=== PATIENT | female | born 1950 | race Caucasian/White ===

== ENCOUNTER 2016-12-24 12:23 | Inpatient (IN) | payer MEDICARE, OTHER ==
[2016-12-24] VITALS (33 sets, daily range): BP systolic 81–152; BP diastolic 46–76; PULSE 89–104; RESP 0–34; TEMP 98.2–98.4; O2SAT 82–100; Ht 167.6 cm; Wt 140.6 kg
[~2016-12-24] VITALS: Ht 167.6 cm; Wt 140.6 kg
[~2016-12-24 12:23] MED LIST: ATOR10TA64 PO; CEPH-583 PO; DOCU100C PO; DULO60CA25 PO; FERR-70 PO; FURO40TA5 PO; GABA-338 PO; HYDR-3989 PO; HYDR-4246 PO; INSU100V SQ; INSU100V8 SQ; LIRA0.6P SQ; LISI10TA7 PO; LOPE2TAB24 PO; MORP-5 PO; OXYB5TAB10 PO; POLY17PO6 PO; POTA-81 PO; ROPI1TAB12 PO; SENN8.6C5 PO; [UNRECOGNIZED DRUG - CODE] PO
--- NOTE | 2016-12-24 12:30 | NUR ---
PROVIDER Rubén GANNON SUPERINTENDENT DRILLING AND PRODUCTION IN TO SEE PATIENT.
--- OUTSIDE RECORDS SUMMARY | 2016-12-24 12:34 | XMS REPORT | Referral Summary ---
Author Author [facility] Organization [facility] Address Unknown Phone Unavailable Care Team Providers Care Keno Attendant Name Role Phone Juventino Galvin Primary Care Physician [phone] Encounter Date(s): 02/17/15 - 02/17/15 [facility] [address] [place], [place] [address] Discharge Disposition: 01-Home or Self Care Attending Physician: Ronni Schwartz MD Admitting Physician: Ronni Schwartz MD Referring Physician: Juaquin Clemente MD Vital Signs Most recent to 1 oldest [Reference Range]: Peripheral Pulse 72 bpm Rate [60-100 bpm] (02/17/15 8:52 AM) Blood Pressure 107/47 mmHg [90-140/60-90 mmHg] (02/17/15 8:52 AM) Problem List Condition Effective Dates Status Health Status Informant Acne(Confirmed) Active Acute Active pain(Confirmed) Allergic Active rhinitis/Hay Fever(Confirmed) Anxiety state, Active unspecified(Confirme d) At risk for activity Active intolerance(Confirme d)1 At risk for Active infection(Confirmed) 2 At risk of pressure Active sore(Confirmed) Back Active problems(Confirmed) Carpal tunnel Active syndrome left(Confirmed) Cervical Active radiculitis(Confirme d) Cervical Active radiculopathy(Confir med) Cervical spondylosis Active with myelopathy(Confirmed ) Constipation(Confirm Active ed) Depression(Confirmed Resolved ) Diabetes(Confirmed) Active Displacement of Active lumbar intervertebral disc without myelopathy (disorder)(Confirmed ) Muscular Active deconditioning(Confi rmed) Fibromyalgia(Confirm Resolved ed) Orthopedic Active aftercare(Confirmed) Orthopedic Active aftercare(Confirmed) Orthopedic Active aftercare(Confirmed) High Active cholesterol(Confirme d) Hyperlipidemia(Confi Resolved rmed) Hypertension(Confirm Resolved ed) Impaired 08/09/14 Active mobility(Confirmed)3 Impaired skin Active integrity(Confirmed) 4 Ear Active infection(Confirmed) Irregular heart Active rhythm(Confirmed) Low back pain Active (finding)(Confirmed) Lumbago(Confirmed) Active Lumbago(Confirmed) Active Lumbosacral Active spondylosis without myelopathy (disorder)(Confirmed ) Morbid Active patient obesity(Confirmed) Cervicalgia(Confirme Active d) Lumbar Active radiculitis(Confirme d) Lumbar Active radiculitis(Confirme d) Osteoarthritis(Confi Active rmed) Overweight(Confirmed Active ) Left lumbar Active radiculitis(Confirme d) Restless leg Active syndrome(Confirmed) Self -care Active deficit(Confirmed)5 Shoulder Active pain(Confirmed) Sinus Active infection(Confirmed) Sleep Active apnea(Confirmed) Spinal stenosis in Active cervical region(Confirmed) Spinal stenosis of Active lumbar region (disorder)(Confirmed ) Lumbar stenosis with Active neurogenic claudication(Confirm ed) Lumbar Active stenosis(Confirmed) Tension Active headache(Confirmed) Thoracic or Active lumbosacral neuritis or radiculitis(Confirme d) Tobacco Active patient user(Confirmed) Type 2 diabetes Resolved mellitus treated with insulin(Confirmed) Chicken Active pox(Confirmed) Difficulty Active walking(Confirmed) 1Problem added automatically by system based on initiation of At Risk for Activity Intolerance Plan of Care 2Problem added automatically by system based on initiation of At Risk for Infection in Nutrition Plan of Care 3Problem added by Discern Expert 4Problem added automatically by system based on initiation of Impaired Skin Integrity Plan of Care 5Problem added automatically by system based on initiation of Self Care Deficit Plan of Care Allergies, Adverse Reactions, Alerts No Known Allergies Medications acetaminophen 325 mg oral tablet mg tabs, Oral, q4hr, 0 Refill(s) Start Date: 06/07/15 Status: Ordered atorvastatin 10 mg oral tablet 10 mg 1 tabs, Oral, Bedtime (once a day), one refill only until seen by new PCP , # 30 tabs, 0 Refill(s), Pharmacy: [facility] [id number], 1 tabs Oral Bedtime (once a day),Instr:one refill only until seen by new PCP Start Date: 06/21/15 Status: Ordered BENGAY Arthritis topical cream See Instructions, APPLY TOPICALLY TO AFFECTED AREAS NEEDED., 0 Refill(s) Start Date: 06/07/15 Status: Ordered DULoxetine 60 mg oral delayed release capsule mg caps, Oral, Daily, 0 Refill(s) Start Date: 06/07/15 Status: Ordered ferrous sulfate 325 mg (65 mg elemental iron) oral tablet mg tabs, Oral, TID, 0 Refill(s) Start Date: 06/07/15 Status: Ordered Flonase 50 mcg/inh nasal spray 50 mcg 1 sprays, Nasal, BID, this fill only until seen by new PCP, # 1 Each, 0 Refill(s), Pharmacy: [facility] [id number] Start Date: 06/21/15 Status: Ordered gabapentin 300 mg oral capsule mg caps, Oral, QID, 0 Refill(s) Start Date: 06/07/15 Status: Ordered HumaLOG KwikPen 100 units/mL subcutaneous solution See Instructions, 25 UNITS SQ WITH MEALS, # 3 mL, 0 Refill(s) Start Date: 06/07/15 Status: Ordered Klor-Con M20 oral tablet, extended release mEq tabs, Oral, Daily, 0 Refill(s) Start Date: 06/07/15 Status: Ordered Lantus Solostar Pen 100 units/mL subcutaneous solution 10 units, SubCutaneous, Bedtime (once a day), # 3 mL, 0 Refill(s) Start Date: 06/07/15 Status: Ordered Lasix 40 mg oral tablet mg tabs, Oral, Daily, 0 Refill(s) Start Date: 06/07/15 Status: Ordered lisinopril 10 mg oral tablet 10 mg 1 tabs, Oral, Daily, this fill only till seen by new pcp, # 30 tabs, 0 Refill(s), Pharmacy: [facility] [id number], 1 tabs Oral Daily,Instr:this fill only till seen by new pcp Start Date: 06/22/15 Status: Ordered loperamide 2 mg oral tablet See Instructions, after each loose stool not to exceed 8 capsules, or 16 mg, in 24 hours, 0 Refill(s) Start Date: 06/07/15 Status: Ordered MiraLax oral powder for reconstitution 17 g, Oral, Daily, dissolve in water before taking, # 527 g, 0 Refill(s) Start Date: 06/07/15 Status: Ordered MS Contin 15 mg/12 hr oral tablet, extended release 15 mg 1 tabs, Oral, Bedtime (once a day), P[facility] FAX TO [facility] [phone], # 30 tabs, 0 Refill(s) Start Date: 08/23/15 Status: Ordered [place] 5 mg-325 mg oral tablet 1 tabs, Oral, q6hr, as needed for pain, FAX TO [facility]. ., # 120 tabs, 0 Refill(s) Start Date: 08/27/15 Status: Ordered oxybutynin 5 mg oral tablet mg tabs, Oral, TID, 0 Refill(s) Start Date: 06/07/15 Status: Ordered rOPINIRole 1 mg oral tablet See Instructions, TAKE 1 TABLET BY MOUTH THREE TIMES DAILY, # 90 tabs, 2 Refill( s), eRx: [facility] [id number], TAKE 1 TABLET BY MOUTH THREE TIMES DAILY Start Date: 06/18/15 Status: Ordered senna 8.6 mg oral tablet 17.2 mg 2 tabs, Oral, Bedtime (once a day), 0 Refill(s) Start Date: 06/07/15 Status: Ordered Skelaxin 800 mg oral tablet 800 mg 1 tabs, Oral, TID, as needed for pain, this rx only till seen by new PCP , # 60 tabs, 0 Refill(s), Pharmacy: [facility] [id number], 1 tabs Oral TID, PRN:as needed for pain,Instr:this rx only till seen by new PCP Start Date: 06/21/15 Stop Date: 06/21/16 Status: Ordered Victoza 18 mg/3 mL subcutaneous solution 1.2 mg, SubCutaneous, Daily, 0 Refill(s) Start Date: 06/07/15 Status: Ordered Vitamin D3 1,000 Intl_Units, Oral, Daily, 0 Refill(s) Start Date: 06/07/15 Status: Ordered Results No data available for this section Immunizations Vaccine Date Refusal Reason influenza virus vaccine, inactivated1 08/01/14 influenza virus vaccine, live 08/07/13 influenza virus vaccine, live 07/17/12 pneumococcal 23-polyvalent vaccine2 08/01/14 1Early/Late Reason: Nursing Judgment 2Early/Late Reason: Nursing Judgment Procedures Procedure Date Related Diagnosis Body Site Fusion Spine Lumbar Posterior1 02/22/15 L1-S1 Central and Lateral Recess 02/22/15 Decompression; L1-S1 Cj Foraminotomies2 Left L4-5/L5-S1 Transforaminal 12/29/14 Left L4-5/L5-S1 Transforaminal 09/24/14 Fusion of spine of cervical region3 08/05/14 Fusion Spine Cervical Anterior and Disce4 08/05/14 Left L4-5/L5-S1 05/26/14 Arthroplasty of knee5 delivery6 section CTR - Carpal tunnel release7 History of sinus surgery Knee replacement L Knee replacement R Reconstructive orthopedic procedure8 Surgery9 Tonsillectomy Total knee [id number] Tubal ligation 1auto-populated from documented surgical case 2L1-S1 Central/Lateral Recess Decompression w/ Cj Foraminotomies (32417); Each Addl (60290 X 5) ICD-9 Codes: 724.02; 724.03; 737.30 PO05/23/2015 3C3-4 ACDF 50642, 32039, 04304, 66543 Post op global ends 11/03/14 4auto-populated from documented surgical case 5bilateral 6x3 7left wrist 8To right hand x9 9Abdominal surgery revisions, multiple 10Rx2, Lx1 Social History Social History Type Response Smoking Status Former smoker; Type: Cigarettes; Number of years: 36 Assessment and Plan No data available for this section
--- OUTSIDE RECORDS SUMMARY | 2016-12-24 12:34 | XMS REPORT | Referral Summary ---
Author Author [facility] Organization [facility] Address Unknown Phone Unavailable Care Team Providers Care Transit Mixer Driver Name Role Phone Juventino Galvin Primary Care Physician [phone] Encounter VC Date(s): 03/29/15 - 03/29/15 [facility] [address] [place] [address] Discharge Disposition: 01-Home or Self Care Attending Physician: Gloria Urban APRN Admitting Physician: Gloria Urban APRN Vital Signs No data available for this section Problem List Condition Effective Dates Status Health [...] , # 30 tabs, 0 Refill(s), Pharmacy: [facility] [id number], 1 tabs Oral Bedtime (once a day),Instr:one [...] PCP, # 1 Each, 0 Refill(s), [facility] [id number] Start Date: 06/21/15 Status: Ordered gabapentin 300 [...] pcp, # 30 tabs, 0 Refill(s), [facility] [address], 1 tabs Oral Daily,Instr:this fill only till [...] Bedtime (once a day), PLEASE FAX TO [facility] [phone], # 30 tabs, 0 Refill(s) Start Date: 09/21/15 Status: Ordered [place] 5 mg-325 mg oral tablet 1 tabs, Oral, q6hr, as needed for pain, FAX TO [facility]. ., # 120 tabs, 0 Refill(s) Start Date: 08/27/15 Status: Ordered oxybutynin 5 mg oral tablet mg tabs, Oral, TID, 0 Refill(s) Start Date: 06/07/15 Status: Ordered rOPINIRole 1 mg oral tablet See Instructions, TAKE 1 TABLET BY MOUTH THREE TIMES DAILY, # 90 tabs, 2 Refill( s), eRx: [facility] [id number], TAKE 1 TABLET BY MOUTH THREE TIMES [...] , # 60 tabs, 0 Refill(s), Pharmacy: [facility] [id number], 1 tabs Oral TID, PRN:as needed for [...] Reconstructive orthopedic procedure8 Surgery9 Tonsillectomy Total knee [id number] Tubal ligation 1auto-populated from documented surgical case 2L1-S1 Central/Lateral Recess Decompression w/ Cj Foraminotomies (63970); Each Addl (91510 X 5) ICD-9 Codes: 724.02; 724.03; 737.30 PO05/23/2015 3C3-4 ACDF 55271, 34896, 98513, 06549 Post op global ends 11/03/14 4auto-populated from documented surgical case 5bilateral 6x3 7left wrist 8To right hand x9 9Abdominal surgery revisions, multiple 10Rx2, Lx1 Social History Social History Type Response Smoking Status Former smoker; Type: Cigarettes; Number of years: 36 Assessment and Plan No data available for this section
--- OUTSIDE RECORDS SUMMARY | 2016-12-24 12:34 | XMS REPORT | Referral Summary ---
Author Organization Unknown Address Unknown Phone Unavailable Care Team Providers Care Interpreter Translator Name Role Phone Juventino Galvin Primary Care Physician [phone] Encounter VC JW [id number] Date(s): 02/17/15 - 02/17/15 [facility] [place] [address] [place], [place] [address] Discharge Disposition: Home or Self Care Attending Physician: Ronni Schwartz MD Admitting Physician: Ronni Schwartz MD Vital Signs No data available for this [...] Muscular Active deconditioning(Confi rmed) Fibromyalgia(Confirm Resolved ed) High Active cholesterol(Confirme d) Hyperlipidemia(Confi Resolved rmed) Hypertension(Confirm Resolved ed) Impaired 08/09/14 Active mobility(Confirmed)3 Impaired skin Active integrity(Confirmed) 4 Ear Active infection(Confirmed) Irregular heart Active rhythm(Confirmed) Low back pain Active (finding)(Confirmed) Lumbago(Confirmed) Active Lumbosacral Active spondylosis without myelopathy (disorder)(Confirmed ) Cervicalgia(Confirme Active d) Lumbar Active radiculitis(Confirme d) Osteoarthritis(Confi Active [...] Allergies Medications acetaminophen 325 mg oral tablet 2 tabs, Oral, q4hr, Other (See Comment), 0 Refill(s) Start Date: 08/13/14 Status: Ordered atorvastatin 10 mg oral tablet 1 tabs, Oral, Bedtime (once a day), # 90 tabs, 0 Refill(s), Pharmacy: [facility] [id number], 1 tabs Oral Bedtime (once a day) Start Date: 09/28/14 Status: Ordered clonazePAM 0.5 mg oral tablet 1 tabs, Oral, BID, 0 Refill(s) Start Date: 02/16/15 Status: Ordered Colace 100 mg oral capsule 1 caps, Oral, BID, 0 Refill(s) Start Date: 08/13/14 Status: Ordered Ditropan 5 mg, Oral, Daily, 0 Refill(s) Start Date: 02/16/15 Status: Ordered doxycycline hyclate 100 mg oral capsule See Instructions, TAKE 1 CAPSULE (100MG) BY ORAL ROUTE EVERY 12 HOURS, # 60 unknown unit, eRx: [facility] [id number], TAKE 1 CAPSULE (100MG) BY ORAL ROUTE EVERY 12 HOURS Special Instructions: TAKE 1 CAPSULE (100MG) BY ORAL ROUTE EVERY 12 HOURS Start Date: 01/19/15 Status: Ordered DULoxetine 60 mg oral delayed release capsule See Instructions, 2 CAPS ORAL DAILY, # 60 caps, 2 Refill(s), Pharmacy: [facility] [id number], 2 CAPS ORAL DAILY Special Instructions: 2 CAPS ORAL DAILY Start Date: 01/26/15 Status: Ordered Effexor XR 75 mg oral capsule, extended release 1 caps, Oral, BID, # 30 caps, 0 Refill(s) Start Date: 02/15/15 Status: Ordered Flonase 50 mcg/inh nasal spray 1 sprays, Nasal, Daily, 0 Refill(s) Start Date: 08/13/14 Status: Ordered gabapentin 600 mg oral tablet 1 tabs, Oral, TID, # 270 tabs, 0 Refill(s), Pharmacy: [facility] [address] , 1 tabs Oral TID Start Date: 12/08/14 Status: Ordered HumaLOG 20 units, SubCutaneous, with dinner, 0 Refill(s) Special Instructions: with dinner Start Date: 02/15/15 Status: Ordered HumaLOG 20 units, SubCutaneous, with breakfast, 0 Refill(s) Special Instructions: with breakfast Start Date: 02/15/15 Status: Ordered HumaLOG 20 units, SubCutaneous, with lunch, 0 Refill(s) Special Instructions: with lunch Start Date: 02/15/15 Status: Ordered insulin isophane (NPH) 100 units/mL human recombinant subcutaneous suspension 30 units, SubCutaneous, BID, # 10 mL, 1 Refill(s), Pharmacy: [facility] [id number], 30 units SubCutaneous BID Start Date: 11/30/14 Status: Ordered Lasix 40 mg oral tablet 1 tabs, Oral, Daily, # 30 tabs, 2 Refill(s), Pharmacy: [facility] [address]79, 1 tabs Oral Daily Start Date: 12/18/14 Status: Ordered lisinopril 10 mg oral tablet 1 tabs, Oral, Daily, # 30 tabs, 2 Refill(s), Pharmacy: [facility] [id number], 1 tabs Oral Daily Start Date: 09/10/14 Status: Ordered MiraLax 17 g, Oral, Daily, Constipation, 0 Refill(s) Start Date: 08/13/14 Status: Ordered Miscellaneous DME DME Item 99-Lifetime use Bariatric Wheelchair with pedals DX: Gait abnormality 781.2 Back Pain: 724.5 Frequent Falls: V15.88, See Instructions, # 1 Each, 0 Refill(s), Supply Special Instructions: 99-Lifetime use Bariatric Wheelchair with pedals DX: Gait abnormality 781.2 Back Pain: 724.5 Frequent Falls: V15.88 Start Date: 08/21/14 Status: Ordered morphine 15 mg/12 hr oral tablet, extended release 1 tabs, Oral, BID, # 60 tabs, 0 Refill(s) Start Date: 01/25/15 Status: Ordered [place] 7.5 mg-325 mg oral tablet 1 tabs, Oral, TID, as needed for pain, # 90 tabs, 0 Refill(s) Start Date: 12/31/14 Status: Ordered potassium chloride 20 mEq oral tablet, extended release 2 tabs, Oral, qPM, # 60 tabs, 0 Refill(s) Start Date: 08/13/14 Status: Ordered rOPINIRole 1 mg oral tablet See Instructions, 1 TABS ORAL TID, # 90 tabs, eRx: [facility] [id number], 1 TABS ORAL TID Special Instructions: 1 TABS ORAL TID Start Date: 01/13/15 Status: Ordered Skelaxin 800 mg oral tablet 1 tabs, Oral, BID, 0 Refill(s) Start Date: 02/15/15 Status: Ordered Zetia 10 mg oral tablet 1 tabs, Oral, Daily, # 90 tabs, 0 Refill(s), Pharmacy: [facility] [id number], 1 tabs Oral Daily Start Date: 09/28/14 Status: Ordered Results No data available for this section Immunizations Vaccine Date Refusal Reason influenza virus vaccine, inactivated1 08/01/14 influenza virus vaccine, live 08/07/13 influenza virus vaccine, live 07/17/12 pneumococcal 23-polyvalent vaccine2 08/01/14 1Early/Late Reason: Nursing Judgment 2Early/Late Reason: Nursing Judgment Procedures Procedure Date Related Diagnosis Body Site Left L4-5/L5-S1 Transforaminal 12/29/14 Left L4-5/L5-S1 Transforaminal 09/24/14 Fusion of spine of cervical region1 08/05/14 Fusion Spine Cervical Anterior and Disce2 08/05/14 Left L4-5/L5-S1 05/26/14 Arthroplasty of knee3 delivery4 section CTR - Carpal tunnel release5 History of sinus surgery Knee replacement L Knee replacement R Reconstructive orthopedic procedure6 Surgery7 Tonsillectomy Total knee arthroplasty8 Tubal ligation 1C3-4 ACDF 42939, 19724, 70060, 56169 Post op global ends 11/03/14 2auto-populated from documented surgical case 3bilateral 4x3 5left wrist 6To right hand x9 7Abdominal surgery revisions, multiple 8Rx2, Lx1 Social History Social History Type Response Smoking Status Former smoker; Type: Cigarettes; Number of years: 36 Assessment and Plan No data available for this section
--- OUTSIDE RECORDS SUMMARY | 2016-12-24 12:34 | XMS REPORT | Referral Summary ---
Author Organization Unknown Address Unknown Phone Unavailable Care Team Providers Care Statement Services Representative Name Role Phone Juventino Galvin Primary Care Physician [phone] Encounter VC [facility]AL[facility] [id number] Date(s): 12/29/14 - 12/29/14 [facility] [place] [address] [place], [place] [address] Discharge Diagnosis: Lumbar back pain Discharge Diagnosis: Preoperative examination, unspecified Discharge Diagnosis: Thoracic or lumbosacral neuritis or radiculitis Discharge Diagnosis: Lumbar stenosis Discharge Disposition: Home or Self Care Attending Physician: Kody Perez MD Admitting Physician: Kody Perez MD Vital Signs Most recent to 1 oldest [Reference Range]: Peripheral Pulse 96 bpm Rate [60-100 bpm] (12/29/14 11:32 AM) Respiratory Rate 14 br/min [14-20 br/min] (12/29/14 11:32 AM) Blood Pressure 173/82 mmHg [90-140/60-90 mmHg] *HI* (12/29/14 11:32 AM) Most recent to 1 oldest [Reference Range]: SpO2 98 % (12/29/14 11:32 AM) Problem List Condition Effective Dates Status [...] without myelopathy (disorder)(Confirmed ) Cervicalgia(Confirme Active d) Osteoarthritis(Confi Active rmed) Overweight(Confirmed Active ) [...] or Active lumbosacral neuritis or radiculitis(Confirme d) Type 2 diabetes Resolved mellitus treated with [...] day), # 90 tabs, 0 Refill(s), Pharmacy: [facility] [address], 1 tabs Oral Bedtime (once a day) Start Date: 09/28/14 Status: Ordered Colace 100 mg oral capsule 1 caps, Oral, BID, 0 Refill(s) Start Date: 08/13/14 Status: Ordered DULoxetine 60 mg oral delayed release capsule See Instructions, 2 CAPS ORAL DAILY, # 60 caps, 2 Refill(s), eRx: [facility] [id number], 2 CAPS ORAL DAILY Special Instructions: 2 CAPS ORAL DAILY Start Date: 09/08/14 Status: Ordered Effexor XR 37.5 mg capsule,extended release See Instructions, TAKE 2 BY ORAL ROUTE EVERY DAY WITH FOOD, # 180 unknown unit, eRx: [facility] [id number], TAKE 2 BY ORAL ROUTE EVERY DAY WITH FOOD Special Instructions: TAKE 2 BY ORAL ROUTE EVERY DAY WITH FOOD Start Date: 10/07/14 Status: Ordered Effexor XR 75 mg oral capsule, extended release 1 caps, Oral, Daily, # 30 caps, 0 Refill(s) Start Date: 08/13/14 Status: Ordered Flonase 50 mcg/inh nasal spray 1 sprays, Nasal, Daily, 0 Refill(s) Start Date: 08/13/14 Status: Ordered gabapentin 600 mg oral tablet 1 tabs, Oral, TID, # 270 tabs, 0 Refill(s), Pharmacy: [facility] [id number] , 1 tabs Oral TID Start Date: 12/08/14 Status: Ordered HumaLOG 100 units/mL subcutaneous solution 27 units, SubCutaneous, With Breakfast, quantity suff on all insuliin, # 3 mL, 0 Refill(s) Special Instructions: quantity suff on all insuliin Start Date: 08/13/14 Status: Ordered HumaLOG 100 units/mL subcutaneous solution 23 units, SubCutaneous, With Lunch and Dinner, quantity suff on all insulin, # 3 mL, 0 Refill(s) Special Instructions: quantity suff on all insulin Start Date: 08/13/14 Stop Date: 09/12/14 Status: Ordered insulin isophane (NPH) 100 units/mL human recombinant subcutaneous suspension 30 units, SubCutaneous, BID, # 10 mL, 1 Refill(s), Pharmacy: [facility] 07341, 30 units SubCutaneous BID Start Date: 11/30/14 Status: Ordered Lantus 100 units/mL subcutaneous solution See Instructions, INJECT 50 UNITS SUBCUTANEOUS TWICE DAILY, # 90 mL, 2 Refill(s) , ALIZA, Pharmacy: [facility] [id number], INJECT 50 UNITS SUBCUTANEOUS TWICE DAILY Special Instructions: INJECT 50 UNITS SUBCUTANEOUS TWICE DAILY Start Date: 10/01/14 Status: Ordered Lasix 40 mg oral tablet 1 tabs, Oral, Daily, # 30 tabs, 2 Refill(s), Pharmacy: [facility] 17296, 1 tabs Oral Daily Start Date: 12/18/14 Status: Ordered lidocaine 5% topical film 1 patches, TransDermal, Daily, # 30 patches, 0 Refill(s) Start Date: 08/13/14 Status: Ordered lisinopril 10 mg oral tablet 1 tabs, Oral, Daily, # 30 tabs, 2 Refill(s), Pharmacy: [facility] 99156, 1 tabs Oral Daily Start Date: 09/10/14 [...] # 60 tabs, 0 Refill(s) Start Date: 12/22/14 Status: Ordered [place] 7.5 mg-325 mg oral tablet 1 tabs, Oral, TID, as needed for pain, # 90 tabs, 0 Refill(s) Start Date: 12/03/14 Status: Ordered potassium chloride 20 mEq oral tablet, extended release 2 tabs, Oral, qPM, # 60 tabs, 0 Refill(s) Start Date: 08/13/14 Status: Ordered rOPINIRole 1 mg oral tablet See Instructions, 1 TABS ORAL TID, # 90 tabs, 1 Refill(s), eRx: [facility] [id number], 1 TABS ORAL TID Special Instructions: 1 TABS ORAL TID Start Date: 11/05/14 Status: Ordered Skelaxin 800 mg oral tablet See Instructions, TAKE .5 -1 TAB. TID PRN MUST LAST 1 MONTH., # 30 tabs, 0 Refill(s), Pharmacy: [facility] [id number], TAKE .5 -1 TAB. TID PRN MUST LAST 1 MONTH. Special Instructions: TAKE .5 -1 TAB. TID PRN MUST LAST 1 MONTH. Start Date: 12/18/14 Stop Date: 01/15/15 Status: Ordered Zetia 10 mg oral tablet 1 tabs, Oral, Daily, # 90 tabs, 0 Refill(s), Pharmacy: [facility] [id number], 1 tabs Oral Daily Start Date: 09/28/14 Status: Ordered Results No data available for this section Immunizations Vaccine Date Refusal Reason influenza virus vaccine, inactivated1 08/01/14 influenza virus vaccine, live 08/07/13 influenza virus vaccine, live 07/17/12 pneumococcal 23-polyvalent vaccine2 08/01/14 1Early/Late Reason: Nursing Judgment 2Early/Late Reason: Nursing Judgment Procedures Procedure Date Related Diagnosis Body Site Injection(s), anesthetic agent and/or 12/29/14 steroid, transforaminal epidural, with imaging guidance (fluoroscopy or CT); lumbar or sacral, each additional level (List separately in addition to code for primary procedure) Injection(s), anesthetic agent and/or 12/29/14 steroid, transforaminal epidural, with imaging guidance (fluoroscopy or CT); lumbar or sacral, single level Left L4-5/L5-S1 Transforaminal 12/29/14 Left L4-5/L5-S1 Transforaminal 09/24/14 Fusion of spine of cervical region1 08/05/14 Fusion Spine Cervical Anterior and Disce2 08/05/14 Left L4-5/L5-S1 05/26/14 Arthroplasty of knee3 delivery4 section CTR - Carpal tunnel release5 History of sinus surgery Knee replacement L Knee replacement R Reconstructive orthopedic procedure6 Surgery7 Tonsillectomy Total knee arthroplasty8 Tubal ligation 1C3-4 ACDF 70055, 09468, 84258, 10757 Post op global ends 11/03/14 2auto-populated from documented surgical case 3bilateral 4x3 5left wrist 6To right hand x9 7Abdominal surgery revisions, multiple 8Rx2, Lx1 Social History Social History Type Response Smoking Status Former smoker; Type: Cigarettes; Number of years: 6 Assessment and Plan No data available for this section
--- OUTSIDE RECORDS SUMMARY | 2016-12-24 12:34 | XMS REPORT | Referral Summary ---
Author Author [facility] Medicine Organization [facility] Address Unknown Phone Unavailable Care Team Providers Care Pulverizer Mill Operator Name Role Phone Juventino Galvin Primary Care Physician [phone] Encounter VC Date(s): 05/31/15 - 05/31/15 [facility] [address] [place] [address] Discharge Disposition: 01-Home or Self Care Attending Physician: Milton Alamo APRN Admitting Physician: Milton Alamo APRN Vital Signs No data available for [...] , # 30 tabs, 0 Refill(s), Pharmacy: [id number], 1 tabs Oral Bedtime (once a day),Instr:one refill only until seen by new PCP Start Date: 11/22/15 Status: Ordered BENGAY Arthritis topical cream See Instructions, APPLY TOPICALLY TO AFFECTED AREAS NEEDED., 0 Refill(s) Start Date: 06/07/15 Status: Ordered Cymbalta 60 mg oral delayed release capsule 120 mg 2 caps, Oral, Daily, # 60 caps, 0 Refill(s), Pharmacy: [facility] [id number], 2 caps Oral Daily Start Date: 11/22/15 Status: Ordered docusate sodium 100 mg oral capsule 200 mg 2 caps, Oral, BID, as needed for constipation, with plenty of water, # 50 caps, 0 Refill(s), Pharmacy: [facility] [id number], 2 caps Oral BID,PRN: as needed for constipation,Instr:with plenty of water Start Date: 11/22/15 Status: Ordered DULoxetine 60 mg oral delayed release capsule mg caps, Oral, Daily, 0 Refill(s) Start Date: 06/07/15 Status: Ordered ferrous sulfate 325 mg (65 mg elemental iron) oral tablet 325 mg 1 tabs, Oral, BID, # 60 tabs, 0 Refill(s), Pharmacy: [facility] [id number], 1 tabs Oral BID Start Date: 11/22/15 Status: Ordered Flonase 50 mcg/inh nasal spray 50 mcg 1 sprays, Nasal, BID, this fill only until seen by new PCP, # 1 Each, 0 Refill(s), Pharmacy: [facility] [id number] Start Date: 06/21/15 Status: Ordered furosemide 40 mg oral tablet 40 mg 1 tabs, Oral, Daily, # 30 tabs, 0 Refill(s), Pharmacy: [facility] [id number], 1 tabs Oral Daily Start Date: 11/22/15 Status: Ordered gabapentin 300 mg oral capsule 600 mg 2 caps, Oral, QID, # 240 caps, 0 Refill(s), Pharmacy: [facility] [id number], 2 caps Oral QID Start Date: 11/22/15 Status: Ordered gabapentin 300 mg oral capsule mg caps, Oral, QID, 0 Refill(s) Start Date: 06/07/15 Status: Ordered HumaLOG KwikPen 100 units/mL subcutaneous solution See Instructions, 25 UNITS SQ WITH MEALS, # 10 mL, 0 Refill(s), Pharmacy: [facility] [id number], 25 UNITS SQ WITH MEALS Start Date: 11/22/15 Status: Ordered Klor-Con M20 oral tablet, extended release 40 mEq 2 tabs, Oral, Daily, # 60 tabs, 0 Refill(s), Pharmacy: [facility] [id number], 2 tabs Oral Daily Start Date: 11/22/15 Status: Ordered Lasix 40 mg oral tablet mg tabs, Oral, Daily, 0 Refill(s) Start Date: 06/07/15 Status: Ordered lisinopril 10 mg oral tablet 10 mg 1 tabs, Oral, Daily, this fill only till seen by new pcp, # 30 tabs, 0 Refill(s), Pharmacy: [facility] [id number], 1 tabs Oral Daily,Instr:this fill only till seen by new pcp Start Date: 11/22/15 Status: Ordered loperamide 2 mg oral tablet See Instructions, after each loose stool not to exceed 8 capsules, or 16 mg, in 24 hours, 0 Refill(s) Start Date: 06/07/15 Status: Ordered loperamide 2 mg oral tablet 2 mg 1 tabs, Oral, q4hr, Diarrhea/Loose Stools, # 24 tabs, 0 Refill(s), Pharmacy : [facility] [id number], 1 tabs Oral q4hr,PRN:Diarrhea/Loose Stools Start Date: 11/22/15 Status: Ordered MiraLax oral powder for reconstitution 17 g 17 g, Oral, Daily, Constipation, dissolve in water before taking, # 12 Each , 0 Refill(s), Pharmacy: [facility] [id number] Start Date: 11/22/15 Status: Ordered MS Contin 15 mg/12 hr oral tablet, extended release 15 mg 1 tabs, Oral, Bedtime (once a day), P[facility] FAX TO [facility] , # 30 tabs, 0 Refill(s) Start Date: 10/19/15 Status: Ordered [place] 5 mg-325 mg oral tablet 1 tabs, Oral, q4hr, as needed for pain, FAX TO [facility]. ., # 180 tabs, 0 Refill(s) Start Date: 11/08/15 Status: Ordered oxybutynin 5 mg oral tablet 5 mg 1 tabs, Oral, TID, # 90 tabs, 0 Refill(s), Pharmacy: [facility] [id number], 1 tabs Oral TID Start Date: 11/22/15 Status: Ordered rOPINIRole 1 mg oral tablet See Instructions, TAKE 1 TABLET BY MOUTH THREE TIMES DAILY, # 90 Each, 0 Refill( s), Pharmacy: [facility] [id number], TAKE 1 TABLET BY MOUTH THREE TIMES DAILY Start Date: 11/22/15 Status: Ordered senna 8.6 mg oral tablet 17.2 mg 2 tabs, Oral, Bedtime (once a day), # 60 tabs, 0 Refill(s), Pharmacy: [facility] [id number], 2 tabs Oral Bedtime (once a day) Start Date: 11/22/15 Status: Ordered Skelaxin 800 mg oral tablet 800 mg 1 tabs, Oral, TID, as needed for pain, this rx only till seen by new PCP , X 30 days, # 90 tabs, 0 Refill(s), Pharmacy: [facility] [id number], 1 tabs Oral TID,x30 days,PRN:as needed for pain,Instr:this rx only till seen by new PCP Start Date: 11/22/15 Stop Date: 12/22/15 Status: Ordered Victoza 18 mg/3 mL subcutaneous solution 1.2 mg, SubCutaneous, Daily, # 15 mL, 0 Refill(s), Pharmacy: [facility] [id number], 1.2 mg SubCutaneous Daily Start Date: 11/22/15 Status: Ordered Vitamin D3 1,000 Intl_Units, Oral, [...] Reconstructive orthopedic procedure8 Surgery9 Tonsillectomy Total knee [id number] Tubal ligation 1auto-populated from documented surgical case 2L1-S1 Central/Lateral Recess Decompression w/ Cj Foraminotomies (32638); Each Addl (08756 X 5) ICD-9 Codes: 724.02; 724.03; 737.30 PO05/23/2015 3C3-4 ACDF 18887, 22540, 26985, 89914 Post op global ends 11/03/14 4auto-populated from documented surgical case 5bilateral 6x3 7left wrist 8To right hand x9 9Abdominal surgery revisions, multiple 10Rx2, Lx1 Social History Social History Type Response Smoking Status Former smoker; Type: Cigarettes; Number of years: 37 Assessment and Plan No data available for this section
--- OUTSIDE RECORDS SUMMARY | 2016-12-24 12:35 | XMS REPORT | Referral Summary ---
Author Author [facility] Medicine Organization [facility] Address Unknown Phone Unavailable Care Team Providers Care Catalyst Recovery Operator Name Role Phone Juventino Galvin Primary Care Physician [phone] Encounter [facility] [id number] Date(s): 05/17/15 - 05/17/15 [facility] [address] [place] [address] Discharge Disposition: 01-Home or Self [...] , # 30 tabs, 0 Refill(s), Pharmacy: [id number], 1 tabs Oral Bedtime (once a day),Instr:one refill only until seen by new PCP Start Date: 11/22/15 Status: Ordered BENGAY Arthritis topical cream See Instructions, APPLY TOPICALLY TO AFFECTED AREAS NEEDED., 0 Refill(s) Start Date: 06/07/15 Status: Ordered Cipro 500 mg oral tablet 500 mg 1 tabs, Oral, q12hr, X 5 days, 0 Refill(s) Start Date: 11/24/15 Stop Date: 11/28/15 Status: Ordered Cymbalta 60 mg oral delayed release capsule 120 mg 2 caps, Oral, Daily, # 60 caps, 0 Refill(s), Pharmacy: [email or web address] 10286, 2 caps Oral Daily Start Date: 11/22/15 Status: Ordered docusate sodium 100 mg oral capsule 200 mg 2 caps, Oral, BID, as needed for constipation, with plenty of water, # 50 caps, 0 Refill(s), Pharmacy: [email or web address] 58903, 2 caps Oral BID,PRN: as needed for constipation,Instr:with plenty of water Start Date: 11/22/15 Status: Ordered DULoxetine 60 mg oral delayed release capsule mg caps, Oral, Daily, 0 Refill(s) Start Date: 06/07/15 Status: Ordered ferrous sulfate 325 mg (65 mg elemental iron) oral tablet 325 mg 1 tabs, Oral, BID, # 60 tabs, 0 Refill(s), Pharmacy: [email or web address] 34659, 1 tabs Oral BID Start Date: 11/22/15 Status: Ordered Flonase 50 mcg/inh nasal spray 50 mcg 1 sprays, Nasal, BID, this fill only until seen by new PCP, # 1 Each, 0 Refill(s), [id number] Start Date: 06/21/15 Status: Ordered furosemide 40 mg oral tablet 40 mg 1 tabs, Oral, Daily, # 30 tabs, 0 Refill(s), Pharmacy: [email or web address] 10206, 1 tabs Oral Daily Start Date: 11/22/15 Status: Ordered gabapentin 300 mg oral capsule 600 mg 2 caps, Oral, QID, # 240 caps, 0 Refill(s), Pharmacy: [email or web address] 51672, 2 caps Oral QID Start Date: 11/22/15 Status: Ordered gabapentin 300 mg oral capsule mg caps, Oral, QID, 0 Refill(s) Start Date: 06/07/15 Status: Ordered HumaLOG KwikPen 100 units/mL subcutaneous solution See Instructions, 25 UNITS SQ WITH MEALS, # 10 mL, 0 Refill(s), [id number], 25 UNITS SQ WITH MEALS Start Date: 11/22/15 Status: Ordered Klor-Con M20 oral tablet, extended release 40 mEq 2 tabs, Oral, Daily, # 60 tabs, 0 Refill(s), Pharmacy: [email or web address] 54661, 2 tabs Oral Daily Start Date: 11/22/15 Status: Ordered Lasix 40 mg oral tablet mg tabs, Oral, Daily, 0 Refill(s) Start Date: 06/07/15 Status: Ordered lisinopril 10 mg oral tablet 10 mg 1 tabs, Oral, Daily, this fill only till seen by new pcp, # 30 tabs, 0 Refill(s), Pharmacy: [email or web address] 72853, 1 tabs Oral Daily,Instr:this fill only till [...] # 24 tabs, 0 Refill(s), Pharmacy : [email or web address], 1 tabs Oral q4hr,PRN:Diarrhea/Loose Stools Start Date: 11/22/15 Status: Ordered MiraLax oral powder for reconstitution 17 g 17 g, Oral, Daily, Constipation, dissolve in water before taking, # 12 Each , 0 Refill(s), Pharmacy: [email or web address] Start Date: 11/22/15 Status: Ordered MS Contin 15 mg/12 hr oral tablet, extended release 15 mg 1 tabs, Oral, Bedtime (once a day), PLEASE FAX TO [facility] , # 30 tabs, 0 Refill(s) Start Date: 10/19/15 Status: Ordered [place] 5 mg-325 mg oral tablet 1 tabs, Oral, q4hr, as needed for pain, FAX TO [facility]. ., # 180 tabs, 0 Refill(s) Start Date: 11/08/15 Status: Ordered oxybutynin 5 mg oral tablet 5 mg 1 tabs, Oral, TID, # 90 tabs, 0 Refill(s), Pharmacy: [facility], 1 tabs Oral TID Start Date: 11/22/15 Status: Ordered rOPINIRole 1 mg oral tablet See Instructions, TAKE 1 TABLET BY MOUTH THREE TIMES DAILY, # 90 Each, 0 Refill( s), Pharmacy: [email or web address] [id number], TAKE 1 TABLET BY MOUTH THREE TIMES DAILY Start Date: 11/22/15 Status: Ordered senna 8.6 mg oral tablet 17.2 mg 2 tabs, Oral, Bedtime (once a day), # 60 tabs, 0 Refill(s), Pharmacy: [facility] 53964, 2 tabs Oral Bedtime (once a day) Start Date: 11/22/15 Status: Ordered Skelaxin 800 mg oral tablet 800 mg 1 tabs, Oral, TID, as needed for pain, this rx only till seen by new PCP , X 30 days, # 90 tabs, 0 Refill(s), Pharmacy: [email or web address] 79671, 1 tabs Oral TID,x30 days,PRN:as needed for pain,Instr:this rx only till seen by new PCP Start Date: 11/22/15 Stop Date: 12/22/15 Status: Ordered Victoza 18 mg/3 mL subcutaneous solution 1.2 mg, SubCutaneous, Daily, # 15 mL, 0 Refill(s), Pharmacy: [email or web address] 57037, 1.2 mg SubCutaneous Daily Start Date: 11/22/15 [...] Reconstructive orthopedic procedure8 Surgery9 Tonsillectomy Total knee [id number] Tubal ligation 1auto-populated from documented surgical case 2L1-S1 Central/Lateral Recess Decompression w/ Cj Foraminotomies (48208); Each Addl (47910 X 5) ICD-9 Codes: 724.02; 724.03; 737.30 PO05/23/2015 3C3-4 ACDF 09844, 15901, 86653, 70655 Post op global ends 11/03/14 4auto-populated from documented surgical case 5bilateral 6x3 7left wrist 8To right hand x9 9Abdominal surgery revisions, multiple 10Rx2, Lx1 Social History Social History Type Response Smoking Status Former smoker; Type: Cigarettes; Number of years: 36 Assessment and Plan No data available for this section
--- OUTSIDE RECORDS SUMMARY | 2016-12-24 12:35 | XMS REPORT | Referral Summary ---
Author Author [facility] Organization [facility] Address Unknown Phone Unavailable Care Team Providers Care Photolith Operator Name Role Phone Juventino Galvin Primary Care Physician [phone] Encounter [facility] Date(s): 03/16/15 - 03/16/15 [facility] [address] [place] [address] Discharge Disposition: 01-Home or Self Care Attending Physician: Maida Galvin MD Admitting Physician: Maida Galvin MD Vital Signs No data available for [...] , # 30 tabs, 0 Refill(s), Pharmacy: [facility] 09862, 1 tabs Oral Bedtime (once a day),Instr:one [...] PCP, # 1 Each, 0 Refill(s), Pharmacy: [facility] [id number] Start Date: 06/21/15 Status: Ordered gabapentin 300 [...] pcp, # 30 tabs, 0 Refill(s), [facility], 1 tabs Oral Daily,Instr:this fill only till [...] Bedtime (once a day), PLEASE FAX TO [facility] , # 30 tabs, 0 Refill(s) Start Date: 09/21/15 Status: Ordered [place] 5 mg-325 mg oral tablet 1 tabs, [...] # 90 tabs, 2 Refill( s), [facility]Rx: [facility] 41463, TAKE 1 TABLET BY MOUTH THREE TIMES [...] , # 60 tabs, 0 Refill(s), Pharmacy: [facility] 36590, 1 tabs Oral TID, PRN:as needed for [...] Reconstructive orthopedic procedure8 Surgery9 Tonsillectomy Total knee [id number] Tubal ligation 1auto-populated from documented surgical case 2L1-S1 Central/Lateral Recess Decompression w/ Cj Foraminotomies (19707); Each Addl (32344 X 5) ICD-9 Codes: 724.02; 724.03; 737.30 PO05/23/2015 3C3-4 ACDF 09940, 83101, 79031, 85374 Post op global ends 11/03/14 4auto-populated from documented surgical case 5bilateral 6x3 7left wrist 8To right hand x9 9Abdominal surgery revisions, multiple 10Rx2, Lx1 Social History Social History Type Response Smoking Status Former smoker; Type: Cigarettes; Number of years: 37 Assessment and Plan No data available for this section
--- OUTSIDE RECORDS SUMMARY | 2016-12-24 12:35 | XMS REPORT | Continuity of Care Document ---
Author Author [facility] Organization [facility] Address Unknown Phone Unavailable Support Name Relationship Address Phone NILA WEI MD Caregiver [address] [place] [address] EUGENE PASCUAL MD Caregiver [address] [place], [place] [phone] DHEERAJ LEONARD MD Caregiver [address] [place], [place] [phone] PASCALE MARTIN Next Of Kin [address] [place], [place] [phone] Insurance Providers Payer Name Policy Number Subscriber Name Relationship Medicare [id number] Meryl Cotton 18 Self [id number] Meryl Cotton 18 Self Advance Directives Directive Response Recorded Date/Time Advanced Directives Type None 08/26/14 9:27am Problems Medical Problems Problem Onset Date Status Chronic pain Unknown Active Generalized weakness Unknown Active Cervical stenosis of spine Unknown Active Chronic pain Unknown Active Generalized weakness Unknown Active Back pain Unknown Active Spinal stenosis Unknown Active Abrasion Unknown Active Skin tear of female genital tract Unknown Active Hemorrhoids Unknown Active Medications Medication Dose Route Sig Days/Qty Instructions Order Date Discontinued Date Status Insulin Lispro 50 U SQ THREE TIMES A DAY 02/08/10 Active Insulin Glargine 60 U SQ TWICE A DAY 02/08/10 Active Cholecalciferol 1,000 Unit PO DAILY 02/08/10 04/27/11 Discontinued Hydrocodone Bit/Acetaminophen 1 Tab PO THREE TIMES A DAY 02/08/10 Active Duloxetine Hcl 120 Mg PO DAILY 02/08/10 Active Morphine Sulfate 15 Mg PO TWICE A DAY 02/08/10 Active Metaxalone 800 Mg PO NEEDED 02/08/10 Active Potassium Chloride 20 Meq PO 4 TABS IN AM;3 IN PM 02/08/10 Active Hydrocortisone Acetate 25 Mg RC NEEDED 08/23/09 12/27/09 Discontinued Furosemide 40 Mg PO TWICE A DAY 02/08/10 Active Metolazone 5 Mg PO DAILY 02/08/10 04/27/11 Discontinued Amlodipine Besylate 2.5 Mg PO DAILY 02/08/10 04/27/11 Discontinued Atorvastatin Calcium 40 Mg PO BEDTIME 02/08/10 Active Ropinirole Hcl 1 Mg PO BEDTIME 02/08/10 Active Benazepril Hcl 10 Mg PO DAILY 02/08/10 04/27/11 Discontinued Hydroxychloroquine Sulfate 200 Mg PO TWICE A DAY 08/23/09 12/24/09 Discontinued Gabapentin 300 Mg PO TWICE A DAY 02/08/10 Active Quetiapine Fumarate 300 Mg PO TWICE A DAY 08/23/09 12/24/09 Discontinued Folic Acid 1 Mg PO DAILY 02/08/10 04/27/11 Discontinued Tetracycline Hcl 250 Mg PO DAILY 12/27/09 01/25/10 Discontinued Multivitamins 1 Tab.chew PO DAILY 12/27/09 01/25/10 Discontinued Aspirin 81 Mg PO DAILY 02/08/10 Active Meloxicam 15 Mg PO DAILY 12/24/09 12/24/09 Discontinued Magnesium Oxide 400 Mg PO DAILY 02/08/10 04/27/11 Discontinued Spironolactone 25 Mg PO DAILY 04/27/11 Active Hydroxychloroquine Sulfate 200 Mg PO TWICE A DAY 04/27/11 Active Social History Social History Problem Response Recorded Date/Time Smoking Status Unknown if ever smoked 08/26/2014 9:41am Hx Substance Use No 08/26/2014 9:41am Hx Alcohol Use No 08/26/2014 9:41am Hospital Discharge Instructions No hospital discharge instructions. Plan of Care No plan of care. Functional Status Query Response Date Recorded Physical Hygiene Self August 26, 2014 9:41am Disabilities Paralysis August 26, 2014 9:41am Devices Used Wheelchair August 26, 2014 9:41am Dressing Self August 26, 2014 9:41am Ambulation Assist August 26, 2014 9:41am Diet Self August 26, 2014 9:41am Mental Status Alert Oriented August 26, 2014 10:00am Disabilities Paralysis August 26, 2014 9:41am Devices Used Wheelchair August 26, 2014 9:41am Physical Hygiene Self August 26, 2014 9:41am Dressing Self August 26, 2014 9:41am Ambulation Assist August 26, 2014 9:41am Diet Self August 26, 2014 9:41am Allergies, Adverse Reactions, Alerts Allergen Type Severity Reaction Status Last Updated No Known Drug Allergies Allergy Unknown Active 07/31/14 Immunizations Name Given Type Hx Influenza Vaccination Y 10/2009 Historical Hx Pneumococcal Vaccination Y 5 YRS AGO Historical Hx Influenza Vaccination Y 10/2009 Historical Vital Signs Acute Vital Signs Vital Response Date/Time Temperature (Fahrenheit) 98.6 deg F (96.8 - 99.1) Temperature (Calculated Celsius) 37.06363 degrees C (36.0 - 37.3) Pulse Rate (adult) 78 bpm (60 - 100) Respiratory Rate 18 breaths/min (10 - 20) O2 Sat by Pulse Oximetry 94 % (90 - 100) Blood Pressure 169/79 mm Hg Height 5 ft 6 in Weight 302 lb Body Mass Index 48.0 kg/m^2 Results Test Source Date Result Interp. Ref. Range Comments Alanine Aminotransferase (ALT/SGPT) July 31, 2014 4:50pm 32 U/L N 9- 52 Albumin July 31, 2014 4:50pm 3.6 G/DL N 3.5-5.0 Albumin/Globulin Ratio July 31, 2014 4:50pm 1.3 RATIO N 1.1-2.2 Alkaline Phosphatase July 31, 2014 4:50pm 95 U/L N 38-126 Anion Gap July 31, 2014 4:50pm 9 MEQ/L N 5-15 Aspartate Amino Transf (AST/SGOT) July 31, 2014 4:50pm 31 U/L N 14- 36 BUN/Creatinine Ratio July 31, 2014 4:50pm 24 RATIO N 6-26 Basophils # (Auto) July 31, 2014 4:53pm 0.0 T/MM3 N 0-0.2 Basophils (%) (Auto) July 31, 2014 4:53pm 0.4 % N 0-2 Blood Urea Nitrogen July 31, 2014 4:50pm 19.0 MG/DL H 7-17 Calcium Level July 31, 2014 4:50pm 9.8 MG/DL N 8.4-10.2 Calculated Osmolality July 31, 2014 4:50pm 279 MOSM/KG N 261-280 Carbon Dioxide Level July 31, 2014 4:50pm 26 MEQ/L N 22-30 Chloride Level July 31, 2014 4:50pm 107 MEQ/L N 98-107 Creatinine July 31, 2014 4:50pm 0.8 MG/DL DN 0.7-1.2 Eosinophils # (Auto) July 31, 2014 4:53pm 0.1 T/MM3 N 0-0.5 Eosinophils (%) (Auto) July 31, 2014 4:53pm 0.6 % N 0-4 Globulin July 31, 2014 4:50pm 2.8 G/DL N 2.4-3.6 Glucose Level July 31, 2014 4:50pm 167 MG/DL H 65-110 Hematocrit July 31, 2014 4:53pm 37.1 % N 36-46 Hemoglobin July 31, 2014 4:53pm 11.8 GM/DL L 12-16 Lymphocytes # (Auto) July 31, 2014 4:53pm 1.5 T/MM3 N 1-4.8 Lymphocytes # (Manual) August 26, 2009 5:35am 2.0 T/MM3 N 1-4.8 Lymphocytes % (Manual) August 26, 2009 5:35am 18.0 % L 23-45 Lymphocytes (%) (Auto) July 31, 2014 4:53pm 16.6 % L 23-45 Magnesium Level August 25, 2009 5:35am 1.3 MG/DL L 1.6-2.3 Mean Corpuscular Hemoglobin July 31, 2014 4:53pm 28.7 UUG N 26-34 Mean Corpuscular Hemoglobin Concent July 31, 2014 4:53pm 31.8 GM/DL N 31-37 Mean Corpuscular Volume July 31, 2014 4:53pm 90.3 UM3 N 80-100 Mean Platelet Volume July 31, 2014 4:53pm 9.4 UM3 N 9.4-12.4 Monocytes # (Auto) July 31, 2014 4:53pm 0.7 T/MM3 N 0-0.8 Monocytes (%) (Auto) July 31, 2014 4:53pm 8.2 % N 0-9.0 Neutrophils # (Auto) July 31, 2014 4:53pm 6.6 T/MM3 N 1.8-7.7 Neutrophils # (Manual) August 26, 2009 5:35am 9.3 T/MM3 H 1.8-7.7 Neutrophils % (Manual) August 26, 2009 5:35am 82.0 % H 33-66 Neutrophils (%) (Auto) July 31, 2014 4:53pm 74.0 % H 33-66 Platelet Count July 31, 2014 4:53pm 228 T/MM3 N 130-400 Potassium Level July 31, 2014 4:50pm 4.2 MEQ/L N 3.6-5 Prothromb Time International Ratio September 04, 2009 11:39am 1.74 H 0.79 -1.23 THERAPUTIC RANGE=2.00-3.00 FOR ANTI-THROMBOSIS THERAPUTIC RANGE=2.50- 3.50 FOR IMPLANTED VALVE RDW Standard Deviation July 31, 2014 4:53pm 47.3 FL N 36.9-50.2 Red Blood Count July 31, 2014 4:53pm 4.11 M/MM3 N 4.00-5.20 Sodium Level July 31, 2014 4:50pm 142 MEQ/L N 134-144 Total Bilirubin July 31, 2014 4:50pm 0.50 MG/DL N 0.20-1.30 Total Creatine Kinase July 31, 2014 4:50pm 392 U/L H 30-135 Total Protein July 31, 2014 4:50pm 6.4 G/DL N 6.3-8.2 Troponin I July 31, 2014 3:50am 0.023 ng/ml N 0-0.12 Urine Amorphous Urates July 31, 2014 5:00am Few - Has specimen been collected/obtained? Y Urine Bacteria July 31, 2014 5:00am None seen - Has specimen been collected/obtained? Y Urine Bilirubin July 31, 2014 5:00am Negative - Has specimen been collected/obtained? Y Urine Blood July 31, 2014 5:00am 1+ H - Has specimen been collected/ obtained? Y Urine Collection Type July 31, 2014 5:00am Straight cath - Has specimen been collected/obtained? Y Urine Color July 31, 2014 5:00am Yellow - Has specimen been collected/obtained? Y Urine Glucose (UA) July 31, 2014 5:00am Trace H - Has specimen been collected/obtained? Y Urine Ketones July 31, 2014 5:00am Negative - Has specimen been collected/obtained? Y Urine Leukocyte Esterase July 31, 2014 5:00am Negative - Has specimen been collected/obtained? Y Urine Mucus July 31, 2014 5:00am Present - Has specimen been collected/obtained? Y Urine Nitrite July 31, 2014 5:00am Negative - Has specimen been collected/obtained? Y Urine Protein July 31, 2014 5:00am 2+ H - Has specimen been collected/obtained? Y Urine RBC July 31, 2014 5:00am None seen /HPF - Has specimen been collected/obtained? Y Urine Specific [place] July 31, 2014 5:00am 1.025 - Has specimen been collected/obtained? Y Urine Turbidity July 31, 2014 5:00am Clear - Has specimen been collected/obtained? Y Urine Urobilinogen July 31, 2014 5:00am 0.2 EU/DL - Has specimen been collected/obtained? Y Urine WBC July 31, 2014 5:00am 0-1 /HPF - Has specimen been collected/obtained? Y Urine pH July 31, 2014 5:00am 5.5 - Has specimen been collected/ obtained? Y White Blood Count July 31, 2014 4:53pm 9.0 T/MM3 N 4.5-11.0 Chemistry Specimen Hemolysis July 31, 2014 4:50pm 19 N 0-25 0-25: No Hemolysis.26-70: Slight Hemolysis - can falsely elevate K and Urine Protein. 71-285: Moderate Hemolysis - can falsely elevate K, Troponin I, CA 19-9, PTH, CSF GLucose, and Urine Protein, and can falsely decrease Phenytoin. 286-999: Gross Hemolysis - can falsely elevate K, Troponin I, CA 19-9, PTH, CSF Glucose, and Urine Protine, and can falsely decrease Phenytoin. Recommend specimen recollection. Glucometer April 28, 2011 8:16am 156 mg/dL H 65-110 Lab Scanned Report September 05, 2009 7:05am LAB TEST FORM REQUEST [id number] - Turbidity July 31, 2014 4:50pm < 20 0-20 Glomerular Filtration Rate Calc July 31, 2014 4:50pm 73 - Immature Granulocyte # (Auto) July 31, 2014 4:53pm 0.02 T/MM3 N 0.00- 0.03 Immature Granulocyte % (Auto) July 31, 2014 4:53pm 0.2 % N 0.0-0.5 Icterus Index July 31, 2014 4:50pm < 2 0-7 Gram Stain Knee, Intraoperative Site-Right August 23, 2009 8:39am Name: MERYL COTTON Unit #: [id number] : [id number] Sex: F Loc / Svc: ED DOS: 07/31/14 Signed Report #: [id number] DIAGNOSTIC IMAGING REPORT TYPE OF EXAM: CT HEAD W/O CONTRAST Dictated By: TYRONE LANDRY MD INDICATION: ITS.REASON: falls / weakness / altered mental status CT HEAD W/O CONTRAST: Comparison: None Technique: Axial CT images through the head were performed without contrast. FINDINGS: The ventricles are of normal size, shape, and contour for the patient 's age. There are scattered areas of low attenuation in the white matter which most likely represent changes from chronic microvascular ischemia. The brainstem, cerebellum, and cerebral hemispheres otherwise have a normal morphology and CT attenuation. There is no evidence of midline displacement. No hemorrhage , signs of acute territorial stroke, mass effect, mass lesions, or edema is evident. Hyperostosis frontalis interna noted. The paranasal sinuses are well aerated and free of significant disease. The tympanic and mastoid cavities appear normal. IMPRESSION: No acute intracranial abnormality or hemorrhage. There is a preliminary report by virtual radiologic. . Procedures Procedure Status Date Provider(s) THER/PROPH/DIAG INJ IV PUSH completed 07/31/14 THER/PROPH/DIAG INJ IV PUSH completed 07/31/14 Encounters Encounter Location Date/Time Departed Emergency Room [facility] 08/26/14 9:25am Departed Emergency Room [facility] 07/31/14 4:05pm Departed Emergency Room [facility] 07/31/14 3:40am Recent Diagnosis
--- OUTSIDE RECORDS SUMMARY | 2016-12-24 12:35 | XMS REPORT | Referral Summary ---
Author Author [facility] Organization [facility] Address Unknown Phone Unavailable Care Team Providers Care Forensic Dna Analyst Name Role Phone Juventino Galvin Primary Care Physician [phone] Encounter VC Date(s): 09/14/15 - 09/14/15 [facility] [address] [place] [address] [place] [address] Discharge Disposition: 01-Home or Self Care Attending Physician: Anson Aguirre JR, MD Admitting Physician: Anson Aguirre JR, MD Vital Signs Most recent to 1 oldest [Reference Range]: Peripheral Pulse 80 bpm Rate [60-100 bpm] (09/14/15 2:34 PM) Blood Pressure 128/60 mmHg [90-140/60-90 mmHg] (09/14/15 2:34 PM) Problem List Condition Effective Dates Status Health [...] Hyperlipidemia(Confi Resolved rmed) Hypertension(Confirm Resolved ed) Impaired 10/19/14 Active mobility(Confirmed)3 Impaired skin Active integrity(Confirmed) 4 [...] , # 30 tabs, 0 Refill(s), Pharmacy: [id number], 1 tabs Oral Bedtime (once a day),Instr:one [...] PCP, # 1 Each, 0 Refill(s), Pharmacy: [id number] Start Date: 06/21/15 Status: Ordered gabapentin 300 [...] pcp, # 30 tabs, 0 Refill(s), Pharmacy: [facility] [id number], 1 tabs Oral Daily,Instr:this fill only till [...] Bedtime (once a day), PLEASE FAX TO [facility] , # 30 tabs, 0 Refill(s) Start Date: 08/23/15 Status: Ordered [place] 5 mg-325 mg oral tablet 1 tabs, Oral, q6hr, as needed for pain, [facility] ., # 120 tabs, 0 Refill(s) Start Date: 08/27/15 Status: Ordered oxybutynin 5 mg oral tablet mg tabs, Oral, TID, 0 Refill(s) Start Date: 06/07/15 Status: Ordered rOPINIRole 1 mg oral tablet See Instructions, TAKE 1 TABLET BY MOUTH THREE TIMES DAILY, # 90 tabs, 2 Refill( s), eRx: [facility] [id number], TAKE 1 TABLET BY MOUTH THREE TIMES [...] , # 60 tabs, 0 Refill(s), Pharmacy: [facility] [id number], 1 tabs Oral TID, PRN:as needed for [...] Reconstructive orthopedic procedure8 Surgery9 Tonsillectomy Total knee [id number] Tubal ligation 1auto-populated from documented surgical case 2L1-S1 Central/Lateral Recess Decompression w/ Cj Foraminotomies (71055); Each Addl (71479 X 5) ICD-9 Codes: 724.02; 724.03; 737.30 PO05/23/2015 3C3-4 ACDF 77600, 47796, 86331, 73042 Post op global ends 11/03/14 4auto-populated from documented surgical case 5bilateral 6x3 7left wrist 8To right hand x9 9Abdominal surgery revisions, multiple 10Rx2, Lx1 Social History Social History Type Response Smoking Status Former smoker; Type: Cigarettes; Number of years: 36 Assessment and Plan No data available for this section
--- OUTSIDE RECORDS SUMMARY | 2016-12-24 12:36 | XMS REPORT | Referral Summary ---
Author Author [facility] Organization [facility] Address Unknown Phone Unavailable Care Team Providers Care Boat Cleaning Supervisor Name Role Phone Juventino Galvin Primary Care Physician [phone] Encounter VC Date(s): 05/08/15 - 05/08/15 [facility] [address] [place] [address] Discharge Disposition: 01-Home or Self [...] Pharmacy: [id number], 1 tabs Oral Bedtime (once a day),Instr:one [...] PCP, # 1 Each, 0 Refill(s), [facility]acy: [id number] Start Date: 06/21/15 Status: Ordered gabapentin 300 [...] pcp, # 30 tabs, 0 Refill(s), Pharmacy: [id number], 1 tabs Oral Daily,Instr:this fill only till [...] PLEASE FAX TO [facility] , # 30 tabs, 0 Refill(s) Start Date: 10/19/15 Status: Ordered [place] 5 mg-325 mg oral tablet 1 tabs, [...] # 90 tabs, 2 Refill( s), eRx: [id number], TAKE 1 TABLET BY MOUTH THREE TIMES [...] , # 60 tabs, 0 Refill(s), Pharmacy: [facility] [id number], 1 tabs Oral TID, PRN:as needed for [...] Reconstructive orthopedic procedure8 Surgery9 Tonsillectomy Total knee [id number] Tubal ligation 1auto-populated from documented surgical case 2L1-S1 Central/Lateral Recess Decompression w/ Cj Foraminotomies (58610); Each Addl (99094 X 5) ICD-9 Codes: 724.02; 724.03; 737.30 PO05/23/2015 3C3-4 ACDF 30235, 52823, 43330, 02067 Post op global ends 11/03/14 4auto-populated from documented surgical case 5bilateral 6x3 7left wrist 8To right hand x9 9Abdominal surgery revisions, multiple 10Rx2, Lx1 Social History Social History Type Response Smoking Status Former smoker; Type: Cigarettes; Number of years: 36 Assessment and Plan No data available for this section
--- OUTSIDE RECORDS SUMMARY | 2016-12-24 12:36 | XMS REPORT | Continuity of Care Document ---
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 Spinal stenosis of lumbar region - *Symptomatic Radiculitis, Thoracic or Lumbar - *Symptomatic DMII WO CMP UNCNTRLD - ANXIETY STATE NOS - BENIGN HYPERTENSION - OSTEOARTHROS NOS-HAND - SLEEP APNEA NOS - Diabetes Mellitus Type 2, Uncomplicated - *Chronic Wound of left leg - *Acute Diabetes Mellitus, Adult Onset, Uncontrolled - *Chronic Other psoriasis and similar disorders - *Chronic Cervicalgia - *Chronic Hypertension, Benign - *Chronic Grief - *Acute Back pain - *Chronic Diabetes Mellitus Type 2, Uncomplicated - *Chronic Diabetes Mellitus Type 2, Uncomplicated - *Chronic Diabetes Mellitus Type 2, Uncomplicated - Chronic 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 - *Symptomatic Lumbosacral spondylosis without myelopathy - *Symptomatic Radiculitis, Thoracic or Lumbar - *Symptomatic Preventive measure - *Routine Leg ulcer, left - *Acute DM type 2 (diabetes mellitus, type 2) - *Chronic Cellulitis - *Acute - Acute nasopharyngitis (common cold) - *Acute Cough - *Acute Diabetes Mellitus Type 2, Uncomplicated - *Chronic Diabetes Mellitus Type 2, Uncomplicated - Chronic Influenza Vaccine - Diabetes, type 2, uncontrolled - *Chronic Hypertension, unspecified - *Chronic Back pain - *Chronic Hypertension, Unspecified - *Chronic Preventive measure - *Chronic Neck pain - *Chronic Hypertension, Benign - *Chronic Diabetes Mellitus Type 2, Uncomplicated - *Chronic Osteoarthrosis, unspecified whether generalized or localized, involving hand - *Chronic Sleep Apnea - *Chronic Psoriasis - *Chronic Sjogren's disease - *Chronic Fibromyalgia - *Chronic Back pain - *Chronic Knee pain - *Acute Pain in joint involving lower leg - *Acute Depression - *Chronic Diabetes Mellitus, Adult Onset, Uncontrolled - *Chronic Eczema - *Chronic Other and unspecified hyperlipidemia - *Chronic Diabetes Mellitus Type 2, Uncomplicated - *Chronic Diabetes Mellitus Type 2, Uncomplicated - Chronic Hypertension, Benign - *Poor control Diabetes Mellitus Type 2, Uncomplicated - *Chronic Diabetes Mellitus Type 2, Uncomplicated - Chronic Diabetes Mellitus Type 2, Uncomplicated - *Chronic Diabetes Mellitus Type 2, Uncomplicated - Chronic Incontinence - *Acute Back pain - *Acute Extremity numbness - *Acute Diabetes Mellitus Type 2, Uncomplicated - *Chronic Diabetes Mellitus Type 2, Uncomplicated - Chronic Family History Family Member Diagnosis Age At Onset Status Paternal grandmother (Unknown) High Blood Pressure Yes Sister (Unknown) Hay Fever Yes Mother (Unknown) Diabetes Yes Maternal grandmother (Unknown) High Blood Pressure Yes Father (Unknown) High Blood Pressure Yes Aunt (Unknown) Cancer Yes Mother (Unknown) Allergies Yes Sister (Unknown) Allergies Yes Paternal grandfather (Unknown) High Blood Pressure Yes Paternal grandfather (Unknown) High Blood Pressure Yes Son (Unknown) Diabetes Yes Sister (Unknown) Diabetes Yes Maternal grandmother (Unknown) Cancer Yes Daughter (Unknown) Diabetes Yes Sister (Unknown) High Blood Pressure Yes Paternal grandfather (Unknown) COPD Yes Mother (Unknown) Hay Fever Yes Mother (Unknown) High Cholesterol Yes Sister (Unknown) High Cholesterol Yes Maternal grandmother (Unknown) Diabetes Yes Daughter (Unknown) Asthma Yes Paternal grandmother (Unknown) COPD Yes Mother (Unknown) High Blood Pressure Yes Social History Social History Element Description Quantity Unknown Allergies, Adverse Reactions, Alerts Substance Reaction Severity Status Unknown Medications Medication Instructions Dosage Effective Dates (start - stop) Status insulin syringe-needle U-100 1 mL 28 x 1/2" USE WITH INSULIN - Active ibuprofen 200 mg tablet take 1 tablet (200MG) by oral route every day as needed with food 200 MG - Active multivitamin tablet take 1 Tablet by Oral route every day 0 - Active eulgccjht-uyfelgq-xvqza acid 400 mg-200 mg-1 mg tablet takes 1 daily - Active FISH OIL (unknown strength) daily - Active Lipitor 40 mg tablet Take one tablet by mouth at bedtime. - Active Evoxac 30 mg capsule ONE TABLET BY MOUTH 2 TIMES DAILY - Active Zetia 10 mg tablet Take 1 tablet by mouth every day. - Active Flonase 50 mcg/actuation nasal spray,suspension One to two sprays each nostril daily. - Active furosemide 80 mg tablet Take 1 tablet by mouth twice a day. - Active gabapentin 300 mg capsule Take 1 capsule by mouth 3 times a day. 2012 - Active Glucovance 5 mg-500 mg tablet Take 1 tablet by mouth twice a day. 2012 - Active hydroxychloroquine 200 mg tablet ONE TABLET BY MOUTH 2 TIMES A DAY 2012 - Active Skelaxin 800 mg tablet TAKE 1 TABLET EVERY 8 HOURS NEEDED. - Active spironolactone 25 mg tablet Take 1 tablet by mouth twice a day. 2012 - Active clobetasol 0.05 % topical cream apply by topical route 2 times every week a thin layer to the affected area(s) 0 - Active FreeStyle Test strips Use to test blood sugars 4 times every day, for diabetes DX:250.02 - Active Lidoderm 5 % (700 mg/patch) adhesive patch Apply to affected area up to 12 hours per 24-hour period. Max 3 patches applied per day. - Active Humalog 100 unit/mL subcutaneous solution inject 20 units by Subcutaneous route every meal 0 - Active lisinopril 10 mg tablet take 1 tablet (10MG) by oral route every day 10 MG - Active Effexor XR 37.5 mg capsule,extended release take 2 by Oral route every day with food 0 - Active potassium chloride ER 20 mEq tablet,extended release(part/cryst) take 1 tablet (20MEQ) by oral route 7 times every day 20 MEQ - Active Requip 1 mg tablet Take 1 tab PO qday. - Active Modoc 7.5 mg-325 mg tablet Take 1 tablet by mouth 3 times a day. Must last 30 days. - Active MS Contin 15 mg tablet,extended release Take 1 tablet by mouth twice a day. - Active doxycycline hyclate 100 mg capsule take 1 capsule (100MG) by oral route every 12 hours 100 MG - Active fluoxetine 20 mg capsule take 1 capsule (20MG) by oral route every day in the morning 20 MG - Active Immunizations Vaccine Date Status Comments Flu (split) (3 yrs or older) completed Fluzone HD 0.5 completed Results Test Name Date and Time Measure Units Reference Range Abnormal Flag Comments Unknown Vital Signs Date / Time: Height Weight Pulse Rate Blood Pressure Temperature /14:27:00 66.00 in 314.00 lbs 150/86 mm[Hg] 97.7 F Procedures Procedure Date Unknown Encounters Encounter Location Date Patient Visit [facility] FC Pain Patient Visit Conversion Patient Visit [facility] Patient Visit [facility] Patient Visit [facility] Patient Visit [facility] Patient Visit [facility] Patient Visit [facility] Patient [facility] Patient Visit [facility] Pain Patient Visit [facility] Patient Visit [facility] Patient Visit [facility] Patient Visit [facility] Patient Visit [facility] Patient Visit [facility] Patient Visit [facility] Patient Visit [facility] Patient Visit [facility] Patient Visit [facility] Patient Visit [facility] Patient Visit [facility] Advance Directives Directive Effective Date Unknown
--- OUTSIDE RECORDS SUMMARY | 2016-12-24 12:36 | XMS REPORT | Continuity of Care Document ---
Author Author [facility] Organization [facility] Address Unknown Phone Unavailable Support Name Relationship Address Phone NIKOLAYJUVE LOJA Caregiver [place] [phone] PEREZ SCHNEIDER MD Caregiver [facility] [address] [place] [address] EUGENE PASCUAL MD Caregiver [address] [place], [place] [phone] SHAUN MCHUGH MD Caregiver [address] [place] [address] [address] [place] [phone] PASCALE MARTIN Next Of Kin [address] [facility] [place] [id number] Insurance Providers Payer Name Policy Number Subscriber Name Relationship Medicare [id number] Meryl Cotton 19 Self [id number] Meryl Cotton 19 Self Problems Medical Problems Problem Onset Date Status Chronic pain Unknown Active Generalized weakness Unknown Active Cervical stenosis of spine Unknown Active Chronic pain Unknown Active Medications Medication Dose Route Sig [...] Date/Time Smoking Status Unknown if ever smoked 07/31/2014 3:40am Hx Substance Use No 07/31/2014 3:40am Hx Alcohol Use No 07/31/2014 3:40am Hospital Discharge Instructions No hospital discharge instructions. Plan of Care No plan of care. Functional Status Query Response Date Recorded Physical Hygiene Self July 31, 2014 3:40am Disabilities None July 31, 2014 3:40am Devices Used Wheelchair July 31, 2014 3:40am Dressing Self July 31, 2014 3:40am Ambulation Assist July 31, 2014 3:40am Diet Self July 31, 2014 3:40am Mental Status Alert Oriented July 31, 2014 7:01am Disabilities None July 31, 2014 3:40am Devices Used Wheelchair July 31, 2014 3:40am Physical Hygiene Self July 31, 2014 3:40am Dressing Self July 31, 2014 3:40am Ambulation Assist July 31, 2014 3:40am Diet Self July 31, 2014 3:40am Allergies, Adverse Reactions, Alerts Allergen Type Severity Reaction Status Last Updated No Known Drug Allergies Allergy Unknown Active 07/31/14 Immunizations Name Given Type Hx Influenza Vaccination Y 10/2009 Historical Hx Pneumococcal Vaccination Y 5 YRS AGO Historical Hx Influenza Vaccination Y 10/2009 Historical Vital Signs Acute Vital Signs Vital Response Date/Time Temperature (Fahrenheit) 97.6 deg F (96.8 - 99.1) Temperature (Calculated Celsius) 36.14995 degrees C (36.0 - 37.3) Pulse Rate (adult) 85 bpm (60 - 100) Respiratory Rate 18 breaths/min (10 - 20) O2 Sat by Pulse Oximetry 94 % (90 - 100) Blood Pressure 116/73 mm Hg Height 5 ft 6 in Weight 316 lb Body Mass Index 51.0 kg/m^2 Results Test Source Date Result Interp. Ref. Range Comments Alanine Aminotransferase (ALT/SGPT) July 31, 2014 3:50am 32 U/L N 9- 52 Albumin July 31, 2014 3:50am 3.6 G/DL N 3.5-5.0 Albumin/Globulin Ratio July 31, 2014 3:50am 1.4 RATIO N 1.1-2.2 Alkaline Phosphatase July 31, 2014 3:50am 99 U/L N 38-126 Anion Gap July 31, 2014 3:50am 10 MEQ/L N 5-15 Aspartate Amino Transf (AST/SGOT) July 31, 2014 3:50am 23 U/L N 14- 36 BUN/Creatinine Ratio July 31, 2014 3:50am 22 RATIO N 6-26 Basophils # (Auto) July 31, 2014 3:50am 0.0 T/MM3 N 0-0.2 Basophils (%) (Auto) July 31, 2014 3:50am 0.5 % N 0-2 Blood Urea Nitrogen July 31, 2014 3:50am 22.0 MG/DL H 7-17 Calcium Level July 31, 2014 3:50am 9.6 MG/DL N 8.4-10.2 Calculated Osmolality July 31, 2014 3:50am 288 MOSM/KG H 261-280 Carbon Dioxide Level July 31, 2014 3:50am 29 MEQ/L N 22-30 Chloride Level July 31, 2014 3:50am 105 MEQ/L N 98-107 Creatinine July 31, 2014 3:50am 1.0 MG/DL N 0.7-1.2 Eosinophils # (Auto) July 31, 2014 3:50am 0.2 T/MM3 N 0-0.5 Eosinophils (%) (Auto) July 31, 2014 3:50am 2.2 % N 0-4 Globulin July 31, 2014 3:50am 2.6 G/DL N 2.4-3.6 Glucose Level July 31, 2014 3:50am 234 MG/DL H 65-110 Hematocrit July 31, 2014 3:50am 37.1 % N 36-46 Hemoglobin July 31, 2014 3:50am 11.6 GM/DL L 12-16 Lymphocytes # (Auto) July 31, 2014 3:50am 1.3 T/MM3 N 1-4.8 Lymphocytes # (Manual) August 26, 2009 5:35am 2.0 T/MM3 N 1-4.8 Lymphocytes % (Manual) August 26, 2009 5:35am 18.0 % L 23-45 Lymphocytes (%) (Auto) July 31, 2014 3:50am 17.1 % L 23-45 Magnesium Level August 25, 2009 5:35am 1.3 MG/DL L 1.6-2.3 Mean Corpuscular Hemoglobin July 31, 2014 3:50am 28.5 UUG N 26-34 Mean Corpuscular Hemoglobin Concent July 31, 2014 3:50am 31.3 GM/DL N 31-37 Mean Corpuscular Volume July 31, 2014 3:50am 91.2 UM3 N 80-100 Mean Platelet Volume July 31, 2014 3:50am 9.8 UM3 N 9.4-12.4 Monocytes # (Auto) July 31, 2014 3:50am 0.6 T/MM3 N 0-0.8 Monocytes (%) (Auto) July 31, 2014 3:50am 8.2 % N 0-9.0 Neutrophils # (Auto) July 31, 2014 3:50am 5.3 T/MM3 N 1.8-7.7 Neutrophils # (Manual) August 26, 2009 5:35am 9.3 T/MM3 H 1.8-7.7 Neutrophils % (Manual) August 26, 2009 5:35am 82.0 % H 33-66 Neutrophils (%) (Auto) July 31, 2014 3:50am 71.9 % H 33-66 Platelet Count July 31, 2014 3:50am 242 T/MM3 N 130-400 Potassium Level July 31, 2014 3:50am 3.9 MEQ/L N 3.6-5 Prothromb Time International Ratio September 04, 2009 11:39am 1.74 H 0.79 -1.23 THERAPUTIC RANGE=2.00-3.00 FOR ANTI-THROMBOSIS THERAPUTIC RANGE=2.50- 3.50 FOR IMPLANTED VALVE RDW Standard Deviation July 31, 2014 3:50am 47.8 FL N 36.9-50.2 Red Blood Count July 31, 2014 3:50am 4.07 M/MM3 N 4.00-5.20 Sodium Level July 31, 2014 3:50am 144 MEQ/L N 134-144 Total Bilirubin July 31, 2014 3:50am 0.30 MG/DL N 0.20-1.30 Total Protein July 31, 2014 3:50am 6.2 G/DL L 6.3-8.2 Troponin I July 31, 2014 3:50am [...] Has specimen been collected/obtained? Y Urine Specific Alliance July 31, 2014 5:00am 1.025 - Has [...] Y White Blood Count July 31, 2014 3:50am 7.4 T/MM3 N 4.5-11.0 Chemistry Specimen Hemolysis July 31, 2014 3:50am < 15 0-25 0-25: No Hemolysis.26-70: Slight Hemolysis - [...] 05, 2009 7:05am LAB TEST FORM REQUEST [id number] - Turbidity July 31, 2014 3:50am < 20 0-20 Glomerular Filtration Rate Calc July 31, 2014 3:50am 56 - Immature Granulocyte # (Auto) July 31, 2014 3:50am 0.01 T/MM3 N 0.00- 0.03 Immature Granulocyte % (Auto) July 31, 2014 3:50am 0.1 % N 0.0-0.5 Icterus Index July 31, 2014 3:50am < 2 0-7 Gram Stain Knee, Intraoperative Site-Right August 23, 2009 8:39am Name: MERYL COTTON Unit #: [id number] : 1950 Sex: F [facility]: ED DOS: 07/31/14 Signed Report #: [id number] DIAGNOSTIC IMAGING REPORT TYPE OF EXAM: CT [...] preliminary report by virtual radiologic. . Procedures No known history of procedures. Encounters Encounter Location Date/Time Departed Emergency Room [facility] 07/31/14 3:40am Recent Diagnosis
--- OUTSIDE RECORDS SUMMARY | 2016-12-24 12:36 | XMS REPORT | Referral Summary ---
Author Author [facility] Organization [facility] Address Unknown Phone Unavailable Care Team Providers Care Clerical Administrative Assistant Name Role Phone Juventino Galvin Primary Care Physician [phone] Encounter [facility] [id number] Date(s): 02/22/15 - 02/26/15 [facility] [address] [place] [address] [phone] Discharge Diagnosis: Lumbar stenosis with neurogenic claudication Discharge Diagnosis: Sleep apnea Discharge Diagnosis: Overweight Discharge Diagnosis: Lumbar radiculitis Discharge Diagnosis: Lumbago Final: Spinal Stenosis of Lumbar Region with Neurogenic Claudication Final: Body Mass Index 40.0-44.9, Adult Final: SCOLIOSIS [AND KYPHOSCOLIOSIS], IDIOPATHIC Final: LUMBOSACRAL SPONDYLOSIS WITHOUT MYELOPATHY Final: DEGENERATION OF LUMBAR OR LUMBOSACRAL INTERVERTEBRAL DISC Final: Obstructive sleep apnea (adult) (pediatric) Final: DEPRESSIVE DISORDER, NOT ELSEWHERE CLASSIFIED Final: OTHER AND UNSPECIFIED HYPERLIPIDEMIA Final: MORBID OBESITY Final: Diabetes mellitus without mention of complication, type II or unspecified type, not stated as uncontrolled Final: PURE HYPERCHOLESTEROLEMIA Final: OSTEOARTHROSIS, UNSPECIFIED WHETHER GENERALIZED OR LOCALIZED, INVOLVING UNSPECIFIED SITE Final: Myalgia and myositis, unspecified Final: UNSPECIFIED ESSENTIAL HYPERTENSION Final: KNEE JOINT REPLACED BY OTHER MEANS Final: Long-Term (Current) Use of Insulin Final: ANXIETY STATE, UNSPECIFIED Discharge Disposition: -[facility] Facility Attending Physician: Juaquin Clemente MD Admitting Physician: Juaquin Clemente MD Vital Signs Most recent to 1 oldest [Reference Range]: Temperature Oral 36.6 degC [35.8-37.3 degC] (02/26/15 8:00 AM) Temperature Tympanic 35.9 degC [36.6-38.1 degC] *LOW* (02/22/15 9:15 AM) Temperature Skin 36.3 degC [36-37 degC] (02/22/15 4:35 PM) Peripheral Pulse 75 bpm Rate [60-100 bpm] (02/26/15 8:00 AM) Heart Rate Monitored 100 bpm [60-100 bpm] (02/22/15 4:35 PM) Respiratory Rate 18 br/min [14-20 br/min] (02/26/15 8:00 AM) Blood Pressure 154/79 mmHg [90-140/60-90 mmHg] *HI* (02/26/15 8:00 AM) Mean Arterial 99 mmHg Pressure, Cuff (02/22/15 4:35 PM) SpO2 97 % (02/26/15 8:00 AM) Problem List Condition Effective Dates Status [...] # 30 tabs, 0 Refill(s), Pharmacy: [facility] [id number], 1 tabs Oral Bedtime (once a day),Instr:one [...] PCP, # 1 Each, 0 Refill(s), Pharmacy: [facility] [id number] Start Date: 06/21/15 Status: Ordered gabapentin 300 [...] pcp, # 30 tabs, 0 Refill(s), Pharmacy: [facility], 1 tabs Oral Daily,Instr:this fill only till [...] Bedtime (once a day), PLEASE FAX TO [facility] [phone], # 30 tabs, 0 Refill(s) Start Date: 08/23/15 Status: Ordered Nelson 5 mg-325 mg oral tablet 1 tabs, [...] # 90 tabs, 2 Refill( s), eRx: [facility] [id number], TAKE 1 TABLET BY MOUTH THREE TIMES [...] , # 60 tabs, 0 Refill(s), Pharmacy: [facility] [id number], 1 tabs Oral TID, PRN:as needed for pain,Instr:this rx only till seen by new PCP Start Date: 06/21/15 Stop Date: 06/21/16 Status: Ordered Victoza 18 mg/3 mL subcutaneous solution 1.2 mg, SubCutaneous, Daily, 0 Refill(s) Start Date: 06/07/15 Status: Ordered Vitamin D3 1,000 Intl_Units, Oral, Daily, 0 Refill(s) Start Date: 06/07/15 Status: Ordered Results Hematology Most recent to 1 oldest [Reference Range]: WBC [4.8-10.8 8.7 10*3/uL 10*3/uL] (02/23/15 6:06 AM) RBC [4.00-5.20 3.82 10*6/uL 10*6/uL] *LOW* (02/23/15 6:06 AM) Hgb [12.0-16.0 11.2 gm/dL gm/dL] *LOW* (02/23/15 6:06 AM) Hct [37.0-47.0 %] 34.2 % *LOW* (02/23/15 6:06 AM) MCV [82.0-99.0 fL] 89.5 fL (02/23/15 6:06 AM) MCH [27.0-32.0 pg] 29.3 pg (02/23/15 6:06 AM) MCHC [32.0-36.0 32.7 gm/dL gm/dL] (02/23/15:06 AM) RDW [11.5-14.5 %] 14.2 % (02/23/15:06 AM) Platelet [150-400 193 10*3/uL 10*3/uL] (02/23/15 6:06 AM) MPV [9.4-12.4 fL] 9.8 fL (02/23/15:06 AM) Chemistry Most recent to 1 oldest [Reference Range]: Sodium Lvl [136-144 144 mEq/L mEq/L] (02/23/15:06 AM) Potassium Lvl 4.3 mEq/L [3.6-5.1 mEq/L] (02/23/15:06 AM) Chloride [99-109 105 mEq/L mEq/L] (02/23/15:06 AM) CO2 [22-32 mEq/L] 32 mEq/L (02/23/15:06 AM) AGAP [3-20] 7 (02/23/15:06 AM) BUN [4-20 mg/dL] 16 mg/dL (02/23/15:06 AM) Glucose Lvl [70-100 195 mg/dL mg/dL] *HI* (02/23/15:06 AM) Creatinine Lvl 0.95 mg/dL [0.44-1.03 mg/dL] (02/23/15:06 AM) eGFR [>60] 59 1 *ABN* (02/23/15:06 AM) Calcium Lvl 9.1 mg/dL [8.6-10.0 mg/dL] (02/23/15:06 AM) Albumin Lvl [3.5-4.8 2.9 gm/dL gm/dL] *LOW* (02/23/15:06 AM) Total Protein 5.2 gm/dL [6.1-7.9 gm/dL] *LOW* (02/23/15:06 AM) Globulin [1.9-4.3 2.3 gm/dL gm/dL] (02/23/15 6:06 AM) ALT [14-54 U/L] 12 U/L *LOW* (02/23/15:06 AM) AST [15-41 U/L] 21 U/L (02/23/15 6:06 AM) Alk Phos [26-104 71 U/L U/L] (02/23/15 6:06 AM) Bili Total [0.2-1.2 0.4 mg/dL 2 mg/dL] (02/23/15 6:06 AM) Blood Glucose, 179 mg/dL Capillary [70-100 *HI* mg/dL] (02/26/15 10:33 AM) 1Result Comment: Multiply eGFR results by 1.21 for race. 2Result Comment: Naproxen, specifically the metabolite O-desmethylnaproxen, may cause spurious elevation in Total Bilirubin levels. Immunizations Vaccine Date Refusal Reason influenza virus [...] Reconstructive orthopedic procedure8 Surgery9 Tonsillectomy Total knee [id number] Tubal ligation 1auto-populated from documented surgical case 2L1-S1 Central/Lateral Recess Decompression w/ Cj Foraminotomies ([id number]); Each Addl (76222 X 5) ICD-9 Codes: 724.02; 724.03; 737.30 PO05/23/2015 3C3-4 ACDF 94049, 81631, 30240, 97933 Post op global ends 11/03/14 4auto-populated from documented surgical case 5bilateral 6x3 7left wrist 8To right hand x9 9Abdominal surgery revisions, multiple 10Rx2, Lx1 Social History Social History Type Response Smoking Status Former smoker; Type: Cigarettes; Number of years: 36 Assessment and Plan No data available for this section
--- OUTSIDE RECORDS SUMMARY | 2016-12-24 12:36 | XMS REPORT ---
Author Author Vee Ortega Organization [employer] Address Unknown Phone Unavailable Care Team Providers Care Roll Forming Machine Set Up Operator Name Role Phone Vee Ortega CP Unavailable Allergies No Known Allergies Problems Problem Type Condition ICD-9 Code Onset Dates Condition Status Problem Sicca syndrome 710.2 Active Problem Diabetes Mellitus Type 2, not stated as uncontrolled 250.00 Active Problem Unspecified venous (peripheral) insufficiency 459.81 Active Problem Restless legs syndrome [RLS] 333.94 Active Problem Major depressive disorder, recurrent episode, moderate 296.32 Active Problem Morbid obesity 278.01 Active Problem Fibromyalgia 729.1 Active Problem Unspecified genital herpes 054.10 Active Problem Degeneration of lumbar or lumbosacral intervertebral disc 722.52 Active Problem Degeneration of cervical intervertebral disc 722.4 Active Problem Depressive disorder, not elsewhere classified 311 Active Problem Hypercholesterolemia 272.2 Active Problem Hypertension, benign 401.1 Active Medications No Known Medications Vital Signs Date/Time: Jul 22, 2014 Cardiac Monitoring Heart Rate 78 Beats per Minute Height 66 inches Temperature 97.9 F Respiratory Rate 18 per Minute Blood Pressure Diastolic 84 mm Hg Blood Pressure Systolic 126 mm Hg Results No Known Results Summary Purpose [employer] Submission
--- OUTSIDE RECORDS SUMMARY | 2016-12-24 12:36 | XMS REPORT | Referral Summary ---
Author Organization Unknown Address Unknown Phone Unavailable Care Team Providers Care Industrial Pipefitter Journeyman Name Role Phone Juventino Galvin Primary Care Physician [phone] Encounter VC Date(s): 12/31/14 - 12/31/14 [facility] [address], [place] [address] Discharge Diagnosis: Neurogenic claudication Discharge Diagnosis: Lumbago Discharge Disposition: Home or Self Care Attending Physician: Juaquin Clemente MD Admitting Physician: Juaquin Clemente MD Vital Signs No data available for [...] day), # 90 tabs, 0 Refill(s), Pharmacy: [facility] [id number], 1 tabs Oral Bedtime (once a day) Start Date: 09/28/14 Status: Ordered Colace 100 mg oral capsule 1 caps, Oral, BID, 0 Refill(s) Start Date: 08/13/14 Status: Ordered DULoxetine 60 mg oral delayed release capsule See Instructions, 2 CAPS ORAL DAILY, # 60 caps, 2 Refill(s), eRx: [facility] [id number], 2 CAPS ORAL DAILY Special Instructions: 2 CAPS ORAL DAILY Start Date: 09/08/14 Status: Ordered Effexor XR 37.5 mg capsule,extended release See Instructions, TAKE 2 BY ORAL ROUTE EVERY DAY WITH FOOD, # 180 unknown unit, eRx: [facility] [id number], TAKE 2 BY ORAL ROUTE EVERY DAY [...] TID, # 270 tabs, 0 Refill(s), Pharmacy: [facility] [id number] , 1 tabs Oral TID Start Date: [...] BID, # 10 mL, 1 Refill(s), Pharmacy: [facility] 47046, 30 units SubCutaneous BID Start Date: 11/30/14 Status: Ordered Lantus 100 units/mL subcutaneous solution See Instructions, INJECT 50 UNITS SUBCUTANEOUS TWICE DAILY, # 90 mL, 2 Refill(s) , ALIZA, Pharmacy: [facility] [id number], INJECT 50 UNITS SUBCUTANEOUS TWICE DAILY Special Instructions: INJECT 50 UNITS SUBCUTANEOUS TWICE DAILY Start Date: 10/01/14 Status: Ordered Lasix 40 mg oral tablet 1 tabs, Oral, Daily, # 30 tabs, 2 Refill(s), Pharmacy: [facility] [id number], 1 tabs Oral Daily Start Date: 12/18/14 Status: Ordered lidocaine 5% topical film 1 patches, TransDermal, Daily, # 30 patches, 0 Refill(s) Start Date: 08/13/14 Status: Ordered lisinopril 10 mg oral tablet 1 tabs, Oral, Daily, # 30 tabs, 2 Refill(s), Pharmacy: [facility] 43081, 1 tabs Oral Daily Start Date: 09/10/14 [...] 0 Refill(s) Start Date: 12/22/14 Status: Ordered [place] 7.5 mg-325 mg oral tablet 1 tabs, Oral, TID, as needed for pain, # 90 tabs, 0 Refill(s) Start Date: 12/31/14 Status: Ordered potassium chloride 20 mEq oral tablet, extended release 2 tabs, Oral, qPM, # 60 tabs, 0 Refill(s) Start Date: 08/13/14 Status: Ordered rOPINIRole 1 mg oral tablet See Instructions, 1 TABS ORAL TID, # 90 tabs, 1 Refill(s), eRx: [facility] [id number], 1 TABS ORAL TID Special Instructions: 1 TABS ORAL TID Start Date: 11/05/14 Status: Ordered Skelaxin 800 mg oral tablet See Instructions, TAKE .5 -1 TAB. TID PRN MUST LAST 1 MONTH., # 30 tabs, 0 Refill(s), Pharmacy: [facility] [id number], TAKE .5 -1 TAB. TID PRN MUST LAST 1 MONTH. Special Instructions: TAKE .5 -1 TAB. TID PRN MUST LAST 1 MONTH. Start Date: 12/18/14 Stop Date: 01/15/15 Status: Ordered Zetia 10 mg oral tablet 1 tabs, Oral, Daily, # 90 tabs, 0 Refill(s), Pharmacy: [facility] [id number], 1 tabs Oral Daily Start Date: 09/28/14 [...] Total knee arthroplasty8 Tubal ligation 1C3-4 ACDF 26777, 08815, 22990, 96738 Post op global ends 11/03/14 2auto-populated from documented surgical case 3bilateral 4x3 5left wrist 6To right hand x9 7Abdominal surgery revisions, multiple 8Rx2, Lx1 Social History Social History Type Response Smoking Status Former smoker; Type: Cigarettes; Number of years: 6 Assessment and Plan No data available for this section
--- OUTSIDE RECORDS SUMMARY | 2016-12-24 12:37 | XMS REPORT ---
Author Author Vee Ortega [facility] [employer] Address Unknown Phone Unavailable Care Team Providers Care Resident Programs Assistant Name Role Phone Vee Ortega Unavailable Allergies No Known Allergies Problems Problem [...] Degeneration of cervical intervertebral disc 722.4 Active Assessment Other specified pre-operative examination V72.83 Active Problem Depressive disorder, not elsewhere classified 311 Active Problem Hypercholesterolemia 272.2 Active Problem Hypertension, benign 401.1 Active Medications Medication Code System Code Instructions Start Date End Date Status Dosage Morphine Sulfate CR [facility] [address]-27 15 MG Orally every 12 hrs February 11, 2014 Jul 24, 2014 Active 1 tablet Stool Softener [facility] [address]-85 100 MG Orally four times daily Active 1 capsule as needed Aspir-81 [facility] [address]-35 81 MG Orally Once a day Active 1 tablet Ibuprofen [facility] [address]-66 200 MG Orally PRN Active 3 tablets Humalog KwikPen [facility] [address]-27 100 UNIT/ML Subcutaneous TID Oct 29, 2013 Active 20u with meals Lovastatin [facility] [address]-15 40 Milligram Active TAKE 1 TABLET BY MOUTH DAILY WITH A MEAL Cymbalta [facility] [address]-55 60 MG Orally Once a day Active 2 capsules Ropinirole HCl [facility] [address]-54 1 MG Orally Three times a day Active 1 tablet Tessalon Perles [facility] [address]-87 100 MG Orally Three times a day Jul 17, 2014 Aug 14, 2014 Active 1 capsule as needed Lisinopril [facility] [address]-32 10 Milligram Active TAKE 1 TABLET BY MOUTH EVERY DAY Skelaxin [facility] [address]-68 800 MG Orally two to three times daily Oct 29, 2013 Oct 29, 2014 Active 1 tablet as needed Lantus SunitaoStar [facility] [address]-28 100 UNIT/ML Subcutaneous BID Oct 29, 2013 Active 50 units Doxycycline Hyclate [facility] [address]-98 100 Milligram Active TAKE 1 CAPSULE BY MOUTH EVERY 12 HOURS Furosemide [facility] [address]-81 40 MG Orally Once a day January 26, 2014 Active 1 tablet Effexor XR [facility] [address]-84 37.5 MG Orally Once a day Oct 29, 2013 Active 2 capsule with food Potassium Chloride Chiqui ER [facility] [address]-86 20 MEQ Orally 1 Jun 19, 2014 January 06, 2015 Active 3 Hydrocodone-Acetaminophen [facility] [address]-31 7.5-325 MG Orally every 6 hrs Jul 21, 2014 Aug 20, 2014 Active 1 tablet as needed Multivitamins [facility] [address]1867 Orally daily Active 1 tablet Gabapentin [facility] [address]-80 600 MG Orally Three times a day Active 1 capsule Magnesium [facility] [address]-66 300 MG Orally two times daily Active 1 capsule with a meal Acetaminophen [facility] [address]-44 325 MG Orally prn Active 1 tablet as needed Zetia [facility] [address]-64 10 MG Orally Once a day Active 1 daily Procedures Procedure Coding System Code Date COMPREHENSIVE METABOLIC PANEL CPT-4 66443 Jul 22, 2014 URINALYSIS, IN HOUSE CPT-4 32743 Jul 22, 2014 COMPLETE CBC W/AUTO DIFF WBC CPT-4 46018 Jul 22, 2014 OFFICE VISIT, EST-LOW COMPLEXITY (15 MIN.) CPT-4 06114 Jul 22, 2014 Vital Signs Date/Time: Jul 22, 2014 Cardiac Monitoring Heart Rate 78 Beats per Minute Height 66 inches Temperature 97.9 F Respiratory Rate 18 per Minute Blood Pressure Diastolic 84 mm Hg Blood Pressure Systolic 126 mm Hg Results No Known Results Summary Purpose eClinicalWorks Submission
--- OUTSIDE RECORDS SUMMARY | 2016-12-24 12:37 | XMS REPORT | Referral Summary ---
Author Author [facility] Organization [facility] Address Unknown Phone Unavailable Care Team Providers Care Bdc Manager Name Role Phone Juventino Galvin Primary Care Physician [phone] Encounter VC Date(s): 02/17/15 - 02/17/15 [facility] [address] [place], [place] [address] Discharge Disposition: 01-Home or Self Care [...] , # 30 tabs, 0 Refill(s), Pharmacy: [facility] [address], 1 tabs Oral Bedtime (once a day),Instr:one [...] PCP, # 1 Each, 0 Refill(s), Pharmacy: [facility] [address] Start Date: 06/21/15 Status: Ordered gabapentin 300 [...] pcp, # 30 tabs, 0 Refill(s), Pharmacy: [facility] [address], 1 tabs Oral Daily,Instr:this fill only till [...] Bedtime (once a day), PLEASE FAX TO [facility] [phone], # 30 tabs, 0 Refill(s) Start Date: 08/23/15 Status: Ordered [place] 5 mg-325 mg oral tablet 1 tabs, [...] # 90 tabs, 2 Refill( s), eRx: [facility] [id number], TAKE 1 TABLET BY MOUTH THREE TIMES [...] , # 60 tabs, 0 Refill(s), Pharmacy: [facility] [id number], 1 tabs Oral TID, PRN:as needed for [...] Reconstructive orthopedic procedure8 Surgery9 Tonsillectomy Total knee [id number] Tubal ligation 1auto-populated from documented surgical case 2L1-S1 Central/Lateral Recess Decompression w/ Cj Foraminotomies (55272); Each Addl (65770 X 5) ICD-9 Codes: 724.02; 724.03; 737.30 PO05/23/2015 3C3-4 ACDF 19541, 91348, 76275, 37992 Post op global ends 11/03/14 4auto-populated from documented surgical case 5bilateral 6x3 7left wrist 8To right hand x9 9Abdominal surgery revisions, multiple 10Rx2, Lx1 Social History Social History Type Response Smoking Status Former smoker; Type: Cigarettes; Number of years: 36 Assessment and Plan No data available for this section
--- OUTSIDE RECORDS SUMMARY | 2016-12-24 12:37 | XMS REPORT | Referral Summary ---
Author Author [facility] Organization [facility] Address Unknown Phone Unavailable Care Team Providers Care Brim Stitcher Name Role Phone Juventino Galvin Primary Care Physician [phone] Encounter VC Date(s): 06/01/15 - 06/01/15 [facility] [address] [place] [address] Discharge Disposition: 01-Home or Self Care Attending Physician: Maida Galvin MD Admitting Physician: aMida Galvin MD Vital Signs No data available [...] , # 30 tabs, 0 Refill(s), Pharmacy: [facility] 67968, 1 tabs Oral Bedtime (once a day),Instr:one refill only until seen by new PCP Start Date: 11/22/15 Status: Ordered BENGAY Arthritis topical cream See Instructions, APPLY TOPICALLY TO AFFECTED AREAS NEEDED., 0 Refill(s) Start Date: 06/07/15 Status: Ordered Cymbalta 60 mg oral delayed release capsule 120 mg 2 caps, Oral, Daily, # 60 caps, 0 Refill(s), Pharmacy: [facility] 60525, 2 caps Oral Daily Start Date: 11/22/15 Status: Ordered docusate sodium 100 mg oral capsule 200 mg 2 caps, Oral, BID, as needed for constipation, with plenty of water, # 50 caps, 0 Refill(s), Pharmacy: [facility] 60412, 2 caps Oral BID,PRN: as needed for constipation,Instr:with plenty of water Start Date: 11/22/15 Status: Ordered DULoxetine 60 mg oral delayed release capsule mg caps, Oral, Daily, 0 Refill(s) Start Date: 06/07/15 Status: Ordered ferrous sulfate 325 mg (65 mg elemental iron) oral tablet 325 mg 1 tabs, Oral, BID, # 60 tabs, 0 Refill(s), Pharmacy: [facility] 01322, 1 tabs Oral BID Start Date: 11/22/15 Status: Ordered Flonase 50 mcg/inh nasal spray 50 mcg 1 sprays, Nasal, BID, this fill only until seen by new PCP, # 1 Each, 0 Refill(s), Pharmacy: [facility] [address]7714 Start Date: 06/21/15 Status: Ordered furosemide 40 mg oral tablet 40 mg 1 tabs, Oral, Daily, # 30 tabs, 0 Refill(s), Pharmacy: [facility] 10741, 1 tabs Oral Daily Start Date: 11/22/15 Status: Ordered gabapentin 300 mg oral capsule 600 mg 2 caps, Oral, QID, # 240 caps, 0 Refill(s), Pharmacy: [facility] 75826, 2 caps Oral QID Start Date: 11/22/15 Status: Ordered gabapentin 300 mg oral capsule mg caps, Oral, QID, 0 Refill(s) Start Date: 06/07/15 Status: Ordered HumaLOG KwikPen 100 units/mL subcutaneous solution See Instructions, 25 UNITS SQ WITH MEALS, # 10 mL, 0 Refill(s), Pharmacy: [facility] 62378, 25 UNITS SQ WITH MEALS Start Date: 11/22/15 Status: Ordered Klor-Con M20 oral tablet, extended release 40 mEq 2 tabs, Oral, Daily, # 60 tabs, 0 Refill(s), Pharmacy: [facility] 38854, 2 tabs Oral Daily Start Date: 11/22/15 Status: Ordered Lasix 40 mg oral tablet mg tabs, Oral, Daily, 0 Refill(s) Start Date: 06/07/15 Status: Ordered lisinopril 10 mg oral tablet 10 mg 1 tabs, Oral, Daily, this fill only till seen by new pcp, # 30 tabs, 0 Refill(s), Pharmacy: [facility] 90979, 1 tabs Oral Daily,Instr:this fill only till [...] # 24 tabs, 0 Refill(s), Pharmacy : [facility] 58414, 1 tabs Oral q4hr,PRN:Diarrhea/Loose Stools Start Date: 11/22/15 Status: Ordered MiraLax oral powder for reconstitution 17 g 17 g, Oral, Daily, Constipation, dissolve in water before taking, # 12 Each , 0 Refill(s), Pharmacy: [facility] [address]3824 Start Date: 11/22/15 Status: Ordered MS Contin 15 mg/12 hr oral tablet, extended release 15 mg 1 tabs, Oral, Bedtime (once a day), PLEASE FAX TO [facility] [phone], # 30 tabs, 0 Refill(s) Start Date: 10/19/15 Status: Ordered [place] 5 mg-325 mg oral tablet 1 tabs, Oral, q4hr, as needed for pain, FAX TO [facility] ., # 180 tabs, 0 Refill(s) Start Date: 11/08/15 Status: Ordered oxybutynin 5 mg oral tablet 5 mg 1 tabs, Oral, TID, # 90 tabs, 0 Refill(s), Pharmacy: [facility] 90188, 1 tabs Oral TID Start Date: 11/22/15 Status: Ordered rOPINIRole 1 mg oral tablet See Instructions, TAKE 1 TABLET BY MOUTH THREE TIMES DAILY, # 90 Each, 0 Refill( s), Pharmacy: [facility] 81231, TAKE 1 TABLET BY MOUTH THREE TIMES DAILY Start Date: 11/22/15 Status: Ordered senna 8.6 mg oral tablet 17.2 mg 2 tabs, Oral, Bedtime (once a day), # 60 tabs, 0 Refill(s), Pharmacy: [facility] 77656, 2 tabs Oral Bedtime (once a day) Start Date: 11/22/15 Status: Ordered Skelaxin 800 mg oral tablet 800 mg 1 tabs, Oral, TID, as needed for pain, this rx only till seen by new PCP , X 30 days, # 90 tabs, 0 Refill(s), Pharmacy: [facility] 11092, 1 tabs Oral TID,x30 days,PRN:as needed for pain,Instr:this rx only till seen by new PCP Start Date: 11/22/15 Stop Date: 12/22/15 Status: Ordered Victoza 18 mg/3 mL subcutaneous solution 1.2 mg, SubCutaneous, Daily, # 15 mL, 0 Refill(s), Pharmacy: [facility] 09799, 1.2 mg SubCutaneous Daily Start Date: 11/22/15 [...] Reconstructive orthopedic procedure8 Surgery9 Tonsillectomy Total knee [id number] Tubal ligation 1auto-populated from documented surgical case 2L1-S1 Central/Lateral Recess Decompression w/ Cj Foraminotomies (14177); Each Addl (71286 X 5) ICD-9 Codes: 724.02; 724.03; 737.30 PO05/23/2015 3C3-4 ACDF 32365, 23313, 84630, 70755 Post op global ends 11/03/14 4auto-populated from documented surgical case 5bilateral 6x3 7left wrist 8To right hand x9 9Abdominal surgery revisions, multiple 10Rx2, Lx1 Social History Social History Type Response Smoking Status Former smoker; Type: Cigarettes; Number of years: 36 Assessment and Plan No data available for this section
--- OUTSIDE RECORDS SUMMARY | 2016-12-24 12:37 | XMS REPORT | Referral Summary ---
Author Organization Unknown Address Unknown Phone Unavailable Care Team Providers Care Water Quality Assistant Name Role Phone Juventino Galvin Primary Care Physician [phone] Encounter [facility] [id number] Date(s): 02/15/15 - 02/15/[address] [address] Discharge Disposition: Home or Self Care Attending [...] day), # 90 tabs, 0 Refill(s), Pharmacy: [facility] 03825, 1 tabs Oral Bedtime (once a day) Start Date: 09/28/14 Status: Ordered Colace 100 mg oral capsule 1 caps, Oral, BID, 0 Refill(s) Start Date: 08/13/14 Status: Ordered doxycycline hyclate 100 mg oral capsule See Instructions, TAKE 1 CAPSULE (100MG) BY ORAL ROUTE EVERY 12 HOURS, # 60 unknown unit, eRx: [facility] 01525, TAKE 1 CAPSULE (100MG) BY ORAL ROUTE EVERY 12 HOURS Special Instructions: TAKE 1 CAPSULE (100MG) BY ORAL ROUTE EVERY 12 HOURS Start Date: 01/19/15 Status: Ordered DULoxetine 60 mg oral delayed release capsule See Instructions, 2 CAPS ORAL DAILY, # 60 caps, 2 Refill(s), Pharmacy: [facility] 71258, 2 CAPS ORAL DAILY Special Instructions: 2 [...] TID, # 270 tabs, 0 Refill(s), Pharmacy: [facility] 44796 , 1 tabs Oral TID Start Date: [...] BID, # 10 mL, 1 Refill(s), Pharmacy: [facility] 61647, 30 units SubCutaneous BID Start Date: 11/30/14 Status: Ordered Lasix 40 mg oral tablet 1 tabs, Oral, Daily, # 30 tabs, 2 Refill(s), Pharmacy: [facility] 76350, 1 tabs Oral Daily Start Date: 12/18/14 Status: Ordered lisinopril 10 mg oral tablet 1 tabs, Oral, Daily, # 30 tabs, 2 Refill(s), Pharmacy: [facility] 70782, 1 tabs Oral Daily Start Date: 09/10/14 [...] 0 Refill(s) Start Date: 01/25/15 Status: Ordered [place] 7.5 mg-325 mg oral tablet 1 tabs, Oral, TID, as needed for pain, # 90 tabs, 0 Refill(s) Start Date: 12/31/14 Status: Ordered potassium chloride 20 mEq oral tablet, extended release 2 tabs, Oral, qPM, # 60 tabs, 0 Refill(s) Start Date: 08/13/14 Status: Ordered rOPINIRole 1 mg oral tablet See Instructions, 1 TABS ORAL TID, # 90 tabs, eRx: [facility] 52127, 1 TABS ORAL TID Special Instructions: 1 TABS ORAL TID Start Date: 01/13/15 Status: Ordered Skelaxin 800 mg oral tablet 1 tabs, Oral, BID, 0 Refill(s) Start Date: 02/15/15 Status: Ordered Zetia 10 mg oral tablet 1 tabs, Oral, Daily, # 90 tabs, 0 Refill(s), Pharmacy: [facility] 55741, 1 tabs Oral Daily Start Date: 09/28/14 Status: Ordered Results Chemistry Most recent to 1 oldest [Reference Range]: Sodium Lvl [136-144 139 mEq/L mEq/L] (02/15/15 12:40 PM) Potassium Lvl 4.0 mEq/L [3.6-5.1 mEq/L] (02/15/15 12:40 PM) Chloride [99-109 104 mEq/L mEq/L] (02/15/15 12:40 PM) CO2 [22-32 mEq/L] 29 mEq/L (02/15/15 12:40 PM) AGAP [3-20] 6 (02/15/15 12:40 PM) BUN [4-20 mg/dL] 20 mg/dL (02/15/15 12:40 PM) Glucose Lvl [70-100 109 mg/dL mg/dL] *HI* (02/15/15 12:40 PM) Creatinine Lvl 1.04 mg/dL [0.44-1.03 mg/dL] *HI* (02/15/15 12:40 PM) eGFR [>60] 53 2 *ABN* (02/15/15 12:40 PM) Calcium Lvl 9.3 mg/dL [8.6-10.0 mg/dL] (02/15/15 12:40 PM) Albumin Lvl [3.5-4.8 3.4 gm/dL gm/dL] *LOW* (02/15/15 12:40 PM) Total Protein 5.8 gm/dL [6.1-7.9 gm/dL] *LOW* (02/15/15 12:40 PM) Globulin [1.9-4.3 2.4 gm/dL gm/dL] (02/15/15 12:40 PM) ALT [14-54 unit/L] 21 unit/L (02/15/15 12:40 PM) AST [15-41 unit/L] 18 unit/L (02/15/15 12:40 PM) Alk Phos [26-104 73 unit/L unit/L] (02/15/15 12:40 PM) Bili Total [0.2-1.2 0.5 mg/dL 1 mg/dL] (02/15/15 12:40 PM) 1Result Comment: Naproxen, specifically the metabolite O-desmethylnaproxen, may cause spurious elevation in Total Bilirubin levels. 2Result Comment: Multiply eGFR results by 1.21 for race. Immunizations Vaccine Date Refusal Reason influenza virus vaccine, inactivated1 08/01/14 influenza virus vaccine, live 08/07/13 influenza virus vaccine, live 07/17/12 pneumococcal 23-polyvalent vaccine2 08/01/14 1Early/Late Reason: Nursing Judgment 2Early/Late Reason: Nursing Judgment Procedures Procedure Date Related Diagnosis Body Site Collection of venous blood by venipuncture 02/15/15 Left L4-5/L5-S1 Transforaminal 12/29/14 Left L4-5/L5-S1 Transforaminal 09/24/14 Fusion of spine of cervical region1 08/05/14 Fusion Spine Cervical Anterior and Disce2 08/05/14 Left L4-5/L5-S1 05/26/14 Arthroplasty of knee3 delivery4 section CTR - Carpal tunnel release5 History of sinus surgery Knee replacement L Knee replacement R Reconstructive orthopedic procedure6 Surgery7 Tonsillectomy Total knee arthroplasty8 Tubal ligation 1C3-4 ACDF 23811, 89614, 60671, 79257 Post op global ends 11/03/14 2auto-populated from documented surgical case 3bilateral 4x3 5left wrist 6To right hand x9 7Abdominal surgery revisions, multiple 8Rx2, Lx1 Social History Social History Type Response Smoking Status Former smoker; Type: Cigarettes; Number of years: 36 Assessment and Plan No data available for this section
--- OUTSIDE RECORDS SUMMARY | 2016-12-24 12:37 | XMS REPORT | Referral Summary ---
Author Author [facility], [facility] Organization [facility] Address Unknown Phone Unavailable Care Team Providers Care Lvn Home Health Name Role Phone Juventino Galvin Primary Care Physician [phone] Encounter [facility] Date(s): 07/07/15 - 07/07/15 [facility] [address] [place] [id number] Discharge Diagnosis: Intractable abdominal pain Discharge Disposition: 01-Home or Self Care Attending Physician: Etta Heredia DO Admitting Physician: Etta Heredia DO Vital Signs Most recent to 1 oldest [Reference Range]: Temperature Tympanic 36.9 degC [36.6-38.1 degC] (07/07/15 1:08 PM) Peripheral Pulse 97 bpm Rate [60-100 bpm] (07/07/15 1:08 PM) Respiratory Rate 17 br/min [14-20 br/min] (07/07/15 1:08 PM) Blood Pressure 150/70 mmHg [90-140/60-90 mmHg] *HI* (07/07/15 1:08 PM) SpO2 97 % (07/07/15 1:08 PM) Problem List Condition Effective Dates Status [...] , # 30 tabs, 0 Refill(s), Pharmacy: [facility] [id number], 1 tabs Oral Bedtime (once a day),Instr:one refill only until seen by new PCP Start Date: 11/22/15 Status: Ordered BENGAY Arthritis topical cream See Instructions, APPLY TOPICALLY TO AFFECTED AREAS NEEDED., 0 Refill(s) Start Date: 06/07/15 Status: Ordered Cymbalta 60 mg oral delayed release capsule 120 mg 2 caps, Oral, Daily, # 60 caps, 0 Refill(s), Pharmacy: [facility] [id number], 2 caps Oral Daily Start Date: 11/22/15 Status: Ordered docusate sodium 100 mg oral capsule 200 mg 2 caps, Oral, BID, as needed for constipation, with plenty of water, # 50 caps, 0 Refill(s), Pharmacy: [facility] [id number], 2 caps Oral BID,PRN: as needed for constipation,Instr:with plenty of water Start Date: 11/22/15 Status: Ordered DULoxetine 60 mg oral delayed release capsule mg caps, Oral, Daily, 0 Refill(s) Start Date: 06/07/15 Status: Ordered ferrous sulfate 325 mg (65 mg elemental iron) oral tablet 325 mg 1 tabs, Oral, BID, # 60 tabs, 0 Refill(s), Pharmacy: [facility] [id number], 1 tabs Oral BID Start Date: 11/22/15 Status: Ordered Flonase 50 mcg/inh nasal spray 50 mcg 1 sprays, Nasal, BID, this fill only until seen by new PCP, # 1 Each, 0 Refill(s), Pharmacy: [facility] [id number] Start Date: 06/21/15 Status: Ordered furosemide 40 mg oral tablet 40 mg 1 tabs, Oral, Daily, # 30 tabs, 0 Refill(s), Pharmacy: [facility] [id number], 1 tabs Oral Daily Start Date: 11/22/15 Status: Ordered gabapentin 300 mg oral capsule 600 mg 2 caps, Oral, QID, # 240 caps, 0 Refill(s), Pharmacy: [facility] [id number], 2 caps Oral QID Start Date: 11/22/15 Status: Ordered gabapentin 300 mg oral capsule mg caps, Oral, QID, 0 Refill(s) Start Date: 06/07/15 Status: Ordered HumaLOG KwikPen 100 units/mL subcutaneous solution See Instructions, 25 UNITS SQ WITH MEALS, # 10 mL, 0 Refill(s), Pharmacy: [facility] [id number], 25 UNITS SQ WITH MEALS Start Date: 11/22/15 Status: Ordered Klor-Con M20 oral tablet, extended release 40 mEq 2 tabs, Oral, Daily, # 60 tabs, 0 Refill(s), Pharmacy: [facility] 76140, 2 tabs Oral Daily Start Date: 11/22/15 Status: Ordered Lasix 40 mg oral tablet mg tabs, Oral, Daily, 0 Refill(s) Start Date: 06/07/15 Status: Ordered lisinopril 10 mg oral tablet 10 mg 1 tabs, Oral, Daily, this fill only till seen by new pcp, # 30 tabs, 0 Refill(s), Pharmacy: [facility][note 3], 1 tabs Oral Daily,Instr:this fill only till [...] # 24 tabs, 0 Refill(s), [facility]note 3], 1 tabs Oral q4hr,PRN:Diarrhea/Loose Stools Start Date: 11/22/15 Status: Ordered MiraLax oral powder for reconstitution 17 g 17 g, Oral, Daily, Constipation, dissolve in water before taking, # 12 Each , 0 Refill(s), Pharmacy: [facility] [id number] Start Date: 11/22/15 Status: Ordered MS Contin 15 mg/12 hr oral tablet, extended release 15 mg 1 tabs, Oral, Bedtime (once a day), P[facility] FAX TO [facility] , # 30 tabs, 0 Refill(s) Start Date: 10/19/15 Status: Ordered Morgan 5 mg-325 mg oral tablet 1 tabs, Oral, q4hr, as needed for pain, FAX TO [facility]. ., # 180 tabs, 0 Refill(s) Start Date: 11/08/15 Status: Ordered oxybutynin 5 mg oral tablet 5 mg 1 tabs, Oral, TID, # 90 tabs, 0 Refill(s), Pharmacy: [facility] [id number], 1 tabs Oral TID Start Date: 11/22/15 Status: Ordered rOPINIRole 1 mg oral tablet See Instructions, TAKE 1 TABLET BY MOUTH THREE TIMES DAILY, # 90 Each, 0 Refill( s), Pharmacy: [facility] [id number], TAKE 1 TABLET BY MOUTH THREE TIMES DAILY Start Date: 11/22/15 Status: Ordered senna 8.6 mg oral tablet 17.2 mg 2 tabs, Oral, Bedtime (once a day), # 60 tabs, 0 Refill(s), Pharmacy: [facility] [address]207, 2 tabs Oral Bedtime (once a day) Start Date: 11/22/15 Status: Ordered Victoza 18 mg/3 mL subcutaneous solution 1.2 mg, SubCutaneous, Daily, # 15 mL, 0 Refill(s), Pharmacy: [facility] [id number], 1.2 mg SubCutaneous Daily Start Date: 11/22/15 Status: Ordered Vitamin D3 1,000 Intl_Units, Oral, Daily, 0 Refill(s) Start Date: 06/07/15 Status: Ordered Results Hematology Most recent to 1 oldest [Reference Range]: WBC [5.0-10.0 8.5 10*3/uL 10*3/uL] (07/07/15 3:55 PM) RBC [3.70-5.20] 4.05 (07/07/15 3:55 PM) Hgb [12.0-16.0 11.8 gm/dL gm/dL] *LOW* (07/07/15 3:55 PM) Hct [37.0-47.0 %] 36.4 % *LOW* (07/07/15 3:55 PM) MCV [80.0-96.0 fL] 89.9 fL (07/07/15 3:55 PM) MCH [26.0-34.0 pg] 29.1 pg (07/07/15 3:55 PM) MCHC [32.0-36.0 32.4 gm/dL gm/dL] (07/07/15 3:55 PM) RDW [0.0-14.5 %] 14.7 % *HI* (07/07/15 3:55 PM) Platelet [150-400 260 10*3/uL 10*3/uL] (07/07/15 3:55 PM) MPV [8.8-14.8 fL] 9.3 fL (07/07/15 3:55 PM) Neutrophils [50-70 79 % %] *HI* (07/07/15 3:55 PM) Lymphocytes [20-40 11 % %] *LOW* (07/07/15 3:55 PM) Monocytes [4-8 %] 8 % (07/07/15 3:55 PM) Eosinophils [0-6 %] 2 % (07/07/15 3:55 PM) Basophils [0-2 %] 0 % (07/07/15 3:55 PM) Neutro Absolute 6.78 10*3 [2.50-7.00 10*3] (07/07/15 3:55 PM) Lymph Absolute 0.91 10*3 [1.00-4.00 10*3] *LOW* (07/07/15 3:55 PM) [place] Absolute 0.67 10*3 [0.20-0.80 10*3] (07/07/15 3:55 PM) Eos Absolute 0.15 10*3 [0.00-0.60 10*3] (07/07/15 3:55 PM) Baso Absolute 0.02 [0.00-0.30] (07/07/15 3:55 PM) Immunizations Vaccine Date Refusal Reason influenza virus [...] Reconstructive orthopedic procedure8 Surgery9 Tonsillectomy Total knee [id number] Tubal ligation 1auto-populated from documented surgical case 2L1-S1 Central/Lateral Recess Decompression w/ Cj Foraminotomies (75095); Each Addl (93694 X 5) ICD-9 Codes: 724.02; 724.03; 737.30 PO05/23/2015 3C3-4 ACDF 06606, 16789, 59729, 48759 Post op global ends 11/03/14 4auto-populated from documented surgical case 5bilateral 6x3 7left wrist 8To right hand x9 9Abdominal surgery revisions, multiple 10Rx2, Lx1 Social History Social History Type Response Smoking Status Former smoker; Type: Cigarettes; Number of years: 37 Assessment and Plan Extracted from: Title: Office Visit Note Author: Etta Heredia DO Date: 07/07/15 Assessment/Plan Intractable abdominal pain Was given tordol and this did nothing to alleviate pain. this got progressively worse over the 4 hours patient was in the office. Due to her size and mobility limitations deep palpation was not possible for throrough exam. Due to worsening pain, will send to ED by EMS. ER notified at 1704. Ordered: Office Visit Level 4 Est 04506 Pain Weakness Attempted to find emergency placement in [facility] as she is unable to care for herself. this was attempted for 4 hours with the help of care coordination. We were unsuccessful. Abdominal pain got worse and thus transferred to ED as above. Ordered: Office Visit Level 4 Est 14540
--- OUTSIDE RECORDS SUMMARY | 2016-12-24 12:38 | XMS REPORT | Referral Summary ---
Author Author [facility] Organization [facility] Address Unknown Phone Unavailable Care Team Providers Care Paper Machine Back Tender Name Role Phone Juventino Galvin Primary Care Physician [phone] Encounter [facility] Date(s): 05/27/15 - 05/27/15 [facility] [address] [place] [id number] Discharge Disposition: 01-Home or Self [...] , # 30 tabs, 0 Refill(s), Pharmacy: [facility] 61981, 1 tabs Oral Bedtime (once a day),Instr:one refill only until seen by new PCP Start Date: 11/22/15 Status: Ordered BENGAY Arthritis topical cream See Instructions, APPLY TOPICALLY TO AFFECTED AREAS NEEDED., 0 Refill(s) Start Date: 06/07/15 Status: Ordered Cymbalta 60 mg oral delayed release capsule 120 mg 2 caps, Oral, Daily, # 60 caps, 0 Refill(s), Pharmacy: [facility] 40832, 2 caps Oral Daily Start Date: 11/22/15 Status: Ordered docusate sodium 100 mg oral capsule 200 mg 2 caps, Oral, BID, as needed for constipation, with plenty of water, # 50 caps, 0 Refill(s), Pharmacy: [facility] 13517, 2 caps Oral BID,PRN: as needed for constipation,Instr:with plenty of water Start Date: 11/22/15 Status: Ordered DULoxetine 60 mg oral delayed release capsule mg caps, Oral, Daily, 0 Refill(s) Start Date: 06/07/15 Status: Ordered ferrous sulfate 325 mg (65 mg elemental iron) oral tablet 325 mg 1 tabs, Oral, BID, # 60 tabs, 0 Refill(s), Pharmacy: [facility] 36882, 1 tabs Oral BID Start Date: 11/22/15 Status: Ordered Flonase 50 mcg/inh nasal spray 50 mcg 1 sprays, Nasal, BID, this fill only until seen by new PCP, # 1 Each, 0 Refill(s), Pharmacy: [facility] [id number] Start Date: 06/21/15 Status: Ordered furosemide 40 mg oral tablet 40 mg 1 tabs, Oral, Daily, # 30 tabs, 0 Refill(s), Pharmacy: [facility] 70261, 1 tabs Oral Daily Start Date: 11/22/15 Status: Ordered gabapentin 300 mg oral capsule 600 mg 2 caps, Oral, QID, # 240 caps, 0 Refill(s), Pharmacy: [facility] 65509, 2 caps Oral QID Start Date: 11/22/15 Status: Ordered gabapentin 300 mg oral capsule mg caps, Oral, QID, 0 Refill(s) Start Date: 06/07/15 Status: Ordered HumaLOG KwikPen 100 units/mL subcutaneous solution See Instructions, 25 UNITS SQ WITH MEALS, # 10 mL, 0 Refill(s), Pharmacy: [facility] 15626, 25 UNITS SQ WITH MEALS Start Date: 11/22/15 Status: Ordered Klor-Con M20 oral tablet, extended release 40 mEq 2 tabs, Oral, Daily, # 60 tabs, 0 Refill(s), Pharmacy: [facility] 44682, 2 tabs Oral Daily Start Date: 2/1/16 Status: Ordered Lasix 40 mg oral tablet mg tabs, Oral, Daily, 0 Refill(s) Start Date: 06/07/15 Status: Ordered lisinopril 10 mg oral tablet 10 mg 1 tabs, Oral, Daily, this fill only till seen by new pcp, # 30 tabs, 0 Refill(s), Pharmacy: [facility] 83702, 1 tabs Oral Daily,Instr:this fill only till [...] # 24 tabs, 0 Refill(s), Pharmacy : [facility] 31889, 1 tabs Oral q4hr,PRN:Diarrhea/Loose Stools Start Date: 11/22/15 Status: Ordered MiraLax oral powder for reconstitution 17 g 17 g, Oral, Daily, Constipation, dissolve in water before taking, # 12 Each , 0 Refill(s), Pharmacy: [facility] 88[address] Start Date: 11/22/15 Status: Ordered MS Contin 15 mg/12 hr oral tablet, extended release 15 mg 1 tabs, Oral, Bedtime (once a day), PLEASE FAX TO [facility] , # 30 tabs, 0 Refill(s) Start Date: 10/19/15 Status: Ordered [place] 5 mg-325 mg oral tablet 1 tabs, Oral, q4hr, as needed for pain, FAX TO [facility]. ., # 180 tabs, 0 Refill(s) Start Date: 11/08/15 Status: Ordered oxybutynin 5 mg oral tablet 5 mg 1 tabs, Oral, TID, # 90 tabs, 0 Refill(s), Pharmacy: [facility] 64675, 1 tabs Oral TID Start Date: 11/22/15 Status: Ordered rOPINIRole 1 mg oral tablet See Instructions, TAKE 1 TABLET BY MOUTH THREE TIMES DAILY, # 90 Each, 0 Refill( s), Pharmacy: [facility] 25708, TAKE 1 TABLET BY MOUTH THREE TIMES DAILY Start Date: 11/22/15 Status: Ordered senna 8.6 mg oral tablet 17.2 mg 2 tabs, Oral, Bedtime (once a day), # 60 tabs, 0 Refill(s), Pharmacy: [facility] 93955, 2 tabs Oral Bedtime (once a day) Start Date: 11/22/15 Status: Ordered Skelaxin 800 mg oral tablet 800 mg 1 tabs, Oral, TID, as needed for pain, this rx only till seen by new PCP , X 30 days, # 90 tabs, 0 Refill(s), Pharmacy: [facility] 83274, 1 tabs Oral TID,x30 days,PRN:as needed for pain,Instr:this rx only till seen by new PCP Start Date: 11/22/15 Stop Date: 12/22/15 Status: Ordered Victoza 18 mg/3 mL subcutaneous solution 1.2 mg, SubCutaneous, Daily, # 15 mL, 0 Refill(s), Pharmacy: [facility] 76089, 1.2 mg SubCutaneous Daily Start Date: 11/22/15 [...] Reconstructive orthopedic procedure8 Surgery9 Tonsillectomy Total knee [id number] Tubal ligation 1auto-populated from documented surgical case 2L1-S1 Central/Lateral Recess Decompression w/ Cj Foraminotomies (65565); Each Addl (59134 X 5) ICD-9 Codes: 724.02; 724.03; 737.30 PO05/23/2015 3C3-4 ACDF 39253, 21022, 98815, 32863 Post op global ends 11/03/14 4auto-populated from documented surgical case 5bilateral 6x3 7left wrist 8To right hand x9 9Abdominal surgery revisions, multiple 10Rx2, Lx1 Social History Social History Type Response Smoking Status Former smoker; Type: Cigarettes; Number of years: 36 Assessment and Plan No data available for this section
--- OUTSIDE RECORDS SUMMARY | 2016-12-24 12:38 | XMS REPORT ---
Author Author Vee Ortega Organization [employer] Address Unknown Phone Unavailable Care Team Providers Care Scanner Supervisor Name Role Phone Vee Ortega CP Unavailable [...] Instructions Start Date End Date Status Dosage Hydrocodone-Acetaminophen [facility] [address]-50 7.5-325 MG Orally every 6 hrs Jul 21, 2014 Aug 20, 2014 Active 1 tablet as needed Vital Signs Date/Time: Jul 17, 2014 Height 66 inches Weight 321 lbs Temperature 98.0 F Blood Pressure Diastolic 78 mm Hg Blood Pressure Systolic 132 mm Hg Cardiac Monitoring Heart Rate 86 Beats per Minute Oximetry 95 % Respiratory Rate 20 per Minute Results No Known Results Summary Purpose [employer] Submission
--- OUTSIDE RECORDS SUMMARY | 2016-12-24 12:38 | XMS REPORT | Referral Summary ---
Author Author [facility] Organization [facility] Address Unknown Phone Unavailable Care Team Providers Care Regional Geodetic Advisor Name Role Phone Juventino Galvin Primary Care Physician [phone] Encounter [facility] [id number] Date(s): 02/22/15 - 02/26/15 [facility] [address] [place] [address] Discharge Diagnosis: Lumbar stenosis with neurogenic claudication [...] , # 30 tabs, 0 Refill(s), Pharmacy: [facility] 59592, 1 tabs Oral Bedtime (once a day),Instr:one [...] PCP, # 1 Each, 0 Refill(s), Pharmacy: [facility] [address]453 Start Date: 06/21/15 Status: Ordered gabapentin 300 [...] pcp, # 30 tabs, 0 Refill(s), Pharmacy: [facility], 1 tabs Oral Daily,Instr:this fill only till [...] Bedtime (once a day), P[facility] FAX TO [facility] , # 30 tabs, 0 Refill(s) Start Date: 08/23/15 Status: Ordered [employer] 5 mg-325 mg oral tablet 1 tabs, Oral, q6hr, as needed for pain, FAX TO [facility]. ., # 120 tabs, 0 Refill(s) Start Date: 07/19/15 Status: Ordered oxybutynin 5 mg oral tablet mg tabs, Oral, TID, 0 Refill(s) Start Date: 06/07/15 Status: Ordered rOPINIRole 1 mg oral tablet See Instructions, TAKE 1 TABLET BY MOUTH THREE TIMES DAILY, # 90 tabs, 2 Refill( s), [facility]Rx: [facility] 81356, TAKE 1 TABLET BY MOUTH THREE TIMES [...] , # 60 tabs, 0 Refill(s), Pharmacy: [facility] 67764, 1 tabs Oral TID, PRN:as needed for [...] Reconstructive orthopedic procedure8 Surgery9 Tonsillectomy Total knee [id number] Tubal ligation 1auto-populated from documented surgical case 2L1-S1 Central/Lateral Recess Decompression w/ Cj Foraminotomies (82821); Each Addl (47590 X 5) ICD-9 Codes: 724.02; 724.03; 737.30 PO05/23/2015 3C3-4 ACDF 00106, 87895, 69193, 50148 Post op global ends 11/03/14 4auto-populated from documented surgical case 5bilateral 6x3 7left wrist 8To right hand x9 9Abdominal surgery revisions, multiple 10Rx2, Lx1 Social History Social History Type Response Smoking Status Former smoker; Type: Cigarettes; Number of years: 36 Assessment and Plan No data available for this section
--- OUTSIDE RECORDS SUMMARY | 2016-12-24 12:38 | XMS REPORT | Referral Summary ---
Author Organization Unknown Address Unknown Phone Unavailable Care Team Providers Care Claim Agent Name Role Phone Juventino Galvin Primary Care Physician [phone] Encounter [facility] Date(s): 11/30/14 - 11/30/14 [facility], [place], [address] [place] [address]- Discharge Diagnosis: Diabetes type 2, uncontrolled Discharge Diagnosis: Back pain Discharge Diagnosis: Financial problems Discharge Diagnosis: Noncompliance Discharge Disposition: Home or Self Care Attending Physician: Maida Galvin MD Admitting Physician: Maida Galvin MD Vital Signs Most recent to 1 oldest [Reference Range]: Temperature Tympanic 36.0 degC [36.6-38.1 degC] *LOW* (11/30/14 11:21 AM) Peripheral Pulse 78 bpm Rate [60-100 bpm] (11/30/14 11:21 AM) Blood Pressure 138/80 mmHg [90-140/60-90 mmHg] (11/30/14 11:21 AM) Problem List Condition Effective Dates Status [...] day), # 90 tabs, 0 Refill(s), Pharmacy: [id number], 1 tabs Oral Bedtime (once a day) Start Date: 09/28/14 Status: Ordered Colace 100 mg oral capsule 1 caps, Oral, BID, 0 Refill(s) Start Date: 08/13/14 Status: Ordered DULoxetine 60 mg oral delayed release capsule See Instructions, 2 CAPS ORAL DAILY, # 60 caps, 2 Refill(s), eRx: [facility] [id number], 2 CAPS ORAL DAILY Special Instructions: 2 CAPS ORAL DAILY Start Date: 09/08/14 Status: Ordered Effexor XR 37.5 mg capsule,extended release See Instructions, TAKE 2 BY ORAL ROUTE EVERY DAY WITH FOOD, # 180 unknown unit, eRx: [facility] [id number], TAKE 2 BY ORAL ROUTE EVERY DAY [...] oral tablet 1 tabs, Oral, TID, # 90 tabs, 0 Refill(s) Start Date: 11/30/14 Status: Ordered HumaLOG 100 units/mL subcutaneous solution [...] BID, # 10 mL, 1 Refill(s), Pharmacy: [facility] [id number], 30 units SubCutaneous BID Start Date: 11/30/14 Status: Ordered Lantus 100 units/mL subcutaneous solution See Instructions, INJECT 50 UNITS SUBCUTANEOUS TWICE DAILY, # 90 mL, 2 Refill(s) , ALIZA, Pharmacy: [facility] [id number], INJECT 50 UNITS SUBCUTANEOUS TWICE DAILY Special Instructions: INJECT 50 UNITS SUBCUTANEOUS TWICE DAILY Start Date: 10/01/14 Status: Ordered Lasix 40 mg oral tablet 1 tabs, Oral, Daily, # 30 tabs, 0 Refill(s), Pharmacy: [facility] 79592, 1 tabs Oral Daily Start Date: 08/13/14 Status: Ordered lidocaine 5% topical film 1 patches, TransDermal, Daily, # 30 patches, 0 Refill(s) Start Date: 08/13/14 Status: Ordered lisinopril 10 mg oral tablet 1 tabs, Oral, Daily, # 30 tabs, 2 Refill(s), Pharmacy: [facility] [id number], 1 tabs Oral Daily Start Date: 09/10/14 [...] # 60 tabs, 0 Refill(s) Start Date: 11/10/14 Status: Ordered Eldridge 7.5 mg-325 mg oral tablet 1 tabs, Oral, TID, as needed for pain, # 90 tabs, 0 Refill(s) Start Date: 11/02/14 Status: Ordered potassium chloride 20 mEq oral tablet, extended release 2 tabs, Oral, qPM, # 60 tabs, 0 Refill(s) Start Date: 08/13/14 Status: Ordered rOPINIRole 1 mg oral tablet See Instructions, 1 TABS ORAL TID, # 90 tabs, 1 Refill(s), eRx: [facility] [id number], 1 TABS ORAL TID Special Instructions: 1 TABS ORAL TID Start Date: 11/05/14 Status: Ordered Skelaxin 800 mg oral tablet 1 tabs, Oral, TID, 0 Refill(s) Start Date: 11/06/14 Status: Ordered Zetia 10 mg oral tablet 1 tabs, Oral, Daily, # 90 tabs, 0 Refill(s), Pharmacy: [facility] [id number], 1 tabs Oral Daily Start Date: 09/28/14 Status: Ordered Results No data available for this section Immunizations Vaccine Date Refusal Reason influenza virus vaccine, inactivated1 08/01/14 influenza virus vaccine, live 08/07/13 influenza virus vaccine, live 07/17/12 pneumococcal 23-polyvalent vaccine2 08/01/14 1Early/Late Reason: Nursing Judgment 2Early/Late Reason: Nursing Judgment Procedures Procedure Date Related Diagnosis Body Site Left L4-5/L5-S1 Transforaminal 09/24/14 Fusion of spine of cervical region1 08/05/14 Fusion Spine Cervical Anterior and Disce2 08/05/14 Left L4-5/L5-S1 05/26/14 Arthroplasty of knee3 delivery4 section CTR - Carpal tunnel release5 History of sinus surgery Knee replacement L Knee replacement R Reconstructive orthopedic procedure6 Surgery7 Tonsillectomy Total knee arthroplasty8 Tubal ligation 1C3-4 ACDF 08858, 27589, 98521, 01374 Post op global ends 11/03/14 2auto-populated from documented surgical case 3bilateral 4x3 5left wrist 6To right hand x9 7Abdominal surgery revisions, multiple 8Rx2, Lx1 Social History Social History Type Response Smoking Status Former smoker; Type: Cigarettes; Number of years: 6 Assessment and Plan Extracted from: Title: Ambulatory Patient Education Author: Maida Galvin MD Date: 11/30/14 Family Medicine Type 2 Diabetes Mellitus, Adult Type 2 diabetes mellitus is a long-term (chronic ) disease. In type 2 diabetes: The pancreas does not make enough of a hormone called insulin. The cells in the body do not respond as well to the insulin that is made. Both of the above can happen. Normally, insulin moves sugars from food into tissue cells. This gives you energy. If you have type 2 diabetes, sugars cannot be moved into tissue cells. This causes high blood sugar (hyperglycemia ). HOME CARE Have your hemoglobin A1c level checked twice a year. The level shows if your diabetes is under control or out of control. Perform daily blood sugar testing as told by your doctor. Check your keytone levels by testing your pee (urine ) when you are sick and as told. Take your diabetes or insulin medicine as told by your doctor. Never run out of insulin. Adjust how much insulin you give yourself based on how many carbs ( carbohydrates ) you eat. Carbs are in many foods, such as fruits, vegetables, whole grains, and dairy products. Have a healthy snack between every healthy meal. Have 3 meals and 3 snacks a day. Lose weight if you are overweight. Carry a medical alert card or wear your medical alert jewelry. Carry a 15 gram carb snack with you at all times. Examples include: Glucose pills, 3 or 4. Glucose gel, 15 gram tube. Raisins, 2 tablespoons (24 grams). Jelly beans, 6. Animal crackers, 8. Sugar pop, 4 ounces (120 milliliters). Gummy treats, 9. Notice low blood sugar (hypoglycemia ) symptoms, such as: Shaking (tremors ). Decreased ability to think clearly. Sweating. Increased heart rate. Headache. Dry mouth. Hunger. Crabbiness (irritability ). Being worried or tense (anxiety ). Restless sleep. A change in speech or coordination. Confusion. Treat low blood sugar right away. If you are alert and can swallow, follow the 15:15 rule: Take 1520 grams of a rapid-acting glucose or carb. This includes glucose gel, glucose pills, or 4 ounces (120 milliters) of fruit juice, regular pop, or low-fat milk. Check your blood sugar level after taking the glucose. Take 1520 grams of more glucose if the repeat blood sugar level is still 70 mg/dL (milligrams/deciliter ) or below. Eat a meal or snack within 1 hour of the blood sugar levels going back to normal. Notice early symptoms of high blood sugar, such as: Being really thirsty or drinking a lot (polydipsia ). Peeing (urinating ) a lot (polyuria ). Do at least 150 minutes of physical activitity a week or as told. Split the 150 minutes of activity up during the week. Do not do 150 minutes of activity in one day. Perform exercises, such as weight lifting, at least 2 times a week or as told. Adjust your insulin or food intake as needed if you start a new exercise or sport. Follow your sick day plan when you are not able to eat or drink as usual. Avoid tobacco use. Women who are not should drink no more than 1 drink a day. Men should drink no more than 2 drinks a day. Only drink alcohol with food. Ask your doctor if alcohol is safe for you. Tell your doctor if you drink alcohol several times during the week. See your doctor regularly. Schedule an eye exam soon after you are diagnosed with diabetes. Schedule exams once every year. Check your skin and feet every day. Check for cuts, bruises, redness, nail problems, bleeding, blisters, or sores. A doctor should do a foot exam once a year. [place] your teeth and gums twice a day. Floss once a day. Visit your dentist regularly. Share your diabetes plan with your workplace or school. Stay up-to-date with shots that fight against diseases (immunizations ). Learn how to manage stress. Get diabetes education and support as needed. Ask your doctor for special help if: You need help to maintain or improve how you to do things on your own. You need help to maintain or improve the quality of your life. You have foot or hand problems. You have trouble cleaning yourself, dressing, eating, or doing physical activity. GET HELP RIGHT AWAY IF: You have trouble breathing. You have moderate to large ketone levels. You are unable to eat food or drink fluids for more than 6 hours. You feel sick to your stomach (nauseous ) or throw up (vomit ) for more than 6 hours. Your blood sugar level is over 240 mg/dL. There is a change in mental status. You get another serious illness. You have watery poop (diarrhea ) for more than 6 hours. You have been sick or have had a fever for 2 or more days and are not getting better. You have pain when you are physically active. MAKE SURE YOU: Understand these instructions. Will watch your condition. Will get help right away if you are not doing well or get worse. Document Released: 07/17/2009 Document Revised: 07/02/2013 Document Reviewed: Exit[employer] Patient Information 2014 [place]. No follow up information was provided. Extracted from: Title: Office Visit Note Author: Maida Galvin MD Date: 11/30/14 Assessment/Plan Back pain Appt with Dr. Thong Poon per patient request. (She hasn't been very compliant with what Dr. Perez and Dr. Ortega have told her to do, but she wants to see Dr. Poon....... Diabetes type 2, uncontrolled Stop lantus (which she hasn't used in [address]!) Start NPH 30 units BID. Patient reminded of the expectation that she brings her BS's and food diary with her to her appt. Recheck in 1 month. Financial problems Noncompliance Orders: insulin isophane (NPH), 30 units, SubCutaneous, BID, # 10 mL, 1 Refill (s), Pharmacy: [id number], 30 units SubCutaneous BID
--- OUTSIDE RECORDS SUMMARY | 2016-12-24 12:38 | XMS REPORT | Referral Summary ---
Author Organization Unknown Address Unknown Phone Unavailable Care Team Providers Care Health Promotion Coordinator Name Role Phone Juventino Galvin Primary Care Physician [phone] Encounter [facility] [id number] Date(s): 02/11/15 - 02/11/15 [facility] [place], Cardiology [address] [place], [place] [address] Discharge Diagnosis: Preoperative cardiovascular examination Discharge Diagnosis: Benign essential HTN Discharge Diagnosis: Hyperlipidemia Discharge Diagnosis: Diabetes Discharge Diagnosis: UNSPECIFIED CHEST PAIN Discharge Disposition: Home or Self Care Attending Physician: Ronni Schwartz MD Admitting Physician: Ronni Schwartz MD Referring Physician: Juaquin Clemente MD Vital Signs Most recent to 1 oldest [Reference Range]: Peripheral Pulse 80 bpm Rate [60-100 bpm] (02/11/15 1:52 PM) Blood Pressure 110/54 mmHg [90-140/60-90 mmHg] (02/11/15 1:52 PM) Problem List Condition Effective Dates Status [...] day), # 90 tabs, 0 Refill(s), Pharmacy: [facility] [id number], 1 tabs Oral Bedtime (once a day) Start Date: 09/28/14 Status: Ordered Colace 100 mg oral capsule 1 caps, Oral, BID, 0 Refill(s) Start Date: 08/13/14 Status: Ordered doxycycline hyclate 100 mg oral capsule See Instructions, TAKE 1 CAPSULE (100MG) BY ORAL ROUTE EVERY 12 HOURS, # 60 unknown unit, eRx: [facility] [id number], TAKE 1 CAPSULE (100MG) BY ORAL ROUTE EVERY 12 HOURS Special Instructions: TAKE 1 CAPSULE (100MG) BY ORAL ROUTE EVERY 12 HOURS Start Date: 01/19/15 Status: Ordered DULoxetine 60 mg oral delayed release capsule See Instructions, 2 CAPS ORAL DAILY, # 60 caps, 2 Refill(s), [facility]: [facility] [address], 2 CAPS ORAL DAILY Special Instructions: 2 CAPS ORAL DAILY Start Date: 01/26/15 Status: Ordered Effexor XR 75 mg oral capsule, extended release 1 caps, Oral, Daily, # 30 caps, 0 Refill(s), [facility]: [facility] [address], 1 caps Oral Daily Start Date: 01/26/15 Status: Ordered Flonase 50 mcg/inh nasal spray 1 sprays, Nasal, Daily, 0 Refill(s) Start Date: 08/13/14 Status: Ordered gabapentin 600 mg oral tablet 1 tabs, Oral, TID, # 270 tabs, 0 Refill(s), Pharmacy: [facility] , 1 tabs Oral TID Start Date: [...] BID, # 10 mL, 1 Refill(s), [facility]acy: [facility] [address]23[facility], 30 units SubCutaneous BID Start Date: 11/30/14 Status: Ordered Lasix 40 mg oral tablet 1 tabs, Oral, Daily, # 30 tabs, 2 Refill(s), Pharmacy: [facility] 13936, 1 tabs Oral Daily Start Date: 12/18/14 Status: Ordered lidocaine 5% topical film 1 patches, TransDermal, Daily, # 30 patches, 0 Refill(s) Start Date: 08/13/14 Status: Ordered lisinopril 10 mg oral tablet 1 tabs, Oral, Daily, # 30 tabs, 2 Refill(s), Pharmacy: [facility] 75177, 1 tabs Oral Daily Start Date: 09/10/14 [...] 0 Refill(s) Start Date: 01/25/15 Status: Ordered Byers 7.5 mg-325 mg oral tablet 1 tabs, Oral, TID, as needed for pain, # 90 tabs, 0 Refill(s) Start Date: 12/31/14 Status: Ordered potassium chloride 20 mEq oral tablet, extended release 2 tabs, Oral, qPM, # 60 tabs, 0 Refill(s) Start Date: 08/13/14 Status: Ordered rOPINIRole 1 mg oral tablet See Instructions, 1 TABS ORAL TID, # 90 tabs, eRx: [facility] [id number], 1 TABS ORAL TID Special Instructions: 1 TABS ORAL TID Start Date: 01/13/15 Status: Ordered Skelaxin 800 mg oral tablet See Instructions, TAKE .5 -1 TAB. TID PRN MUST LAST 1 MONTH., # 30 tabs, eRx: [facility] [id number], TAKE .5 -1 TAB. TID PRN MUST LAST 1 MONTH. Special Instructions: TAKE .5 -1 TAB. TID PRN MUST LAST 1 MONTH. Start Date: 01/19/15 Status: Ordered Zetia 10 mg oral tablet 1 tabs, Oral, Daily, # 90 tabs, 0 Refill(s), Pharmacy: [facility] 84097, 1 tabs Oral Daily Start Date: 09/28/14 [...] Total knee arthroplasty8 Tubal ligation 1C3-4 ACDF 09763, 89939, 14874, 38029 Post op global ends 11/03/14 2auto-populated from documented surgical case 3bilateral 4x3 5left wrist 6To right hand x9 7Abdominal surgery revisions, multiple 8Rx2, Lx1 Social History Social History Type Response Smoking Status Former smoker; Type: Cigarettes; Number of years: 6 Assessment and Plan No data available for this section
--- OUTSIDE RECORDS SUMMARY | 2016-12-24 12:39 | XMS REPORT | Referral Summary ---
Author Organization Unknown Address Unknown Phone Unavailable Care Team Providers Care Sterile Processing Tech Name Role Phone Juventino Galvin Primary Care Physician [phone] Encounter [facility] J[facility] [id number] Date(s): 02/17/15 - 02/17/15 [facility], [place], Cardiology [address] [place], [place] [address] Discharge Disposition: Home or Self Care [...] day), # 90 tabs, 0 Refill(s), Pharmacy: [facility] 75073, 1 tabs Oral Bedtime (once a day) [...] 12 HOURS, # 60 unknown unit, eRx: [facility] 40553, TAKE 1 CAPSULE (100MG) BY ORAL ROUTE EVERY 12 HOURS Special Instructions: TAKE 1 CAPSULE (100MG) BY ORAL ROUTE EVERY 12 HOURS Start Date: 01/19/15 Status: Ordered DULoxetine 60 mg oral delayed release capsule See Instructions, 2 CAPS ORAL DAILY, # 60 caps, 2 Refill(s), [facility] [address], 2 CAPS ORAL DAILY Special Instructions: 2 [...] TID, # 270 tabs, 0 Refill(s), Pharmacy: [facility] 46251 , 1 tabs Oral TID Start Date: [...] BID, # 10 mL, 1 Refill(s), Pharmacy: [facility] 08622, 30 units SubCutaneous BID Start Date: 11/30/14 Status: Ordered Lasix 40 mg oral tablet 1 tabs, Oral, Daily, # 30 tabs, 2 Refill(s), [facility] [address], 1 tabs Oral Daily Start Date: 12/18/14 Status: Ordered lisinopril 10 mg oral tablet 1 tabs, Oral, Daily, # 30 tabs, 2 Refill(s), Pharmacy: [facility] 56129, 1 tabs Oral Daily Start Date: 09/10/14 [...] 0 Refill(s) Start Date: 01/25/15 Status: Ordered Onemo 7.5 mg-325 mg oral tablet 1 tabs, Oral, TID, as needed for pain, # 90 tabs, 0 Refill(s) Start Date: 12/31/14 Status: Ordered potassium chloride 20 mEq oral tablet, extended release 2 tabs, Oral, qPM, # 60 tabs, 0 Refill(s) Start Date: 08/13/14 Status: Ordered rOPINIRole 1 mg oral tablet See Instructions, 1 TABS ORAL TID, # 90 tabs, eRx: [facility] 15953, 1 TABS ORAL TID Special Instructions: 1 TABS ORAL TID Start Date: 01/13/15 Status: Ordered Skelaxin 800 mg oral tablet 1 tabs, Oral, BID, 0 Refill(s) Start Date: 02/15/15 Status: Ordered Zetia 10 mg oral tablet 1 tabs, Oral, Daily, # 90 tabs, 0 Refill(s), Pharmacy: [facility] 92680, 1 tabs Oral Daily Start Date: 09/28/14 [...] Total knee arthroplasty8 Tubal ligation 1C3-4 ACDF 28782, 47482, 74622, 73465 Post op global ends 11/03/14 2auto-populated from documented surgical case 3bilateral 4x3 5left wrist 6To right hand x9 7Abdominal surgery revisions, multiple 8Rx2, Lx1 Social History Social History Type Response Smoking Status Former smoker; Type: Cigarettes; Number of years: 36 Assessment and Plan No data available for this section
--- OUTSIDE RECORDS SUMMARY | 2016-12-24 12:39 | XMS REPORT | Referral Summary ---
Author Author [facility] Medicine Organization [facility] [place] [facility] Address Unknown Phone Unavailable Care Team Providers Care Monument Setter Name Role Phone Juventino Galvin Primary Care Physician [phone] Encounter [facility] [id number] Date(s): 05/21/15 - 05/21/15 [facility] [place] [address] [place] [address] Discharge Disposition: 01-Home or [...] , # 30 tabs, 0 Refill(s), Pharmacy: [facility] [id number], 1 tabs Oral Bedtime (once a day),Instr:one refill only until seen by new PCP Start Date: 11/22/15 Status: Ordered BENGAY Arthritis topical cream See Instructions, APPLY TOPICALLY TO AFFECTED AREAS NEEDED., 0 Refill(s) Start Date: 06/07/15 Status: Ordered Cymbalta 60 mg oral delayed release capsule 120 mg 2 caps, Oral, Daily, # 60 caps, 0 Refill(s), Pharmacy: [facility] 23028, 2 caps Oral Daily Start Date: 11/22/15 Status: Ordered docusate sodium 100 mg oral capsule 200 mg 2 caps, Oral, BID, as needed for constipation, with plenty of water, # 50 caps, 0 Refill(s), Pharmacy: [facility] 16664, 2 caps Oral BID,PRN: as needed for constipation,Instr:with plenty of water Start Date: 11/22/15 Status: Ordered DULoxetine 60 mg oral delayed release capsule mg caps, Oral, Daily, 0 Refill(s) Start Date: 06/07/15 Status: Ordered ferrous sulfate 325 mg (65 mg elemental iron) oral tablet 325 mg 1 tabs, Oral, BID, # 60 tabs, 0 Refill(s), Pharmacy: [facility] 96289, 1 tabs Oral BID Start Date: 11/22/15 Status: Ordered Flonase 50 mcg/inh nasal spray 50 mcg 1 sprays, Nasal, BID, this fill only until seen by new PCP, # 1 Each, 0 Refill(s), [facility] Start Date: 06/21/15 Status: Ordered furosemide 40 mg oral tablet 40 mg 1 tabs, Oral, Daily, # 30 tabs, 0 Refill(s), Pharmacy: [facility] 64673, 1 tabs Oral Daily Start Date: 11/22/15 Status: Ordered gabapentin 300 mg oral capsule 600 mg 2 caps, Oral, QID, # 240 caps, 0 Refill(s), Pharmacy: [facility] 22378, 2 caps Oral QID Start Date: 11/22/15 Status: Ordered gabapentin 300 mg oral capsule mg caps, Oral, QID, 0 Refill(s) Start Date: 06/07/15 Status: Ordered HumaLOG KwikPen 100 units/mL subcutaneous solution See Instructions, 25 UNITS SQ WITH MEALS, # 10 mL, 0 Refill(s), Pharmacy: [facility] 69909, 25 UNITS SQ WITH MEALS Start Date: 11/22/15 Status: Ordered Klor-Con M20 oral tablet, extended release 40 mEq 2 tabs, Oral, Daily, # 60 tabs, 0 Refill(s), Pharmacy: [facility] 78530, 2 tabs Oral Daily Start Date: 2/1/16 Status: Ordered Lasix 40 mg oral tablet mg tabs, Oral, Daily, 0 Refill(s) Start Date: 06/07/15 Status: Ordered lisinopril 10 mg oral tablet 10 mg 1 tabs, Oral, Daily, this fill only till seen by new pcp, # 30 tabs, 0 Refill(s), Pharmacy: [facility] 03373, 1 tabs Oral Daily,Instr:this fill only till [...] # 24 tabs, 0 Refill(s), Pharmacy : [facility] 14088, 1 tabs Oral q4hr,PRN:Diarrhea/Loose Stools Start Date: 11/22/15 Status: Ordered MiraLax oral powder for reconstitution 17 g 17 g, Oral, Daily, Constipation, dissolve in water before taking, # 12 Each , 0 Refill(s), Pharmacy: [facility] 59746 Start Date: 11/22/15 Status: Ordered MS Contin 15 mg/12 hr oral tablet, extended release 15 mg 1 tabs, Oral, Bedtime (once a day), PLEASE FAX TO [facility] [phone], # 30 tabs, 0 Refill(s) Start Date: 10/19/15 Status: Ordered [place] 5 mg-325 mg oral tablet 1 tabs, Oral, q4hr, as needed for pain, FAX TO [facility]. ., # 180 tabs, 0 Refill(s) Start Date: 11/08/15 Status: Ordered oxybutynin 5 mg oral tablet 5 mg 1 tabs, Oral, TID, # 90 tabs, 0 Refill(s), Pharmacy: [facility] 46868, 1 tabs Oral TID Start Date: 11/22/15 Status: Ordered rOPINIRole 1 mg oral tablet See Instructions, TAKE 1 TABLET BY MOUTH THREE TIMES DAILY, # 90 Each, 0 Refill( s), Pharmacy: [facility] 57361, TAKE 1 TABLET BY MOUTH THREE TIMES DAILY Start Date: 11/22/15 Status: Ordered senna 8.6 mg oral tablet 17.2 mg 2 tabs, Oral, Bedtime (once a day), # 60 tabs, 0 Refill(s), Pharmacy: [facility] 61044, 2 tabs Oral Bedtime (once a day) Start Date: 11/22/15 Status: Ordered Skelaxin 800 mg oral tablet 800 mg 1 tabs, Oral, TID, as needed for pain, this rx only till seen by new PCP , X 30 days, # 90 tabs, 0 Refill(s), Pharmacy: [facility] 42126, 1 tabs Oral TID,x30 days,PRN:as needed for pain,Instr:this rx only till seen by new PCP Start Date: 11/22/15 Stop Date: 12/22/15 Status: Ordered Victoza 18 mg/3 mL subcutaneous solution 1.2 mg, SubCutaneous, Daily, # 15 mL, 0 Refill(s), Pharmacy: [facility] 74434, 1.2 mg SubCutaneous Daily Start Date: 11/22/15 [...] Reconstructive orthopedic procedure8 Surgery9 Tonsillectomy Total knee [id number] Tubal ligation 1auto-populated from documented surgical case 2L1-S1 Central/Lateral Recess Decompression w/ Cj Foraminotomies (13395); Each Addl (69077 X 5) ICD-9 Codes: 724.02; 724.03; 737.30 PO05/23/2015 3C3-4 ACDF 79051, 01839, 27779, 21208 Post op global ends 11/03/14 4auto-populated from documented surgical case 5bilateral 6x3 7left wrist 8To right hand x9 9Abdominal surgery revisions, multiple 10Rx2, Lx1 Social History Social History Type Response Smoking Status Former smoker; Type: Cigarettes; Number of years: 36 Assessment and Plan No data available for this section
--- OUTSIDE RECORDS SUMMARY | 2016-12-24 12:39 | XMS REPORT | Referral Summary ---
Author Author [facility] Organization [facility] Address Unknown Phone Unavailable Care Team Providers Care International Trade Manager Name Role Phone Juventino Galvin Primary Care Physician [phone] Encounter [facility] [id number] Date(s): 02/22/15 - 02/26/15 [facility] [address] [place] [address] [phone] Discharge Diagnosis: Lumbar stenosis with neurogenic claudication [...] Insulin Final: ANXIETY STATE, UNSPECIFIED Discharge Disposition: -Retirement Facility Attending Physician: Juaquin Clemente MD Admitting [...] , # 30 tabs, 0 Refill(s), Pharmacy: [facility] [id number], 1 tabs Oral Bedtime (once a day),Instr:one [...] PCP, # 1 Each, 0 Refill(s), Pharmacy: [facility] [id number] Start Date: 06/21/15 Status: Ordered gabapentin 300 [...] pcp, # 30 tabs, 0 Refill(s), Pharmacy: [email or web address], 1 tabs Oral Daily,Instr:this fill only till [...] Bedtime (once a day), PLEASE FAX TO [facility] [phone], # 30 tabs, 0 Refill(s) Start Date: 08/23/15 Status: Ordered [place] 5 mg-325 mg oral tablet 1 tabs, [...] # 90 tabs, 2 Refill( s), eRx: [facility] [id number], TAKE 1 TABLET BY MOUTH THREE TIMES [...] , # 60 tabs, 0 Refill(s), Pharmacy: [facility] 63960, 1 tabs Oral TID, PRN:as needed for [...] Reconstructive orthopedic procedure8 Surgery9 Tonsillectomy Total knee [id number] Tubal ligation 1auto-populated from documented surgical case 2L1-S1 Central/Lateral Recess Decompression w/ Cj Foraminotomies (10523); Each Addl (77641 X 5) ICD-9 Codes: 724.02; 724.03; 737.30 PO05/23/2015 3C3-4 ACDF 27633, 64279, 26142, 34422 Post op global ends 11/03/14 4auto-populated from documented surgical case 5bilateral 6x3 7left wrist 8To right hand x9 9Abdominal surgery revisions, multiple 10Rx2, Lx1 Social History Social History Type Response Smoking Status Former smoker; Type: Cigarettes; Number of years: 36 Assessment and Plan No data available for this section
--- OUTSIDE RECORDS SUMMARY | 2016-12-24 12:39 | XMS REPORT | Continuity of Care Document ---
Author Author Sami Cano MA Ambulatory Address [address] [place] [address] Phone Unavailable Care Team Providers Care Canteen Manager Name Role Phone Maida Galvin PATTY Unavailable Payers Payer name Insurance type Covered constitution party ID Authorization(s) Unknown Problems Condition Effective Dates [...] Diabetes Mellitus Type 2, Uncomplicated - Chronic Back pain - *Chronic Knee pain - *Acute Pain in joint involving lower leg - *Acute Depression - *Chronic Preventive measure - *Routine Leg ulcer, left [...] Sjogren's disease - *Chronic Fibromyalgia - *Chronic Diabetes Mellitus, Adult Onset, Uncontrolled [...] Oral route every day 0 - Active sblftuhxb-jepewmi-ddpvi acid 400 mg-200 mg-1 mg tablet takes 1 daily - Active FISH OIL (unknown strength) daily - Active Lipitor 40 mg tablet Take one tablet by mouth at bedtime. - Active Evoxac 30 mg capsule ONE TABLET BY MOUTH 2 TIMES DAILY - Active Cymbalta 60 mg capsule,delayed release Take two capsules by mouth daily - Active Zetia 10 mg tablet Take 1 tablet by mouth every day. - Active Flonase 50 mcg/actuation Nasal [place] One to two sprays each nostril daily. [...] TABLET EVERY 8 HOURS NEEDED. - Active Requip 1 mg tablet Take 1 tab PO qday. - Active spironolactone 25 mg tablet Take 1 tablet by mouth twice a day. 2012 - Active potassium chloride ER 20 mEq tablet,extended release(part/cryst) take 1 tablet (20MEQ) by oral route 7 times every day 20 MEQ - Active clobetasol 0.05 % Topical Cream apply by topical route 2 times every week a thin layer to the affected area(s) 0 - Active Lantus 100 unit/mL Sub-Q inject 50 units by Subcutaneous route 2 times every day 0 - Active FreeStyle Test Strips Use to test blood sugars 4 times every day, for diabetes DX:250.02 - Active Lidoderm 5 % (700 mg/patch) Adhesive Patch Apply to affected area up to 12 hours per 24-hour period. Max 3 patches applied per day. - Active Effexor XR 37.5 mg capsule,extended release take 1 by Oral route every day with food 0 - Active Humalog 100 unit/mL Sub-Q inject 20 units by Subcutaneous route every meal 0 - Active doxycycline hyclate 100 mg capsule take 1 capsule (100MG) by oral route every 12 hours 100 MG - Active lisinopril 10 mg tablet take 1 tablet (10MG) by oral route every day 10 MG - Active [place] 7.5 mg-325 mg tablet Take 1 tablet by mouth 3 times a day. Must last 30 days. - Active MS Contin 15 mg tablet,extended release Take 1 tablet by mouth twice a day. - Active Immunizations Vaccine Date Status Comments Flu (split) (3 yrs or older) completed Fluzone HD 0.5 completed Results Test Name Date and Time Measure Units Reference Range Abnormal Flag Comments Unknown Vital Signs Date / Time: Height Weight Pulse Rate Blood Pressure Temperature /11:04:00 66.00 in 320.00 lbs 152/84 mm[Hg] 97.5 F Procedures Procedure Date Unknown Encounters Encounter Location Date Patient Visit [facility] Pain Patient Visit [facility] Patient Visit [facility] FM Patient [facility] Patient [facility] Patient [facility] Patient [facility] Patient [facility] Patient Visit [facility] Patient Visit [facility] Patient Visit [facility] Patient Visit [facility] Advance Directives Directive Effective Date Unknown
--- OUTSIDE RECORDS SUMMARY | 2016-12-24 12:40 | XMS REPORT | Referral Summary ---
Author Author [facility] Organization [facility] Address Unknown Phone Unavailable Care Team Providers Care Maintenance Clerk Name Role Phone Juventino Galvin Primary Care Physician [phone] Encounter [facility] [id number] Date(s): 05/18/15 - 05/18/15 [facility] [address], [place] [address] Discharge Diagnosis: Orthopedic aftercare Discharge Diagnosis: Thoracic or lumbosacral neuritis or radiculitis Discharge Disposition: 01-Home or Self Care Attending Physician: Juaquin Clemente MD Admitting Physician: Juaquin Clemente MD Referring Physician: Juaquin Clemente MD Vital Signs No [...] , # 30 tabs, 0 Refill(s), Pharmacy: [id number], 1 tabs Oral Bedtime (once a day),Instr:one [...] Daily, # 60 caps, 0 Refill(s), Pharmacy: [facility] 79545, 2 caps Oral Daily Start Date: 11/22/15 Status: Ordered docusate sodium 100 mg oral capsule 200 mg 2 caps, Oral, BID, as needed for constipation, with plenty of water, # 50 caps, 0 Refill(s), Pharmacy: [facility] [address], 2 caps Oral BID,PRN: as needed for constipation,Instr:with plenty of water Start Date: 11/22/15 Status: Ordered DULoxetine 60 mg oral delayed release capsule mg caps, Oral, Daily, 0 Refill(s) Start Date: 06/07/15 Status: Ordered ferrous sulfate 325 mg (65 mg elemental iron) oral tablet 325 mg 1 tabs, Oral, BID, # 60 tabs, 0 Refill(s), Pharmacy: [facility] 84586, 1 tabs Oral BID Start Date: 11/22/15 Status: Ordered Flonase 50 mcg/inh nasal spray 50 mcg 1 sprays, Nasal, BID, this fill only until seen by new PCP, # 1 Each, 0 Refill(s), Pharmacy: [facility] 06285 Start Date: 06/21/15 Status: Ordered furosemide 40 mg oral tablet 40 mg 1 tabs, Oral, Daily, # 30 tabs, 0 Refill(s), Pharmacy: [facility] 21914, 1 tabs Oral Daily Start Date: 11/22/15 Status: Ordered gabapentin 300 mg oral capsule 600 mg 2 caps, Oral, QID, # 240 caps, 0 Refill(s), Pharmacy: [facility] 16144, 2 caps Oral QID Start Date: 11/22/15 Status: Ordered gabapentin 300 mg oral capsule mg caps, Oral, QID, 0 Refill(s) Start Date: 06/07/15 Status: Ordered HumaLOG KwikPen 100 units/mL subcutaneous solution See Instructions, 25 UNITS SQ WITH MEALS, # 10 mL, 0 Refill(s), Pharmacy: [facility] 42775, 25 UNITS SQ WITH MEALS Start Date: 11/22/15 Status: Ordered Klor-Con M20 oral tablet, extended release 40 mEq 2 tabs, Oral, Daily, # 60 tabs, 0 Refill(s), Pharmacy: [facility] 78677, 2 tabs Oral Daily Start Date: 11/22/15 Status: Ordered Lasix 40 mg oral tablet mg tabs, Oral, Daily, 0 Refill(s) Start Date: 06/07/15 Status: Ordered lisinopril 10 mg oral tablet 10 mg 1 tabs, Oral, Daily, this fill only till seen by new pcp, # 30 tabs, 0 Refill(s), Pharmacy: [facility] 34235, 1 tabs Oral Daily,Instr:this fill only till [...] # 24 tabs, 0 Refill(s), [facility] : [facility], 1 tabs Oral q4hr,PRN:Diarrhea/Loose Stools Start Date: 11/22/15 Status: Ordered MiraLax oral powder for reconstitution 17 g 17 g, Oral, Daily, Constipation, dissolve in water before taking, # 12 Each , 0 Refill(s), [facility] [address] Start Date: 11/22/15 Status: Ordered MS Contin 15 mg/12 hr oral tablet, extended release 15 mg 1 tabs, Oral, Bedtime (once a day), PLEASE FAX TO [facility] , # 30 tabs, 0 Refill(s) Start Date: 10/19/15 Status: Ordered [place] 5 mg-325 mg oral tablet 1 tabs, Oral, q4hr, as needed for pain, FAX TO [facility]. ., # 180 tabs, 0 Refill(s) Start Date: 11/08/15 Status: Ordered oxybutynin 5 mg oral tablet 5 mg 1 tabs, Oral, TID, # 90 tabs, 0 Refill(s), Pharmacy: [facility] 80448, 1 tabs Oral TID Start Date: 11/22/15 Status: Ordered rOPINIRole 1 mg oral tablet See Instructions, TAKE 1 TABLET BY MOUTH THREE TIMES DAILY, # 90 Each, 0 Refill( s), Pharmacy: [facility] 98262, TAKE 1 TABLET BY MOUTH THREE TIMES DAILY Start Date: 11/22/15 Status: Ordered senna 8.6 mg oral tablet 17.2 mg 2 tabs, Oral, Bedtime (once a day), # 60 tabs, 0 Refill(s), Pharmacy: [facility] 03721, 2 tabs Oral Bedtime (once a day) Start Date: 11/22/15 Status: Ordered Skelaxin 800 mg oral tablet 800 mg 1 tabs, Oral, TID, as needed for pain, this rx only till seen by new PCP , X 30 days, # 90 tabs, 0 Refill(s), Pharmacy: [facility] 37043, 1 tabs Oral TID,x30 days,PRN:as needed for pain,Instr:this rx only till seen by new PCP Start Date: 11/22/15 Stop Date: 12/22/15 Status: Ordered Victoza 18 mg/3 mL subcutaneous solution 1.2 mg, SubCutaneous, Daily, # 15 mL, 0 Refill(s), Pharmacy: [facility] 95678, 1.2 mg SubCutaneous Daily Start Date: 11/22/15 [...] Reconstructive orthopedic procedure8 Surgery9 Tonsillectomy Total knee [id number] Tubal ligation 1auto-populated from documented surgical case 2L1-S1 Central/Lateral Recess Decompression w/ Cj Foraminotomies (57017); Each Addl (12676 X 5) ICD-9 Codes: 724.02; 724.03; 737.30 PO05/23/2015 3C3-4 ACDF 64619, 37026, 67636, 94034 Post op global ends 11/03/14 4auto-populated from documented surgical case 5bilateral 6x3 7left wrist 8To right hand x9 9Abdominal surgery revisions, multiple 10Rx2, Lx1 Social History Social History Type Response Smoking Status Former smoker; Type: Cigarettes; Number of years: 36 Assessment and Plan Extracted from: Title: Office Visit Note Author: Juaquin Clemente Date: 05/18/15 MD Assessment/Plan Orthopedic aftercare Thoracic or lumbosacral neuritis or radiculitis I gather that the patient feels like she is making slow progress. In fact she says she makes progress every day. She is irritated was [facility]. Unfortunately, think this is the best place for her currently. Before surgery she was being taken to the ER every time she would fall. Which was at least weekly. She can only take a few steps before surgery. Sounds like it's about where she is active currently. I'll see her back in 6 weeks, or certainly sooner if things are going in the right direction. She is unable to stand long enough to get flexion/extension radiographs which is somewhat problematic
--- OUTSIDE RECORDS SUMMARY | 2016-12-24 12:40 | XMS REPORT | Continuity of Care Document ---
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 - *Chronic Spinal stenosis of lumbar region - *Chronic Radiculitis, Thoracic or Lumbar - Chronic 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 - Chronic Spinal stenosis of lumbar region - Chronic DMII WO CMP UNCNTRLD - ANXIETY STATE [...] Diabetes Mellitus Type 2, Uncomplicated - Chronic Lumbago - *Chronic 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 - *Chronic Spinal stenosis of lumbar region - *Chronic Radiculitis, Thoracic or Lumbar - *Chronic Lumbosacral spondylosis without myelopathy - *Chronic 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 - Chronic Spinal stenosis of lumbar region - Chronic Radiculitis, Thoracic or Lumbar - Chronic Lumbosacral spondylosis without myelopathy - Chronic Sciatica Due To Displacement Of [...] Sjogren's disease - *Chronic Fibromyalgia - *Chronic 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 - *Chronic Spinal stenosis of lumbar region - *Symptomatic Radiculitis, Thoracic or Lumbar - *Symptomatic Back pain - *Chronic Knee pain - [...] Oral route every day 0 - Active eqfppiyfw-phgxhzq-alvyz acid 400 mg-200 mg-1 mg tablet takes 1 daily - Active FISH OIL (unknown strength) daily - Active Lipitor 40 mg tablet Take one tablet by mouth at bedtime. - Active Zetia 10 mg tablet Take 1 tablet by mouth every day. - Active Flonase 50 mcg/actuation nasal spray,suspension One to two sprays each nostril daily. - Active gabapentin 300 mg capsule Take 1 capsule by mouth 3 times a day. 2012 - Active Glucovance 5 mg-500 mg tablet Take 1 tablet by mouth twice a day. 2012 - Active hydroxychloroquine 200 mg tablet ONE TABLET BY MOUTH 2 TIMES A DAY 2012 - Active Skelaxin 800 mg tablet TAKE 1 TABLET EVERY 8 HOURS NEEDED. - Active clobetasol 0.05 % topical cream [...] every day with food 0 - Active Requip 1 mg tablet Take 1 tab PO qday. - Active [place] 7.5 mg-325 mg tablet Take 1 tablet by mouth 3 times a day. Must last 30 days. - Active MS Contin 15 mg tablet,extended release Take 1 tablet by mouth twice a day. - Active doxycycline hyclate 100 mg capsule take 1 capsule (100MG) by oral route every 12 hours 100 MG - Active potassium chloride ER 20 mEq tablet,extended release(part/cryst) take3 tablet (20MEQ) by oral route every day with food - Active furosemide 80 mg tablet take 1 tablet (80MG) by oral route every day 80 MG - Active Cymbalta 60 mg capsule,delayed release take 2 capsule (60MG) by oral route every day - Active Immunizations Vaccine Date Status Comments Flu (split) (3 yrs or older) completed Fluzone HD 0.5 completed Results Test Name Date and Time Measure Units Reference Range Abnormal Flag Comments Unknown Vital Signs Date / Time: Height Weight Pulse Rate Blood Pressure Temperature /08:37:00 66.00 in 314.00 lbs 86 /min 140/66 mm[Hg] 98.7 F Procedures Procedure Date Unknown Encounters Encounter Location Date Patient Visit [facility] Pain Patient Visit [facility] Patient Visit [facility] Patient Visit [facility] Patient Visit [facility] Patient Visit [facility] Patient Visit [facility] Patient [facility] Patient [facility] Patient [facility] Patient [facility] Patient Visit [facility] Patient [facility] Patient Visit [facility] Patient Visit [facility] Patient Visit [facility] Patient [facility] Patient [facility] Patient [facility] Patient [facility] Patient [facility] Patient Visit [facility] Patient [facility] Patient Visit [facility] Patient Visit [facility] Patient Visit [facility] Patient Visit [facility] Patient Visit [facility] Advance Directives Directive Effective Date Unknown
--- OUTSIDE RECORDS SUMMARY | 2016-12-24 12:40 | XMS REPORT | Referral Summary ---
Author Author [facility] Organization [facility] Address Unknown Phone Unavailable Care Team Providers Care Cloth Mercerizing Supervisor Name Role Phone Juventino Galvin Primary Care Physician [phone] Encounter [facility] Date(s): 02/22/15 - 02/22/15 [facility] [address] [place], [place] [address] Discharge Disposition: 01-Home or Self Care Attending [...] , # 30 tabs, 0 Refill(s), Pharmacy: [facility] 56831, 1 tabs Oral Bedtime (once a day),Instr:one [...] PCP, # 1 Each, 0 Refill(s), Pharmacy: [facility] [address] Start Date: 06/21/15 Status: Ordered gabapentin 300 [...] pcp, # 30 tabs, 0 Refill(s), Pharmacy: [facility] 10467, 1 tabs Oral Daily,Instr:this fill only till [...] Bedtime (once a day), PLEASE FAX TO [facility] [phone], # 30 tabs, 0 Refill(s) Start Date: 08/23/15 Status: Ordered [place] 5 mg-325 mg oral tablet 1 tabs, [...] # 90 tabs, 2 Refill( s), eRx: [facility] 28511, TAKE 1 TABLET BY MOUTH THREE TIMES [...] , # 60 tabs, 0 Refill(s), Pharmacy: [facility] 57911, 1 tabs Oral TID, PRN:as needed for [...] Lateral Recess 02/22/15 Decompression; L1-S1 Cj Foraminotomies2 Laminectomy, facetectomy and foraminotomy 02/22/15 (unilateral or bilateral with decompression of spinal cord, cauda equina and/or nerve root[s], [eg, spinal or lateral recess stenosis]), single vertebral segment; each additional segment, cervical, thoracic, or senait Laminectomy, facetectomy and foraminotomy 02/22/15 (unilateral or bilateral with decompression of spinal cord, cauda equina and/or nerve root[s], [eg, spinal or lateral recess stenosis]), single vertebral segment; lumbar Left L4-5/L5-S1 Transforaminal 12/29/14 Left L4-5/L5-S1 Transforaminal 09/24/14 Fusion of spine of cervical region3 08/05/14 Fusion Spine Cervical Anterior and Disce4 08/05/14 Left L4-5/L5-S1 05/26/14 Arthroplasty of knee5 delivery6 section CTR - Carpal tunnel release7 History of sinus surgery Knee replacement L Knee replacement R Reconstructive orthopedic procedure8 Surgery9 Tonsillectomy Total knee Tubal ligation 1auto-populated from documented surgical case 2L1-S1 Central/Lateral Recess Decompression w/ Cj Foraminotomies (24350); Each Addl (75925 X 5) ICD-9 Codes: 724.02; 724.03; 737.30 PO05/23/2015 3C3-4 ACDF 92980, 60429, 21032, 49891 Post op global ends 11/03/14 4auto-populated from documented surgical case 5bilateral 6x3 7left wrist 8To right hand x9 9Abdominal surgery revisions, multiple 10Rx2, Lx1 Social History Social History Type Response Smoking Status Former smoker; Type: Cigarettes; Number of years: 36 Assessment and Plan No data available for this section
--- OUTSIDE RECORDS SUMMARY | 2016-12-24 12:40 | XMS REPORT | Referral Summary ---
Author Author [facility] Organization [facility] Address Unknown Phone Unavailable Care Team Providers Care Steam Clothes Press Operator Name Role Phone Juventino Galvin Primary Care Physician [phone] Encounter [facility] Date(s): 03/23/15 - 03/23/15 [facility] [address] [place] [address] Discharge Disposition: 01-Home or Self [...] , # 30 tabs, 0 Refill(s), Pharmacy: [facility] 99564, 1 tabs Oral Bedtime (once a day),Instr:one [...] PCP, # 1 Each, 0 Refill(s), Pharmacy: [email or web address] [address]87 Start Date: 06/21/15 Status: Ordered gabapentin 300 [...] pcp, # 30 tabs, 0 Refill(s), [facility], 1 tabs Oral Daily,Instr:this fill only till [...] Bedtime (once a day), PLEASE FAX TO [facility] , # 30 tabs, 0 Refill(s) Start Date: 09/21/15 Status: Ordered [place] 5 mg-325 mg oral tablet 1 tabs, [...] # 90 tabs, 2 Refill( s), eRx: [email or web address] 68368, TAKE 1 TABLET BY MOUTH THREE TIMES [...] , # 60 tabs, 0 Refill(s), Pharmacy: [email or web address] 10865, 1 tabs Oral TID, PRN:as needed for [...] Reconstructive orthopedic procedure8 Surgery9 Tonsillectomy Total knee [id number] Tubal ligation 1auto-populated from documented surgical case 2L1-S1 Central/Lateral Recess Decompression w/ Cj Foraminotomies (47211); Each Addl (73503 X 5) ICD-9 Codes: 724.02; 724.03; 737.30 PO05/23/2015 3C3-4 ACDF 71968, 25136, 16742, 66009 Post op global ends 11/03/14 4auto-populated from documented surgical case 5bilateral 6x3 7left wrist 8To right hand x9 9Abdominal surgery revisions, multiple 10Rx2, Lx1 Social History Social History Type Response Smoking Status Former smoker; Type: Cigarettes; Number of years: 36 Assessment and Plan No data available for this section
--- OUTSIDE RECORDS SUMMARY | 2016-12-24 12:40 | XMS REPORT | Referral Summary ---
Author Organization Unknown Address Unknown Phone Unavailable Care Team Providers Care Area Forester Name Role Phone Juventino Galvin Primary Care Physician [phone] Encounter VC Date(s): 12/22/14 - 12/22/14 [facility], [place] [address] [place], [place] [address] Discharge Diagnosis: Spinal stenosis of lumbar region (disorder) Discharge Diagnosis: Low back pain (finding) Discharge Diagnosis: Thoracic or lumbosacral neuritis or radiculitis Discharge Diagnosis: Displacement of lumbar intervertebral disc without myelopathy (disorder) Discharge Disposition: Home or Self Care Attending Physician: Lili Del Valle Admitting Physician: Lili Del Valle Referring Physician: Maida Galvin MD Vital Signs Most recent to 1 oldest [Reference Range]: Temperature Tympanic 36.9 degC [36.6-38.1 degC] (12/22/14 10:43 AM) Blood Pressure 134/84 mmHg [90-140/60-90 mmHg] (12/22/14 10:43 AM) Problem List Condition Effective Dates Status [...] day), # 90 tabs, 0 Refill(s), Pharmacy: [facility] [id number], 1 tabs Oral Bedtime (once a day) Start Date: 09/28/14 Status: Ordered Colace 100 mg oral capsule 1 caps, Oral, BID, 0 Refill(s) Start Date: 08/13/14 Status: Ordered DULoxetine 60 mg oral delayed release capsule See Instructions, 2 CAPS ORAL DAILY, # 60 caps, 2 Refill(s), eRx: [facility] [id number], 2 CAPS ORAL DAILY Special Instructions: 2 CAPS ORAL DAILY Start Date: 09/08/14 Status: Ordered Effexor XR 37.5 mg capsule,extended release See Instructions, TAKE 2 BY ORAL ROUTE EVERY DAY WITH FOOD, # 180 unknown unit, eRx: [facility] [id number], TAKE 2 BY ORAL ROUTE EVERY DAY [...] TID, # 270 tabs, 0 Refill(s), Pharmacy: [facility] [id number] , 1 tabs Oral TID Start Date: [...] BID, # 10 mL, 1 Refill(s), Pharmacy: [facility] 24572, 30 units SubCutaneous BID Start Date: 11/30/14 Status: Ordered Lantus 100 units/mL subcutaneous solution See Instructions, INJECT 50 UNITS SUBCUTANEOUS TWICE DAILY, # 90 mL, 2 Refill(s) , ALIZA, Pharmacy: [facility] [id number], INJECT 50 UNITS SUBCUTANEOUS TWICE DAILY Special Instructions: INJECT 50 UNITS SUBCUTANEOUS TWICE DAILY Start Date: 10/01/14 Status: Ordered Lasix 40 mg oral tablet 1 tabs, Oral, Daily, # 30 tabs, 2 Refill(s), Pharmacy: [facility] [id number], 1 tabs Oral Daily Start Date: 12/18/14 Status: Ordered lidocaine 5% topical film 1 patches, TransDermal, Daily, # 30 patches, 0 Refill(s) Start Date: 08/13/14 Status: Ordered lisinopril 10 mg oral tablet 1 tabs, Oral, Daily, # 30 tabs, 2 Refill(s), Pharmacy: [facility] 02122, 1 tabs Oral Daily Start Date: 09/10/14 [...] 0 Refill(s) Start Date: 12/22/14 Status: Ordered [place] 7.5 mg-325 mg oral tablet 1 tabs, Oral, TID, as needed for pain, # 90 tabs, 0 Refill(s) Start Date: 12/03/14 Status: Ordered potassium chloride 20 mEq oral tablet, extended release 2 tabs, Oral, qPM, # 60 tabs, 0 Refill(s) Start Date: 08/13/14 Status: Ordered rOPINIRole 1 mg oral tablet See Instructions, 1 TABS ORAL TID, # 90 tabs, 1 Refill(s), eRx: [facility] [id number], 1 TABS ORAL TID Special Instructions: 1 TABS ORAL TID Start Date: 11/05/14 Status: Ordered Skelaxin 800 mg oral tablet See Instructions, TAKE .5 -1 TAB. TID PRN MUST LAST 1 MONTH., # 30 tabs, 0 Refill(s), Pharmacy: [facility] [id number], TAKE .5 -1 TAB. TID PRN MUST LAST 1 MONTH. Special Instructions: TAKE .5 -1 TAB. TID PRN MUST LAST 1 MONTH. Start Date: 12/18/14 Stop Date: 01/15/15 Status: Ordered Zetia 10 mg oral tablet 1 tabs, Oral, Daily, # 90 tabs, 0 Refill(s), Pharmacy: [facility] [id number], 1 tabs Oral Daily Start Date: 09/28/14 [...] Total knee arthroplasty8 Tubal ligation 1C3-4 ACDF 63749, 70530, 21205, 98586 Post op global ends 11/03/14 2auto-populated from documented surgical case 3bilateral 4x3 5left wrist 6To right hand x9 7Abdominal surgery revisions, multiple 8Rx2, Lx1 Social History Social History Type Response Smoking Status Former smoker; Type: Cigarettes; Number of years: 6 Assessment and Plan Extracted from: Title: Office Visit Note Author: Lori Magaña Date: 12/22/14 Assessment/Plan Displacement of lumbar intervertebral disc without myelopathy (disorder) Low back pain (finding) Spinal stenosis of lumbar region (disorder) Thoracic or lumbosacral neuritis or radiculitis Dr. Perez and I discussed with the patient that that she did have some transient improvement with her last epidural. She still notes pain in her lower back left lower extremity consistent with radiculopathy. We did review her previous lumbar spine MRI from 08/25/2013 with L5-S1 disc herniation with disk material extending caudal to the disc space with mild central narrowing and moderate to severe left foraminal narrowing and L4 5 disc bulge and with severe central stenosis. She plans on discussing her surgical options further with Dr. Clemente although it sounds like surgery would be fairly extensive and the patient has medical comorbidities. She would like to consider further injection treatmentand although this last epidural did not last as long as before she did note more significant improvement from a transforaminal epidural she had time before this in May 2014 by at least 50 percent for several months. Dr. Perez did recommend repeating one more left L4 5 L5-S1 transforaminal epidural. She understands the rationale for the procedure possible complications including bleeding infection allergic reaction to medication nerve irritation or damage risk of spinal headache, transiently raised blood sugars. She understands other remote possible complications including paraplegia quadriplegia stroke seizure. She voiced understanding of the above and wishes to proceed. She would follow-up here in a few months following her injection, sooner if needed. Dr. Perezplans on doing her injection in a 30 minute slot. She can discuss her medications further with her primary care physician who is prescribing them for her. She was also advised to discuss her lower extremities edema further primary care physician. She voiced understanding and agrees to the above plans. Physical exam findings history present illness recommendations are performed with an agreement Dr. Oconnor findings. I discussed the patient with the preceptor. The preceptor also was present for the hartman portion of the encounter.
--- OUTSIDE RECORDS SUMMARY | 2016-12-24 12:40 | XMS REPORT | Referral Summary ---
Author Organization Unknown Address Unknown Phone Unavailable Care Team Providers Care Checkroom Attendant Name Role Phone Juventino Galvin Primary Care Physician [phone] Encounter VC JW [id number] Date(s): 11/06/14 - 11/06/14 [facility] [address] [address] [place], [place] [address] Discharge Diagnosis: Orthopedic aftercare Discharge Disposition: Home or Self Care Attending [...] day), # 90 tabs, 0 Refill(s), Pharmacy: [facility] [id number], 1 tabs Oral Bedtime (once a day) Start Date: 09/28/14 Status: Ordered Colace 100 mg oral capsule 1 caps, Oral, BID, 0 Refill(s) Start Date: 08/13/14 Status: Ordered DULoxetine 60 mg oral delayed release capsule See Instructions, 2 CAPS ORAL DAILY, # 60 caps, 2 Refill(s), eRx: [facility] [id number], 2 CAPS ORAL DAILY Special Instructions: 2 CAPS ORAL DAILY Start Date: 09/08/14 Status: Ordered Effexor XR 37.5 mg capsule,extended release See Instructions, TAKE 2 BY ORAL ROUTE EVERY DAY WITH FOOD, # 180 unknown unit, eRx: [facility] [id number], TAKE 2 BY ORAL ROUTE EVERY DAY [...] Refill(s) Start Date: 08/13/14 Status: Ordered gabapentin 300 mg oral capsule 1 caps, Oral, TID, # 90 caps, 0 Refill(s), Pharmacy: [facility] [id number] , 1 caps Oral TID Start Date: 08/13/14 Status: Ordered HumaLOG 100 [...] Date: 08/13/14 Stop Date: 09/12/14 Status: Ordered Lantus 100 units/mL subcutaneous solution See Instructions, INJECT 50 UNITS SUBCUTANEOUS TWICE DAILY, # 90 mL, 2 Refill(s) , ALIZA, Pharmacy: [facility] [id number], INJECT 50 UNITS SUBCUTANEOUS TWICE DAILY Special Instructions: INJECT 50 UNITS SUBCUTANEOUS TWICE DAILY Start Date: 10/01/14 Status: Ordered Lasix 40 mg oral tablet 1 tabs, Oral, Daily, # 30 tabs, 0 Refill(s), Pharmacy: [facility] [id number], 1 tabs Oral Daily Start Date: 08/13/14 Status: Ordered lidocaine 5% topical film 1 patches, TransDermal, Daily, # 30 patches, 0 Refill(s) Start Date: 08/13/14 Status: Ordered lisinopril 10 mg oral tablet 1 tabs, Oral, Daily, # 30 tabs, 2 Refill(s), Pharmacy: [facility] [id number], 1 tabs Oral Daily Start Date: 09/10/14 [...] # 60 tabs, 0 Refill(s) Start Date: 09/25/14 Status: Ordered [place] 7.5 mg-325 mg oral tablet 1 tabs, Oral, TID, as needed for pain, # 90 tabs, 0 Refill(s) Start Date: 11/02/14 Status: Ordered potassium chloride 20 mEq oral tablet, extended release 2 tabs, Oral, qPM, # 60 tabs, 0 Refill(s) Start Date: 08/13/14 Status: Ordered rOPINIRole 1 mg oral tablet See Instructions, 1 TABS ORAL TID, # 90 tabs, 1 Refill(s), eRx: [facility] [id number], 1 TABS ORAL TID Special Instructions: 1 TABS ORAL TID Start Date: 11/05/14 Status: Ordered Skelaxin 800 mg oral tablet 1 tabs, Oral, TID, 0 Refill(s) Start Date: 11/06/14 Status: Ordered Zetia 10 mg oral tablet 1 tabs, Oral, Daily, # 90 tabs, 0 Refill(s), Pharmacy: [facility] [id number], 1 tabs Oral Daily Start Date: 09/28/14 Status: Ordered Results No data available for this section Immunizations Vaccine Date Refusal Reason influenza virus vaccine, inactivated1 08/01/14 influenza virus vaccine, live 08/07/13 influenza virus vaccine, live 07/17/12 pneumococcal 23-polyvalent vaccine2 08/01/14 1Early/Late Reason: Nursing Judgment 2Early/Late Reason: Nursing Judgment Procedures Procedure Date Related Diagnosis Body Site Left L4-5/L5-S1 Transforaminal 09/24/14 Fusion Spine Cervical Anterior and Disce1 08/05/14 Left L4-5/L5-S1 05/26/14 Arthroplasty of knee2 delivery3 section CTR - Carpal tunnel release4 Fusion of spine of cervical region5 History of sinus surgery Knee replacement L Knee replacement R Reconstructive orthopedic procedure6 Surgery7 Tonsillectomy Total knee arthroplasty8 Tubal ligation 1auto-populated from documented surgical case 2bilateral 3x3 4left wrist 5C3-4 ACDF 56888, 49635, 72009, 25860 Post op global ends 11/03/14 6To right hand x9 7Abdominal surgery revisions, multiple 8Rx2, Lx1 Social History Social History Type Response Smoking Status Former smoker; Type: Cigarettes; Number of years: 6 Assessment and Plan Extracted from: Title: Office Visit Note Author: Juaquin Clemente Date: 11/06/14 Assessment/Plan Orthopedic aftercare Overall patient is doing well clinically with minimal to no neck pain and no shoulder pain. She does not have a solid fusion radiographically. She wants to hold off on that discussion a lumbar spine until the next visit. She is going to continue to attempt to lose weight although I think this is going to be increasingly difficult if she can afford the shakes. We discussed that it's difficult for people to starve themselves and she can't make up for it with physical activity due to her pain. Due to her size and diabetes she is going to be at increased risk for wound complications following lumbar spine surgery. She basically needs a decompression centrally over entire lumbar spine with focus on the L4 5 lateral recess on the left and foraminal stenosis on the left at L5-S1. I don't gather that she's having as much in the way of back pain issues but more left lower extremity pain, so hopefully we can avoid a fusion. She needs flexion/ extension cervical radiographs at follow-up and a repeat MRI of the lumbar spine if this has not been completed the past year. I thought we repeated the lumbar spine MRI when she was in the hospital for her ACDF, although I do not see it in the system. Ordered: Office Visit Level 3 Est 15220 Return to Clinic Referrals to Other Providers Referred by: Juaquin Clemente MD
--- NOTE | 2016-12-24 12:41 | ERPDOC ---
Departure Disposition Decision Date: Dec 24, 2016 Disposition Decision Time: 15:16 Disposition: 02 TO [facility] Impression Impression Impression: Primary Impression: Sepsis Sepsis type: sepsis due to unspecified organism Qualified Codes: A41.9 - Sepsis, unspecified organism Severity: Moderate Condition: Stable Seen By: Mid-level only Referrals: PEPITO RUIZ DO (PCP) EMMANUEL ORTIZ DO (Family) Problems/Meds/Labs Reviewed?: Yes Medications reviewed and manag: Yes Follow up care ordered?: Yes Mental Status: Alert HPI - General Medical General Chief Complaint: SEPSIS Stated Complaint: WEAKNESS Time Seen by Provider: 12:25 Source: patient Exam Limitations: no limitations HPI - General Medical Initial Comments For the last several days she has had increasing weakness and fever. Upon arrival to ER her temp was noted at 102. She lives at home with her son and today he called EMS. Per automobile body repair supervisor student she was on the toilet when they arrived in the house and she was not strong enough to get herself up. She denies any pain anywhere but does state "ow" at times, when asked where she is hurting she reports that she doesnt hurt. Is having some nausea but is unsure if she is having vomiting. She denies any other symptoms. Noted that she does have some increased erythema to the RLE. Occurred At: home Onset: Gradual Duration: other (Over the last few days) Severity: moderate Associated Symptoms: fever/chills (102 in triage), malaise, nausea/vomiting ( nausea), DENIES: chest pain, cough, diaphoresis, headaches, loss of appetite, rash Allergies: Coded Allergies: No Known Drug Allergies (Verified Allergy, Unknown, 06/25/15) Past History Patient Surgical History Hernia repair Bilateral knee arthroscopically ([place]/2009) Right hand surgical repair after traumatic injury Left carpal tunnel release-04/2011 Tonsillectomy Back surgery Past Medical History Metabolic: diabetes, hypertension Cardiac: CAD Hx Echocardiogram: No Neurological: fibromyalgia Musculoskeletal: back pain, neck pain Psychological: depression Surgical History General: hernia, neck, tonsils Reproductive/: Joint: carpal tunnel, hand, knee Family History Family PMH: FOUND: other Vaccines Hx Influenza Vaccination: Yes (07/2015) Hx Pneumococcal Vaccination: Yes (5 YRS AGO, unknown date) Social History Smoking Status: Never smoker Substance Use Type: does not use Alcohol Intake: none Review of Systems Constitutional Constitutional: chills, fatigue, fever, weakness, DENIES: dizziness Eyes Vision: DENIES: blurring, double vision ENMT Ears: DENIES: drainage, pain Sinuses: DENIES: congestion, rhinorrhea Mouth/Throat: DENIES: painful swallowing, scratchy throat, sore throat Cardiovascular Cardiac: DENIES: chest pain, orthopnea Rhythm/Rate: DENIES: irregular beat, palpitations Pulmonary Respiratory: DENIES: cough, dyspnea, sputum, tachypnea GI Upper Abdomen: nausea, vomiting, DENIES: pain Lower Abdomen: DENIES: constipation, diarrhea, pain Integumentary Skin: DENIES: rash Neurological General: DENIES: headache, numbness, tingling, weakness Physical Exam General General Nourishment: well nourished, well developed, appears stated age, no acute distress, adult, obese General Body Habitus: well groomed Vitals and Pain First Documented Vital Signs Date Time Temp Pulse Resp B/P Pulse Ox O2 Delivery O2 Flow Rate FiO2 12/24/16 12:25 102.7 106 18 131/81 98 Room Air Weight: Kilograms: Height (feet): 5 Height (inches): 6.00 Triage Pain Scale: RN VS reviewed by Provider: Yes Normal Exams: ENMT: No facial trauma, nasal exudates, pharyngeal erythema, or exudates are noted Neck: Full range of motion, without adenopathy, JVD, bruits or thyromegaly Chest/Resp: Clear all harmon, with good airflow, and symmetry bilaterally CV: Regular rate and rhythm, without murmur or gallop, Pulses 2+ all extremities, capillary refill, <2 seconds all ext., no pedal edema noted Abdomen: Bowel sounds positive, soft, non-tender, non-distended, no hepatosplenomegaly, masses or bruits noted Lymphatic: No lymphadenopathy, or lymphedema noted Integumentary: No rashes, hives, or bruising noted Neurologic: Patient is alert, and oriented Psychiatric: Patient exhibits, appropriate attention, emotion and affect Integumentary (brief) Integumentary Brief: FOUND: other (The right lower extremity is warm to touch below the knee with noted increased erythema. There are also a few small open lesions without drainage in this region as well. Noted BLE edema of 1+) Differential Diagnoses Considering: Hypo/Hyperglycemia, Hypo/Hyperkalemia, Hypo/Hypernatremia, Medication Effect, Metabolic, Pneumonia, UTI, Other (Sepsis) Progress Results/Orders Orders Procedure Category Date Status Time Blood Culture CHRISTIANO 12/24/16 In Process Lactate - Lactic Acid LAB 12/24/16 Complete Procalcitonin LAB 12/24/16 Complete 12:31 Cbc W/Auto LAB 12/24/16 Complete Diff-Reflex Manual Cmp - Comprehensive LAB 12/24/16 Complete Metabolic Troponin I W LAB 12/24/16 Complete Hemolysis Index Lactate - Lactic Acid LAB 12/24/16 Logged 17:01 Iv Lock (Ed Only) EDM 12/24/16 Transmitted 12:31 Normal Saline (Normal PHA 12/24/16 Complete Saline Iv) 12:45 Ondansetron Inj PHA 12/24/16 Complete (Zofran) 12:45 Normal Saline (Normal PHA 12/24/16 Complete Saline Iv) 13:45 Cefepime (Maxipime) PHA 12/24/16 Complete 13:45 Chest 1 View RAD 12/24/16 Taken Morphine Sulfate PHA 12/24/16 Complete (Morphine) 14:15 Acetaminophen PHA 12/24/16 Complete (Tylenol Regular 14:15 UA, LAB 12/24/16 Complete Dip&Micro(Complete) & 14:39 Urine Culture CHRISTIANO 12/24/16 In Process 14:54 Normal Saline (Normal PHA 12/24/16 In Process Saline Iv) 15:15 Place In Facility As: ADMIT 12/24/16 Transmitted Levofloxacin 750 Mg PHA 12/24/16 In Process Ivpb (Levaquin 750 M 15:15 Vancomycin (Vancocin) PHA 12/24/16 Complete 15:15 Pharmacy Consult CONS 12/24/16 Transmitted 15:13 Lab Results Laboratory Tests Test 12/24/16 13:01 12/24/16 14:39 White Blood Count 24.1T/MM3 Red Blood Count 3.91M/MM3 Hemoglobin 11.8GM/DL Hematocrit 36.0% Mean Corpuscular Volume 92.1UM3 Mean Corpuscular Hemoglobin 30.2UUG Mean Corpuscular Hemoglobin Concent 32.8GM/DL RDW Standard Deviation 45.6FL Platelet Count 222T/MM3 Mean Platelet Volume 10.2UM3 Immature Granulocyte % (Auto) % Neutrophils (%) (Auto) % Lymphocytes (%) (Auto) % Monocytes (%) (Auto) % Eosinophils (%) (Auto) % Basophils (%) (Auto) % Absolute Immature Granulocyte (auto T/MM3 Absolute Neutrophils (auto) T/MM3 Absolute Lymphocytes (auto) T/MM3 Absolute Monocytes (auto) T/MM3 Absolute Eosinophils (auto) T/MM3 Absolute Basophils (auto) T/MM3 Neutrophils % (Manual) 76.0% Band Neutrophils % 20.0% Lymphocytes % (Manual) 2.0% Monocytes % (Manual) 2.0% Absolute Neutrophils (Manual) 18.3T/MM3 Band Neutrophils # 4.8T/MM3 Lymphocytes # (Manual) 0.5T/MM3 Monocytes # (Manual) 0.5T/MM3 Red Cell Morphology Comment Normal Turbidity < 20 Sodium Level 140MEQ/L Potassium Level 4.9MEQ/L Chloride Level 104MEQ/L Carbon Dioxide Level 21MEQ/L Anion Gap 15MEQ/L Blood Urea Nitrogen 43.0MG/DL Creatinine 1.4MG/DL Glomerular Filtration Rate Calc 38 BUN/Creatinine Ratio 31RATIO Glucose Level 354MG/DL Calculated Osmolality 294MOSM/KG Calcium Level 8.8MG/DL Total Bilirubin 0.60MG/DL Icterus Index < 2 Aspartate Amino Transf (AST/SGOT) 21U/L Alanine Aminotransferase (ALT/SGPT) 20U/L Alkaline Phosphatase 82U/L Troponin I 0.037ng/ml Total Protein 6.4G/DL Albumin 3.6G/DL Globulin 2.8G/DL Albumin/Globulin Ratio 1.3RATIO Plasma Lactate 4.3MMOL/L Procalcitonin 5.20NG/ML Chemistry Specimen Hemolysis < 15 Urine Collection Type Straight cath Urine Color Yellow Urine Turbidity Clear Urine pH 5.0 Urine Specific Marty 1.010 Urine Protein 1+ Urine Glucose (UA) 1+ Urine Ketones Negative Urine Blood 2+ Urine Nitrite Positive Urine Bilirubin Negative Urine Urobilinogen 0.2EU/DL Urine Leukocyte Esterase Negative Urine RBC 0-1/HPF Urine WBC 3-5/HPF Urine Squamous Epithelial Cells None seen Urine Bacteria 1+ Urine Culture Indicated Cult reflexed &setup Medications Current ED Medications Sodium Chloride (Normal Saline IV) 1,000 ml @ 1,000 mls/hr Q1H ONCE IV ; Start 12/24/16 at 12:45; Stop 12/24/16 at 13:44; Status DC Ondansetron HCl 4 mg 4 mg O ONCE IV Last administered on 12/24/16 12:40; Start 12/24/16 at 12:45; Stop 12/24/16 at 12:46; Status DC Sodium Chloride 1,000 ml @ 500 mls/hr Q2H ONCE IV Last administered on 14:02; Start 12/24/16 at 13:45; Stop 12/24/16 at 15:44; Status DC Cefepime HCl/ Sodium Chloride (Maxipime/NS) 100 ml @ 200 mls/hr O ONCE IV Last administered on 12/24/16 14:02; Start 12/24/16 at 13:45; Stop 12/24/16 at 14: 14; Status DC Morphine Sulfate (Morphine) 4 mg O ONCE IV Last administered on 12/24/16 14:07 ; Start 12/24/16 at 14:15; Stop 12/24/16 at 14:16; Status DC Acetaminophen 650 mg 650 mg O ONCE PO Last administered on 12/24/16 14:54; Start 12/24/16 at 14:15; Stop 12/24/16 at 14:16; Status DC Sodium Chloride 1,000 ml @ 2,000 mls/hr Q30M IV Last administered on 12/24/16 15:38; Start 12/24/16 at 15:15; Stop 12/24/16 at 17:17 Levofloxacin 750 mg/Dextrose/Water 150 ml @ 100 mls/hr O ONCE IV Last administered on 12/24/16 15:25; Start 12/24/16 at 15:15; Stop 12/24/16 at 16:44 Vancomycin HCl/ Sodium Chloride (Vancocin/NS) 500 ml @ 250 mls/hr O ONCE IV ; Start 12/24/16 at 15:15; Stop 12/24/16 at 15:33; Status DC Progress Progress WBC is 24.1 with 76 neutrophils with 20% bands. Lactate is 4.3 with procalcitonin 5.2. We did initiate the 30ml/kg NS bolus. BUN is 43 with creatinine of 1.4. Glucose elevated at 354. U/A is nitrite positive with 1+ bacteria. Chest xray does show a possible right lower lobe infiltrate. We did initiate the antibiotics for unknown source after WBC back at 24.1. Vitals remain stable in Er. Patient still mildly agitated and slightly confused. Discussed findings with Dr Lott and he will admit to CCU at this time. Xray Xray : Reason for Exam: Fever, elevated lactate Xray: CXR Portable Interpretation: Abnormal (possible right lower lobe infiltrate) IKE GANNON APRN Dec 24, 2016 12:41
--- OUTSIDE RECORDS SUMMARY | 2016-12-24 12:41 | XMS REPORT | Referral Summary ---
Author Author [facility] [address] Organization [facility] [address] [facility] Address Unknown Phone Unavailable Care Team Providers Care Hearing Aid Dispenser Name Role Phone Juventino Galvin Primary Care Physician [phone] Encounter VC Date(s): 08/10/15 - 08/10/15 [facility] [address] [address] [place], [place] [address] Discharge Diagnosis: Orthopedic aftercare Discharge Disposition: 01-Home or Self Care Attending [...] tabs, 0 Refill(s), Pharmacy: [facility] 83880, 1 tabs Oral Bedtime (once a day),Instr:one [...] PCP, # 1 Each, 0 Refill(s), [id number] Start Date: 06/21/15 Status: Ordered gabapentin 300 [...] pcp, # 30 tabs, 0 Refill(s), [facility] 14[facility], 1 tabs Oral Daily,Instr:this fill only till [...] 0 Refill(s) Start Date: 06/07/15 Status: Ordered [place] 5 mg-325 mg oral tablet 1 tabs, [...] # 90 tabs, 2 Refill( s), eRx: [facility] 41388, TAKE 1 TABLET BY MOUTH THREE TIMES [...] , # 60 tabs, 0 Refill(s), Pharmacy: [facility] 87131, 1 tabs Oral TID, PRN:as needed for [...] Reconstructive orthopedic procedure8 Surgery9 Tonsillectomy Total knee [id number] Tubal ligation 1auto-populated from documented surgical case 2L1-S1 Central/Lateral Recess Decompression w/ Cj Foraminotomies (68404); Each Addl (31921 X 5) ICD-9 Codes: 724.02; 724.03; 737.30 PO05/23/2015 3C3-4 ACDF 66669, 80021, 21056, 07445 Post op global ends 11/03/14 4auto-populated from documented surgical case 5bilateral 6x3 7left wrist 8To right hand x9 9Abdominal surgery revisions, multiple 10Rx2, Lx1 Social History Social History Type Response Smoking Status Former smoker; Type: Cigarettes; Number of years: 36 Assessment and Plan Extracted from: Title: Office Visit Note Author: Juaquin Clemente Date: 08/10/15 Assessment/Plan Orthopedic aftercare Patient overallmaking improvements she would like from a strength standpoint. It doesn't sound like painis a main part of the problem. I'm having a difficult time determining whereher weakness lies. Fairly strong onbench exam. While her nerves are recovering,I think significant amount of weight loss could be beneficial. Sounds like she can't affordshakes. She obviously needs caloric restrictionsince physical activityas problematic. Sounds likethe nursing homemeals/snacksare not caloric densebut she is able to over compensate with her outside food. Sheis aware that I will not be with clinic much longer. We willattempt to expeditecare with another spine surgeonin 2-3 months. An MRI might be indicated at that point if she still continues to complain a weakness despite weight loss
--- OUTSIDE RECORDS SUMMARY | 2016-12-24 12:41 | XMS REPORT | Referral Summary ---
Author Author [facility] [address] Organization [facility] [address] Address Unknown Phone Unavailable Care Team Providers Care Plate Sensitizer Name Role Phone Juventino Galvin Primary Care Physician [phone] Encounter VC Date(s): 05/13/15 - 05/13/15 [facility] [address] [address] [place], [place] [address] Discharge Diagnosis: Lumbago Discharge Disposition: 01-Home or Self Care Attending [...] , # 30 tabs, 0 Refill(s), Pharmacy: [facility] 09530, 1 tabs Oral Bedtime (once a day),Instr:one refill only until seen by new PCP Start Date: 11/22/15 Status: Ordered BENGAY Arthritis topical cream See Instructions, APPLY TOPICALLY TO AFFECTED AREAS NEEDED., 0 Refill(s) Start Date: 06/07/15 Status: Ordered Cymbalta 60 mg oral delayed release capsule 120 mg 2 caps, Oral, Daily, # 60 caps, 0 Refill(s), Pharmacy: [facility] 29640, 2 caps Oral Daily Start Date: 11/22/15 Status: Ordered docusate sodium 100 mg oral capsule 200 mg 2 caps, Oral, BID, as needed for constipation, with plenty of water, # 50 caps, 0 Refill(s), Pharmacy: [facility] 16982, 2 caps Oral BID,PRN: as needed for constipation,Instr:with plenty of water Start Date: 11/22/15 Status: Ordered DULoxetine 60 mg oral delayed release capsule mg caps, Oral, Daily, 0 Refill(s) Start Date: 06/07/15 Status: Ordered ferrous sulfate 325 mg (65 mg elemental iron) oral tablet 325 mg 1 tabs, Oral, BID, # 60 tabs, 0 Refill(s), Pharmacy: [facility] 17336, 1 tabs Oral BID Start Date: 11/22/15 Status: Ordered Flonase 50 mcg/inh nasal spray 50 mcg 1 sprays, Nasal, BID, this fill only until seen by new PCP, # 1 Each, 0 Refill(s), Pharmacy: [facility] Start Date: 06/21/15 Status: Ordered furosemide 40 mg oral tablet 40 mg 1 tabs, Oral, Daily, # 30 tabs, 0 Refill(s), [facility], 1 tabs Oral Daily Start Date: 11/22/15 Status: Ordered gabapentin 300 mg oral capsule 600 mg 2 caps, Oral, QID, # 240 caps, 0 Refill(s), [facility], 2 caps Oral QID Start Date: 11/22/15 Status: Ordered gabapentin 300 mg oral capsule mg caps, Oral, QID, 0 Refill(s) Start Date: 06/07/15 Status: Ordered HumaLOG KwikPen 100 units/mL subcutaneous solution See Instructions, 25 UNITS SQ WITH MEALS, # 10 mL, 0 Refill(s), Pharmacy: [facility] 33025, 25 UNITS SQ WITH MEALS Start Date: 11/22/15 Status: Ordered Klor-Con M20 oral tablet, extended release 40 mEq 2 tabs, Oral, Daily, # 60 tabs, 0 Refill(s), [facility]: [facility] 7[facility]20, 2 tabs Oral Daily Start Date: 11/22/15 Status: Ordered Lasix 40 mg oral tablet mg tabs, Oral, Daily, 0 Refill(s) Start Date: 06/07/15 Status: Ordered lisinopril 10 mg oral tablet 10 mg 1 tabs, Oral, Daily, this fill only till seen by new pcp, # 30 tabs, 0 Refill(s), Pharmacy: [facility] 28530, 1 tabs Oral Daily,Instr:this fill only till [...] # 24 tabs, 0 Refill(s), [facility], 1 tabs Oral q4hr,PRN:Diarrhea/Loose Stools Start Date: 11/22/15 Status: Ordered MiraLax oral powder for reconstitution 17 g 17 g, Oral, Daily, Constipation, dissolve in water before taking, # 12 Each , 0 Refill(s), [facility] Start Date: 11/22/15 Status: Ordered MS Contin 15 mg/12 hr oral tablet, extended release 15 mg 1 tabs, Oral, Bedtime (once a day), PLEASE FAX TO [facility] , # 30 tabs, 0 Refill(s) Start Date: 10/19/15 Status: Ordered [place] 5 mg-325 mg oral tablet 1 tabs, Oral, q4hr, as needed for pain, [facility]X TO [facility] ., # 180 tabs, 0 Refill(s) Start Date: 11/08/15 Status: Ordered oxybutynin 5 mg oral tablet 5 mg 1 tabs, Oral, TID, # 90 tabs, 0 Refill(s), [facility], 1 tabs Oral TID Start Date: 11/22/15 Status: Ordered rOPINIRole 1 mg oral tablet See Instructions, TAKE 1 TABLET BY MOUTH THREE TIMES DAILY, # 90 Each, 0 Refill( s), Pharmacy: [facility] 16215, TAKE 1 TABLET BY MOUTH THREE TIMES DAILY Start Date: 11/22/15 Status: Ordered senna 8.6 mg oral tablet 17.2 mg 2 tabs, Oral, Bedtime (once a day), # 60 tabs, 0 Refill(s), Pharmacy: [facility] 73227, 2 tabs Oral Bedtime (once a day) Start Date: 11/22/15 Status: Ordered Skelaxin 800 mg oral tablet 800 mg 1 tabs, Oral, TID, as needed for pain, this rx only till seen by new PCP , X 30 days, # 90 tabs, 0 Refill(s), Pharmacy: [facility] 90397, 1 tabs Oral TID,x30 days,PRN:as needed for pain,Instr:this rx only till seen by new PCP Start Date: 11/22/15 Stop Date: 12/22/15 Status: Ordered Victoza 18 mg/3 mL subcutaneous solution 1.2 mg, SubCutaneous, Daily, # 15 mL, 0 Refill(s), Pharmacy: [facility] 37049, 1.2 mg SubCutaneous Daily Start Date: 11/22/15 [...] Reconstructive orthopedic procedure8 Surgery9 Tonsillectomy Total knee [id number] Tubal ligation 1auto-populated from documented surgical case 2L1-S1 Central/Lateral Recess Decompression w/ Cj Foraminotomies (94525); Each Addl (89078 X 5) ICD-9 Codes: 724.02; 724.03; 737.30 PO05/23/2015 3C3-4 ACDF 23938, 96927, 09648, 17074 Post op global ends 11/03/14 4auto-populated from documented surgical case 5bilateral 6x3 7left wrist 8To right hand x9 9Abdominal surgery revisions, multiple 10Rx2, Lx1 Social History Social History Type Response Smoking Status Former smoker; Type: Cigarettes; Number of years: 36 Assessment and Plan No data available for this section
--- OUTSIDE RECORDS SUMMARY | 2016-12-24 12:41 | XMS REPORT | Referral Summary ---
Author Author [facility] Organization [facility] Address Unknown Phone Unavailable Care Team Providers Care Human Resources Hr Representative Name Role Phone Juventino Galvin Primary Care Physician [phone] Encounter VC Date(s): 04/01/15 - 04/01/15 [facility] [address] [place], [place] [address] Discharge Diagnosis: Orthopedic aftercare Discharge Disposition: 01-Home [...] , # 30 tabs, 0 Refill(s), Pharmacy: [id number], 1 tabs Oral Bedtime (once a day),Instr:one [...] PCP, # 1 Each, 0 Refill(s), [facility] [id number] Start Date: 06/21/15 Status: Ordered gabapentin 300 [...] pcp, # 30 tabs, 0 Refill(s), [facility] [address], 1 tabs Oral Daily,Instr:this fill only till [...] (once a day), PLEASE FAX TO [facility] , # 30 tabs, 0 Refill(s) Start Date: 09/21/15 Status: Ordered [place] 5 mg-325 mg oral tablet 1 tabs, [...] # 90 tabs, 2 Refill( s), eRx: [facility] 06751, TAKE 1 TABLET BY MOUTH THREE TIMES [...] , # 60 tabs, 0 Refill(s), Pharmacy: [facility] [id number], 1 tabs Oral TID, PRN:as needed for [...] Reconstructive orthopedic procedure8 Surgery9 Tonsillectomy Total knee [id number] Tubal ligation 1auto-populated from documented surgical case 2L1-S1 Central/Lateral Recess Decompression w/ Cj Foraminotomies (74866); Each Addl (99024 X 5) ICD-9 Codes: 724.02; 724.03; 737.30 PO05/23/2015 3C3-4 ACDF 89278, 36514, 27986, 28754 Post op global ends 11/03/14 4auto-populated from documented surgical case 5bilateral 6x3 7left wrist 8To right hand x9 9Abdominal surgery revisions, multiple 10Rx2, Lx1 Social History Social History Type Response Smoking Status Former smoker; Type: Cigarettes; Number of years: 36 Assessment and Plan Extracted from: Title: Office Visit Note Author: Juaquin Clemente Date: 04/01/15 Assessment/Plan Orthopedic aftercare 5 weeks status post 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 Overall doing much better from a pain perspective. Denies much in the way of back pain or radicular symptoms. Her strength is not quite back to baseline. She still needs one assist to stand. As I recall , she could sporadically stand on her own before surgery. She does not need to wear the brace full-time. Braces only for comfort. I would gradually start weaning out of it. She can now get onto a hot tub. We stressed the importance of pushing herself with therapy. I'll see her back in 6 weeks see how she is doing Ordered: Postoperative Est 51050 Return to Clinic Referrals to Other Providers Referred by: Juaquin Clemente MD
--- OUTSIDE RECORDS SUMMARY | 2016-12-24 12:41 | XMS REPORT | Referral Summary ---
Author Author [facility] Organization [facility] Address Unknown Phone Unavailable Care Team Providers Care Flagger Name Role Phone Juventino Galvin Primary Care Physician [phone] Encounter VC Date(s): 03/19/15 - 03/19/15 [facility] [address] [place] [address] Discharge Disposition: 01-Home or Self Care [...] Refill(s), Pharmacy: [facility] [id number], 1 tabs Oral Bedtime (once a day),Instr:one [...] PCP, # 1 Each, 0 Refill(s), Pharmacy: [facility] [id number] Start Date: 06/21/15 Status: Ordered gabapentin 300 [...] pcp, # 30 tabs, 0 Refill(s), [facility], 1 tabs Oral Daily,Instr:this fill only till [...] day), PLEASE FAX TO [facility] , # 30 tabs, 0 Refill(s) Start Date: 09/21/15 Status: Ordered [place] 5 mg-325 mg oral tablet 1 tabs, [...] # 90 tabs, 2 Refill( s), eRx: [facility] [id number], TAKE 1 TABLET BY MOUTH THREE TIMES [...] , # 60 tabs, 0 Refill(s), Pharmacy: [facility] 61202, 1 tabs Oral TID, PRN:as needed for [...] Reconstructive orthopedic procedure8 Surgery9 Tonsillectomy Total knee [id number] Tubal ligation 1auto-populated from documented surgical case 2L1-S1 Central/Lateral Recess Decompression w/ Cj Foraminotomies (74451); Each Addl (63764 X 5) ICD-9 Codes: 724.02; 724.03; 737.30 PO05/23/2015 3C3-4 ACDF 53821, 38001, 08213, 21341 Post op global ends 11/03/14 4auto-populated from documented surgical case 5bilateral 6x3 7left wrist 8To right hand x9 9Abdominal surgery revisions, multiple 10Rx2, Lx1 Social History Social History Type Response Smoking Status Former smoker; Type: Cigarettes; Number of years: 36 Assessment and Plan No data available for this section
--- OUTSIDE RECORDS SUMMARY | 2016-12-24 12:42 | XMS REPORT | Referral Summary ---
Author Author [facility] Organization [facility] Address Unknown Phone Unavailable Care Team Providers Care Clock And Watch Assembler Name Role Phone Juventino Galvin Primary Care Physician [phone] Encounter VC Date(s): 08/10/15 - 08/10/15 [facility] [address] [place], [place] [address] Discharge Diagnosis: Orthopedic aftercare Discharge Disposition: 01-Home [...] , # 30 tabs, 0 Refill(s), Pharmacy: [facility] [address], 1 tabs Oral Bedtime (once a day),Instr:one refill only until seen by new PCP Start Date: 11/22/15 Status: Ordered BENGAY Arthritis topical cream See Instructions, APPLY TOPICALLY TO AFFECTED AREAS NEEDED., 0 Refill(s) Start Date: 06/07/15 Status: Ordered Cymbalta 60 mg oral delayed release capsule 120 mg 2 caps, Oral, Daily, # 60 caps, 0 Refill(s), Pharmacy: [facility] 16484, 2 caps Oral Daily Start Date: 11/22/15 Status: Ordered docusate sodium 100 mg oral capsule 200 mg 2 caps, Oral, BID, as needed for constipation, with plenty of water, # 50 caps, 0 Refill(s), Pharmacy: [facility] [address], 2 caps Oral BID,PRN: as needed for constipation,Instr:with plenty of water Start Date: 11/22/15 Status: Ordered DULoxetine 60 mg oral delayed release capsule mg caps, Oral, Daily, 0 Refill(s) Start Date: 06/07/15 Status: Ordered ferrous sulfate 325 mg (65 mg elemental iron) oral tablet 325 mg 1 tabs, Oral, BID, # 60 tabs, 0 Refill(s), Pharmacy: [facility] [address], 1 tabs Oral BID Start Date: 11/22/15 Status: Ordered Flonase 50 mcg/inh nasal spray 50 mcg 1 sprays, Nasal, BID, this fill only until seen by new PCP, # 1 Each, 0 Refill(s), Pharmacy: [facility] Start Date: 06/21/15 Status: Ordered furosemide 40 mg oral tablet 40 mg 1 tabs, Oral, Daily, # 30 tabs, 0 Refill(s), [facility], 1 tabs Oral Daily Start Date: 11/22/15 Status: Ordered gabapentin 300 mg oral capsule 600 mg 2 caps, Oral, QID, # 240 caps, 0 Refill(s), [facility], 2 caps Oral QID Start Date: 11/22/15 Status: Ordered gabapentin 300 mg oral capsule mg caps, Oral, QID, 0 Refill(s) Start Date: 06/07/15 Status: Ordered HumaLOG KwikPen 100 units/mL subcutaneous solution See Instructions, 25 UNITS SQ WITH MEALS, # 10 mL, 0 Refill(s), Pharmacy: [facility] [address], 25 UNITS SQ WITH MEALS Start Date: 11/22/15 Status: Ordered Klor-Con M20 oral tablet, extended release 40 mEq 2 tabs, Oral, Daily, # 60 tabs, 0 Refill(s), Pharmacy: [facility] 89[facility], 2 tabs Oral Daily Start Date: 11/22/15 Status: Ordered Lasix 40 mg oral tablet mg tabs, Oral, Daily, 0 Refill(s) Start Date: 06/07/15 Status: Ordered lisinopril 10 mg oral tablet 10 mg 1 tabs, Oral, Daily, this fill only till seen by new pcp, # 30 tabs, 0 Refill(s), Pharmacy: [facility] [address], 1 tabs Oral Daily,Instr:this fill only till [...] # 24 tabs, 0 Refill(s), [facility], 1 tabs Oral q4hr,PRN:Diarrhea/Loose Stools Start Date: 11/22/15 Status: Ordered MiraLax oral powder for reconstitution 17 g 17 g, Oral, Daily, Constipation, dissolve in water before taking, # 12 Each , 0 Refill(s), [facility] [address] Start Date: 11/22/15 Status: Ordered MS Contin 15 mg/12 hr oral tablet, extended release 15 mg 1 tabs, Oral, Bedtime (once a day), PLEASE FAX TO [facility] [phone], # 30 tabs, 0 Refill(s) Start Date: 10/19/15 Status: Ordered [place] 5 mg-325 mg oral tablet 1 tabs, Oral, q4hr, as needed for pain, [facility] ., # 180 tabs, 0 Refill(s) Start Date: 11/08/15 Status: Ordered oxybutynin 5 mg oral tablet 5 mg 1 tabs, Oral, TID, # 90 tabs, 0 Refill(s), [facility], 1 tabs Oral TID Start Date: 11/22/15 Status: Ordered rOPINIRole 1 mg oral tablet See Instructions, TAKE 1 TABLET BY MOUTH THREE TIMES DAILY, # 90 Each, 0 Refill( s), Pharmacy: [facility] 312[address], TAKE 1 TABLET BY MOUTH THREE TIMES DAILY Start Date: 11/22/15 Status: Ordered senna 8.6 mg oral tablet 17.2 mg 2 tabs, Oral, Bedtime (once a day), # 60 tabs, 0 Refill(s), Pharmacy: [facility] [address], 2 tabs Oral Bedtime (once a day) Start Date: 11/22/15 Status: Ordered Victoza 18 mg/3 mL subcutaneous solution 1.2 mg, SubCutaneous, Daily, # 15 mL, 0 Refill(s), Pharmacy: [facility] 21359, 1.2 mg SubCutaneous Daily Start Date: 11/22/15 [...] Reconstructive orthopedic procedure8 Surgery9 Tonsillectomy Total knee [id number] Tubal ligation 1auto-populated from documented surgical case 2L1-S1 Central/Lateral Recess Decompression w/ Cj Foraminotomies (82727); Each Addl (38647 X 5) ICD-9 Codes: 724.02; 724.03; 737.30 PO05/23/2015 3C3-4 ACDF 66430, 92331, 90798, 19901 Post op global ends 11/03/14 4auto-populated from documented surgical case 5bilateral 6x3 7left wrist 8To right hand x9 9Abdominal surgery revisions, multiple 10Rx2, Lx1 Social History Social History Type Response Smoking Status Former smoker; Type: Cigarettes; Number of years: 36 Assessment and Plan Extracted from: Title: Office Visit Note Author: Juaquin Clemente Date: 08/10/15 MD Assessment/Plan Orthopedic aftercare Patient overallmaking improvements she [...]
--- OUTSIDE RECORDS SUMMARY | 2016-12-24 12:42 | XMS REPORT | Referral Summary ---
Author Author [facility] Organization [facility] Address Unknown Phone Unavailable Care Team Providers Care Machine Welder Name Role Phone Juventino Galvin Primary Care Physician [phone] Encounter VC Date(s): 07/13/15 - 07/13/15 [facility] [address] [place] [address] Discharge Disposition: 01-Home or Self Care Attending Physician: aMida Galvin MD Admitting Physician: Maida Galvin MD [...] , # 30 tabs, 0 Refill(s), Pharmacy: [facility] 73511, 1 tabs Oral Bedtime (once a day),Instr:one refill only until seen by new PCP Start Date: 11/22/15 Status: Ordered BENGAY Arthritis topical cream See Instructions, APPLY TOPICALLY TO AFFECTED AREAS NEEDED., 0 Refill(s) Start Date: 06/07/15 Status: Ordered Cymbalta 60 mg oral delayed release capsule 120 mg 2 caps, Oral, Daily, # 60 caps, 0 Refill(s), Pharmacy: [facility] 06812, 2 caps Oral Daily Start Date: 11/22/15 Status: Ordered docusate sodium 100 mg oral capsule 200 mg 2 caps, Oral, BID, as needed for constipation, with plenty of water, # 50 caps, 0 Refill(s), Pharmacy: [facility] 44699, 2 caps Oral BID,PRN: as needed for constipation,Instr:with plenty of water Start Date: 11/22/15 Status: Ordered DULoxetine 60 mg oral delayed release capsule mg caps, Oral, Daily, 0 Refill(s) Start Date: 06/07/15 Status: Ordered ferrous sulfate 325 mg (65 mg elemental iron) oral tablet 325 mg 1 tabs, Oral, BID, # 60 tabs, 0 Refill(s), Pharmacy: [facility] 37569, 1 tabs Oral BID Start Date: 11/22/15 Status: Ordered Flonase 50 mcg/inh nasal spray 50 mcg 1 sprays, Nasal, BID, this fill only until seen by new PCP, # 1 Each, 0 Refill(s), Pharmacy: [facility] 86862 Start Date: 06/21/15 Status: Ordered furosemide 40 mg oral tablet 40 mg 1 tabs, Oral, Daily, # 30 tabs, 0 Refill(s), Pharmacy: [facility] 50638, 1 tabs Oral Daily Start Date: 11/22/15 Status: Ordered gabapentin 300 mg oral capsule 600 mg 2 caps, Oral, QID, # 240 caps, 0 Refill(s), Pharmacy: [facility] 60710, 2 caps Oral QID Start Date: 11/22/15 Status: Ordered gabapentin 300 mg oral capsule mg caps, Oral, QID, 0 Refill(s) Start Date: 06/07/15 Status: Ordered HumaLOG KwikPen 100 units/mL subcutaneous solution See Instructions, 25 UNITS SQ WITH MEALS, # 10 mL, 0 Refill(s), Pharmacy: [facility] 84419, 25 UNITS SQ WITH MEALS Start Date: 11/22/15 Status: Ordered Klor-Con M20 oral tablet, extended release 40 mEq 2 tabs, Oral, Daily, # 60 tabs, 0 Refill(s), Pharmacy: [facility] 04418, 2 tabs Oral Daily Start Date: 11/22/15 Status: Ordered Lasix 40 mg oral tablet mg tabs, Oral, Daily, 0 Refill(s) Start Date: 06/07/15 Status: Ordered lisinopril 10 mg oral tablet 10 mg 1 tabs, Oral, Daily, this fill only till seen by new pcp, # 30 tabs, 0 Refill(s), Pharmacy: [facility] 68826, 1 tabs Oral Daily,Instr:this fill only till [...] # 24 tabs, 0 Refill(s), Pharmacy : [facility] 32360, 1 tabs Oral q4hr,PRN:Diarrhea/Loose Stools Start Date: 11/22/15 Status: Ordered MiraLax oral powder for reconstitution 17 g 17 g, Oral, Daily, Constipation, dissolve in water before taking, # 12 Each , 0 Refill(s), Pharmacy: [facility] 39066 Start Date: 11/22/15 Status: Ordered MS Contin 15 mg/12 hr oral tablet, extended release 15 mg 1 tabs, Oral, Bedtime (once a day), PLEASE FAX TO [facility] , # 30 tabs, 0 Refill(s) Start Date: 10/19/15 Status: Ordered [place] 5 mg-325 mg oral tablet 1 tabs, Oral, q4hr, as needed for pain, FAX TO [facility] ., # 180 tabs, 0 Refill(s) Start Date: 11/08/15 Status: Ordered oxybutynin 5 mg oral tablet 5 mg 1 tabs, Oral, TID, # 90 tabs, 0 Refill(s), Pharmacy: [facility] 33438, 1 tabs Oral TID Start Date: 11/22/15 Status: Ordered rOPINIRole 1 mg oral tablet See Instructions, TAKE 1 TABLET BY MOUTH THREE TIMES DAILY, # 90 Each, 0 Refill( s), Pharmacy: [facility]78, TAKE 1 TABLET BY MOUTH THREE TIMES DAILY Start Date: 11/22/15 Status: Ordered senna 8.6 mg oral tablet 17.2 mg 2 tabs, Oral, Bedtime (once a day), # 60 tabs, 0 Refill(s), Pharmacy: [facility] 15483, 2 tabs Oral Bedtime (once a day) Start Date: 11/22/15 Status: Ordered Victoza 18 mg/3 mL subcutaneous solution 1.2 mg, SubCutaneous, Daily, # 15 mL, 0 Refill(s), Pharmacy: [facility] 29701, 1.2 mg SubCutaneous Daily Start Date: 11/22/15 [...] Reconstructive orthopedic procedure8 Surgery9 Tonsillectomy Total knee [id number] Tubal ligation 1auto-populated from documented surgical case 2L1-S1 Central/Lateral Recess Decompression w/ Cj Foraminotomies (10850); Each Addl (20497 X 5) ICD-9 Codes: 724.02; 724.03; 737.30 PO05/23/2015 3C3-4 ACDF 79674, 27255, 03280, 60087 Post op global ends 11/03/14 4auto-populated from documented surgical case 5bilateral 6x3 7left wrist 8To right hand x9 9Abdominal surgery revisions, multiple 10Rx2, Lx1 Social History Social History Type Response Smoking Status Former smoker; Type: Cigarettes; Number of years: 36 Assessment and Plan No data available for this section
--- OUTSIDE RECORDS SUMMARY | 2016-12-24 12:42 | XMS REPORT | Continuity of Care Document ---
Author Author [facility] Organization [facility] Address Unknown Phone Unavailable Support Name Relationship Address Phone DHEERAJ LEONARD MD Caregiver [address], [place] [id number] SHAUN MCHUGH MD Caregiver [address] [place] [address] [address] [place] [phone] PASCALE MARTIN Next Of Kin [address] [place], [place] [id number] Insurance Providers Payer Name Policy Number Subscriber Name Relationship Medicare [id number] Meryl Cotton 18 Self [id number] Meryl Cotton 18 Self Advance Directives Directive Response Recorded Date/Time Advanced Directives Type None 07/31/14 4:05pm Problems Medical Problems Problem Onset Date Status Chronic pain Unknown Active Generalized weakness Unknown Active Cervical stenosis of spine Unknown Active Chronic pain Unknown Active Generalized weakness Unknown Active Back pain Unknown Active Spinal stenosis Unknown Active Medications Medication Dose Route Sig [...] Smoking Status Unknown if ever smoked 07/31/2014 6:03pm Hx Substance Use No 07/31/2014 6:03pm Hx Alcohol Use No 07/31/2014 6:03pm Hospital Discharge Instructions No hospital discharge instructions. Plan of Care No plan of care. Functional Status Query Response Date Recorded Physical Hygiene Self July 31, 2014 6:03pm Disabilities None July 31, 2014 6:03pm Devices Used None July 31, 2014 6:03pm Dressing Self July 31, 2014 6:03pm Ambulation Self July 31, 2014 6:03pm Diet Self July 31, 2014 6:03pm Mental Status Alert Oriented July 31, 2014 5:48pm Disabilities None July 31, 2014 6:03pm Devices Used None July 31, 2014 6:03pm Physical Hygiene Self July 31, 2014 6:03pm Dressing Self July 31, 2014 6:03pm Ambulation Self July 31, 2014 6:03pm Diet Self July 31, 2014 6:03pm Allergies, Adverse Reactions, Alerts Allergen Type Severity Reaction Status Last Updated No Known Drug Allergies Allergy Unknown Active 07/31/14 Immunizations Name Given Type Hx Influenza Vaccination Y 10/2009 Historical Hx Pneumococcal Vaccination Y 5 YRS AGO Historical Hx Influenza Vaccination Y 10/2009 Historical Vital Signs Acute Vital Signs Vital Response Date/Time Temperature (Fahrenheit) 97.6 deg F (96.8 - 99.1) Temperature (Calculated Celsius) 36.25017 degrees C (36.0 - 37.3) Pulse Rate (adult) 93 bpm (60 - 100) Respiratory Rate 22 breaths/min (10 - 20) O2 Sat by Pulse Oximetry 94 % (90 - 100) Blood Pressure 182/81 mm Hg Results Test Source Date Result Interp. Ref. [...] Has specimen been collected/obtained? Y Urine Specific [place] July 31, 2014 5:00am 1.025 - Has [...] 05, 2009 7:05am LAB TEST FORM REQUEST [id number] - [place] July 31, 2014 4:50pm < [...] 2009 8:39am Name: MERYL COTTON Unit #: [id number] : [id number] Sex: F Loc / Svc: ED DOS: 07/31/14 Signed Report #: [id number] DIAGNOSTIC IMAGING REPORT TYPE OF EXAM: CT [...] Encounters Encounter Location Date/Time Departed Emergency Room [facility] 07/31/14 4:05pm Departed Emergency Room [facility] 07/31/14 3:40am Recent Diagnosis
--- OUTSIDE RECORDS SUMMARY | 2016-12-24 12:42 | XMS REPORT ---
Author Author Vee Ortega Organization [employer] Address Unknown Phone Unavailable Care Team Providers Care Auto Headlight Mechanic Name Role Phone Vee Ortega CP Unavailable [...]
--- OUTSIDE RECORDS SUMMARY | 2016-12-24 12:42 | XMS REPORT | Continuity of Care Document ---
Author Author [facility] Organization [facility] Address Unknown Phone Unavailable Allergies Active Description Code Type Severity Reaction Onset Reported/Identified Relationship to Patient Clinical Status Yes No Known Drug Intolerances No Known Drug Intolerances Drug Allergy Unknown N/A 09/08/2009 Yes No Known Drug Intolerances No Known Drug Intolerances Drug Allergy Unknown N/A 09/08/2009 Yes No Known Allergies No Known Allergies Drug Allergy Unknown N/A 03/14/2016 Medications Problems Date Dx Coded Attending Type Code Diagnosis Diagnosed By 03/14/2016 Christine Schroeder MD E11.649 TYPE 2 DIABETES MELLITUS WITH HYPOGLYCEMIA WITHOUT 03/14/2016 Christine Schroeder MD E78.5 HYPERLIPIDEMIA, UNSPECIFIED 03/14/2016 Christine Schroeder MD F41.8 OTHER SPECIFIED ANXIETY DISORDERS 03/14/2016 Christine Schroeder MD G25.81 RESTLESS LEGS SYNDROME 03/14/2016 Christine Schroeder MD G47.00 INSOMNIA, UNSPECIFIED 03/14/2016 Christine Schroeder MD G89.29 OTHER CHRONIC PAIN 03/14/2016 Christine Schroeder MD G92 TOXIC ENCEPHALOPATHY 03/14/2016 Christine Schroeder MD I10 ESSENTIAL (PRIMARY) HYPERTENSION 03/14/2016 Christine Schroeder MD I25.10 ATHSCL HEART DISEASE OF [place] CORONARY ARTERY W/O 03/14/2016 Christine Schroeder MD K59.00 CONSTIPATION, UNSPECIFIED 03/14/2016 Christine Schroeder MD M35.00 SICCA SYNDROME, UNSPECIFIED 03/14/2016 Christine Schroeder MD M79.7 FIBROMYALGIA 03/14/2016 Christine Schroeder MD N17.9 ACUTE KIDNEY FAILURE, UNSPECIFIED 03/14/2016 Christine Schroeder MD R32 UNSPECIFIED URINARY INCONTINENCE 03/14/2016 Christine Schroeder MD R41.82 ALTERED MENTAL STATUS, UNSPECIFIED Procedures Results Test Result Range BLOOD CULTURE - 03/14/16 08:35 Microbiology BLOOD CULTURE - 03/14/16 09:14 Microbiology URINALYSIS, ROUTINE - 03/14/16 09:34 UA LEUKOCYTE ESTERASE DIPSTICK NEGATIVE NEGATIVE UA NITRITE DIPSTICK NEGATIVE NEGATIVE UA PROTEIN DIPSTICK TRACE NEGATIVE UA GLUCOSE DIPSTICK NEGATIVE NEGATIVE UA KETONE DIPSTICK NEGATIVE NEGATIVE UA UROBILINOGEN DIPSTICK NORMAL NORMAL UA BILIRUBIN DIPSTICK NEGATIVE NEGATIVE UA BLOOD DIPSTICK 2+ NEGATIVE UA SPECIFIC GRAVITY 1.012 1.015-1.025 UR PH 7.0 5.0-7.0 UA MICROSCOPIC - 03/14/16 09:34 UA HYALINE CAST 2-5 cast/lpf 0 - 1 UA RBC 5-10 rbc/hpf 0 - 3 UA VOLUME FOR EXAM 12.0 mL (12mL STD) UA WBC 0 wbc/hpf 0 - 5 AG STREPTOCOCCUS PNEUMONIAE - 03/14/16 09:34 Microbiology ARTERIAL BLOOD GAS - 03/14/16 10:58 ABG BASE EXCESS 1.6 meq/L -3.0-3.0 ABG BICARBONATE 25.9 meq/L 23.0-28.0 ABG PCO2 40 mm Hg 34-45 ABG PH 7.43 7.35-7.45 ABG PO2 70 mm Hg 75-100 ABG O2 SATURATION 94 % 93-100 MRSA SURVEILLANCE SCREEN - 03/14/16 13:53 Microbiology GLUCOSE (POC) - 03/14/16 16:58 GLUCOSE (POC) 162 mg/dL 70-99 GLUCOSE (POC) - 03/14/16 21:51 GLUCOSE (POC) 162 mg/dL 70-99 GLUCOSE (POC) - 03/15/16 05:04 GLUCOSE (POC) 135 mg/dL 70-99 RENAL FUNCTION PANEL - 03/15/16 05:20 POTASSIUM 3.6 mmol/L 3.5-5.3 EST GFR (MDRD) 56 mL/min > 59 ANION GAP 8 mmol/L 5-15 EST CrCl (CG) > 60 mL/min > 59 GLUCOSE 123 mg/dL 70-99 CALCIUM 8.4 mg/dL 8.5-10.1 BLOOD UREA NITROGEN 17 mg/dL 7-20 CREATININE 1.0 mg/dL 0.6-1.0 SODIUM 147 mmol/L 135-148 CHLORIDE 113 mmol/L 98-110 CARBON DIOXIDE 26 mmol/L 21-32 ALBUMIN 3.1 gm/dL 3.4-5.0 PHOSPHORUS 2.4 mg/dL 2.5-4.9 LIPID PANEL - 03/15/16 05:20 CHOLESTEROL/HDL RATIO 4.7 < 5.0 LDL CHOLESTEROL 123 mg/dL < 100 VLDL CHOLESTEROL 22 mg/dL < 30 TRIGLYCERIDES 110 mg/dL < 150 CHOLESTEROL 184 mg/dL < 200 HDL CHOLESTEROL 39 mg/dL > 39 HEMOGLOBIN A1C - 03/15/16 05:21 HEMOGLOBIN A1C 6.5 % < 5.7 GLUCOSE (POC) - 03/15/16 12:05 GLUCOSE (POC) 135 mg/dL 70-99 GLUCOSE (POC) - 03/15/16 17:36 GLUCOSE (POC) 148 mg/dL 70-99 GLUCOSE (POC) - 03/15/16 17:55 GLUCOSE (POC) 133 mg/dL -99 GLUCOSE (POC) - 03/15/16 21:06 GLUCOSE (POC) 137 mg/dL 70-99 CBC W/DIFF - 03/16/16 05:43 EOSINOPHIL # 0.2 k/cumm 0.1-0.5 EOSINOPHIL % 2 % 2-4 GRANULOCYTE # 7.2 k/cumm 2.0-9.0 GRANULOCYTE % 76 % 50-75 LYMPHOCYTE # 1.3 k/cumm 1.0-4.0 LYMPHOCYTE % 14 % 20-30 MEAN CELL HGB 29.3 pg 27.0-33.0 MEAN CELL HGB CONCENTRATION 33.8 g/dL 32.0-37.0 MEAN CELL VOLUME 86.6 fl 80.0-100.0 MONOCYTE # 0.6 k/cumm 0.1-1.0 MONOCYTE % 7 % 4-6 RED BLOOD CELL 3.82 m/cumm 4.00-6.00 RED CELL DISTRIBUTION WIDTH 13.7 % 11.0- 15.6 WHITE BLOOD CELL 9.4 k/cumm 5.0-10.0 HEMOGLOBIN 11.2 gm/dL 12.0-16.0 HEMATOCRIT 33.1 % 37.0-47.0 PLATELET COUNT 168 k/cumm 150-400 RENAL FUNCTION PANEL - 03/16/16 05:43 POTASSIUM 4.2 mmol/L 3.5-5.3 EST GFR (MDRD) 56 mL/min > 59 ANION GAP 8 mmol/L 5-15 EST CrCl (CG) > 60 mL/min > 59 GLUCOSE 176 mg/dL 70-99 CALCIUM 8.9 mg/dL 8.5-10.1 BLOOD UREA NITROGEN 15 mg/dL 7-20 CREATININE 1.0 mg/dL 0.6-1.0 SODIUM 146 mmol/L 135-148 CHLORIDE 113 mmol/L 98-110 CARBON DIOXIDE 25 mmol/L 21-32 ALBUMIN 3.1 gm/dL 3.4-5.0 PHOSPHORUS 2.6 mg/dL 2.5-4.9 GLUCOSE (POC) - 03/16/16 05:52 GLUCOSE (POC) 174 mg/dL 70-99 GLUCOSE (POC) - 03/16/16 11:37 GLUCOSE (POC) 180 mg/dL 70-99 GLUCOSE (POC) - 03/16/16 17:02 GLUCOSE (POC) 173 mg/dL 70-99 GLUCOSE (POC) - 03/16/16 20:45 GLUCOSE (POC) 178 mg/dL 70-99 CBC W/DIFF - 03/17/16 05:45 EOSINOPHIL # 0.3 k/cumm 0.1-0.5 EOSINOPHIL % 4 % 2-4 GRANULOCYTE # 4.8 k/cumm 2.0-9.0 GRANULOCYTE % 66 % 50-75 LYMPHOCYTE # 1.5 k/cumm 1.0-4.0 LYMPHOCYTE % 21 % 20-30 MEAN CELL HGB 28.9 pg 27.0-33.0 MEAN CELL HGB CONCENTRATION 32.1 g/dL 32.0-37.0 MEAN CELL VOLUME 90.1 fl 80.0-100.0 MONOCYTE # 0.6 k/cumm 0.1-1.0 MONOCYTE % 8 % 4-6 RED BLOOD CELL 3.94 m/cumm 4.00-6.00 RED CELL DISTRIBUTION WIDTH 13.8 % 11.0- 15.6 WHITE BLOOD CELL 7.2 k/cumm 5.0-10.0 HEMOGLOBIN 11.4 gm/dL 12.0-16.0 HEMATOCRIT 35.5 % 37.0-47.0 PLATELET COUNT 161 k/cumm 150-400 RENAL FUNCTION PANEL - 03/17/16 05:45 POTASSIUM 3.8 mmol/L 3.5-5.3 EST GFR (MDRD) 56 mL/min > 59 ANION GAP 8 mmol/L 5-15 EST CrCl (CG) > 60 mL/min > 59 GLUCOSE 130 mg/dL 70-99 CALCIUM 9.2 mg/dL 8.5-10.1 BLOOD UREA NITROGEN 14 mg/dL 7-20 CREATININE 1.0 mg/dL 0.6-1.0 SODIUM 143 mmol/L 135-148 CHLORIDE 109 mmol/L 98-110 CARBON DIOXIDE 26 mmol/L 21-32 ALBUMIN 3.2 gm/dL 3.4-5.0 PHOSPHORUS 2.7 mg/dL 2.5-4.9 MAGNESIUM - 03/17/16 05:45 MAGNESIUM 1.8 mg/dL 1.8-2.4 GLUCOSE (POC) - 03/17/16 05:54 GLUCOSE (POC) 127 mg/dL 70-99 GLUCOSE (POC) - 03/17/16 11:43 GLUCOSE (POC) 202 mg/dL 70-99 Encounters ACCT No. Visit Date/Time Discharge Status Pt. Type Provider Facility Loc./Unit Complaint [id number] 12/23/2013 08:27:00 12/23/2013 23 :59:59 CLS Outpatient [id number] 11/03/2013 14:22:00 11/03/2013 23 :59:59 CLS Outpatient [id number] 08/15/2013 11:04:00 08/15/2013 23 :59:59 CLS Outpatient
--- OUTSIDE RECORDS SUMMARY | 2016-12-24 12:43 | XMS REPORT | Referral Summary ---
Author Author [facility] Organization [facility] Address Unknown Phone Unavailable Care Team Providers Care Insurance Verification Rep Name Role Phone Juventino Galvin Primary Care Physician [phone] Encounter Date(s): 02/17/15 - 02/17/15 [facility] [address] [place] [place], [place] [address] Discharge Disposition: 01-Home or Self Care [...] , # 30 tabs, 0 Refill(s), Pharmacy: [facility] [address], 1 tabs Oral Bedtime (once a day),Instr:one [...] PCP, # 1 Each, 0 Refill(s), [facility] [address] Start Date: 06/21/15 Status: Ordered gabapentin 300 [...] pcp, # 30 tabs, 0 Refill(s), Pharmacy: [facility] [address]3850, 1 tabs Oral Daily,Instr:this fill only till [...] day), PLEASE FAX TO [facility] , # 30 tabs, 0 Refill(s) Start Date: 08/23/15 Status: Ordered [place] 5 mg-325 mg oral tablet 1 tabs, [...] # 90 tabs, 2 Refill( s), eRx: [facility] 89309, TAKE 1 TABLET BY MOUTH THREE TIMES [...] , # 60 tabs, 0 Refill(s), Pharmacy: [facility] 510[facility], 1 tabs Oral TID, PRN:as needed for [...] Reconstructive orthopedic procedure8 Surgery9 Tonsillectomy Total knee [id number] Tubal ligation 1auto-populated from documented surgical case 2L1-S1 Central/Lateral Recess Decompression w/ Cj Foraminotomies (49734); Each Addl (16593 X 5) ICD-9 Codes: 724.02; 724.03; 737.30 PO05/23/2015 3C3-4 ACDF 58009, 15768, 72912, 75796 Post op global ends 11/03/14 4auto-populated from documented surgical case 5bilateral 6x3 7left wrist 8To right hand x9 9Abdominal surgery revisions, multiple 10Rx2, Lx1 Social History Social History Type Response Smoking Status Former smoker; Type: Cigarettes; Number of years: 36 Assessment and Plan No data available for this section
--- OUTSIDE RECORDS SUMMARY | 2016-12-24 12:43 | XMS REPORT | Referral Summary ---
Author Organization Unknown Address Unknown Phone Unavailable Care Team Providers Care Drafter (Cad) Electronic Name Role Phone Juventino Galvin Primary Care Physician [phone] Encounter VC JW [id number] Date(s): 12/24/14 - 12/24/14 [facility] [address] [address] [place], [place] [address] Discharge Diagnosis: Lumbago Discharge Disposition: Home or [...] day), # 90 tabs, 0 Refill(s), Pharmacy: [facility] 94393, 1 tabs Oral Bedtime (once a day) Start Date: 09/28/14 Status: Ordered Colace 100 mg oral capsule 1 caps, Oral, BID, 0 Refill(s) Start Date: 08/13/14 Status: Ordered DULoxetine 60 mg oral delayed release capsule See Instructions, 2 CAPS ORAL DAILY, # 60 caps, 2 Refill(s), eRx: [facility] 99204, 2 CAPS ORAL DAILY Special Instructions: 2 CAPS ORAL DAILY Start Date: 09/08/14 Status: Ordered Effexor XR 37.5 mg capsule,extended release See Instructions, TAKE 2 BY ORAL ROUTE EVERY DAY WITH FOOD, # 180 unknown unit, eRx: [facility] 07462, TAKE 2 BY ORAL ROUTE EVERY DAY [...] TID, # 270 tabs, 0 Refill(s), Pharmacy: [facility] [address]70 , 1 tabs Oral TID Start Date: [...] BID, # 10 mL, 1 Refill(s), Pharmacy: [facility] 30259, 30 units SubCutaneous BID Start Date: 11/30/14 Status: Ordered Lantus 100 units/mL subcutaneous solution See Instructions, INJECT 50 UNITS SUBCUTANEOUS TWICE DAILY, # 90 mL, 2 Refill(s) , ALIZA, Pharmacy: [facility] [address]15, INJECT 50 UNITS SUBCUTANEOUS TWICE DAILY Special Instructions: INJECT 50 UNITS SUBCUTANEOUS TWICE DAILY Start Date: 10/01/14 Status: Ordered Lasix 40 mg oral tablet 1 tabs, Oral, Daily, # 30 tabs, 2 Refill(s), Pharmacy: [facility] [address]4600, 1 tabs Oral Daily Start Date: 12/18/14 Status: Ordered lidocaine 5% topical film 1 patches, TransDermal, Daily, # 30 patches, 0 Refill(s) Start Date: 08/13/14 Status: Ordered lisinopril 10 mg oral tablet 1 tabs, Oral, Daily, # 30 tabs, 2 Refill(s), Pharmacy: [facility] 95475, 1 tabs Oral Daily Start Date: 09/10/14 [...] 0 Refill(s) Start Date: 12/22/14 Status: Ordered [place] 7.5 mg-325 mg oral tablet 1 tabs, Oral, TID, as needed for pain, # 90 tabs, 0 Refill(s) Start Date: 12/03/14 Status: Ordered potassium chloride 20 mEq oral tablet, extended release 2 tabs, Oral, qPM, # 60 tabs, 0 Refill(s) Start Date: 08/13/14 Status: Ordered rOPINIRole 1 mg oral tablet See Instructions, 1 TABS ORAL TID, # 90 tabs, 1 Refill(s), eRx: [facility] [id number], 1 TABS ORAL TID Special Instructions: 1 TABS ORAL TID Start Date: 11/05/14 Status: Ordered Skelaxin 800 mg oral tablet See Instructions, TAKE .5 -1 TAB. TID PRN MUST LAST 1 MONTH., # 30 tabs, 0 Refill(s), Pharmacy: [facility] 30418, TAKE .5 -1 TAB. TID PRN MUST LAST 1 MONTH. Special Instructions: TAKE .5 -1 TAB. TID PRN MUST LAST 1 MONTH. Start Date: 12/18/14 Stop Date: 01/15/15 Status: Ordered Zetia 10 mg oral tablet 1 tabs, Oral, Daily, # 90 tabs, 0 Refill(s), Pharmacy: [facility] [address]90, 1 tabs Oral Daily Start Date: 09/28/14 [...] Total knee arthroplasty8 Tubal ligation 1C3-4 ACDF 21022, 61473, 09772, 71181 Post op global ends 11/03/14 2auto-populated from documented surgical case 3bilateral 4x3 5left wrist 6To right hand x9 7Abdominal surgery revisions, multiple 8Rx2, Lx1 Social History Social History Type Response Smoking Status Former smoker; Type: Cigarettes; Number of years: 6 Assessment and Plan No data available for this section
--- OUTSIDE RECORDS SUMMARY | 2016-12-24 12:43 | XMS REPORT | Referral Summary ---
Author Author [facility] Organization [facility] Address Unknown Phone Unavailable Care Team Providers Care Director Of Athletics Name Role Phone Juventino Galvin Primary Care Physician [phone] Encounter [facility] [id number] Date(s): 02/22/15 - 02/26/15 [facility] [address] [place] [address] Discharge Diagnosis: Lumbar stenosis with neurogenic claudication [...] Insulin Final: ANXIETY STATE, UNSPECIFIED Discharge Disposition: -[facility] Facility Attending Physician: Juaquin Clemente MD Admitting [...] , # 30 tabs, 0 Refill(s), Pharmacy: [facility] [address], 1 tabs Oral Bedtime (once a day),Instr:one [...] PCP, # 1 Each, 0 Refill(s), Pharmacy: [facility] [address] Start Date: 06/21/15 Status: Ordered gabapentin 300 [...] pcp, # 30 tabs, 0 Refill(s), [facility], 1 tabs Oral Daily,Instr:this fill only till [...] Bedtime (once a day), PLEASE FAX TO [facility] , # 30 tabs, 0 Refill(s) Start Date: 08/23/15 Status: Ordered [place] 5 mg-325 mg oral tablet 1 tabs, [...] # 90 tabs, 2 Refill( s), eRx: [facility] [address], TAKE 1 TABLET BY MOUTH THREE TIMES [...] , # 60 tabs, 0 Refill(s), Pharmacy: [facility] [address]11, 1 tabs Oral TID, PRN:as needed for [...] Reconstructive orthopedic procedure8 Surgery9 Tonsillectomy Total knee [id number] Tubal ligation 1auto-populated from documented surgical case 2L1-S1 Central/Lateral Recess Decompression w/ Cj Foraminotomies (27448); Each Addl (00648 X 5) ICD-9 Codes: 724.02; 724.03; 737.30 PO05/23/2015 3C3-4 ACDF 19996, 82046, 28622, 88984 Post op global ends 11/03/14 4auto-populated from documented surgical case 5bilateral 6x3 7left wrist 8To right hand x9 9Abdominal surgery revisions, multiple 10Rx2, Lx1 Social History Social History Type Response Smoking Status Former smoker; Type: Cigarettes; Number of years: 36 Assessment and Plan No data available for this section
--- OUTSIDE RECORDS SUMMARY | 2016-12-24 12:43 | XMS REPORT | Referral Summary ---
Author Author [facility] Organization [facility] Address Unknown Phone Unavailable Care Team Providers Care Prepper Name Role Phone Juventino Galvin Primary Care Physician [phone] Encounter VC Date(s): 03/02/15 - 03/02/15 [facility] [address] [place] [address] Discharge Disposition: 01-Home or Self Care [...] , # 30 tabs, 0 Refill(s), Pharmacy: [facility] [id number], 1 tabs Oral Bedtime (once a day),Instr:one [...] PCP, # 1 Each, 0 Refill(s), [email or web address] [id number] Start Date: 06/21/15 Status: Ordered gabapentin 300 [...] pcp, # 30 tabs, 0 Refill(s), [facility], 1 tabs Oral Daily,Instr:this fill only till [...] Bedtime (once a day), PLEASE FAX TO [facility] , # 30 tabs, 0 Refill(s) Start Date: 08/23/15 Status: Ordered Elsah 5 mg-325 mg oral tablet 1 tabs, [...] # 90 tabs, 2 Refill( s), eRx: [facility] [id number], TAKE 1 TABLET BY MOUTH THREE TIMES [...] , # 60 tabs, 0 Refill(s), Pharmacy: [facility] [id number], 1 tabs Oral TID, PRN:as needed for [...] Reconstructive orthopedic procedure8 Surgery9 Tonsillectomy Total knee [id number] Tubal ligation 1auto-populated from documented surgical case 2L1-S1 Central/Lateral Recess Decompression w/ Cj Foraminotomies (01626); Each Addl (31857 X 5) ICD-9 Codes: 724.02; 724.03; 737.30 PO05/23/2015 3C3-4 ACDF 18719, 98736, 15807, 37684 Post op global ends 11/03/14 4auto-populated from documented surgical case 5bilateral 6x3 7left wrist 8To right hand x9 9Abdominal surgery revisions, multiple 10Rx2, Lx1 Social History Social History Type Response Smoking Status Former smoker; Type: Cigarettes; Number of years: 36 Assessment and Plan No data available for this section
[2016-12-24] MEDS ORDERED: NORMAL SALINE 1,000 ML IV ONE ×2 (12:45→13:45)
[2016-12-24] MEDS ORDERED: ONDANSETRON 4mg/2ml INJECTION IV ONE (12:45)
--- NOTE | 2016-12-24 13:03 | NUR ---
LAB IN ROOM TO DRAW LAB.
[2016-12-24 13:22] LABS: HGB - HEMOGLOBIN 11.8 GM/DL (12-16); MEAN CORPUSCULAR HGB 30.2 UUG (26-34); MEAN CORPUSCULAR HGB CONC(MCHC 32.8 GM/DL (31-37); MEAN CORPUSCULAR VOLUME 92.1 UM3 (80-100); MEAN PLATELET VOLUME 10.2 UM3 (9.4-12.4); RED BLOOD COUNT 3.91 M/MM3 (4.00-5.20); WBC - WHITE BLOOD COUNT 24.1 T/MM3 (4.5-11.0)
[2016-12-24 13:32] LABS: ALBUMIN 3.6 G/DL (3.5-5.0); ALBUMIN/GLOBULIN RATIO 1.3 RATIO (1.1-2.2); ALKALINE PHOSPHATASE 82 U/L (38-126); ALT (SGPT) 20 U/L (9-52); ANION GAP 15 MEQ/L (5-15); AST (SGOT) 21 U/L (14-36); BUN/CREATININE RATIO 31 RATIO (6-26); CALCIUM 8.8 MG/DL (8.4-10.2); CHLORIDE 104 MEQ/L (98-107); CO2 - CARBON DIOXIDE 21 MEQ/L (22-30); CREATININE 1.4 MG/DL (0.7-1.2); GLOMERULAR FILTRATION RATE 38; GLUCOSE 354 MG/DL (65-110); POTASSIUM 4.9 MEQ/L (3.6-5); SODIUM 140 MEQ/L (134-144); TOTAL PROTEIN 6.4 G/DL (6.3-8.2)
[2016-12-24] MEDS ORDERED: DOCU250C77 PO (13:32)
[2016-12-24] MEDS ORDERED: LISI-621 PO (13:34)
[2016-12-24] MEDS ORDERED: INSU100V SQ (13:34)
[2016-12-24] MEDS ORDERED: BACL10TA PO (13:37)
[2016-12-24] MEDS ORDERED: SPIR50TA3 PO (13:37)
[2016-12-24] MEDS ORDERED: TRAZ-170 PO (13:37)
[2016-12-24] MEDS ORDERED: METF500T4 PO (13:37)
[2016-12-24] MEDS ORDERED: FLUT16SP EA NOSTRIL (13:42)
[2016-12-24] MEDS ORDERED: IBUP-1724 PO (13:42)
[2016-12-24] MEDS ORDERED: DIPH25TA23 PO (13:42)
[2016-12-24] MEDS ORDERED: GINK120C PO (13:42)
[2016-12-24] MEDS ORDERED: [UNRECOGNIZED DRUG - CODE] PO (13:42)
[2016-12-24] MEDS ORDERED: CEFEPIME 1 G in NORMAL SALINE 100 ML IV ONE (13:45)
[2016-12-24 13:52] LABS: BAND NEUTROPHILS # 4.8 T/MM3; LYMPHOCYTES # (MANUAL) 0.5 T/MM3 (1-4.8); MONOCYTES # (MANUAL) 0.5 T/MM3 (0-0.8); NEUTROPHILS #(MANUAL)-ABSOLUTE 18.3 T/MM3 (1.8-7.7); TOTAL CELLS COUNTED 100 %
[2016-12-24 13:57] LABS: LACTATE - LACTIC ACID 4.3 MMOL/L (0.6-2.2)
--- OUTSIDE RECORDS SUMMARY | 2016-12-24 14:05 | XMS REPORT | Continuity of Care Document ---
Author Author [facility] Organization [facility] Address Unknown Phone Unavailable Support Name Relationship Address Phone NILA WEI MD Caregiver [address] [place] [address] EUGENE PASCUAL MD Caregiver [address] [place], [place] [phone] DHEERAJ LEONARD MD Caregiver [address] [place], [place] [phone] PASCALE MARTIN Next Of Kin [address] [place], [place] [phone] Insurance Providers Payer Name Policy Number Subscriber Name Relationship Medicare [id number] Meryl Cotton 18 Self [id number] Meryl Cotton 18 Self Advance Directives Directive [...] F (96.8 - 99.1) Temperature (Calculated Celsius) 37.48709 degrees C (36.0 - 37.3) Pulse Rate [...] Has specimen been collected/obtained? Y Urine Specific [place] July 31, 2014 5:00am 1.025 - Has [...] 05, 2009 7:05am LAB TEST FORM REQUEST [id number] - Turbidity July 31, 2014 4:50pm < [...] 2009 8:39am Name: MERYL COTTON Unit #: [id number] : 1950 Sex: F Loc / Svc: ED DOS: 07/31/14 Signed Report #: [id number] DIAGNOSTIC IMAGING REPORT TYPE OF EXAM: CT [...] Encounters Encounter Location Date/Time Departed Emergency Room [facility] 08/26/14 9:25am Departed Emergency Room [facility] 07/31/14 4:05pm Departed Emergency Room [facility] 07/31/14 3:40am Recent Diagnosis
--- OUTSIDE RECORDS SUMMARY | 2016-12-24 14:06 | XMS REPORT | Continuity of Care Document ---
Author Author [facility] Organization [facility] Address Unknown Phone Unavailable Support Name Relationship Address Phone NIKOLAYJUVE LOJA Caregiver [place] [phone] PEREZ SCHNEIDER MD Caregiver [facility] [address] [place] [address] EUGENE PASCUAL MD Caregiver [address] [place], [place] [phone] SHAUN MCHUGH MD Caregiver [address] [place] [address] [place] [phone] PASCALE MARTIN Next Of Kin [address] [facility] [place] [phone] Insurance Providers Payer Name Policy Number Subscriber Name Relationship Medicare [id number] Meryl Cotton 18 Self [id number] Meryl Cotton 18 Self Problems Medical Problems [...] F (96.8 - 99.1) Temperature (Calculated Celsius) 36.82229 degrees C (36.0 - 37.3) Pulse Rate [...] Has specimen been collected/obtained? Y Urine Specific [place] July 31, 2014 5:00am 1.025 - Has [...] 05, 2009 7:05am LAB TEST FORM REQUEST [id number] - Turbidity July 31, 2014 3:50am < [...] 2009 8:39am Name: MERYL COTTON Unit #: [id number] : 1950 Sex: F [facility] [place] [facility]: ED DOS: 07/31/14 Signed Report #: [id number] DIAGNOSTIC IMAGING REPORT TYPE OF EXAM: CT [...] Encounters Encounter Location Date/Time Departed Emergency Room [facility] 07/31/14 3:40am Recent Diagnosis
--- OUTSIDE RECORDS SUMMARY | 2016-12-24 14:12 | XMS REPORT | Continuity of Care Document ---
Author Author [facility] Organization [facility] Address Unknown Phone Unavailable Allergies Active [...] Schroeder MD I25.10 ATHSCL HEART DISEASE OF [place] CORONARY ARTERY W/O 03/14/2016 Christine Schroeder MD [...] Status Pt. Type Provider Facility Loc./Unit Complaint [id number] 12/23/2013 08:27:00 12/23/2013 23 :59:59 CLS Outpatient [id number] 11/03/2013 14:22:00 11/03/2013 23 :59:59 CLS Outpatient [id number] 08/15/2013 11:04:00 08/15/2013 23 :59:59 CLS Outpatient
--- OUTSIDE RECORDS SUMMARY | 2016-12-24 14:13 | XMS REPORT | Continuity of Care Document ---
Author Author [facility] Organization [facility] Address Unknown Phone Unavailable Support Name Relationship Address Phone DHEERAJ LEONARD MD Caregiver [address] [place], [place] [phone] SHAUN MCHUGH MD Caregiver [address] [place] [address] [place] [phone] PASCALE MARTIN Next Of Kin [address] [place], [place] [phone] Insurance Providers Payer Name Policy Number Subscriber Name Relationship Medicare [id number] Meryl Cotton 18 Self [id number] Meryl Cotton 18 Self Advance Directives Directive [...] F (96.8 - 99.1) Temperature (Calculated Celsius) 36.27350 degrees C (36.0 - 37.3) Pulse Rate [...] Has specimen been collected/obtained? Y Urine Specific [place] July 31, 2014 5:00am 1.025 - Has [...] 05, 2009 7:05am LAB TEST FORM REQUEST [id number] - Turbidity July 31, 2014 4:50pm < [...] 2009 8:39am Name: MERYL COTTON Unit #: [id number] : 1950 Sex: F Loc / Svc: ED DOS: 07/31/14 Signed Report #: [id number] DIAGNOSTIC IMAGING REPORT TYPE OF EXAM: CT [...] Encounters Encounter Location Date/Time Departed Emergency Room [facility] 07/31/14 4:05pm Departed Emergency Room [facility] 07/31/14 3:40am Recent Diagnosis
[2016-12-24] MEDS ORDERED: MORPHINE SULFATE 4 MG SYRINGE IV ONE ×2 (14:15→15:30)
[2016-12-24] MEDS ORDERED: ACETAMINOPHEN 325 MG TABLET PO ONE (14:15)
[2016-12-24 14:44] LABS: BLOOD, URINE 2+ (NEGATIVE); COLOR,URINE YELLOW (YELLOW); LEUKOCYTE ESTERASE ,URINE NEGATIVE (NEGATIVE); NITRITE,URINE POSITIVE (NEGATIVE); UROBILINOGEN,URINE 0.2 EU/DL (NORMAL)
[2016-12-24 14:53] LABS: SQUAMOUS EPITHELIAL CELL,UR NONE SEEN
[2016-12-24 14:54] LABS: BACTERIA,URINE 1+ (NEGATIVE); RBC,URINE 0-1 /HPF (0-3)
[2016-12-24] MEDS ORDERED: LEVOFLOXACIN 750 mg IVPB 750 MG in D5W 150 ML IV ONE (15:15)
[2016-12-24] MEDS ORDERED: VANCOMYCIN 2 G in NORMAL SALINE 500 ML IV ONE (15:15)
--- NOTE | 2016-12-24 15:35 | NUR ---
REPORT GIVEN TO GIDEON DALAL. NO QUESTIONS.
--- OUTSIDE RECORDS SUMMARY | 2016-12-24 15:35 | XMS REPORT | Continuity of Care Document ---
Author Author [facility] Organization [facility] Address Unknown Phone Unavailable Support Name Relationship Address Phone NILA WEI MD Caregiver [address] [place] [address] EUGENE PASCUAL MD Caregiver [address] [place], [place] [phone] DHEERAJ LEONARD MD Caregiver [address] [place], [place] [phone] PASCALE MARTIN Next Of Kin [address] [place], [place] [phone] Insurance Providers Payer Name Policy Number Subscriber Name Relationship Medicare [id number] Meryl Cotton 18 Self [id number] Meryl Cotton 18 Self Advance Directives Directive [...] F (96.8 - 99.1) Temperature (Calculated Celsius) 37.14180 degrees C (36.0 - 37.3) Pulse Rate [...] Has specimen been collected/obtained? Y Urine Specific [place] July 31, 2014 5:00am 1.025 - Has [...] 05, 2009 7:05am LAB TEST FORM REQUEST [id number] - Turbidity July 31, 2014 4:50pm < [...] 2009 8:39am Name: MERYL COTTON Unit #: [id number] : 1950 Sex: F Loc / Svc: ED DOS: 07/31/14 Signed Report #: [id number] DIAGNOSTIC IMAGING REPORT TYPE OF EXAM: CT [...] Encounters Encounter Location Date/Time Departed Emergency Room [facility] 08/26/14 9:25am Departed Emergency Room [facility] 07/31/14 4:05pm Departed Emergency Room [facility] 07/31/14 3:40am Recent Diagnosis
--- OUTSIDE RECORDS SUMMARY | 2016-12-24 15:36 | XMS REPORT | Continuity of Care Document ---
Author Author [facility] Organization [facility] Address Unknown Phone Unavailable Support Name Relationship Address Phone NIKOLAYJUVE LOJA Caregiver [place] [phone] PEREZ SCHNEIDER MD Caregiver [facility] [address] [place] [address] EUGENE PASCUAL MD Caregiver [address] [place], [place] [phone] SHAUN MCHUGH MD Caregiver [address] [place] [address] [place] [phone] PASACLE MARTIN Next Of Kin [address] [facility] [place] [place] [phone] Insurance Providers Payer Name Policy Number Subscriber Name Relationship Medicare [id number] Meryl Cotton 18 Self [id number] Meryl Cotton 18 Self Problems Medical Problems [...] F (96.8 - 99.1) Temperature (Calculated Celsius) 36.22385 degrees C (36.0 - 37.3) Pulse Rate [...] Has specimen been collected/obtained? Y Urine Specific [place] July 31, 2014 5:00am 1.025 - Has [...] 05, 2009 7:05am LAB TEST FORM REQUEST [id number] - Turbidity July 31, 2014 3:50am < [...] 2009 8:39am Name: MERYL COTTON Unit #: [id number] : 1950 Sex: F [facility] [place]: ED DOS: 07/31/14 Signed Report #: [id number] DIAGNOSTIC IMAGING REPORT TYPE OF EXAM: CT [...]
[2016-12-24] MEDS: NORMAL SALINE 1,000 ML IV SCH ×5 (15:38→19:00)
--- OUTSIDE RECORDS SUMMARY | 2016-12-24 15:42 | XMS REPORT | Continuity of Care Document ---
Author Author [facility] Organization [facility] Address Unknown Phone Unavailable Allergies Active [...] Schroeder MD I25.10 ATHSCL HEART DISEASE OF [place] CORONARY ARTERY W/O 03/14/2016 Christine Schroeder MD [...] Status Pt. Type Provider Facility Loc./Unit Complaint [id number] 12/23/2013 08:27:00 12/23/2013 23 :59:59 CLS Outpatient [id number] 11/03/2013 14:22:00 11/03/2013 23 :59:59 CLS Outpatient [id number] 08/15/2013 11:04:00 08/15/2013 23 :59:59 CLS Outpatient
--- OUTSIDE RECORDS SUMMARY | 2016-12-24 15:42 | XMS REPORT | Continuity of Care Document ---
Author Author [facility] Organization [facility] Address Unknown Phone Unavailable Support Name Relationship Address Phone DHEERAJ LEONARD MD Caregiver [address] [place], [place] [phone] SHAUN MCHUGH MD Caregiver [address] [place] [address] [place] [phone] PASCALE MARTIN Next Of Kin [address] [place], [place] [phone] Insurance Providers Payer Name Policy Number Subscriber Name Relationship Medicare [id number] Meryl Cotton 18 Self [id number] Meryl Cotton 18 Self Advance Directives Directive [...] F (96.8 - 99.1) Temperature (Calculated Celsius) 36.12850 degrees C (36.0 - 37.3) Pulse Rate [...] Has specimen been collected/obtained? Y Urine Specific [place] July 31, 2014 5:00am 1.025 - Has [...] 05, 2009 7:05am LAB TEST FORM REQUEST [id number] - Turbidity July 31, 2014 4:50pm < [...] 2009 8:39am Name: MERYL COTTON Unit #: [id number] : 1950 Sex: F Loc / Svc: ED DOS: 07/31/14 Signed Report #: [id number] DIAGNOSTIC IMAGING REPORT TYPE OF EXAM: CT [...] Encounters Encounter Location Date/Time Departed Emergency Room [facility] 07/31/14 4:05pm Departed Emergency Room [facility] 07/31/14 3:40am Recent Diagnosis
--- NOTE | 2016-12-24 15:50 | NUR ---
ADMIT TO CCU BED 4. TRANSFERRED TO BED WITH ASSIST OF 3 AND SLIDE BOARD. PATIENT IS INCONTINENT. STATING, "MY BACK AND HIP HURTS, I NEED TO MOVE".
--- NOTE | 2016-12-24 15:50 | NUR ---
RECEIVED TO CCU-4 FROM ED PER CART. AWAKE, ALERT, ORIENTED TO PLACE, PERSON. ASKS WHAT DAY IT IS. CRIES OUT WITH LEG AND HIP PAIN PRIOR TO TRANSFER FROM CART TO BED, BUT LATER DENIES DISCOMFORT.
[2016-12-24] MEDS ORDERED: VANCOMYCIN 2,000 MG in NORMAL SALINE 500 ML IV ONE (17:00)
[2016-12-24] MEDS ORDERED: ONDANSETRON 4mg/2ml INJECTION IV PRN (17:15)
[2016-12-24 17:56] LABS: INFLUENZA A AG SCREEN NEGATIVE (NEGATIVE); INFLUENZA B AG SCREEN NEGATIVE (NEGATIVE)
--- NOTE | 2016-12-24 18:19 | HPPDOC ---
HPI - Adult Date DATE: 12/24/16 TIME: 17:51 General Chief Complaint: confusion History of Present Illness This a 66-year-old debilitated and morbidly obese woman who has been wheelchair- bound bedbound for some extended time likely years who was brought in at the behest of a family member for confusion [employer] at this time she does not think herself confused and she's able to answer most of the questions clearly and concisely. She denies headache sore throat cough or dyspnea chest pain however she has chronic body wide chest pain as she believes in fibromyalgia. She is routinely incontinent but not experiencing any dysuria. She did have some slight diarrhea but nothing chronic or more significant than routine when she violates her diet. She stated violating her diet having large sugary meal night before. She denies any pain down in her legs other than the chronic peripheral neuropathy that is routine for. She is unaware of any sick contacts but she has not had the flu vaccine this year. Past Medical History Past Medical History Patient's Medical History: (1) Obesity, Class III, BMI 40-49.9 (morbid obesity) (2) Total self-care deficit (3) Frequent falls Diabetes Coronary artery disease Hypertension Chronic back pain Depression Dyslipidemia GERD Sleep apnea Restless leg syndrome Spinal stenosis Surgical History Patient's Surgical History: Hernia repair Bilateral knee arthroscopically (YtXjuxak20/2009) Right hand surgical repair after traumatic injury Left carpal tunnel release-04/2011 Tonsillectomy Back surgery Current Medications Home Meds Reported Medications Fluticasone Propionate (Fluticasone Prop 50 mcg/actuation Nasal Stanton) 120 Stanton /16 G Stanton, 1 SPRAY EA NOSTRIL DAILY 12/24/16 Ginkgo Biloba Extract (Ginkgo Biloba) 120 Mg Capsule, 120 MG PO BID 12/24/16 Dextrose (Glucose) 4 Gm Tab.chew, 4 GM PO PRN 12/24/16 Diphenhydramine HCl (Diphenhydramine HCl) 25 Mg Tablet, 25 MG PO Q4H Y for PRN ORDERS 12/24/16 Ibuprofen (Ibuprofen) 200 Mg Tablet, 400 MG PO Q4H Y for PAIN 12/24/16 Trazodone HCl (Trazodone HCl) 50 Mg Tablet, 50 MG PO HS 12/24/16 Metformin HCl (Metformin HCl) 500 Mg Tablet, 1000 MG PO BIDWM 12/24/16 Spironolactone (Spironolactone) 50 Mg Tablet, 50 MG PO DAILY 12/24/16 Baclofen (Baclofen) 10 Mg Tablet, 5 MG PO BID 12/24/16 Insulin Lispro (Humalog) 100 Unit/Ml Inj, 15 UNIT SQ TIDWM 12/24/16 Lisinopril (Lisinopril) 20 Mg Tablet, 20 MG PO DAILY 12/24/16 Docusate Sodium (Docusate Sodium) 250 Mg Capsule, 250 MG PO DAILY Y for CONSTIPATION 12/24/16 Morphine Sulfate (Morphine Sulfate ER) 15 Mg Tablet.er, 15 MG PO BID 11/23/15 Potassium Chloride (Potassium Chloride) 20 Meq Tablet.er, 40 MEQ PO DAILY 06/25/15 Furosemide (Furosemide) 40 Mg Tablet, 40 MG PO DAILY 02/02/15 Duloxetine Hcl (Cymbalta) 60 Mg Capsule.dr, 120 MG PO DAILY 02/08/10 Allergies: Coded Allergies: No Known Drug Allergies (Verified Allergy, Unknown, 06/25/15) Family History Family History: Mother-cancer(unknown specific location. Questionable lymph node) Father- secondary to gunshot wound ( questionable suicide) Sisterchronic back pain Social History Smoking Status: Never smoker Substance Use Type: does not use Alcohol Intake: none Advance Directives: No DPOA for Healthcare Only Review of Systems Constitutional: REPORTS: chills, dizziness, fever, weakness ENMT Sinuses: NOT FOUND: congestion, pain Cardiovascular DENIES: chest pain Rhythm/Rate: DENIES: palpitations Vascular: pedal edema Pulmonary Respiratory: DENIES: cough, sputum GI Upper Abdomen: DENIES: vomiting Lower Abdomen: DENIES: blood in stool, melena General: frequency, DENIES: dysuria, urgency Integumentary Skin: color change Neurological General: weakness Psychiatric Psychiatric: anxiety, nervousness Physical Exam General General Nourishment: obese General Body Habitus: disheveled Vital Signs Vital Signs Date Time Temp Pulse Resp B/P Pulse Ox O2 Delivery O2 Flow Rate FiO2 12/24/16 15:50 107 16 148/66 92 Room Air 12/24/16 12:25 102.7 Height (Feet): 5 Height (Inches): 6.00 Eyes Brief: FOUND: EOMI, PERRL, NOT FOUND: scleral icterus Neck Brief: NOT FOUND: JVD, adenopathy, nuchal rigidity Respiratory Brief: FOUND: clear all harmon, equal bilaterally, NOT FOUND: rales , wheezes Cardiovascular (brief) Cardiac Brief: FOUND: regular rhythm Capillary Refill: <2 sec Comments Borderline tachycardic Cardiovascular Auscultation: FOUND: S1, S2, S3 Murmur: FOUND: systolic Edema: 2+: Leg (L), Leg (R) Abdomen (brief) Abdominal Brief: FOUND: BS normo active x4, distended, soft Comments Her abdomen is immense and BMI underestimates its growth Neurologic (brief) Neurological Brief: FOUND: cranial 2-12 intact, sensory Neurologic RN Documented GCS Eye Opening: (4)Spontaneous Verbal: (5)Oriented Motor: (6)Obeys Commands Total: Psychiatric (brief) FOUND: alert, oriented Comments Limited insight Laboratory Laboratory Tests Test 12/24/16 13:01 12/24/16 14:39 12/24/16 17:02 12/24/16 17:03 White Blood Count 24.1T/MM3 Red Blood Count 3.91M/MM3 Hemoglobin 11.8GM/DL Hematocrit 36.0% Mean Corpuscular Volume 92.1UM3 Mean Corpuscular Hemoglobin 30.2UUG Mean Corpuscular Hemoglobin Concent 32.8GM/DL RDW Standard Deviation 45.6FL Platelet Count 222T/MM3 Mean Platelet Volume 10.2UM3 Immature Granulocyte % (Auto) % Neutrophils (%) (Auto) % Lymphocytes (%) (Auto) % Monocytes (%) (Auto) % Eosinophils (%) (Auto) % Basophils (%) (Auto) % Absolute Immature Granulocyte (auto T/MM3 Absolute Neutrophils (auto) T/MM3 Absolute Lymphocytes (auto) T/MM3 Absolute Monocytes (auto) T/MM3 Absolute Eosinophils (auto) T/MM3 Absolute Basophils (auto) T/MM3 Neutrophils % (Manual) 76.0% Band Neutrophils % 20.0% Lymphocytes % (Manual) 2.0% Monocytes % (Manual) 2.0% Absolute Neutrophils (Manual) 18.3T/MM3 Band Neutrophils # 4.8T/MM3 Lymphocytes # (Manual) 0.5T/MM3 Monocytes # (Manual) 0.5T/MM3 Red Cell Morphology Comment Normal Turbidity < 20 Sodium Level 140MEQ/L Potassium Level 4.9MEQ/L Chloride Level 104MEQ/L Carbon Dioxide Level 21MEQ/L Anion Gap 15MEQ/L Blood Urea Nitrogen 43.0MG/DL Creatinine 1.4MG/DL Glomerular Filtration Rate Calc 38 BUN/Creatinine Ratio 31RATIO Glucose Level 354MG/DL Calculated Osmolality 294MOSM/KG Calcium Level 8.8MG/DL Total Bilirubin 0.60MG/DL Icterus Index < 2 Aspartate Amino Transf (AST/SGOT) 21U/L Alanine Aminotransferase (ALT/SGPT) 20U/L Alkaline Phosphatase 82U/L Troponin I 0.037ng/ml Total Protein 6.4G/DL Albumin 3.6G/DL Globulin 2.8G/DL Albumin/Globulin Ratio 1.3RATIO Plasma Lactate 4.3MMOL/L 2.2MMOL/L Procalcitonin 5.20NG/ML Chemistry Specimen Hemolysis < 15 Urine Collection Type Straight cath Urine Color Yellow Urine Turbidity Clear Urine pH 5.0 Urine Specific [place] 1.010 Urine Protein 1+ Urine Glucose (UA) 1+ Urine Ketones Negative Urine Blood 2+ Urine Nitrite Positive Urine Bilirubin Negative Urine Urobilinogen 0.2EU/DL Urine Leukocyte Esterase Negative Urine RBC 0-1/HPF Urine WBC 3-5/HPF Urine Squamous Epithelial Cells None seen Urine Bacteria 1+ Urine Culture Indicated Cult reflexed &setup Sepsis Diagnostic Criteria Sepsis Confirmed/Suspected Infection: Yes SIRS Criteria: Temp<=96.8 or >=100.4, Pulse >= 90 beats/min, WBC >=12,000 or <= 4,000, Bands >= 10% Severe Sepsis Lactate >=2.0 mg/dL Septic Shock Septic Shock Criteria: Lactate >4 Assessment & Plan Problems: (1) Systemic inflammatory response syndrome (SIRS) associated with organ dysfunction Assessment & Plan: Etiology is uncertain but I am leaning towards viral process as I do not think that the stasis ulcers have cellulitis. Her urine is very equivocal as there are nitrites and bacteria but a lack of significant white blood cells. As for now will come with broad-spectrum antibiotics and flu screen is still pending. She does have a very significantly elevated lactate level however (2) Stasis edema of both lower extremities Assessment & Plan: Initially thought the ER to be a cellulitis this has no significant tenderness although it is very warm especially on the right pre- tibia. I'm thinking this is fluid overload with chronic stasis edema. (3) Encephalopathy Status: Acute Assessment & Plan: Etiology uncertain this may be nothing more than hypoxic narcosis station is on opioids and has resolved. This may have been secondary due to the underlying infection (4) Chronic pain Status: Chronic Assessment & Plan: Patient believes that she is unable to survive on anything less than her home medications. Showing significant mental dependency. Find this unfortunate as it appears that all of her comorbidities are apparently secondary to what is nearly super morbid obesity. (5) DM (diabetes mellitus) Status: Chronic Qualifiers: Diabetes mellitus complication status: with skin complications Diabetes mellitus complication detail: with dermatitis Diabetes mellitus correction insulin use: with correction use Assessment & Plan: I would anticipate poor compliance on this but will get a hemoglobin A-1 C before defining (6) Obesity, Class III, BMI 40-49.9 (morbid obesity) Status: Chronic Assessment & Plan: A BMI of 48.7 vastly underestimates this woman's nearly atrophic arms and legs and that almost all overweight is centrally located (7) Self-care deficit in patient living alone Status: Acute Assessment & Plan: Patient appears to have decades failing to meet standards of self-care that caused others to compensate for her. She appears debilitated at this point most likely due to her obesity and deconditioning. Will place her on occupational and physical therapy and I believe that she will need investigation by social secretary and possibly adult protective services as to the condition of her living at home Critical care 55 minutes without procedures performed Code Status Full Code Hospital Course Summary Disclaimer The hospital course summary below is not to be considered part of the above Progress Note. FREDERICK VALADEZ MD Dec 24, 2016 17:54
--- NOTE | 2016-12-24 18:40 | NUR ---
STATUS VS STABLE. DISORIENTED TO DAY, TIME. FAMILY AT BEDSIDE AT THIS TIME. MIDLINE PLACED EARLIER, IV FLUIDS AND ANTIBIOTICS ORDERED. BP IMPROVED, STABLE LO 100'S SYSTOLIC. TAKES DIET WELL. REDNESS TO PATRICE LOWER EXTREM NOTED, REDNESS BLANCHES WELL, DENIES DISCOMFORT TO LOWER EXTREM. STATES HER LEGS ARE ALWAYS REDDENED.
[2016-12-24] MEDS: INSULIN LISPRO 100 UNIT/ML SQ SCH (18:48)
[2016-12-24] MEDS ORDERED: GLUCOSE ORAL GEL 40% 37.5 G TUBE PO PRN (19:15)
[2016-12-24] MEDS ORDERED: DEXTROSE 50% SYRINGE 50ml (Eq. 1 AMP) IV PRN (19:15)
[2016-12-24] MEDS: HEPARIN SUB-Q 5,000 unit/0.5ml vial SQ SCH (19:28)
[2016-12-24] MEDS: PIPERACILLIN/TAZOBACTAM 3.375 G in NORMAL SALINE 100 ML IV SCH (19:29)
[2016-12-24] MEDS ORDERED: MORPHINE SULFATE SR 15 MG TABLET PO SCH (21:00)
[2016-12-24] MEDS: OSELTAMIVIR 75 MG CAPSULE PO SCH (21:09)
[2016-12-24] MEDS: TRAZODONE 50 MG TABLET PO SCH (21:10)
[2016-12-24] MEDS: INSULIN REGULAR 100 UNIT/ML SQ PRN (21:11)
[2016-12-24 21:37] LABS: AMPHETAMINE SCREEN,URINE NEGATIVE; BARBITURATE SCREEN,URINE NEGATIVE; BENZODIAZEPINES SCREEN,URINE NEGATIVE; CANNABINOID SCREEN,URINE NEGATIVE; COCAINE SCREEN,URINE NEGATIVE; METHADONE SCREEN, URINE NEGATIVE; METHAMPHETAMINE SCREEN, URINE NEGATIVE; OPIATE SCREEN,URINE POSITIVE; PHENCYCLIDINE SCREEN,URINE NEGATIVE; TRICYCLIC ANTIDEPRESSANT,URINE NEGATIVE
--- NOTE | 2016-12-24 22:30 | NUR ---
O2 Pt noted to have sleep apnea with O2 sats dipping down as low as 69%, then would go slowly back up to 90's, then dip back down. Pt awakens easily. Placed pt onto 2 liters of O2 while sleeping to keep sats in 90's.
[2016-12-25] VITALS (31 sets, daily range): BP systolic 82–141; BP diastolic 40–67; PULSE 73–98; RESP 7–22; TEMP 97.8–98.6; O2SAT 90–100
--- NOTE | 2016-12-25 | NUR ---
Pain Pt c/o pain in left hip that is much relieved with position change. Pt states the pain is chronic. Pt states she does position changes and Gouldbusk's to relieve the pain. After pt repositioned off hip and left leg elevated on 2 pillows, then pt states pain is around a 2/10. Encouraged pt to call if pt unable to rest and pain worsens. YIN Aparicio is on board.
[2016-12-25] MEDS: PIPERACILLIN/TAZOBACTAM 3.375 G in NORMAL SALINE 100 ML IV SCH ×5 (00:59→22:47)
[2016-12-25] MEDS: HEPARIN SUB-Q 5,000 unit/0.5ml vial SQ SCH ×3 (03:29→17:10)
[2016-12-25] MEDS: VANCOMYCIN 1,250 MG in NORMAL SALINE 250 ML IV SCH ×2 (04:53→17:08)
[2016-12-25] MEDS: NORMAL SALINE 1,000 ML IV SCH ×3 (04:54→19:44)
[2016-12-25 05:59] LABS: HCT - HEMATOCRIT 26.6 % (36-46); HGB - HEMOGLOBIN 8.4 GM/DL (12-16); MEAN CORPUSCULAR HGB 29.7 UUG (26-34); MEAN CORPUSCULAR HGB CONC(MCHC 31.6 GM/DL (31-37); MEAN PLATELET VOLUME 9.6 UM3 (9.4-12.4); RED BLOOD COUNT 2.83 M/MM3 (4.00-5.20); WBC - WHITE BLOOD COUNT 13.5 T/MM3 (4.5-11.0)
[2016-12-25 06:17] LABS: ANION GAP 8 MEQ/L (5-15); BUN/CREATININE RATIO 29 RATIO (6-26); CALCIUM 8.1 MG/DL (8.4-10.2); CHLORIDE 110 MEQ/L (98-107); CO2 - CARBON DIOXIDE 22 MEQ/L (22-30); CREATININE 1.4 MG/DL (0.7-1.2); GLOMERULAR FILTRATION RATE 38; GLUCOSE 206 MG/DL (65-110); POTASSIUM 4.3 MEQ/L (3.6-5); SODIUM 140 MEQ/L (134-144)
[2016-12-25 06:34] LABS: TOTAL CELLS COUNTED 100 %
[2016-12-25 06:35] LABS: BAND NEUTROPHILS # 1.4 T/MM3; LYMPHOCYTES # (MANUAL) 1.1 T/MM3 (1-4.8); MONOCYTES # (MANUAL) 0.3 T/MM3 (0-0.8); NEUTROPHILS #(MANUAL)-ABSOLUTE 10.8 T/MM3 (1.8-7.7)
--- NOTE | 2016-12-25 07:00 | NUR ---
Status Pt slept quite well during night. Pt would fall asleep while RN in room, but would easily awaken. Pt c/o pain in back and left hip during night, occasionally stating right leg felt like "neuropathy". Pt bilat legs are discolored and right leg noted to be much warmer/redder than left leg. Reddened areas to RLE were circled. Nurse to nurse for wound was consulted. Pt also has areas of concern to R upper legs posteriorly. Legs elevated on pillows. Pt assisted with position changes during night with assist of 2. Pt alert & oriented x 3 this am. Pt was alert to name and place last oziel. Pt cooperative with cares. Pt weaned to 1 liter during night with sats staying in 90's (placed due to some sleep apnea noted). Bed alarm on, will continue to monitor.
[2016-12-25] MEDS: INSULIN REGULAR 100 UNIT/ML SQ PRN ×2 (07:17→13:01)
--- NOTE | 2016-12-25 07:57 | DI ---
Indication: ITS.REASON: fever, elevated lactate PROCEDURE: CHEST 1 VIEW: Encounter: Initial Comparison: Portable chest, 07/07/2015 Findings: There is mild cardiomegaly, slight widening of the vascular pedicle with slight distention of the azygos vein but no pulmonary edema of an interstitial or airspace nature. Continued left hemidiaphragmatic elevation. Trachea midline. Visualized bony elements intact. Impression: Mild pulmonary vascular congestion and cardiomegaly but no overt pulmonary edema or infiltrate. .
--- NOTE | 2016-12-25 08:30 | NUR ---
AM Care given with help of PT/OT staff. Dangled for short time, became very anxious, cries out, feels like "I'm going to fall."
[2016-12-25] MEDS: INSULIN LISPRO 100 UNIT/ML SQ SCH ×3 (08:53→17:59)
[2016-12-25] MEDS: LEVOFLOXACIN 750 mg IVPB 750 MG in D5W 150 ML IV SCH (08:53)
[2016-12-25] MEDS: FLUTICASONE NASAL SPRAY 50 MCG EA NOSTRIL SCH (08:54)
[2016-12-25] MEDS ORDERED: POTASSIUM CHLORIDE 20 MEQ TABLET PO SCH (09:00)
[2016-12-25] MEDS ORDERED: NORMAL SALINE IV SCH (09:00)
[2016-12-25] MEDS ORDERED: [UNRECOGNIZED DRUG - OTHER] IV SCH (09:00)
[2016-12-25] MEDS: DULOXETINE 60 MG CAPSULE PO SCH (09:03)
[2016-12-25] MEDS: OSELTAMIVIR 75 MG CAPSULE PO SCH ×2 (09:04→21:02)
[2016-12-25] MEDS: FUROSEMIDE 40 MG TABLET PO SCH (09:04)
[2016-12-25] MEDS: SPIRONOLACTONE 50 MG TABLET PO SCH (09:05)
--- NOTE | 2016-12-25 10:04 | NUR ---
VANCOMYCIN SHORT REVIEW: Today's SCr = 1.4mg/dL. Calculated CrCl = 57mL/min Trough level schedule with 0500 dose on 12/26/16. Will continue the Vancomycin 1,250mg IV Q12hrs. Will continue to monitor and make adjustments accordingly. Thank you.
[2016-12-25] MEDS ORDERED: KETOROLAC 15mg/ml INJECTION IV PRN (14:00)
--- NOTE | 2016-12-25 14:00 | NUR ---
Pain patient crying in "severe pain. I can't believe the doctor just stopped all my morphine pills." called, order for toradol received and given.
[2016-12-25] MEDS: KETOROLAC 15mg/ml INJECTION IV PRN ×2 (14:01→21:20)
--- NOTE | 2016-12-25 14:45 | NUR ---
Pain relieved somewhat, patient calmer. Doesn't remember coming in to hospital.
--- NOTE | 2016-12-25 14:47 | NUR ---
DM Screen: BMI: 48.7 Estimated daily calorie needs for weight maintenance: 2325 (activity factor 1.2, injury factor 1.0) Calorie estimate would be 2790 if injury factor of 1.2 is used.) Diet order: [address] spoke with patient who said she is wheel chair or bed bound since she had back surgery. Patient said she has used calorie points for meal planning in the past but has ignored diet for a while. Patient expressed interest in learning about carbs. Although she doesn't drive, she has a van that is wheel chair accessible and could come for medical nutrition therapy (MNT.) RD showed patient how to estimate carbs in foods on the menu. Patient has not been eating well since admission (not consuming 1600 calories from meals.) RD will check on meal intake tomorrow. If patient begins eating, RD recommends diet order be changed to [id number] calorie carb consistent diet. Ext. 1406.
--- NOTE | 2016-12-25 15:13 | PDWOUND ---
Wound Documentation Wound Management Wound : Location Modifier: Right, Lower Wound Location: Leg Wound Type: Other (blisters from cellulitis) Wound Dressing Frequency: two times per week Wound Duration: one week Wound Dressing Status: FOUND: Moist Wound Drainage Amount: Minimal Wound Drainage Description: Purulent Wound Drainage Odor: None/Absent Wound General Appearance: FOUND Asymptomatic, FOUND Draining Wound Bed: gran pink, slough Periwound Description: Bright Red Wound Length (cm): 2.2 Wound Width (cm): 2.4 Wound Depth (cm): 0.1 Exposed: partial Wound Cleanser: soap and water Wound Primary Dressing Type: Aquacel AG, Mepilex Comments Pt has cellulitis of the leg with several open blister areas. Right lateral vergara 2.2 x 2.4 x 0.1, Inferior right lateral vergara 1 x 2.2 x 0.1. Both treated with Aquacell AG and mepilex. YANA LEVINE RN Dec 25, 2016 15:13
--- NOTE | 2016-12-25 16:00 | NUR ---
CM THIS WORKER MET WITH PT IN ROOM. PT WAS LAYING IN BED AT THIS TIME. PT RECALLED THIS WORKER FROM PREVIOUS HOSPITALIZATIONS. THIS WORKER DISCUSSED DISCHARGE PLANNING. PT REPORTED THAT SHE HAS BEEN IN A LONGTERM ([facility]) IN THE PAST. PT REPORTED THAT SHE HAS BEEN LIVING AT HOME. PT REPORTED THAT HER "EX SON IN LAW" IS LIVING WITH HER. PT'S SON IN LAW ARRIVED FOR A VISIT WHILE THIS WORKER WAS PRESENT. PT EXPLAINED THAT SHE WOULD WANT TO RETURN HOME AND HAS [facility] COMING TO HER HOME TWICE PER WEEK. PT REQUESTED THAT I CONTACT [facility] TO LET THEM KNOW OF HER ADMISSION. PT ALSO REPORTED THAT SHE HAS [employer] ([employer]IVE [employer]) COMING TO HER HOME ONCE PER MONTH. PT EXPRESSED THAT SHE WANTS TO RETURN HOME WITH HER HOME HEALTH SERVICES WITH [facility] [employer]. SON IN LAW REPORTS THAT HE ASSIST PT WHEN NEEDED AND WHEN ASKED. PT WAS ENCOURAGED TO DISCUSS DISCHARGE PLANNING. CASE MANAGEMENT WILL CONTINUE TO FOLLOW AND ASSIST IN DISCHARGE PLANNING. THIS WORKER SPOKE TO NURSE ABBIE, AT [facility]. PT HAS BEEN IN SERVICES WITH HOME HEALTH SINCE APPROXIMATELY JANUARY 2016. PROVIDED UPDATE REGARDING PT'S ADMISSION AND STATUS. PT IS CURRENTLY IN SERVICES WITH [facility]. THEY WOULD CONTINUE WITH SERVICES AT TIME OF DISMISSAL. THIS WORKER INQUIRED ABOUT ANY CONCERNS IN THE HOME THAT WOULD WARRANT APS INVOLVEMENT. NURSE DENIED NEED FOR APS INVOLVEMENT.
--- NOTE | 2016-12-25 17:21 | PNPDOC ---
Subjective Date DATE: 12/25/16 TIME: 16:52 Subjective Patient still appears moderately ill despite antiviral and broad-spectrum antibiotic regimen. Patient complains body wide pain and not surprisingly it comes to engage in collective negotiation. Nursing reports arrhythmias overnight on telemetry with no episodes of chest pain reported by patient or overnight nursing. Objective Vital Signs Vital signs Vital Signs Date Time Temp Pulse Resp B/P Pulse Ox O2 Delivery O2 Flow Rate FiO2 12/25/16 12:00 98.2 83 17 96/45 98 12/25/16 11:30 Nasal Cannula 1.00 Telemetry Rhythm: Bundle Branch Block Height (Feet): 5 Height (Inches): 6.00 Weight (Kilograms): 136.900 General General Appearance: Alert, Obese, Orientated x 3, Mild Distress Eyes (Brief) Eyes: FOUND: EOMI, PERRL, NOT FOUND: scleral icterus Neck (Brief) Neck: NOT FOUND: JVD, nuchal rigidity Respiratory (Brief) Respiratory: FOUND: clear all harmon, equal bilaterally, NOT FOUND: rales, wheezes Cardiovascular (Brief) Cardiac: FOUND: murmur, regular rate, regular rhythm Abdomen (Brief) Abdominal: FOUND: BS normo active x4, soft Comments Abdomen is immense Extremities (Brief) Extremity : Side: Bilateral Extremity: leg Extremity Finding: FOUND: edema Psychiatric (Brief) Psychiatric: FOUND: alert, normal affect, oriented Laboratory Laboratory Laboratory Tests 12/24/16 13:01 12/25/16 05:45 Laboratory Tests 12/24/16 13:01 12/25/16 05:45 Microbiology Microbiology Microbiology Date/Time Source Procedure Growth Status 12/24/16 13:26 Peripheral/Iv Start Blood Culture - Preliminary NO GROWTH AFTER 24 HOURS Resulted 12/24/16 13:01 Peripheral/Iv Start Gram Stain - Final Resulted 12/24/16 13:01 Blood Culture - Preliminary Strep Agalactiae - (Group B) Resulted 12/24/16 14:54 Urine, Straight Cath Urine Culture - Preliminary Gram Negative Jean Resulted Sepsis Diagnostic Criteria Sepsis Confirmed/Suspected Infection: Yes SIRS Criteria: Temp<=96.8 or >=100.4, Pulse >= 90 beats/min, WBC >=12,000 or <= 4,000, Bands >= 10% Severe Sepsis Lactate >=2.0 mg/dL Septic Shock Septic Shock Criteria: Lactate >4 Assessment & Plan Problems: (1) Systemic inflammatory response syndrome (SIRS) associated with organ dysfunction Status: Acute Assessment & Plan: The single tube of positive strep agalactia, bacteremia becomes a possibility and after revisiting history with the patient she is uncertain if it is flu that her daughter has that she has been sick with a cough for several weeks. He had simply used the term influenza in discussion yesterday without a confirmed diagnosis of her daughter's condition (2) Stasis edema of both lower extremities Status: Chronic Assessment & Plan: Initially thought the ER to be a cellulitis this has no significant tenderness although it is very warm especially on the right pre- tibia. I'm thinking this is fluid overload with chronic stasis edema. The area actually appears more red and swollen today after 24 hours of antibiotics. Reinforcing the notion that this is stasis edema not cellulitis (3) Encephalopathy Status: Acute Assessment & Plan: Etiology uncertain this may be nothing more than hypoxic narcosis station is on opioids and has resolved. This may have been secondary due to the underlying infection (4) Chronic pain Status: Chronic Assessment & Plan: She is engaging in narcotic negotiations. All medications I 've added Toradol. He is continuing to show significant mental dependency. I' ve ordered physical and occupational therapy to begin working with her immediately. (5) DM (diabetes mellitus) Status: Chronic Qualifiers: Diabetes mellitus complication status: with skin complications Diabetes mellitus complication detail: with dermatitis Diabetes mellitus senior care insulin use: with custody officer use Assessment & Plan: I would anticipate poor compliance on this but will get a hemoglobin A-1 C before defining (6) Obesity, Class III, BMI 40-49.9 (morbid obesity) Status: Chronic Assessment & Plan: A BMI of 48.7 vastly underestimates this woman's deconditioned arms and legs and that almost all of her weight is centrally located (7) Self-care deficit in patient living alone Status: Acute Assessment & Plan: Will appreciate forensic social worker in case management participation in this unfortunate woman's complex medical and social care Critical care 40 minutes without procedures performed Assessment Source most likely bacterial this point but no obvious transport of bacteria into the bloodstream seen. To lead physical and occupational therapy to work with her aggressively. It seems that this has been performed prior and as soon as she goes home after her extensive rehab comes right back to hospital. DVT Prophylaxis: Lovenox Code Status Full Code Hospital Course Summary Disclaimer The hospital course summary below is not to be considered part of the above Progress Note. FREDERICK VALADEZ MD Dec 25, 2016 16:55
--- NOTE | 2016-12-25 18:30 | NUR ---
Pain has waves of pain in back and "all over." Repositioned, having more pain with movement.
[2016-12-25] MEDS: TRAZODONE 50 MG TABLET PO SCH (21:02)
--- NOTE | 2016-12-25 21:21 | NUR ---
COMFORT TORADOL 30 MG IVP SLOWLY GIVEN FOR SHOULDER AN WILL PAIN 5/10.
--- NOTE | 2016-12-25 22:00 | NUR ---
COMFORT DOZED WITH TORADOL. NORCO GIVEN PO AT PATIENT REQUEST FOR BACK AND SHOULDER DISCOMFORT.
--- NOTE | 2016-12-25 23:45 | NUR ---
CARE ASSUMED. IVF INFUSING PER ORDER. REPIRATIONS EVEN AND NON LABORED. ASLEEP FOLLOWING PAIN MED ADMINISTRATION. VSS. WILL CONTINUE TO MONITOR
[2016-12-26] VITALS (21 sets, daily range): BP systolic 100–163; BP diastolic 51–80; PULSE 73–97; RESP 6–20; TEMP 96.2–97.6; O2SAT 91–100
[2016-12-26] MEDS: HEPARIN SUB-Q 5,000 unit/0.5ml vial SQ SCH ×2 (00:30→08:17)
--- NOTE | 2016-12-26 01:42 | NUR ---
PAIN RATED A 6/10. REPOSITIONED WITH LARGER NECK ROLL AND STRAIGHTENED BODY POSITION. REPORTS THIS DECREASES PAIN. REFUSES ICE OR HEAT. ASSESSMENT COMPLETED. A-FEBRILE. A+OX3. LUNGS CLEAR, BUT DIMINISHED IN THE BASES. RT LOWER EXTREMITY SLIGHTLY MORE EDEMATOUS THAN RT. PULSES WEAK AND EQUAL IN ALL FOUR EXTREMITIES. WILL CONTINUE TO MONITOR
--- NOTE | 2016-12-26 02:50 | NUR ---
ANXIOUS REPORTS PAIN EVERYWHERE. IN TEARS. REASSURED AND REPOSITIONED. VERBALIZES CONCERNS THAT HER DRDonald TOOK ALL HER PAIN MEDS AWAY FROM HER. CURRENTLY RESTING QUIETLY WITH EYES CLOSED. REASSURED THAT SOON IT IS TIME FOR PRN PAIN MEDCATION I WILL BRING IT TO HER.
[2016-12-26] MEDS: NORMAL SALINE 1,000 ML IV SCH ×3 (03:18→11:15)
[2016-12-26] MEDS: KETOROLAC 15mg/ml INJECTION IV PRN ×2 (03:23→09:16)
--- NOTE | 2016-12-26 03:24 | NUR ---
PAIN TORADOL GIVEN FOR SHOULDER PAIN OF 8/10, WHICH IS UNRELIEVED BY POSITIONING.
[2016-12-26] MEDS: VANCOMYCIN 1,250 MG in NORMAL SALINE 250 ML IV SCH (04:38)
[2016-12-26 04:56] LABS: HCT - HEMATOCRIT 25.7 % (36-46); HGB - HEMOGLOBIN 7.9 GM/DL (12-16); MEAN CORPUSCULAR HGB 29.2 UUG (26-34); MEAN CORPUSCULAR HGB CONC(MCHC 30.7 GM/DL (31-37); MEAN CORPUSCULAR VOLUME 94.8 UM3 (80-100); MEAN PLATELET VOLUME 10.1 UM3 (9.4-12.4); RED BLOOD COUNT 2.71 M/MM3 (4.00-5.20); WBC - WHITE BLOOD COUNT 11.4 T/MM3 (4.5-11.0)
[2016-12-26 04:58] LABS: INR 1.2 (0.76-1.04); PROTHROMBIN TIME 13.1 SEC (9.31-12.49)
--- NOTE | 2016-12-26 05:11 | NUR ---
pain PAIN 6/10 GENERALIZED AREAS. LORTAB GIVEN
[2016-12-26 05:12] LABS: ALBUMIN 2.7 G/DL (3.5-5.0); ALBUMIN/GLOBULIN RATIO 0.9 RATIO (1.1-2.2); ALKALINE PHOSPHATASE 65 U/L (38-126); ALT (SGPT) 25 U/L (9-52); ANION GAP 11 MEQ/L (5-15); AST (SGOT) 17 U/L (14-36); BUN/CREATININE RATIO 26 RATIO (6-26); CALCIUM 8.1 MG/DL (8.4-10.2); CHLORIDE 112 MEQ/L (98-107); CO2 - CARBON DIOXIDE 19 MEQ/L (22-30); CREATININE 1.6 MG/DL (0.7-1.2); GLOMERULAR FILTRATION RATE 32; GLUCOSE 173 MG/DL (65-110); POTASSIUM 4.3 MEQ/L (3.6-5); SODIUM 142 MEQ/L (134-144); TOTAL PROTEIN 5.6 G/DL (6.3-8.2)
[2016-12-26] MEDS: PIPERACILLIN/TAZOBACTAM 3.375 G in NORMAL SALINE 100 ML IV SCH ×4 (05:26→23:38)
[2016-12-26 06:31] LABS: BAND NEUTROPHILS # 0.7 T/MM3; LYMPHOCYTES # (MANUAL) 1.3 T/MM3 (1-4.8); METAMYELOCYTES # 0.1 T/MM3; MONOCYTES # (MANUAL) 0.3 T/MM3 (0-0.8); TOTAL CELLS COUNTED 100 %
--- NOTE | 2016-12-26 06:35 | NUR ---
SHIFT NOTE VSS. 1L O2 PER NC. AFEBRILE. PAIN/MUSCLE SPASM AND AXNIET ISSUES. MINIMAL SLEEP-SHORT NAPS THROUGHOUT SHIFT. UOP>30ML/HR. CONCERNED ABOUT HOME MEDS NOT BEING RESTARTED AND IS WORRIED THAT THIS IS THE REASON FOR HER POOR PAIN MGMT.
[2016-12-26] MEDS: INSULIN REGULAR 100 UNIT/ML SQ PRN (06:43)
[2016-12-26] MEDS ORDERED: POTASSIUM CHLORIDE 20 MEQ TABLET PO SCH (08:00)
[2016-12-26] MEDS: OSELTAMIVIR 75 MG CAPSULE PO SCH ×2 (08:16→21:03)
[2016-12-26] MEDS: FUROSEMIDE 40 MG TABLET PO SCH (08:17)
[2016-12-26] MEDS: SPIRONOLACTONE 50 MG TABLET PO SCH (08:17)
[2016-12-26] MEDS: LEVOFLOXACIN 750 mg IVPB 750 MG in D5W 150 ML IV SCH (08:18)
[2016-12-26] MEDS: INSULIN LISPRO 100 UNIT/ML SQ SCH ×3 (08:21→18:10)
[2016-12-26] MEDS: FLUTICASONE NASAL SPRAY 50 MCG EA NOSTRIL SCH (08:22)
[2016-12-26] MEDS: DULOXETINE 60 MG CAPSULE PO SCH (08:28)
[2016-12-26] MEDS ORDERED: POLYETHYL.GLYCOL 3350 PACKET 17gm PO ONE (10:30)
[2016-12-26] MEDS ORDERED: PRN ORDERS MC (11:15)
[2016-12-26] MEDS ORDERED: NITROGLYCERIN 0.4 MG SUBLINGUAL TABLET SL PRN (11:15)
[2016-12-26] MEDS ORDERED: ACETAMINOPHEN 325 MG TABLET PO PRN (11:15)
[2016-12-26] MEDS ORDERED: MILK OF MAGNESIA 30 ML SUSP PO PRN (11:15)
[2016-12-26] MEDS ORDERED: MAG-AL + SIM LIQUID 30 ML UDC PO PRN (11:15)
[2016-12-26] MEDS ORDERED: BISACODYL 10 MG SUPPOSITORY RECTALLY PRN (11:15)
--- NOTE | 2016-12-26 12:03 | PNPDOC ---
Subjective Date DATE: 12/26/16 TIME: 11:41 Subjective F/U: Severe sepsis Doing much better today, except for diffuse pain and spasms. Breathing feeling well, not SOA or cough/congestion. No ab pain or nausea. Legs with increased edema. Weak in general. Alert and converses well. Objective Vital Signs Vital signs Vital Signs Date Time Temp Pulse Resp B/P Pulse Ox O2 Delivery O2 Flow Rate FiO2 12/26/16 08:00 97.6 73 13 142/72 100 Nasal Cannula 1.00 Telemetry Rhythm: Bundle Branch Block Height (Feet): 5 Height (Inches): 6.00 Weight (Kilograms): 144.500 General General Appearance: Alert, Obese, Orientated x 3, Well Nourished, Well Developed, Cooperative, Looks Stated Age Eyes (Brief) Eyes: FOUND: EOMI, PERRL, NOT FOUND: scleral icterus ENMT (Brief) ENMT: FOUND: hearing intact, mucosa moist (No thrush ) Neck (Brief) Neck: FOUND: midline, NOT FOUND: nuchal rigidity, spasm Respiratory (Brief) Respiratory: FOUND: clear all harmon, equal bilaterally, NOT FOUND: rales, wheezes Cardiovascular (Brief) Cardiac: FOUND: pedal edema (+3), regular rate, regular rhythm Abdomen (Brief) Abdominal: FOUND: other (Obese abdomen ), soft, NOT FOUND: BS normo active x4 ( decreased ), distended, tender (Brief) Female: FOUND: other (Ca in place ) Extremities (Brief) Extremity : Side: Bilateral Extremity: leg Extremity Finding: FOUND: edema (+3 ), other (Erythema to both LE) Musculoskeletal (Brief) Musculoskeletal: NOT FOUND: deformity, spasm Neurologic (Brief) Neurological: FOUND: cranial 2-12 intact, motor (Intact ) Psychiatric (Brief) Psychiatric: FOUND: alert, attentive, normal affect, oriented Laboratory Laboratory Laboratory Tests 12/24/16 13:01 12/25/16 05:45 12/26/16 04:35 Laboratory Tests 12/24/16 13:01 12/25/16 05:45 12/26/16 04:35 Microbiology Microbiology Microbiology Date/Time Source Procedure Growth Status 12/24/16 13:26 Peripheral/Iv Start Blood Culture - Preliminary NO GROWTH AFTER 24 HOURS Resulted 12/24/16 13:01 Peripheral/Iv Start Gram Stain - Final Resulted 12/24/16 13:01 Blood Culture - Preliminary Strep Agalactiae - (Group B) Resulted 12/24/16 21:18 Urine Streptococcus pneumoniae Antigen (M - Final Complete 12/24/16 14:54 Urine, Straight Cath Urine Culture - Final Escherichia Coli Complete Sepsis Diagnostic Criteria Sepsis Confirmed/Suspected Infection: Yes SIRS Criteria: Temp<=96.8 or >=100.4, Pulse >= 90 beats/min, WBC >=12,000 or <= 4,000, Bands >= 10% Severe Sepsis Lactate >=2.0 mg/dL Septic Shock Septic Shock Criteria: Lactate >4 Assessment & Plan Problems: (1) Systemic inflammatory response syndrome (SIRS) associated with organ dysfunction Status: Acute Assessment & Plan: Infectious etiology uncertain (2) Stasis edema of both lower extremities Status: Chronic Assessment & Plan: Initially thought the ER to be a cellulitis this has no significant tenderness although it is very warm especially on the right pre- tibia. I'm thinking this is fluid overload with chronic stasis edema. The area actually appears more red and swollen today after 24 hours of antibiotics. Reinforcing the notion that this is stasis edema not cellulitis (3) Encephalopathy Status: Resolved (4) Chronic pain Status: Chronic Assessment & Plan: 12/26- restart home meds. Stop Toradol due to elevating creatinine. (5) DM (diabetes mellitus) Status: Chronic Qualifiers: Diabetes mellitus complication status: with skin complications Diabetes mellitus complication detail: with dermatitis Diabetes mellitus [facility] insulin use: with buttermaker use (6) Essential (primary) hypertension Status: Chronic (7) Stage III chronic kidney disease Status: Chronic (8) GERD (gastroesophageal reflux disease) Status: Chronic Qualifiers: Esophagitis presence: esophagitis presence not specified Qualified Codes: K21.9 - Gastro-esophageal reflux disease without esophagitis (9) Thrombocytopenia Status: Acute Assessment & Plan: Not POA - Dilutional vs secondary to SQ Heparin. (10) Anemia Status: Chronic Qualifiers: Anemia type: unspecified type Qualified Codes: D64.9 - Anemia, unspecified Assessment & Plan: Decreasing - ? dilutional. (11) Obesity, Class III, BMI 40-49.9 (morbid obesity) Status: Chronic Assessment & Plan: A BMI of 48.7 vastly underestimates this woman's deconditioned arms and legs and that almost all of her weight is centrally located (12) Self-care deficit in patient living alone Status: Acute Assessment & Plan: Will appreciate health care social worker in case management participation in this unfortunate woman's complex medical and social care Critical care 40 minutes without procedures performed Plan/Intensity of Service Continue with Vancomycin, Zosyn, and Levaquin for antimicrobial coverage. Decrease IVF to 75 cc/hr. Additional Lasix 40mg IV this afternoon due to increase volume. Stop SQ heparin due to thrombocytopenia - start Lovenox 40mg SQ daily tomorrow - monitor platelets. May restart home pain medications. Continue PT/OT to maximize functional status. Recheck BMP in am to monitor electrolytes and creatinine. Recheck CBC in am to monitor blood counts. Will transfer to medical floor on Tele for continuation of care - critical care needs resolving. Case discussed with Nursing. Time spent with pt care 35 minutes. DVT Prophylaxis: Lovenox Code Status Full Code Hospital Course Summary Disclaimer The hospital course summary below is not to be considered part of the above Progress Note. Hospital Course Summary 12/26 Continue with Vancomycin, Zosyn, and Levaquin for antimicrobial coverage. Decrease IVF to 75 cc/hr. Additional Lasix 40mg IV this afternoon due to increase volume. Stop SQ heparin due to thrombocytopenia - start Lovenox 40mg SQ daily tomorrow - monitor platelets. May restart home pain medications. Continue PT/OT to maximize functional status. Recheck BMP in am to monitor electrolytes and creatinine. Recheck CBC in am to monitor blood counts. Will transfer to medical floor on Tele for continuation of care - critical care needs resolving. JOSE G MILLER MD Dec 26, 2016 11:44
[2016-12-26] MEDS: MORPHINE SULFATE SR 15 MG TABLET PO SCH ×2 (12:06→21:03)
[2016-12-26] MEDS: BACLOFEN 10 MG TABLET PO SCH ×2 (12:06→21:02)
--- NOTE | 2016-12-26 12:30 | NUR ---
STATUS Patient alert and approp today. Freq c/o pain and refers to the other doctor stopping her pain meds. Meds given as able per orders. Appetite good. Therapies here today and did assist patient to BSC. Passed large amounts flatus, but no BM. Miralax given. Currently on RA.
--- NOTE | 2016-12-26 14:00 | NUR ---
TRANSFER Patient transferred to Rm. 147 per bed per orders. Patient a/ox3 and aware of transfer.
--- NOTE | 2016-12-26 14:01 | NUR ---
Transfer Received patient from CCU into Medical room 147. Patient oriented to room.
[2016-12-26] MEDS ORDERED: FUROSEMIDE 40 MG/4 ML INJECTION IV ONE (14:30)
--- NOTE | 2016-12-26 14:30 | NUR ---
KIM THIS WORKER MET WITH PT ON THIS DATE. PT REPORTED THAT SHE HAS BEEN THINKING ABOUT HER DISCHARGE PLAN. THIS WORKER DISCUSSED RECOMMENDATIONS FROM PT AND OT. THIS WORKER REVIEWED LONG TERM AN OPTION. PT EXPLAINED THAT SHE HAD BEEN IN THREE LONG TERM FACILITIES AND DOESN'T FEEL LIKE SHE COULD GET ANY ADDITIONAL BENEFITS OF GOING AGAIN. PT REFUSED REFERRALS AT THIS TIME. THIS WORKER DISCUSSED INPATIENT REHAB. PT REPORTED THAT SHE WOULD BE INTERESTED TO SEE IF THIS IS AN OPTION. PT EXPRESSED THAT IF SHE WENT HOME THEN SHE WOULD WANT TO RESUME HER SERVICES WITH HOME HEALTH (PROGRESSIVE). PT DISCUSSED ALL OF THE DME THAT SHE HAD AT HOME. PT EXPRESSED THAT SHE FEELS THAT SHE NEEDS TO MOTIVATE HERSELF TO DO MORE FOR HERSELF AT HOME. PT REPORTED THAT SHE ALLOWS HER SON IN LAW TO DO MOST OF THE WORK WHEN SHE KNOWS THAT SHE SHOULD DO IT HERSELF. THIS WORKER WILL CONTINUE TO FOLLOW AND ASSIST IN DISCHARGE PLANNING.
[2016-12-26] MEDS: TROLAMINE SALICYLATE 85 GM TUBE TOP PRN (16:37)
--- NOTE | 2016-12-26 18:21 | NUR ---
Status Patient has been pleasant and cooperative. Complained of right shoulder discomfort, RN obtained order for Aspercreme and applied to patient's posterior right shoulder/neck area. PRN [place] given as well. Patient reported pain was better but she was still having some pain. RN asked if this was the "normal" amount of pain she has at home and patient admitted it was. Staff has helped reposition patient and assist her to the chair. Patient required extensive 3 person assist to stand pivot transfer from bed to chair. Poor appetite with meals. Catheter patent and draining. Dressing to right lower leg clean and dry. Call light within reach.
[2016-12-26] MEDS ORDERED: VANCOMYCIN 1,500 MG in NORMAL SALINE 500 ML IV SCH (20:00)
[2016-12-26] MEDS: TRAZODONE 50 MG TABLET PO SCH (21:03)
[2016-12-27] MEDS: INSULIN REGULAR 100 UNIT/ML SQ PRN ×3 (00:03→22:08)
[2016-12-27] MEDS: NORMAL SALINE 1,000 ML IV SCH (00:14)
[2016-12-27] MEDS: TROLAMINE SALICYLATE 85 GM TUBE TOP PRN ×2 (02:08→07:27)
[2016-12-27 04:11] VITALS: BP 147/70; PULSE 93; RESP 18; TEMP 96.9; O2SAT 96
[2016-12-27 05:29] LABS: BASOPHILS % (AUTO) 0.2 % (0-2); EOSINOPHILS # (AUTO) 0.1 T/MM3 (0-0.5); EOSINOPHILS % (AUTO) 0.8 % (0-4); HCT - HEMATOCRIT 25.5 % (36-46); IMMATURE GRANULOCYTE # (AUTO) 0.02 T/MM3 (0.00-0.03); IMMATURE GRANULOCYTE % (AUTO) 0.2 % (0.0-0.5); LYMPHOCYTES # (AUTO) 0.9 T/MM3 (1-4.8); LYMPHOCYTES % (AUTO) 8.2 % (23-45); MEAN CORPUSCULAR HGB 29.4 UUG (26-34); MEAN CORPUSCULAR HGB CONC(MCHC 31.4 GM/DL (31-37); MEAN CORPUSCULAR VOLUME 93.8 UM3 (80-100); MEAN PLATELET VOLUME 10.2 UM3 (9.4-12.4); MONOCYTES # (AUTO) 0.6 T/MM3 (0-0.8); MONOCYTES % (AUTO) 5.6 % (0-9.0); RED BLOOD COUNT 2.72 M/MM3 (4.00-5.20); WBC - WHITE BLOOD COUNT 10.6 T/MM3 (4.5-11.0)
[2016-12-27 05:49] LABS: ANION GAP 10 MEQ/L (5-15); BUN/CREATININE RATIO 24 RATIO (6-26); CALCIUM 8.6 MG/DL (8.4-10.2); CHLORIDE 112 MEQ/L (98-107); CO2 - CARBON DIOXIDE 22 MEQ/L (22-30); CREATININE 1.5 MG/DL (0.7-1.2); GLOMERULAR FILTRATION RATE 35; GLUCOSE 143 MG/DL (65-110); POTASSIUM 4.3 MEQ/L (3.6-5); SODIUM 144 MEQ/L (134-144)
[2016-12-27] MEDS: PIPERACILLIN/TAZOBACTAM 3.375 G in NORMAL SALINE 100 ML IV SCH ×4 (05:51→23:26)
--- NOTE | 2016-12-27 06:41 | NUR ---
Status Pt complained of some pain in neck and shoulder. PRN Aspercream applied. Also gave [place] for generalized aches. Excellent output in dav[place]son. Bladder retraining started during the night. Pt complained of burning sensation in bladder after one hour of clamped tube. Taught patient about need for retraining to prevent retention issues. Pt was tearful about taking out davidson until she understood that she could wear a brief. Pt had soft large bm in evening. Transferred to [facility] from chair and to bed with three assist, GB and walker. Pt was fearful of falling. Taught that pt would need to exercise to gain strength. Will continue to monitor.
[2016-12-27 07:34] VITALS: PULSE 93; RESP 18
[2016-12-27 07:37] VITALS: BP 131/67; PULSE 85; RESP 14; TEMP 96.5; O2SAT 97
[2016-12-27] MEDS: LEVOFLOXACIN 750 mg IVPB 750 MG in D5W 150 ML IV SCH (07:42)
[2016-12-27] MEDS: FLUTICASONE NASAL SPRAY 50 MCG EA NOSTRIL SCH (09:17)
[2016-12-27] MEDS: INSULIN LISPRO 100 UNIT/ML SQ SCH ×3 (09:18→17:22)
[2016-12-27] MEDS: DULOXETINE 60 MG CAPSULE PO SCH (09:18)
[2016-12-27] MEDS: ENOXAPARIN 40 MG/0.4 ML INJECTION SQ SCH (09:18)
[2016-12-27] MEDS: POLYETHYL.GLYCOL 3350 PACKET 17gm PO SCH (09:18)
[2016-12-27] MEDS: BACLOFEN 10 MG TABLET PO SCH ×2 (09:19→20:40)
[2016-12-27] MEDS: SPIRONOLACTONE 50 MG TABLET PO SCH (09:19)
[2016-12-27] MEDS: OSELTAMIVIR 75 MG CAPSULE PO SCH ×2 (09:19→20:41)
[2016-12-27] MEDS: MORPHINE SULFATE SR 15 MG TABLET PO SCH ×2 (09:20→20:40)
[2016-12-27] MEDS: POTASSIUM CHLORIDE 20 MEQ TABLET PO SCH (09:20)
[2016-12-27] MEDS: FUROSEMIDE 40 MG TABLET PO SCH (09:23)
[2016-12-27] MEDS ORDERED: FUROSEMIDE 40 MG TABLET PO SCH (09:30)
[2016-12-27] MEDS: CALMOSEPTINE OINTMENT 3.5 G PACKET TOP SCH (11:02)
[2016-12-27 11:22] VITALS: BP 151/67; PULSE 89; RESP 20; TEMP 97.3; O2SAT 97
[2016-12-27] MEDS ORDERED: INFLUENZA VAC High Dose 2016-17 (Fluzone HD*)(>=65yo) 0.5ml IM ONE (11:30)
[2016-12-27] MEDS ORDERED: INFLUENZA VAC. ADMIN CHARGE INJ ONE (12:30)
--- NOTE | 2016-12-27 15:58 | NUR ---
KIM THIS WORKER MET WITH PT ON THIS DATE. PT REPORTED THAT SHE IS INTENDING TO RETURN HOME. PT FEELS THAT SHE HAS EVERYTHING THAT SHE NEEDS AT HOME TO BE SUCCESSFUL. REVIEWED DME LIST AT HOME. PT WOULD LIKE TO RESUME HER PROGRESSIVE HOME HEALTH SERVICES. THIS WORKER LEFT MESSAGE WITH [employer] FOR [facility] [phone] EXT [phone] TO INQUIRE REGARDING ASSISTANCE IN DISCHARGE PLANNING. THIS INFORMATION ON MEAL PROGRAM AND PLANT SUPERVISOR ALSO GIVEN TO PT ON THIS DATE.
[2016-12-27 16:20] VITALS: BP 160/73; PULSE 85; RESP 20; TEMP 96.6; O2SAT 95
--- NOTE | 2016-12-27 16:33 | PNPDOC ---
Subjective Date DATE: 12/27/16 TIME: 16:20 Subjective F/U: Severe sepsis - unknown source Feeling better in general (pain medications helping). No f/c. Breathing well. Stools moving. Oral drive variable, minimal nausea. No ab pain. Mobility issues problematic-pt non ambulatory, but having more issues with transfers (feels like will fall, and very afraid of falling). Objective Vital Signs Vital signs Vital Signs Date Time Temp Pulse Resp B/P Pulse Ox O2 Delivery O2 Flow Rate FiO2 12/27/16 11:22 97.3 89 20 151/67 97 Room Air 12/26/16 20:59 1.00 Telemetry Rhythm: Bundle Branch Block Height (Feet): 5 Height (Inches): 6.00 Weight (Kilograms): 144.100 General General Appearance: Alert, Obese, Orientated x 3, Well Nourished, Well Developed, Cooperative, No Acute Distress, Looks Stated Age Eyes (Brief) Eyes: FOUND: EOMI, PERRL, NOT FOUND: scleral icterus ENMT (Brief) ENMT: FOUND: hearing intact, mucosa moist Neck (Brief) Neck: FOUND: midline, NOT FOUND: nuchal rigidity, spasm Respiratory (Brief) Respiratory: FOUND: clear all harmon, equal bilaterally, NOT FOUND: rales, wheezes Cardiovascular (Brief) Cardiac: FOUND: regular rate, regular rhythm Abdomen (Brief) Abdominal: FOUND: BS normo active x4, other (Obese ), soft, NOT FOUND: distended, tender Extremities (Brief) Extremity : Side: Bilateral Extremity: leg Extremity Finding: FOUND: edema (+3) Musculoskeletal (Brief) Musculoskeletal: NOT FOUND: deformity, spasm Integumentary (Brief) Integumentary: FOUND: other (Erythem of Right lower ext more pronounced than left ) Neurologic (Brief) Neurological: FOUND: cranial 2-12 intact, motor Psychiatric (Brief) Psychiatric: FOUND: alert, attentive, normal affect, oriented Laboratory Laboratory Laboratory Tests 12/26/16 04:35 12/27/16 04:42 Laboratory Tests 12/26/16 04:35 12/27/16 04:42 Microbiology Microbiology Microbiology Date/Time Source Procedure Growth Status 12/24/16 21:18 Urine Streptococcus pneumoniae Antigen (M - Final Complete Sepsis Diagnostic Criteria Sepsis Confirmed/Suspected Infection: Yes SIRS Criteria: Temp<=96.8 or >=100.4, Pulse >= 90 beats/min, WBC >=12,000 or <= 4,000, Bands >= 10% Severe Sepsis Lactate >=2.0 mg/dL Septic Shock Septic Shock Criteria: Lactate >4 Assessment & Plan Problems: (1) Severe sepsis Status: Resolved Assessment & Plan: POA - Infectious etiology uncertain. Subclinical growth in urine. Elevated lactate at presentation most likely med effect of Metformin and not due to septic shock - no evidence of shock during hospitalization. (2) Stasis edema of both lower extremities Status: Chronic Assessment & Plan: Initially thought the ER to be a cellulitis this has no significant tenderness although it is very warm especially on the right pre- tibia. I'm thinking this is fluid overload with chronic stasis edema. (3) Encephalopathy Status: Resolved (4) Chronic pain Status: Chronic Assessment & Plan: 12/26- restart home meds. Stop Toradol due to elevating creatinine. 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 (10) Anemia Status: Chronic Qualifiers: Anemia type: unspecified type Qualified Codes: D64.9 - Anemia, unspecified Assessment & Plan: Decreasing - ? dilutional. (11) Obesity, Class III, BMI 40-49.9 (morbid obesity) Status: Chronic Assessment & Plan: A BMI of 48.7 vastly underestimates this woman's deconditioned arms and legs and that almost all of her weight is centrally located (12) Self-care deficit in patient living alone Status: Acute Assessment & Plan: Will appreciate social media manager in case management participation in this unfortunate woman's complex medical and social care Critical care 40 minutes without procedures performed Plan/Intensity of Service Continue with Zosyn for antimicrobial coverage - will d/c Vancomycin and Levaquin. Will d/c IVF. Oral Lasix started this am - will give extra 40mg this evening to help decrease fluid. D/C davidson cath. Encourage PT/OT to maximize functional status. Recheck BMP in am to monitor electrolytes and creatinine. Recheck CBC in am to monitor blood counts. CM working on discharge disposition-anticipate home with Home Health. Pt does receive good care at home. Case discussed with CM. Time spent with pt care 35 minutes. DVT Prophylaxis: Lovenox Code Status Full Code Hospital Course Summary Disclaimer The hospital course summary below is not to be considered part of the above Progress Note. Hospital Course Summary 12/26 Continue with Vancomycin, Zosyn, and Levaquin for antimicrobial coverage. Decrease IVF to 75 cc/hr. Additional Lasix 40mg IV this afternoon due to increase volume. Stop SQ heparin due to thrombocytopenia - start Lovenox 40mg SQ daily tomorrow - monitor platelets. May restart home pain medications. Continue PT/OT to maximize functional status. Recheck BMP in am to monitor electrolytes and creatinine. Recheck CBC in am to monitor blood counts. Will transfer to medical floor on Tele for continuation of care - critical care needs resolving. 12/27 Feeling better in general (pain medications helping). No f/c. Breathing well. Stools moving. Oral drive variable, minimal nausea. No ab pain. Mobility issues problematic-pt non ambulatory, but having more issues with transfers (feels like will fall, and very afraid of falling). Continue with Zosyn for antimicrobial coverage - will d/c Vancomycin and Levaquin. Will d/c IVF. Oral Lasix started this am - will give extra 40mg this evening to help decrease fluid. D/C davidson cath. Encourage PT/OT to maximize functional status. Recheck BMP in am to monitor electrolytes and creatinine. Recheck CBC in am to monitor blood counts. CM working on discharge disposition-anticipate home with Home Health. Pt does receive good care at home. JOSE G MILLER MD Dec 27, 2016 16:26
--- NOTE | 2016-12-27 16:39 | NUR ---
Student charting reviewed by [facility] medical office professional instructor.
--- NOTE | 2016-12-27 16:49 | NUR ---
OFF BIPAP PATIENT REQUESTED TO BE OFF BIPAP FOR A WHILE. PATIENT VERY ANXIOUS WITH MASK ON DESPITE ATIVAN GIVEN AND DEEP BREATHING TECHNIQUES. PATIENT HAS BEEN MOSTLY ON BIPAP SINCE ARRIVAL TO MEDICAL UNIT. CURRENTLY ON 3L NC, O2 SATURATION 93%. Addendum: 12/27/16 at 1651 by NAVIN BROWNLEE RN WRONG PATIENT
[2016-12-27] MEDS ORDERED: FUROSEMIDE 40 MG TABLET PO ONE (17:00)
--- NOTE | 2016-12-27 17:01 | NUR ---
DM Screen f/u Diet Order: 1600 calorie consistent carb diet Pt states her appetite remains poor. pt states she was able to eat a grilled cheese sandwich at lunch today, but not much else. Pt expressed willingness to try No Sugar Added mighty shake at supper. Pt inquired where to purchase mighty shakes. Information provided. RD provided and reviewed handout "Food choices on your plate" and discussed carb counting per pt request. Diabetes education information provided Contact information provided for questions
--- NOTE | 2016-12-27 18:25 | NUR ---
SHIFT SUMMARY VSS. RA. PATIENT REPORTS CHRONIC SHOULDER AND NECK PAIN. UP TO CHAIR MOST OF DAY. PATIENT HAS VOIDED X2 SINCE EMMANUEL REMOVED. PVR X2 HAVE BOTH BEEN <80CC THUS FAR. GOOD PO INTAKE. LEGS ELEVATED ALL DAY EXCEPT FOR MEALS. MIDLINE ASYMPTOMATIC BUT DOES NOT ASPIRATE. USES CALL LIGHT APPROPRIATELY.
[2016-12-27 20:49] VITALS: BP 143/83; PULSE 89; RESP 20; TEMP 97.2; O2SAT 97
[2016-12-27] MEDS: TRAZODONE 50 MG TABLET PO SCH (22:10)
--- NOTE | 2016-12-27 22:15 | NUR ---
PRN PT WAS GIVEN ZOFRAN FOR NAUSEA WITH NO VOMITING. NAUSEA STARTED AFTER THE PT WAS HELPED BACK TO BED. CALL LIGHT WITHIN REACH.
[2016-12-28] VITALS: BP 139/69; PULSE 94; RESP 20; TEMP 97.9; O2SAT 95
[2016-12-28 03:45] VITALS: BP 152/79; PULSE 97; RESP 20; TEMP 97; O2SAT 93
[2016-12-28 05:35] LABS: BASOPHILS % (AUTO) 0.1 % (0-2); EOSINOPHILS # (AUTO) 0.1 T/MM3 (0-0.5); EOSINOPHILS % (AUTO) 0.7 % (0-4); HCT - HEMATOCRIT 26.2 % (36-46); HGB - HEMOGLOBIN 8.2 GM/DL (12-16); IMMATURE GRANULOCYTE # (AUTO) 0.04 T/MM3 (0.00-0.03); IMMATURE GRANULOCYTE % (AUTO) 0.5 % (0.0-0.5); LYMPHOCYTES % (AUTO) 11.6 % (23-45); MEAN CORPUSCULAR HGB 29.2 UUG (26-34); MEAN CORPUSCULAR HGB CONC(MCHC 31.3 GM/DL (31-37); MEAN CORPUSCULAR VOLUME 93.2 UM3 (80-100); MEAN PLATELET VOLUME 10.2 UM3 (9.4-12.4); MONOCYTES # (AUTO) 0.6 T/MM3 (0-0.8); MONOCYTES % (AUTO) 6.5 % (0-9.0); NEUTROPHILS #(AUTO)-ABSOLUTE 7.1 T/MM3 (1.8-7.7); NEUTROPHILS % (AUTO) 80.6 % (33-66); RED BLOOD COUNT 2.81 M/MM3 (4.00-5.20); WBC - WHITE BLOOD COUNT 8.8 T/MM3 (4.5-11.0)
[2016-12-28] MEDS: PIPERACILLIN/TAZOBACTAM 3.375 G in NORMAL SALINE 100 ML IV SCH ×2 (05:45→11:05)
[2016-12-28 05:48] LABS: ANION GAP 9 MEQ/L (5-15); BUN/CREATININE RATIO 19 RATIO (6-26); CALCIUM 9.1 MG/DL (8.4-10.2); CHLORIDE 109 MEQ/L (98-107); CO2 - CARBON DIOXIDE 25 MEQ/L (22-30); CREATININE 1.5 MG/DL (0.7-1.2); GLOMERULAR FILTRATION RATE 35; GLUCOSE 159 MG/DL (65-110); POTASSIUM 4.3 MEQ/L (3.6-5); SODIUM 143 MEQ/L (134-144)
[2016-12-28] MEDS: INSULIN REGULAR 100 UNIT/ML SQ PRN ×2 (06:03→11:05)
--- NOTE | 2016-12-28 06:31 | NUR ---
SUMMARY. PT SLEPT WELL THIS SHIFT. HAS BEEN CLEANED AND REPOSITIONED SEVERAL TIMES. PT ALERT AND ORIENTED. EDUCATED ABOUT CALL LIGHT USE AND SAFETY. PT WAS ALSO EDUCATED THE NEED TO REPOSITION SO TO SHIFT WEIGHT. BLE 2+ EDEMA AND CELLULITIS ON THE RIGHT FOOT. BLE ELEVATED WITH PILLOWS. PT INCONTINENT OF B&B.
[2016-12-28] MEDS: POLYETHYL.GLYCOL 3350 PACKET 17gm PO SCH (06:40)
[2016-12-28 07:42] VITALS: BP 146/74; PULSE 92; RESP 14; TEMP 97.7; O2SAT 94
[2016-12-28 07:43] VITALS: PULSE 97; RESP 20
[2016-12-28] MEDS: CALMOSEPTINE OINTMENT 3.5 G PACKET TOP SCH (08:10)
[2016-12-28] MEDS: FLUTICASONE NASAL SPRAY 50 MCG EA NOSTRIL SCH (08:14)
[2016-12-28] MEDS: ENOXAPARIN 40 MG/0.4 ML INJECTION SQ SCH (08:14)
[2016-12-28] MEDS: DULOXETINE 60 MG CAPSULE PO SCH (08:15)
[2016-12-28] MEDS: MORPHINE SULFATE SR 15 MG TABLET PO SCH (08:15)
[2016-12-28] MEDS: SPIRONOLACTONE 50 MG TABLET PO SCH (08:16)
[2016-12-28] MEDS: FUROSEMIDE 40 MG TABLET PO SCH (08:16)
[2016-12-28] MEDS: BACLOFEN 10 MG TABLET PO SCH (08:17)
[2016-12-28] MEDS: OSELTAMIVIR 75 MG CAPSULE PO SCH (08:17)
[2016-12-28] MEDS: POTASSIUM CHLORIDE 20 MEQ TABLET PO SCH (08:17)
[2016-12-28] MEDS: INSULIN LISPRO 100 UNIT/ML SQ SCH ×2 (08:47→12:34)
[2016-12-28] MEDS ORDERED: POTA20TA10 PO (11:43)
[2016-12-28] MEDS ORDERED: LISI10TA7 PO (11:43)
[2016-12-28] MEDS ORDERED: AMOX1TAB15 PO (11:43)
--- NOTE | 2016-12-28 11:52 | NUR ---
KIM ALVAREZ IN TO VISIT PATIENT, SHE IS A&O. PLANS TO DISCHARGE TODAY TO HOME WITH RESUMING [facility]. I HAD CALLED [employer] AND LET THEM KNOW SHE WAS DISCHARGING TODAY, FAXED OVER ORDERS. PATIENT HAS TRANSPORTATION HOME.
--- NOTE | 2016-12-28 11:58 | PNPDOC ---
Subjective Date DATE: 12/28/16 TIME: 11:50 Subjective F/U: Severe sepsis Doing well today. No new problems or concerns. Breathing well-not with SOA or cough. No chest pain. Appetite stable. No nausea. No ab pain. Urinating well. No f/c. Feels ready to go home. Objective Vital Signs Vital signs Vital Signs Date Time Temp Pulse Resp B/P Pulse Ox O2 Delivery O2 Flow Rate FiO2 12/28/16 07:43 97 20 12/28/16 07:42 97.7 146/74 94 Room Air 12/26/16 20:59 1.00 Telemetry Rhythm: Bundle Branch Block Height (Feet): 5 Height (Inches): 6.00 Weight (Kilograms): 140.600 General General Appearance: Alert, Obese, Orientated x 3, Well Nourished, Well Developed, Cooperative, No Acute Distress, Looks Stated Age Eyes (Brief) Eyes: FOUND: EOMI, PERRL, NOT FOUND: scleral icterus ENMT (Brief) ENMT: FOUND: hearing intact, mucosa moist Neck (Brief) Neck: FOUND: midline, NOT FOUND: nuchal rigidity, spasm Respiratory (Brief) Respiratory: FOUND: clear all ahrmon, equal bilaterally, NOT FOUND: rales, wheezes Cardiovascular (Brief) Cardiac: FOUND: pedal edema (+3 ), regular rate, regular rhythm Abdomen (Brief) Abdominal: FOUND: BS normo active x4, soft, NOT FOUND: distended, tender Extremities (Brief) Extremity : Side: Bilateral Extremity: leg Extremity Finding: FOUND: edema (+3 ) Musculoskeletal (Brief) Musculoskeletal: NOT FOUND: deformity, spasm Neurologic (Brief) Neurological: FOUND: cranial 2-12 intact, motor (Intact ) Psychiatric (Brief) Psychiatric: FOUND: alert, attentive, normal affect, oriented Laboratory Laboratory Laboratory Tests 12/27/16 04:42 12/28/16 04:24 Laboratory Tests 12/27/16 04:42 12/28/16 04:24 Sepsis Diagnostic Criteria Sepsis Confirmed/Suspected Infection: Yes SIRS Criteria: Temp<=96.8 or >=100.4, Pulse >= 90 beats/min, WBC >=12,000 or <= 4,000, Bands >= 10% Severe Sepsis Lactate >=2.0 mg/dL Septic Shock Septic Shock Criteria: Lactate >4 Assessment & Plan Problems: (1) Severe sepsis Status: Resolved Assessment & Plan: POA - Infectious etiology uncertain. Subclinical growth in urine. Elevated lactate at presentation most likely med effect of Metformin and not due to septic shock - no evidence of shock during hospitalization. (2) Stasis edema of both lower extremities Status: Chronic Assessment & Plan: Initially thought the ER to be a cellulitis this has no significant tenderness although it is very warm especially on the right pre- tibia. I'm thinking this is fluid overload with chronic stasis edema. (3) Encephalopathy Status: Resolved (4) Chronic pain Status: Chronic Assessment & Plan: 12/26- restart home meds. Stop Toradol due to elevating creatinine. 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 (10) Anemia Status: Chronic Qualifiers: Anemia type: unspecified type Qualified Codes: D64.9 - Anemia, unspecified Assessment & Plan: Decreasing - ? dilutional. (11) Obesity, Class III, BMI 40-49.9 (morbid obesity) Status: Chronic Assessment & Plan: A BMI of 48.7 vastly underestimates this woman's deconditioned arms and legs and that almost all of her weight is centrally located (12) Self-care deficit in patient living alone Status: Acute Assessment & Plan: Will appreciate social security benefits interviewer in case management participation in this unfortunate woman's complex medical and social care Critical care 40 minutes without procedures performed Plan/Intensity of Service Will d/c to home. Augmentin 500/125 BID for 10 day for antimicrobial coverage. Restart Lisinopril but at 10mg daily (home dose 20mg) Decrease potassium to 20mEg daily - home dose 40mEg Stop metformin as creatinine 1.5. Continue wound care Continue Home Health Pt's Mobile provider to check on her within 1 week - recommend BMP in 1 week due to medications. See orders for details DVT Prophylaxis: Lovenox Code Status Full Code Hospital Course Summary Disclaimer The hospital course summary below is not to be considered part of the above Progress Note. Hospital Course Summary 12/26 Continue with Vancomycin, Zosyn, and Levaquin for antimicrobial coverage. Decrease IVF to 75 cc/hr. Additional Lasix 40mg IV this afternoon due to increase volume. Stop SQ heparin due to thrombocytopenia - start Lovenox 40mg SQ daily tomorrow - monitor platelets. May restart home pain medications. Continue PT/OT to maximize functional status. Recheck BMP in am to monitor electrolytes and creatinine. Recheck CBC in am to monitor blood counts. Will transfer to medical floor on Tele for continuation of care - critical care needs resolving. 12/27 Feeling better in general (pain medications helping). No f/c. Breathing well. Stools moving. Oral drive variable, minimal nausea. No ab pain. Mobility issues problematic-pt non ambulatory, but having more issues with transfers (feels like will fall, and very afraid of falling). Continue with Zosyn for antimicrobial coverage - will d/c Vancomycin and Levaquin. Will d/c IVF. Oral Lasix started this am - will give extra 40mg this evening to help decrease fluid. D/C davidson cath. Encourage PT/OT to maximize functional status. Recheck BMP in am to monitor electrolytes and creatinine. Recheck CBC in am to monitor blood counts. CM working on discharge disposition-anticipate home with Home Health. Pt does receive good care at home. 12/28 Doing well today. No new problems or concerns. Breathing well-not with SOA or cough. No chest pain. Appetite stable. No nausea. No ab pain. Urinating well. No f/c. Feels ready to go home. Will d/c to home. Augmentin 500/125 BID for 10 day for antimicrobial coverage. Restart Lisinopril but at 10mg daily (home dose 20mg) Decrease potassium to 20mEg daily - home dose 40mEg Stop metformin as creatinine 1.5. Continue wound care Continue Home Health Pt's Mobile provider to check on her within 1 week - recommend BMP in 1 week due to medications. See orders for details JOSE G MILLER MD Dec 28, 2016 11:56
--- NOTE | 2016-12-28 12:42 | NUR ---
SCRIPTS AUGMENTIN AND KCL CALLED IN TO [facility]. LISINOPRIL SCRIPT SENT WITH PT PER REQUEST.
--- NOTE | 2016-12-28 12:58 | NUR ---
CM LACE SCORE IS 14. PATIENT GIVEN FLIER FOR ROTP AND SHE IS AGREEABLE. EMAILED GRECIA.
[2016-12-28 13:38] VITALS: BP 143/69; PULSE 91; RESP 20; TEMP 97.2; O2SAT 94
--- NOTE | 2016-12-28 15:05 | NUR ---
DISMISSAL TO HOME WITH HOME HEALTH VSS. RA. PAIN CONTROLLED WITH PRN AND SCHEDULE PAIN MEDS. GOOD PO INTAKE. GOOD URINE OUTPUT. MIDLINE DISCONTINUED. DISMISSAL INSTRUCTIONS REVIEWED WITH PT AND LAURA. TAKEN TO FRONT ENTRANCE VIA WHEELCHAIR BY STAFF. DROVE HOME VIA PRIVATE VEHICLE BY LAURA (CAREGIVER).
--- NOTE | 2016-12-29 11:38 | PDONTRACK ---
Right on Track Program Date of Discharge Dec 28, 2016 at 15:05 Scheduled Amoxicillin/Potassium Clav (Amox Tr-K Clv 500-125 mg Tab), 1 TAB PO BID Baclofen (Baclofen), 5 MG PO BID, (Reported) Dextrose (Glucose), 4 GM PO PRN, (Reported) Duloxetine Hcl (Cymbalta), 120 MG PO DAILY, (Reported) Fluticasone Propionate (Fluticasone Prop 50 mcg/actuation Nasal [place]), 1 SPRAY EA NOSTRIL DAILY, (Reported) Furosemide (Furosemide), 40 MG PO DAILY, (Reported) Ginkgo Biloba Extract (Ginkgo Biloba), 120 MG PO BID, (Reported) Insulin Lispro (Humalog), 15 UNIT SQ TIDWM, (Reported) Lisinopril (Lisinopril), 10 MG PO DAILY Morphine Sulfate (Morphine Sulfate ER), 15 MG PO BID, (Reported) Potassium Chloride (Klor-Con M20), 20 MEQ PO WB Spironolactone (Spironolactone), 50 MG PO DAILY, (Reported) Trazodone HCl (Trazodone HCl), 50 MG PO HS, (Reported) Scheduled PRN Diphenhydramine HCl (Diphenhydramine HCl), 25 MG PO Q4H PRN for PRN ORDERS, ( Reported) Docusate Sodium (Docusate Sodium), 250 MG PO DAILY PRN for CONSTIPATION, ( Reported) Ibuprofen (Ibuprofen), 400 MG PO Q4H PRN for PAIN, (Reported) Discontinued Medications Lisinopril (Lisinopril), 20 MG PO DAILY, (Reported) Metformin HCl (Metformin HCl), 1,000 MG PO BIDWM, (Reported) Potassium Chloride (Potassium Chloride), 40 MEQ PO DAILY, (Reported) Date: Dec 29, 2016 Right on Track Program: 24 Hour Follow-Up Discharge Summary Received: Yes Care Plan Received: Yes Follow up: Follow Up Appt. Scheduled (Scheduled but she isn't sure of the date) Referrals: Social Work Total LACE Score: 14 Comments PHONE CALL #1: I spoke with Meryl on 12/29/16, the day after hospital discharge. She feels "pretty good", but is weak. She had to use the slide board to get out of bed this morning - her granddaughter was there to help her. She states the redness on her leg is improving, about 2 inches below the garth. She had no problems getting her medications filled. She denies having any questions about her discharge instructions. Discussed w/pt and caregiver: Yes Recommendations for follow-up 1. F/U with Dr. Ortiz 2. Continue Home Health 3. [id number] visit on 01/03/17 Problems: (1) Severe sepsis Status: Resolved Assessment & Plan: POA - Infectious etiology uncertain. Subclinical growth in urine. Elevated lactate at presentation most likely med effect of Metformin and not due to septic shock - no evidence of shock during hospitalization. (2) Stasis edema of both lower extremities Status: Chronic Assessment & Plan: (3) Encephalopathy Status: Resolved (4) Chronic pain Status: Chronic (5) DM (diabetes mellitus) Status: Chronic (6) Stage III chronic kidney disease Status: Chronic (7) Anemia Onset Date: Unknown Status: Chronic Assessment & Plan: Decreasing - ? dilutional. (8) Obesity, Class III, BMI 40-49.9 (morbid obesity) Status: Chronic Assessment & Plan: A BMI of 48.7 vastly underestimates this woman's deconditioned arms and legs and that almost all of her weight is centrally located (9) Self-care deficit in patient living alone Status: Acute Assessment & Plan: Will appreciate social media editor in case management participation in this unfortunate woman's complex medical and social care Critical care 40 minutes without procedures performed Copies To 1: EMMANUEL ORTIZ KAREN D APRN Dec 29, 2016 11:34
--- NOTE | 2016-12-30 13:42 | DSF ---
ADMISSION DIAGNOSIS Systemic inflammatory response syndrome with organ dysfunction. DISCHARGE DIAGNOSIS Severe sepsis--resolved--no evidence of septic shock. Lactic acid elevation most likely secondary to metformin use. ASSOCIATED CONDITIONS AND COMPLICATIONS 1. Stasis edema/dermatitis of bilateral lower extremities. 2. Encephalopathy. 3. Type 2 diabetes mellitus. 4. Stage III chronic kidney disease. 5. GERD. 6. Thrombocytopenia (not present on admission)--resolved. 7. Anemia. 8. Self-care deficit in patient living alone. 9. Gait instability--patient nonambulatory. 10. Morbid obesity with BMI 50. PROCEDURES None. CONSULTS PT, OT. Wound team. CLINICAL RESUME Meryl Rothman is a 66-year-old, debilitated female who has been wheelchair-bound for some extended time (likely years), who presents to [facility] Emergency Room at the behest of family members secondary to confusion. The patient does not think she is confused, and she is able to answer most questions clearly and concisely. She does deny headache, sore throat, cough, or dyspnea. She is not having chest pain, however, notes chronic body wide discomfort which she believes is fibromyalgia. She is routinely incontinent--she has not been experiencing any dysuria. She did have some slight diarrhea but nothing chronic or more significant than routine when she violates her diet. She does report she violated her diet by having a large sugary meal the evening prior to presentation. She denies any pain down her legs other than her chronic peripheral neuropathy. She is unaware of any sick contacts. For complete details of the H&P refer to that document. LABORATORY White blood count is 24.1, with 76% neutrophils and 20% bands. Hemoglobin is 11.8, with hematocrit 36.0, MCV 92.1, and platelets 222,000. Serum sodium is 140, potassium 4.9, chloride 104, CO2 21, BUN 43, with creatinine 1.4, GFR 38, and blood glucose 354. Hemoglobin A1c is 6.8%. Transaminases are unremarkable. Procalcitonin is 5.2. Plasma lactate is 4.3. INR is 1.20. UA reveals low specific gravity of 1.010 with 1+ protein, 1+ glucose, 2+ blood, positive nitrite, and 1+ bacteria. Urine for drugs of abuse is positive for opiates. Influenza type A and B antigen are both negative. HOSPITAL COURSE Patient was placed in inpatient admission status at [facility] CCU under the care of the hospitalist service. Etiology of her infection was uncertain. Initially it was leaning more towards a viral process. It is uncertain if she really did have any cellulitis. Urine was not showing significant evidence of infection and chest x-ray was clear. We did initiate broad spectrum antibiotics for coverage. While her lactate was elevated, she did receive fluid bolus. It is not likely that she is actually shocky--most likely the lactic acid elevation was secondary to her chronic metformin use coupled with her acute illness. We saw no evidence of hypotension during the hospitalization. Lab was monitored and her leukocytosis did ultimately normalize. Hemoglobin decreased from 11.8 down to 8.2 at time of discharge--most likely decreased with some dilutional component. Indeed, weight did increase during the hospitalization (secondary to fluid given for her sepsis)--weight did trend down and was 140.6 kg at time of discharge with admission weight 136.9. She was able to transition from CCU to medical floor on December 26. At that time, IV fluids were decreased to 75 mL an hour and we gave additional Lasix to help minimize volume. Platelets did show decrease and so subcutaneous heparin was stopped due to the thrombocytopenia. Lovenox was initiated. Platelets did recover nicely. Her home medications were restarted on December 26. PT and OT were consulted to improve functional status. By December 27, we were able to stop IV fluids. Antimicrobial therapy was changed to Zosyn--vancomycin and Levaquin were discontinued. Ca catheter was removed. We encouraged the patient to work diligently with PT and OT. She was feeling better and expressing desire for home. We did have Case Management look into other options to see if extra care or therapy would be beneficial. Patient was declined by IRU. She did not wish custodial care. However, activities were essentially at baseline. While she is not very mobile, she does have good support at home. Arrangements were made for the patient to ultimately return home and continue her home health care. By December 28, she was feeling much, much better. Her vitals were stable, and she was afebrile. Her leukocytosis had completely resolved. We did see slight elevation of creatinine during the hospitalization, ranging from 1.4 to 1.5. Towards this end, we will be making medication adjustments at home. Of note, metformin will be stopped. She may restart lisinopril but at a lower dose of 10 mg daily (prior dose was 20 mg). Potassium may be continued but we will decrease to 20 mEq from prior 40 mEq dose. Home Health will continue to follow with her. She will follow with her medical provider within one week, and we do recommend rechecking BMP at that time secondary to medication use and her kidney disease. NARRATIVE DISCLAIMER: Above narrative is a brief summary of the patient's hospitalization. For complete details of the hospital course, refer to the medical record. DISCHARGE CONDITION Stable/good. DIET 1800 kilocalorie ADA, low sodium. ACTIVITIES As tolerated. MEDICATIONS Augmentin 500/125 b.i.d. x10 days. Lisinopril 10 mg daily--note dose change. Potassium 20 mEq with breakfast--note dose change. Baclofen 5 mg b.i.d. Glucose 4 grams p.r.n. Benadryl 25 mg every 4 hours p.r.n. Colace 250 mg daily p.r.n. constipation. Cymbalta 120 mg daily. Fluticasone one spray in each nostril daily. Furosemide 40 mg daily. Ginkgo biloba 120 mg b.i.d. Ibuprofen 400 mg every 4 hours p.r.n. pain. Humalog 15 units subcutaneous t.i.d. with meals. MS Contin 15 mg b.i.d. Spironolactone 50 mg daily. Trazodone 50 mg q.h.s. Stop metformin--secondary to creatinine at 1.5. FOLLOWUP Patient will follow with her mobile home med nurse within one week--recommend recheck BMP in one week secondary to CKD and medication use. INSTRUCTIONS TO PATIENT Patient was instructed on her diagnoses and treatments provided. She was encouraged to be adherent with medications. We encouraged her on working to increase her activities as much as able. Encouraged her on a healthy, well-rounded diet and activities. She will call if temperature is greater than 100.4 or if she develops intractable diarrhea. Should problems or need occur, she will be in contact with her primary provider. If symptoms become quite dire, she can present to the emergency room for acute evaluation. She voiced understanding of the above. Time spent with discharge greater than 35 minutes. TANI
--- NOTE | 2017-01-03 17:26 | PDONTRACK ---
Right on Track Program Date of Discharge Dec 28, 2016 at 15:05 Scheduled Amoxicillin/Potassium Clav (Amox Tr-K Clv 500-125 mg Tab), 1 TAB PO BID Baclofen (Baclofen), 5 MG PO BID, (Reported) Dextrose (Glucose), 4 GM PO PRN, (Reported) Duloxetine Hcl (Cymbalta), 120 MG PO DAILY, (Reported) Fluticasone Propionate (Fluticasone Prop 50 mcg/actuation Nasal [place]), 1 SPRAY EA NOSTRIL DAILY, (Reported) Furosemide (Furosemide), 40 MG PO DAILY, (Reported) Ginkgo Biloba Extract (Ginkgo Biloba), 120 MG PO BID, (Reported) Insulin Lispro (Humalog), 15 UNIT SQ TIDWM, (Reported) Lisinopril (Lisinopril), 10 MG PO DAILY Morphine Sulfate (Morphine Sulfate ER), 15 MG PO BID, (Reported) Potassium Chloride (Klor-Con M20), 20 MEQ PO WB Spironolactone (Spironolactone), 50 MG PO DAILY, (Reported) Trazodone HCl (Trazodone HCl), 50 MG PO HS, (Reported) Scheduled PRN Diphenhydramine HCl (Diphenhydramine HCl), 25 MG PO Q4H PRN for PRN ORDERS, ( Reported) Docusate Sodium (Docusate Sodium), 250 MG PO DAILY PRN for CONSTIPATION, ( Reported) Ibuprofen (Ibuprofen), 400 MG PO Q4H PRN for PAIN, (Reported) Discontinued Medications Lisinopril (Lisinopril), 20 MG PO DAILY, (Reported) Metformin HCl (Metformin HCl), 1,000 MG PO BIDWM, (Reported) Potassium Chloride (Potassium Chloride), 40 MEQ PO DAILY, (Reported) Date: Jan 03, 2017 Right on Track Program: 7-14Day [id number] Discharge Summary Received: Yes Care Plan Received: Yes Follow up: Follow Up Appt. Scheduled Education: Diagnosis Ed. Review, Education to Seam Rubbing Machine Operator Referrals: Case Management Total LACE Score: 14 Comments I visited Meryl at her home in [place] on 01/03/17. Below is a summary of our transitional discussion: Barriers: She is unable to adequately take care of her health because of a self-described problem with motivation. She understands what she SHOULD do to improve her health (ie diabetes, obesity), but she cannot make herself partake in these decisions. She relies on her [id number]-law for transportation. She does not drive. He works fulltime so her schedule must be compatible with his. She is unable to ambulate, making weight loss very difficult. Her home is poorly kept, with 2 dogs in the house. There were several boxes of prepackaged microwave meals and food, which contribute to her chronic conditions. The poorly kept appearance of her home may be contributing to frequent flare ups of cellulitis. She does not rely on any other family/friends for healthcare needs. She sits in her wheelchair or bed all day. She has her 's lift recliner, but cannot bring herself to use it (and became tearful as we discussed this). She has another recliner that is broken. Resources: She has home health services through [facility]. Her right lower leg was re-wrapped today, but she developed a new blister to her medial right thigh. She has a 9 year old granddaughter who is very mature and very responsible and Meryl states she is very helpful. 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 She has a hospital bed and transfer devices at home and feels comfortable using them. Medication reconciliation: Her Rx bottles were scattered in the office area. She fills her own pill boxes. I wasn't able to locate all of her prescribed medications, but we reviewed all of the list and she understood why she is on these medications. She requests a higher dose on Baclofen due to worsening muscle spasms during evening hours. I also encouraged her to limit use of ibuprofen - she takes about 800 mg once each evening. Self-monitoring activities: She manages her own medications and organizes her pill boxes. She checks her blood sugars, though not as often as she knows she should. She frequently checks it before lunch, but lately her glucometer hasn't been working right. I encouraged her to check a fasting each day and try to make this a habit, which is a more achievable goal rather than asking her to check it more frequently. Advanced care planning: She has thought about who she would ask to be DPOA, but hasn't decided. We discussed her wishes if she was unable to make decisions (i.e. she wouldn't want a peg tube or life-sustaining treatments if she had significant cognitive deficit), but her family does not know these wishes. She is listed as a full code. I encouraged her to first think about someone she could trust naming as DPOA (and let her know that this person did not have to be family), or go research it further on the internet. Once a DPOA is assigned, she can move forward into more specific care instructions. Depression screen: Positive per PHQ-9. She openly discusses her apathy towards self-care. She would be willing to try a different antidepressant and to see a psychiatrist to evaluate further. Furthermore, she's concerned that her inability to ambulate might be secondary to mental barriers (she's seen a number of physical therapists and doctors, who all tell her that she should be able to walk, but she still cannot lift her right leg). Nutritional screen: She is at risk of malnutrition per Mini-Nutritional Assessment. Furthermore, the visualized food choices do not appear to aid in improving her chronic conditions. ADLs/IADLs: She requires assistance with bathing, and she is incontinent. On IADLs she relies on her iv-jqy-rp-law to do the grocery shopping and for house-related maintenance. She would like to do more activities in the house, but is limited by her physical condition. I encouraged her to set realistic goals - ie. to do 3 reps of leg exercises each morning, then gradually increase. Her end-goal should be realistic, such as being able to stand up and walk a few feet, but she should expect weeks to get there. Engagement: She would like to get as much information as possible about her medical conditions, and considers herself active in her healthcare. While she understands that there is uncertainty in her health, she has a difficult time accepting this. Cognitive evaluation: On SLUMS, she scored 25, indicating mild neurocognitive disorder. May be r/t recent hospitalization with encephalopathy vs. underlying chronic cognitive dysfunction. Recommend continued follow up. Exam: General: Pleasant, NAD. She had a sweater on and her depends, no pants, but covered herself up with a towel after I arrived. She sat in the wheelchair. Neuro: A&O x3, no facial drooping. She was able to move both upper/lower extremities while in the seated position equally. Lungs: CTA. CV: RRR Abd; obese, hypoactive bowel sounds, nontender. Ext: + edema. RLE was wrapped. Skin: pale, warm dry. She reports a sore to her coccyx, which was not visualized. Discussed w/pt and caregiver: Yes Recommendations for follow-up 1. I called and discussed Meryl's situation with Alana Turner APRN who makes home visits. I discussed Meryl's wish to increase Baclofen, as well as psychiatric referral. I also inquired about diapers, as the patient is having some affordability issues with the ones that work well. Alana will check on that, and will plan on seeing Meryl on this coming Sunday. Eventually, she will need additional advanced care planning discussion. 2. Continue with PT/OT. 3. Will continue to follow through transitional services Problems: (1) Severe sepsis Status: Resolved Assessment & Plan: POA - Infectious etiology uncertain. Subclinical growth in urine. Elevated lactate at presentation most likely med effect of Metformin and not due to septic shock - no evidence of shock during hospitalization. (2) Stasis edema of both lower extremities Status: Chronic Assessment & Plan: (3) Encephalopathy Status: Resolved (4) Chronic pain Status: Chronic (5) DM (diabetes mellitus) Status: Chronic (6) Stage III chronic kidney disease Status: Chronic (7) Obesity, Class III, BMI 40-49.9 (morbid obesity) Status: Chronic (8) Self-care deficit in patient living alone Status: Acute PRECIOUS PELLETIER APRN Jan 03, 2017 17:19
--- NOTE | 2017-01-09 10:22 | NUR ---
FOLLOW UP CALL THIS WORKER CALLED AND SPOKE TO PT BY PHONE FOR FOLLOW UP CALL. PT REPORTED THAT SHE IS FEELING BETTER. HAD A VISIT FROM COVER STITCH MACHINE OPERATOR ON 01/08/17. PT REPORTED THAT HOME HEALTH IS ALSO COMING TO THE HOME EVERY OTHER DAY. PT DENIED ANY NEEDS AT THIS TIME. PT REPORTED THAT SHE IS MOVING WELL AND ABLE TO GET ALL OF HER NEEDS MET. PT ENCOURAGED TO CONTACT THIS WORKER WITH ANY NEEDS. PT THANKFUL FOR THIS WORKER'S CALL.
== END 2016-12-28 15:05 | disposition home health service (06) | DRG 871 ==
LOC: ED 12:23 → EDHOLD 15:16 → CCU 15:50 → MED 12-26 14:05
PROVIDERS: ADMIT Internal Medicine; ATTEND Hospitalist
PROC: 3E0234Z Introduction of Serum, Toxoid and Vaccine into Muscle, Percutaneous Approach (ICD-10-PCS; principal; 2016-12-27)
DX: A41.9 Sepsis, unspecified organism (principal); G93.40 Encephalopathy, unspecified; I87.313 Chronic venous hypertension (idiopathic) with ulcer of bilateral lower extremity; Z68.42 Body mass index [BMI] 45.0-49.9, adult; R65.20 Severe sepsis without septic shock; E11.620 Type 2 diabetes mellitus with diabetic dermatitis; E66.01 Morbid (severe) obesity due to excess calories; I12.9 Hypertensive chronic kidney disease with stage 1 through stage 4 chronic kidney disease, or unspecified chronic kidney disease; E11.22 Type 2 diabetes mellitus with diabetic chronic kidney disease; N18.3 Chronic kidney disease, stage 3 (moderate); G89.29 Other chronic pain; K21.9 Gastro-esophageal reflux disease without esophagitis; D64.9 Anemia, unspecified; I25.10 Atherosclerotic heart disease of native coronary artery without angina pectoris; E78.5 Hyperlipidemia, unspecified; G25.81 Restless legs syndrome; D69.6 Thrombocytopenia, unspecified; T38.3X5A Adverse effect of insulin and oral hypoglycemic [antidiabetic] drugs, initial encounter; R74.0 Nonspecific elevation of levels of transaminase and lactic acid dehydrogenase [LDH]; R26.9 Unspecified abnormalities of gait and mobility; Z79.4 Long term (current) use of insulin; Z79.84 Long term (current) use of oral hypoglycemic drugs; Z91.81 History of falling; Z23 Encounter for immunization
CPT/HCPCS: 36415; 36569; 80048; 80053; 80202; 80306; 81001; 82948; 83036; 83605; 84145; 84484; 85025; 85610; 86850; 86900; 86901; 87040; 87077; 87086; 87150; 87186; 87205; 87400; 87449; 90662; 93005; 94762; 96365; 96375

== ENCOUNTER → 2017-01-08 | Outpatient (CLI) | payer MEDICARE, OTHER ==
[~2017-01-08] MED LIST changes: +AMOX1TAB15 PO; -ATOR10TA64 PO; +BACL10TA PO; -CEPH-583 PO; +DIPH25TA23 PO; -DOCU100C PO; +DOCU250C77 PO; -FERR-70 PO; +FLUT16SP EA NOSTRIL; -GABA-338 PO; +GINK120C PO; -HYDR-3989 PO; -HYDR-4246 PO; +IBUP-1724 PO; -INSU100V8 SQ; -LIRA0.6P SQ; -LOPE2TAB24 PO; -OXYB5TAB10 PO; -POLY17PO6 PO; -POTA-81 PO; +POTA20TA10 PO; -ROPI1TAB12 PO; -SENN8.6C5 PO; +SPIR50TA3 PO; +TRAZ-170 PO; +[UNRECOGNIZED DRUG - CODE] PO; -[UNRECOGNIZED DRUG - CODE] PO
[2017-01-08 17:48] LABS: ANION GAP 6 MEQ/L (5-15); BUN/CREATININE RATIO 17 RATIO (6-26); CHLORIDE 104 MEQ/L (98-107); CO2 - CARBON DIOXIDE 31 MEQ/L (22-30); CREATININE 1.2 MG/DL (0.7-1.2); GLOMERULAR FILTRATION RATE 45; GLUCOSE 303 MG/DL (65-110); POTASSIUM 4.7 MEQ/L (3.6-5); SODIUM 141 MEQ/L (134-144)
== END ==
LOC: LABN.PHHH 17:04
PROVIDERS: ATTEND Family Medicine
DX: I10 Essential (primary) hypertension (principal)
CPT/HCPCS: 80048

== ENCOUNTER → 2017-01-19 | Outpatient (CLI) | payer MEDICARE, OTHER ==
[2017-01-19 14:13] LABS: BASOPHILS % (AUTO) 0.3 % (0-2); EOSINOPHILS # (AUTO) 0.4 T/MM3 (0-0.5); EOSINOPHILS % (AUTO) 4.9 % (0-4); HCT - HEMATOCRIT 28.2 % (36-46); HGB - HEMOGLOBIN 8.6 GM/DL (12-16); IMMATURE GRANULOCYTE # (AUTO) 0.01 T/MM3 (0.00-0.03); IMMATURE GRANULOCYTE % (AUTO) 0.1 % (0.0-0.5); LYMPHOCYTES # (AUTO) 1.5 T/MM3 (1-4.8); LYMPHOCYTES % (AUTO) 20.9 % (23-45); MEAN CORPUSCULAR HGB 28.7 UUG (26-34); MEAN CORPUSCULAR HGB CONC(MCHC 30.5 GM/DL (31-37); MEAN PLATELET VOLUME 8.9 UM3 (9.4-12.4); MONOCYTES # (AUTO) 0.5 T/MM3 (0-0.8); MONOCYTES % (AUTO) 6.3 % (0-9.0); NEUTROPHILS #(AUTO)-ABSOLUTE 4.8 T/MM3 (1.8-7.7); NEUTROPHILS % (AUTO) 67.5 % (33-66); WBC - WHITE BLOOD COUNT 7.2 T/MM3 (4.5-11.0)
[2017-01-19 14:18] LABS: ALBUMIN 3.4 G/DL (3.5-5.0); ALBUMIN/GLOBULIN RATIO 0.9 RATIO (1.1-2.2); ALKALINE PHOSPHATASE 93 U/L (38-126); ALT (SGPT) 17 U/L (9-52); ANION GAP 10 MEQ/L (5-15); AST (SGOT) 12 U/L (14-36); BUN/CREATININE RATIO 23 RATIO (6-26); CALCIUM 9.3 MG/DL (8.4-10.2); CHLORIDE 102 MEQ/L (98-107); CO2 - CARBON DIOXIDE 31 MEQ/L (22-30); CREATININE 1.2 MG/DL (0.7-1.2); GLOMERULAR FILTRATION RATE 45; GLUCOSE 202 MG/DL (65-110); POTASSIUM 4.8 MEQ/L (3.6-5); SODIUM 143 MEQ/L (134-144); TOTAL PROTEIN 7.4 G/DL (6.3-8.2)
== END ==
LOC: LABN.PHHH 14:02
PROVIDERS: ATTEND Family Medicine
DX: I10 Essential (primary) hypertension (principal); N17.9 Acute kidney failure, unspecified; D64.9 Anemia, unspecified
CPT/HCPCS: 80053; 85025

== ENCOUNTER → 2017-02-27 | Outpatient (CLI) | payer MEDICARE, OTHER ==
[2017-02-27 14:44] LABS: BASOPHILS % (AUTO) 0.4 % (0-2); EOSINOPHILS # (AUTO) 0.3 T/MM3 (0-0.5); EOSINOPHILS % (AUTO) 3.4 % (0-4); HCT - HEMATOCRIT 32.4 % (36-46); HGB - HEMOGLOBIN 9.9 GM/DL (12-16); IMMATURE GRANULOCYTE # (AUTO) 0.01 T/MM3 (0.00-0.03); IMMATURE GRANULOCYTE % (AUTO) 0.1 % (0.0-0.5); LYMPHOCYTES # (AUTO) 1.8 T/MM3 (1-4.8); LYMPHOCYTES % (AUTO) 23.8 % (23-45); MEAN CORPUSCULAR HGB 28.3 UUG (26-34); MEAN CORPUSCULAR HGB CONC(MCHC 30.6 GM/DL (31-37); MEAN CORPUSCULAR VOLUME 92.6 UM3 (80-100); MEAN PLATELET VOLUME 9.8 UM3 (9.4-12.4); MONOCYTES # (AUTO) 0.4 T/MM3 (0-0.8); NEUTROPHILS % (AUTO) 67.3 % (33-66); WBC - WHITE BLOOD COUNT 7.4 T/MM3 (4.5-11.0)
[2017-02-27 14:49] LABS: ANION GAP 15 MEQ/L (5-15); BUN/CREATININE RATIO 40 RATIO (6-26); CALCIUM 9.6 MG/DL (8.4-10.2); CHLORIDE 108 MEQ/L (98-107); CO2 - CARBON DIOXIDE 22 MEQ/L (22-30); CREATININE 1.3 MG/DL (0.7-1.2); GLOMERULAR FILTRATION RATE 41; GLUCOSE 203 MG/DL (65-110); SODIUM 145 MEQ/L (134-144)
== END ==
LOC: LABN.PHHH 14:34
PROVIDERS: ATTEND Family Medicine
DX: D64.9 Anemia, unspecified (principal); E87.5 Hyperkalemia; R60.9 Edema, unspecified
CPT/HCPCS: 80048; 85025

== ENCOUNTER → 2017-03-06 | Outpatient (CLI) | payer MEDICARE, OTHER ==
[2017-03-06 18:28] LABS: BASOPHILS % (AUTO) 0.4 % (0-2); EOSINOPHILS # (AUTO) 0.2 T/MM3 (0-0.5); EOSINOPHILS % (AUTO) 2.8 % (0-4); HCT - HEMATOCRIT 30.9 % (36-46); HGB - HEMOGLOBIN 9.4 GM/DL (12-16); IMMATURE GRANULOCYTE # (AUTO) 0.01 T/MM3 (0.00-0.03); IMMATURE GRANULOCYTE % (AUTO) 0.1 % (0.0-0.5); LYMPHOCYTES # (AUTO) 1.4 T/MM3 (1-4.8); LYMPHOCYTES % (AUTO) 20.6 % (23-45); MEAN CORPUSCULAR HGB 28.1 UUG (26-34); MEAN CORPUSCULAR HGB CONC(MCHC 30.4 GM/DL (31-37); MEAN CORPUSCULAR VOLUME 92.5 UM3 (80-100); MEAN PLATELET VOLUME 10.4 UM3 (9.4-12.4); MONOCYTES # (AUTO) 0.3 T/MM3 (0-0.8); MONOCYTES % (AUTO) 4.3 % (0-9.0); NEUTROPHILS #(AUTO)-ABSOLUTE 4.8 T/MM3 (1.8-7.7); NEUTROPHILS % (AUTO) 71.8 % (33-66); RED BLOOD COUNT 3.34 M/MM3 (4.00-5.20); WBC - WHITE BLOOD COUNT 6.7 T/MM3 (4.5-11.0)
[2017-03-06 18:34] LABS: ANION GAP 15 MEQ/L (5-15); BUN/CREATININE RATIO 51 RATIO (6-26); CALCIUM 9.5 MG/DL (8.4-10.2); CHLORIDE 112 MEQ/L (98-107); CO2 - CARBON DIOXIDE 20 MEQ/L (22-30); CREATININE 1.4 MG/DL (0.7-1.2); GLOMERULAR FILTRATION RATE 38; GLUCOSE 131 MG/DL (65-110); POTASSIUM 5.7 MEQ/L (3.6-5); SODIUM 147 MEQ/L (134-144)
== END ==
LOC: LABN.PHHH 18:08
PROVIDERS: ATTEND Family Medicine
DX: D64.9 Anemia, unspecified (principal)
CPT/HCPCS: 80048; 85025

== ENCOUNTER → 2017-03-20 | Outpatient (CLI) | payer MEDICARE, OTHER ==
[2017-03-20 12:22] LABS: ANION GAP 11 MEQ/L (5-15); BUN/CREATININE RATIO 33 RATIO (6-26); CALCIUM 9.6 MG/DL (8.4-10.2); CHLORIDE 108 MEQ/L (98-107); CO2 - CARBON DIOXIDE 27 MEQ/L (22-30); CREATININE 1.5 MG/DL (0.7-1.2); GLOMERULAR FILTRATION RATE 35; GLUCOSE 167 MG/DL (65-110); POTASSIUM 5.6 MEQ/L (3.6-5); SODIUM 146 MEQ/L (134-144)
== END ==
LOC: LABN.PHHH 12:08
PROVIDERS: ATTEND Family Medicine
DX: I10 Essential (primary) hypertension (principal)
CPT/HCPCS: 80048

== ENCOUNTER 2017-10-25 11:49 | Inpatient (IN) ==
[2017-10-25] MEDS ORDERED: CEFEPIME 1 GM in NS 100 ML IV ONE (12:18)
[2017-10-25] MEDS ORDERED: NS 1,000 ML IV ONE ×2 (12:29→13:09)
--- NOTE | 2017-10-25 12:45 | Emergency Department Report ---
General Adult HPI - General Chief complaint: Medical Emergency Stated complaint: back pain Time Seen by Provider: 10/25/17 12:16 Source: patient Mode of arrival: ambulatory Limitations: no limitations - History of Present Illness HPI narrative: 67yo woman presented to the ER by EMS for evaluation of 'back pain'. Pt called EMS for vague sx. Pt was given 100mcg fentanyl prior to presentation. On arrival , pt was oriented to person, but not place or time. Pt is somnolent, but arouses easily to voice. Pt is tachycardic and hypertensive. Onset (ago): unknown - Related Data Home Medications Medication Instructions Recorded Confirmed Duloxetine HCl [Cymbalta] 120 mg PO DAILY #0 02/08/10 10/25/17 Ascorbic Acid [Vitamin C] 1,000 mg PO DAILY 10/25/17 10/25/17 Baclofen [Lioresal] 10 mg PO TID PRN 10/25/17 10/25/17 Bumetanide Tab [Bumex Tab] 1 mg PO DAILY 10/25/17 10/25/17 Calcium Carb/Mag Ox/Zinc Gluc 1 each PO BID 10/25/17 10/25/17 [Gkhhdaa-Hqywelhfe-Lomi Tablet] Carisoprodol [Carisoprodol] 250 mg PO QID 10/25/17 10/25/17 Cyanocobalamin (Vitamin B-12) 2,500 mcg SL DAILY 10/25/17 10/25/17 [Vitamin B-12] Docusate Sodium [Colace] 100 mg PO BID 10/25/17 10/25/17 Duloxetine [Cymbalta] 120 mg PO DAILY 10/25/17 10/25/17 Ferrous Sulfate [Ferrous Sulfate] 325 mg PO TID 10/25/17 10/25/17 Furosemide [Lasix] 40 mg PO DAILY 10/25/17 10/25/17 Gabapentin [Neurontin] 600 mg PO TID 10/25/17 10/25/17 Hydrocodone/APAP 7.5/325 [Mora 1 tab PO Q6H PRN 10/25/17 10/25/17 7.5/325] Insulin Glargine [Lantus] 17 unit SQ HS 10/25/17 10/25/17 Insulin Lispro [HumaLOG] 20 unit SQ TIDWM 10/25/17 10/25/17 Morphine Sulfate [Morphabond ER] 15 mg PO BID PRN 10/25/17 10/25/17 Nystatin Cream [Mycostatin] 1 applicatio TOP PRN 10/25/17 10/25/17 Nystatin [Nystop] 1 applicatio TOP BID PRN 10/25/17 10/25/17 Potassium Chloride 40 meq PO DAILY 10/25/17 10/25/17 Senna + Docusate [Senna Plus 1 tab PO HS 10/25/17 10/25/17 Tablet] Spironolactone [Aldactone] 50 mg PO DAILY 10/25/17 10/25/17 Trazodone [Desyrel] 50 mg PO HS 10/25/17 10/25/17 Allergies Allergy/AdvReac Type Severity Reaction Status Date / Time Penicillins Allergy Unknown Verified 10/25/17 15:06 Review of Systems Limitations: ROS unobtainable due to patient's medical condition [facility] Patient Stated Medical History Hypertension Yes Diabetes Mellitus Type 2 Yes - Social History Smoking status: Unknown if ever smoked Physical Exam - Limitations Limitations: altered mental status - General General appearance: in no apparent distress, obese (Morbid) - Head Head exam: atraumatic, normocephalic, normal inspection - Eye Eye exam: Present: normal appearance, PERRL, EOMI. Absent: scleral icterus - ENT ENT exam: Present: normal exam, mucous membranes moist, normal external ear exam - Neck Neck exam: Present: normal inspection, full ROM, trachea midline. Absent: tenderness, lymphadenopathy - Chest Chest inspection: Present: normal inspection, symmetric chest wall rise. Absent : tenderness, rash - Respiratory Respiratory exam: Absent: normal lung sounds bilaterally (Decreased air movement ), respiratory distress, wheezes, prolonged expiratory phase, crackles - Cardiovascular Cardiovascular exam: Present: regular rate, normal rhythm, normal heart sounds - Abdominal Exam Abdominal exam: Present: soft, normal bowel sounds. Absent: distention, tenderness, guarding, rebound, psoas sign, obturator sign, heel tap sign, Tabares 's sign, Rovsing's sign, tenderness at McBurney's Point, hernia - Extremities Exam Extremities exam: Present: normal inspection, full ROM, normal capillary refill. Absent: tenderness, pedal edema - Skin Skin exam: Present: warm, dry, intact. Absent: rash - Neurological Exam Neurological exam: Present: CN II-XII intact, reflexes normal. Absent: alert, oriented X3, normal gait, motor sensory deficit - Psychiatric Psychiatric exam: Present: flat affect Course - Consultations Consultation #1: Dr. Fernandes: Will accept pt for admission and further treatment. Time: 13:35 Vital Signs Temperature 100.2 F 10/25/17 11:51 Pulse Rate 118 H 10/25/17 11:51 Respiratory Rate 22 10/25/17 11:51 Blood Pressure 150/93 H 10/25/17 11:51 Pulse Oximetry 77 L 10/25/17 11:51 Temperature 100.2 F 10/25/17 11:51 Pulse Rate 109 H 10/25/17 14:45 Respiratory Rate 23 10/25/17 14:45 Blood Pressure 194/84 H 10/25/17 14:45 Pulse Oximetry 97 10/25/17 14:45 Medical Decision Making - Differential Diagnosis Sepsis, hypoxia, PNA, UTI - Medical Records Medical records reviewed: Yes: I reviewed the patient's medical records. - Lab Data Lab results reviewed: Yes: I reviewed the patient's lab results. Result diagrams: 10/25/17 12:48 10/25/17 12:48 Lab Results 10/25/17 10/25/17 10/25/17 Range/Units 12:48 12:48 13:30 WBC 28.2 H* (4.5-11.0) T/MM3 RBC 3.74 L (4.00-5.20) M/MM3 Hgb 11.2 L (12-16) GM/DL Hct 36.0 (36-46) % MCV 96.3 (80-100) UM3 MCH 29.9 (26-34) UUG MCHC 31.1 (31-37) GM/DL RDW Std Deviation 52.0 H (36.9-50.2) FL Plt Count 202 (130-400) T/MM3 MPV 9.2 L (9.4-12.4) UM3 Immature Gran % (Auto) Not performed Neut % (Auto) Not performed Lymph % (Auto) Not performed [place] % (Auto) Not performed Eos % (Auto) Not performed Baso % (Auto) Not performed Neut # (Auto) Not performed Lymph # (Auto) Not performed [place] # (Auto) Not performed Eos # (Auto) Not performed Baso # (Auto) Not performed Abs Immat Gran (auto) Not performed Neutrophils % (Manual) 90.0 H (33-66) % Band Neutrophils % 6.0 (0-6) % Lymphocytes % (Manual) 2.0 L (23-45) % Monocytes % (Manual) 2.0 (0-9.0) % Neutrophils # (Manual) 25.4 H (1.8-7.7) T/MM3 Band Neutrophils # 1.7 T/MM3 Lymphocytes # (Manual) 0.6 L (1-4.8) T/MM3 Monocytes # (Manual) 0.6 (0-0.8) T/MM3 Anisocytosis 1+ RBC Morph Comment Abnormal Turbidity < 20 (0-20) Sodium 145 H (134-144) MEQ/L Potassium 4.3 (3.6-5) MEQ/L Chloride 103 (98-107) MEQ/L Carbon Dioxide 30 (22-30) MEQ/L Anion Gap 12 (5-15) MEQ/L BUN 31.0 H (7-17) MG/DL Creatinine 1.4 H (0.7-1.2) MG/DL GFR Calculation 38 BUN/Creatinine Ratio 22 (6-26) RATIO Glucose 336 H (65-110) MG/DL Calculated Osmolality 299 H (261-280) MOSM/KG Calcium 9.4 (8.4-10.2) MG/DL Total Bilirubin 0.50 (0.20-1.30) MG/DL Icterus Index < 2 (0-7) AST 21 (14-36) U/L ALT 24 (9-52) U/L Alkaline Phosphatase 110 (38-126) U/L Troponin I 0.118 (0-0.12) ng/ml Total Protein 7.6 (6.3-8.2) G/DL Albumin 4.3 (3.5-5.0) G/DL Globulin 3.3 (2.4-3.6) G/DL Albumin/Globulin Ratio 1.3 (1.1-2.2) RATIO Lipase 31 (23-300) U/L Plasma Lactate 3.0 H (0.6-2.2) MMOL/L Specimen Hemolysis < 15 (0-25) Ur Collection Type Urine, clean catch Urine Color Yellow (YELLOW) Urine Clarity Sl cloudy Urine pH 5.5 (5.0-8.0) Ur Specific [place] 1.020 (1.015-1.025) Urine Protein 2+ A (NEGATIVE) Urine Glucose (UA) 2+ A (NEGATIVE) Urine Ketones Negative (NEGATIVE) Urine Occult Blood 2+ A (NEGATIVE) Urine Nitrate Positive A (NEGATIVE) Urine Bilirubin Negative (NEGATIVE) Urine Urobilinogen 0.2 (NORMAL) EU/DL Ur Leukocyte Esterase Trace A (NEGATIVE) Urine RBC 1-3 (0-3) /HPF Urine WBC 50-200 H (0-5) /HPF Ur Squamous Epith Cells 0-5 Urine Bacteria 4+ H (NEGATIVE) Ur Culture Indicated? Cult reflexed &setup - Radiology Data Radiology results reviewed: Yes: I reviewed the patient's radiology results. CXR: Impression: Hypoinflation with basilar airspace opacities could be due to atelectasis or pneumonia. - EKG Data EKG #1 EKG attestation: Yes: I reviewed and interpreted this EKG. EKG shows normal: sinus rhythm, axis Rate: tachycardia Disposition Clinical Impression: Sepsis Qualifiers: Sepsis type: sepsis due to unspecified organism Qualified Code(s): A41.9 - Sepsis, unspecified organism Disposition: 02 To [facility] Acute Care Condition: Stable Time of Disposition: 13:40 - Seen By: physician
--- NOTE | 2017-10-25 13:14 | XRay Report ---
Indication: Fever PROCEDURE: XR chest 1V: Encounter: Initial Comparison: December 24, 2016 Findings: Lungs are hypoinflated. There is hazy airspace opacity in both lung bases. No obvious pleural effusion. No pneumothorax. Heart size and mediastinal contours are stable. Mild bronchovascular crowding due to the hypoinflation. Impression: Hypoinflation with basilar airspace opacities could be due to atelectasis or pneumonia. .
--- NOTE | 2017-10-25 15:14 | History & Physical Report ---
History of Present Illness Date: 10/25/17 Chief complaint: encephalopathy, sepsis HPI: Meryl is a 67 yr old female who is known to the hospitalist services from previous admissions. Today she was brought to the emergency room by EMS for acute evaluation. It was reported. Patient has had nausea and vomiting since 2 a.m. EMS reported to ER staff that patient initially reported back pain with chest pain. On arrival, she was found to have a temperature of 100.2, tachycardic at 118, room air saturation 77%, and to 25 breaths per minute. Blood pressure was 150/93. Patient was placed on oxygen and has required 6 liters of oxygen by nasal cannula. Further workup was performed. Significant elevated white blood cell count at 28.2, 90% neutrophils, 6% bands. Sodium is slightly elevated at 145, creatinine 1.4, BUN 31. Glucose is elevated at 336. Troponin was 0.018. Twelve-lead EKG reveals sinus tachycardia with a rate of 112 and presence of right bundle branch block. Plasma lactate 3.0. Patient was given IV fluids, blood cultures were obtained, and she was started on IV Rocephin for antimicrobial coverage. A urinalysis does report revealed 2+ protein, 2+ glucose, 2+ blood, positive nitrates, trace leukocytes with 50-200 WBCs and 4+ bacteria. Chest x-ray reveals hypoinflation with basilar airspace opacities unclear atelectases versus pneumonia. Given these above findings, patient does meet criteria for sepsis. Hospital services were contacted and accepted patient for inpatient admission. She is seen on initial examination, while still in the emergency room. She does open her eyes briefly and mumbles however is unable to give specific answers to questions. ER physician does report she seems to have encephalopathy as she is unable to tell location or information regarding present illness. Review of Systems ROS unobtainable: due to mental status Past Medical History Diabetes Coronary artery disease. Next, and hypertension. Chronic back pain Dyslipidemia Depression Sleep apnea Restless leg syndrome Spinal stenosis Obesity Surgical History: Hernia repair. . Bilateral knee arthroscopically ( [id number]). Right hand surgical repair after traumatic injury. Left carpal tunnel release-04/2011. Tonsillectomy. Back surgery Family History Updates: Mother-cancer(unknown specific location. Questionable lymph node). Father- secondary to gunshot wound ( questionable suicide) . Sisterchronic back pain - Social History Smoking status: Unknown if ever smoked Substance use type: does not use Current residence: Apartment/Private Home (lives with family) Social history: PCP Dr Etta Heredia ? Medications Home Medications Medication Instructions Recorded Confirmed Type Duloxetine HCl [Cymbalta] 120 mg PO DAILY #0 02/08/10 10/25/17 History Ascorbic Acid [Vitamin C] 1,000 mg PO DAILY 10/25/17 10/25/17 History Baclofen [Lioresal] 10 mg PO TID PRN 10/25/17 10/25/17 History Bumetanide Tab [Bumex Tab] 1 mg PO DAILY 10/25/17 10/25/17 History Calcium Carb/Mag Ox/Zinc Gluc 1 each PO BID 10/25/17 10/25/17 History [Itqfgit-[id number] Tablet] Carisoprodol [Carisoprodol] 250 mg PO QID 10/25/17 10/25/17 History Cyanocobalamin (Vitamin B-12) 2,500 mcg SL DAILY 10/25/17 10/25/17 History [Vitamin B-12] Docusate Sodium [Colace] 100 mg PO BID 10/25/17 10/25/17 History Duloxetine [Cymbalta] 120 mg PO DAILY 10/25/17 10/25/17 History Ferrous Sulfate [Ferrous Sulfate] 325 mg PO TID 10/25/17 10/25/17 History Furosemide [Lasix] 40 mg PO DAILY 10/25/17 10/25/17 History Gabapentin [Neurontin] 600 mg PO TID 10/25/17 10/25/17 History Hydrocodone/APAP 7.5/325 [[place] 1 tab PO Q6H PRN 10/25/17 10/25/17 History 7.5/325] Insulin Glargine [Lantus] 17 unit SQ HS 10/25/17 10/25/17 History Insulin Lispro [HumaLOG] 20 unit SQ TIDWM 10/25/17 10/25/17 History Morphine Sulfate [Morphabond ER] 15 mg PO BID PRN 10/25/17 10/25/17 History Nystatin Cream [Mycostatin] 1 applicatio TOP PRN 10/25/17 10/25/17 History Nystatin [Nystop] 1 applicatio TOP BID PRN 10/25/17 10/25/17 History Potassium Chloride 40 meq PO DAILY 10/25/17 10/25/17 History Senna + Docusate [Senna Plus 1 tab PO HS 10/25/17 10/25/17 History Tablet] Spironolactone [Aldactone] 50 mg PO DAILY 10/25/17 10/25/17 History Trazodone [Desyrel] 50 mg PO HS 10/25/17 10/25/17 History Allergies Allergy/AdvReac Type Severity Reaction Status Date / Time Penicillins Allergy Unknown Verified 10/25/17 15:06 Exam Vital Signs: Temperature 100.2 F 10/25/17 11:51 Pulse Rate 109 H 10/25/17 14:45 Respiratory Rate 23 10/25/17 14:45 Blood Pressure 194/84 H 10/25/17 14:45 Pulse Oximetry 97 10/25/17 14:45 Telemetry Rhythm: Sinus Tachycardia - Constitutional Present: mild distress, well nourished, well developed - Routine HEENT Exam ENT: Present: mucous membranes dry Comments: Dry tongue - Routine Respiratory Exam Present: diminished air movement. Absent: wheezes - Routine Cardiovascular Exam Present: RRR, S1, S2, no murmur. Absent: murmur - Routine Abdominal Exam Present: soft, tenderness (generalized), non distended, distended - Routine Extremities Exam Present: edema Comments: Bilateral lower extremity states edema with bilateral erythema - Routine Skin Exam Present: intact, dry, warm - Routine Neurological Exam Present: CN II-XII intact, altered mental status - Routine Psychiatric Exam Present: normal affect, cooperative Results - Labs CBC & Chem 7: 10/25/17 12:48 10/25/17 12:48 Assessment and Plan (1) Acute respiratory failure with hypoxemia Current visit: Yes Status: Acute (2) Elevated lactic acid level Current visit: Yes Status: Acute (3) Sepsis Current visit: Yes Status: Acute Assessment and Plan: Impression Sepsis with encephalopathy- Manifestations of sepsis include, leukocytosis, tachycardia, fever Respiratory failure with hypoxia Elevated venous lactate Questionable [id number]- Urine culture pending Diabetes Coronary artery disease Hypertension Dyslipidemia. Sleep apnea. GERD Chronic back pain. Morbid obesity- BMI 54% Plan Admit patient Inpatient status under the care of Dr Fernandes for sepsis, suspect pulmonary source with acute respiratory failure with hypoxia. Sepsis protocol was initiated in the emergency room. Patient was given IV cefepime 1. We will continue with tx for community-acquired pneumonia protocol , Rocephin and azithromycin. We will recheck serial lactate. Urine and blood cultures are pending. qSOFA score- 2/3 indicating high risk for poor outcome and increased mortality Patient does have a significant amount of encephalopathy at time of admission and she is unable to answer questions appropriately. It is unclear who her primary care provider is, Dr. Etta Heredia -vs- Dr. Rodriguez. At this point, patient is not safe to swallow given her encephalopathy. According to home med rec patient is on multiple chronic pain medications including extended release morphine twice a day, [place] for breakthrough pain as well as gabapentin and baclofen. Will monitor for evidence of withdrawal. It appears that patient is on chronic diuretics including Lasix 40mg daily , Bumex 1mg daily, and Aldactone 50mg NS at 100ml/hr. Ca cath placed to monitor urine output. Suspect she is intravascularly dry, however, will have to be careful to not fluid overload. Continue with oxygen therapy to maintain adequate saturations. Will add DuoNeb breathing treatments 4 times a day. Obtain viral respiratory panel. Monitor Accu-Cheks. It appears that patient is chronically on Lantus 17 units with at bedtime, and Humalog 20 units with meals. Monitor on cardiac telemetry Lovenox 60 mg daily for DVT prophylaxis At this point will keep patient a full code as her wishes are unclear given her encephalopathy. Further orders and plan of care discussed with attending, Dr Fernandes. Abdomen does appear firm and distended. May need to consider CT of Abdomen. It is unclear who is her PCP- Dr Heredia or Dr Rodriguez. DVT Prophylaxis: SCD's Resuscitation Status: Full Code - Time spent with patient Time with patient PN: 50 minutes Coordination of Care: >50% of visit spent providing counseling/coordination of care - Physician Narrative Physician: Jostin Fernandes MD Narrative: Date: 10/25/17 Time: 1929 I have independently interviewed and examined pt. Chart reviewed. Case discussed with EDUCATIONAL/DEVELOPMENT ASSISTANT. Care plan developed with my supervision; agree with above. Patient unable to provide hx. She was brought in by EMS with AMS. Presentation consistent with sepsis. She has h/o UTIs and UA abnormal. CXR shows basilar opacities. Lungs: diminished breath sounds, no use of accessory muscles. CV: regular ABD: s/nt/nd EXT: 1+ edema. MSE: somnolent Plan: Inpatient admission secondary to sepsis with possible CAP vs. UTI. Rocephin and Azithromycin for pneumonia, and monitor urine cx. Duonebs available. Holding most meds d/t AMS. prn IV Hydralazine for elevated BPs. Lovenox for DVT ppx. Hospital Course Summary Disclaimer: The visit summary below is not to be considered part of the above Progress Note. Hospital Course: 10/25/17 Impression Sepsis with encephalopathy- Manifestations of sepsis include, leukocytosis, tachycardia, fever Respiratory failure with hypoxia Elevated venous lactate Questionable [id number]- Urine culture pending Diabetes Coronary artery disease Hypertension Dyslipidemia. Sleep apnea. GERD Chronic back pain. Morbid obesity- BMI 54% Plan Admit patient Inpatient status under the care of Dr Fernandes for sepsis, suspect pulmonary source with acute respiratory failure with hypoxia. Substance vertigo was initiated in the emergency room. Patient was given IV cefepime 1. We will continue with community-acquired pneumonia protocol, Rocephin and azithromycin. We will recheck serial lactate. Urine and blood cultures are pending. Patient does have a significant amount of encephalopathy at time of admission and she is unable to answer questions appropriately. It is unclear who her primary care provider is, Dr. Etta Heredia -vs- Dr. Rodriguez. At this point, patient is not safe to swallow given her encephalopathy. According to home med rec patient is on multiple chronic pain medications including extended release morphine twice a day, [place] for breakthrough pain as well as gabapentin and baclofen. Will monitor for evidence of withdrawal. It appears that patient is on chronic diuretics including Lasix 40mg daily , Bumex 1mg daily, and Aldactone 50mg NS at 100ml/hr. Ca cath placed to monitor urine output. Suspect she is intravascularly dry, however, will have to be careful to not fluid overload. Continue with oxygen therapy to maintain adequate saturations. Will add DuoNeb breathing treatments 4 times a day. Obtain viral respiratory panel. Monitor Accu-Cheks. It appears that patient is chronically on Lantus 17 units with at bedtime, and Humalog 20 units with meals. Monitor on cardiac telemetry Lovenox 60 mg daily for DVT prophylaxis At this point will keep patient a full code as her wishes are unclear given her encephalopathy. Further orders and plan of care discussed with attending, Dr Fernandes. Abdomen does appear firm and distended. May need to consider CT of Abdomen. It is unclear who is her PCP- Dr Heredia or Dr Rodriguez. 10/25/17 qSOFA score- 2/3 indicating high risk for poor outcome and increased mortality- on admission
[2017-10-25] MEDS: AZITHROMYCIN IV 500 MG in NS 250ml 250 ML IV SCH (16:15)
[2017-10-25] MEDS: NS 1,000 ML IV SCH ×2 (16:16→17:46)
[2017-10-25] MEDS ORDERED: ALBUTEROL/IPRATROPIUM 2.5mg-0.5mg/3ml NEB AEROSOL SCH (17:00)
[2017-10-25] MEDS: ACETAMINOPHEN 500 MG TABLET PO SCH ×2 (17:31→20:31)
[2017-10-25] MEDS: CEFTRIAXONE 1 G in NS 100 ML IV SCH (17:50)
[2017-10-25] MEDS: ENOXAPARIN 60 MG/0.6 ML INJECTION SQ SCH (17:50)
[2017-10-25] MEDS ORDERED: HYDRALAZINE 20 MG/ML INJECTION IVP PRN (18:45)
[2017-10-25] MEDS: ALBUTEROL/IPRATROPIUM 2.5mg-0.5mg/3ml NEB AEROSOL SCH (20:40)
[2017-10-25] MEDS: INSULIN GLARGINE 100unit/ml INJECTION SQ SCH (22:25)
[2017-10-26] MEDS: ACETAMINOPHEN 500 MG TABLET PO SCH ×7 (00:10→23:13)
[2017-10-26] MEDS: MORPHINE SULFATE 2mg INJECTION IVP PRN ×3 (00:27→08:30)
[2017-10-26] MEDS: NS 1,000 ML IV SCH ×2 (01:54→12:08)
[2017-10-26] MEDS: SALINE FLUSH 10ml SYRINGE IVF PRN (02:06)
[2017-10-26] MEDS: ONDANSETRON 4 MG/2 ML INJECTION IVP PRN ×2 (02:09→14:30)
[2017-10-26] MEDS: ALBUTEROL/IPRATROPIUM 2.5mg-0.5mg/3ml NEB AEROSOL SCH ×4 (08:15→22:30)
[2017-10-26] MEDS: ENOXAPARIN 60 MG/0.6 ML INJECTION SQ SCH (08:30)
--- NOTE | 2017-10-26 10:31 | Progress Note ---
- Date 10/26/17 Subjective: Meryl is seen this morning in follow-up. She is more alert and oriented today than she was last evening upon admission. She complains of having generalized pain related to her fibromyalgia, and requests home medications. Currently she is on 2 liters of oxygen by nasal cannula. It is noted that she did have a fever of 100.7 early this morning. She denies feeling short of breath or having abdominal pain. Blood pressure mildly elevated, 150s over 80s. Objective Vital signs: Temperature 97.8 F 10/26/17 08:00 Pulse Rate 97 10/26/17 08:58 Respiratory Rate 24 10/26/17 08:15 Blood Pressure 158/82 H 10/26/17 08:00 Pulse Oximetry 96 10/26/17 08:15 Height/Weight/BMI: Height 1.68 m Weight 154.8 kg Body Mass Index 54.6 - Constitutional Present: no acute distress, well nourished, well developed - Routine HEENT Exam Eye: Present: EOMI ENT: Present: mucous membranes moist, dentition normal - Routine Respiratory Exam Present: diminished air movement. Absent: wheezes - Routine Cardiovascular Exam Present: RRR, S1, S2. Absent: murmur - Routine Abdominal Exam Present: soft, normoactive bowel sounds, non distended. Absent: tenderness - Routine Extremities Exam Present: edema - Routine Skin Exam Present: intact, dry, warm - Routine Neurological Exam Present: alert, oriented X3, CN II-XII intact - Routine Lymphatic Exam Lymphatic: Absent: adenopathy - Routine Psychiatric Exam Present: normal affect, cooperative Results - Labs CBC & Chem 7: 10/26/17 04:40 10/26/17 04:40 Assessment and Plan (1) Sepsis Current visit: Yes Status: Acute (2) Acute respiratory failure with hypoxemia Current visit: Yes Status: Acute (3) Elevated lactic acid level Current visit: Yes Status: Acute Assessment and Plan: Impression Sepsis with encephalopathy- Manifestations of sepsis include, leukocytosis, tachycardia, fever Respiratory failure with hypoxia Elevated venous lactate Questionable [id number]- Urine culture pending Diabetes Coronary artery disease Hypertension Dyslipidemia. Sleep apnea. GERD Chronic back pain. Morbid obesity- BMI 54% Plan Speech therapy to evaluate patient for dysphagia Encephalology seems to be improving. She complains of generalized pain and requests home pain mediations. Will resume MS Contin, Solen and Neurontin Leukocytosis improving, venous lactate trended down to 2.1. Urine culture pending, one blood culture is positive for group B strep. At this point will continue with current regimen of Rocephin and Azithromycin. Discuss further with attending. Continue to work on weaning down oxygen, currently on 2 liters. She does not use home O2.Continue with scheduled nebulizers May consider decreasing IV fluids as mucous membranes are now moist Continue to monitor Accu-Cheks, patient is currently on home regimen of insulin Consult placed for PT and OT to evaluate patient as patient does live at home with her son. Concern for safety and weakness related to sepsis Will discuss further plan of care with attending, Dr. Fernandes - Physician Narrative Physician: Jostin Fernandes MD Narrative: Date: 10/26/17 Time: 1939 I have independently interviewed and examined pt. Chart reviewed. Case discussed with MONITOR AND STORAGE BIN TENDER. Care plan developed with my supervision; agree with above. Patient more alert today. c/o nausea. Has c/o abdominal pain earlier. Lungs: diminished breath sounds, no use of accessory muscles. CV: regular ABD: s/nt/nd EXT: 1+ edema. MSE: somnolent Plan: Continue Rocephin for sepsis with UTI (E. coli). CT abd/pelvis ordered and still pending. With Na up, DC NS. DM is uncontrolled. Will add sliding scale insulin. Hospital Course Summary Disclaimer: The visit summary below is not to be considered part of the above Progress Note. Hospital Course: 10/25/17 Impression Sepsis with encephalopathy- Manifestations of sepsis include, leukocytosis, tachycardia, fever Respiratory failure with hypoxia Elevated venous lactate Questionable [id number]- Urine culture pending Diabetes Coronary artery disease Hypertension Dyslipidemia. Sleep apnea. GERD Chronic back pain. Morbid obesity- BMI 54% Plan Admit patient Inpatient status under the care of Dr Fernandes for sepsis, suspect pulmonary source with acute respiratory failure with hypoxia. Substance vertigo was initiated in the emergency room. Patient was given IV cefepime 1. We will continue with community-acquired pneumonia protocol, Rocephin and azithromycin. We will recheck serial lactate. Urine and blood cultures are pending. Patient does have a significant amount of encephalopathy at time of admission and she is unable to answer questions appropriately. It is unclear who her primary care provider is, Dr. Etta Heredia -vs- Dr. Rodriguez. At this point, patient is not safe to swallow given her encephalopathy. According to home med rec patient is on multiple chronic pain medications including extended release morphine twice a day, [place] for breakthrough pain as well as gabapentin and baclofen. Will monitor for evidence of withdrawal. It appears that patient is on chronic diuretics including Lasix 40mg daily , Bumex 1mg daily, and Aldactone 50mg NS at 100ml/hr. Ca cath placed to monitor urine output. Suspect she is intravascularly dry, however, will have to be careful to not fluid overload. Continue with oxygen therapy to maintain adequate saturations. Will add DuoNeb breathing treatments 4 times a day. Obtain viral respiratory panel. Monitor Accu-Cheks. It appears that patient is chronically on Lantus 17 units with at bedtime, and Humalog 20 units with meals. Monitor on cardiac telemetry Lovenox 60 mg daily for DVT prophylaxis At this point will keep patient a full code as her wishes are unclear given her encephalopathy. Further orders and plan of care discussed with attending, Dr Fernnades. Abdomen does appear firm and distended. May need to consider CT of Abdomen. It is unclear who is her PCP- Dr Heredia or Dr Rodriguez. 10/25/17 qSOFA score- 2/3 indicating high risk for poor outcome and increased mortality- on admission 10/26/17 - leukocytosis improving, 1 blood culture positive for Group B strep- sensitivity pending. Urine culture pending. Encephalopathy, improving. Consult speech, PT, OT. Continue Rocephin for sepsis with UTI (E. coli). CT abd/pelvis ordered and still pending. With Na up, DC NS. DM is uncontrolled. Will add sliding scale insulin.
[2017-10-26] MEDS: DULOXETINE 60 MG CAPSULE PO SCH (10:34)
[2017-10-26] MEDS: INSULIN ASPART 100unit/ml INJECTION SQ SCH ×2 (11:37→17:59)
[2017-10-26] MEDS: BACLOFEN 10 MG TABLET PO PRN (12:14)
[2017-10-26] MEDS: GABAPENTIN 600 MG TABLET PO SCH ×2 (14:31→20:30)
[2017-10-26] MEDS ORDERED: NS 100 ML ONE (14:51)
[2017-10-26] MEDS ORDERED: SALINE FLUSH 10ml SYRINGE ONE (14:51)
[2017-10-26] MEDS ORDERED: IODIXANOL 320mg/ml 100ml INJECTION IV ONE (14:51)
[2017-10-26] MEDS ORDERED: FALL RISK - PHARMACY CONSULT MC ONE (15:08)
[2017-10-26] MEDS: AZITHROMYCIN IV 500 MG in NS 250ml 250 ML IV SCH (15:44)
[2017-10-26] MEDS: CEFTRIAXONE 1 G in NS 100 ML IV SCH (17:26)
[2017-10-26] MEDS: HYDROCODONE/APAP 7.5 MG/325 MG TABLET PO PRN (20:30)
[2017-10-26] MEDS: INSULIN GLARGINE 100unit/ml INJECTION SQ SCH (20:30)
[2017-10-26] MEDS: SENNA + DOCUSATE TABLET PO SCH (20:30)
[2017-10-26] MEDS ORDERED: INSULIN GLARGINE 100unit/ml INJECTION SQ SCH (21:00)
[2017-10-26] MEDS: INSULIN ASPART 100unit/ml INJECTION SQ PRN (23:13)
[2017-10-27] MEDS: ACETAMINOPHEN 500 MG TABLET PO SCH ×6 (03:51→23:22)
[2017-10-27] MEDS: HYDROCODONE/APAP 7.5 MG/325 MG TABLET PO PRN ×2 (04:19→23:22)
[2017-10-27] MEDS: INSULIN ASPART 100unit/ml INJECTION SQ PRN ×3 (06:31→14:31)
[2017-10-27] MEDS: ALBUTEROL/IPRATROPIUM 2.5mg-0.5mg/3ml NEB AEROSOL SCH ×4 (06:53→19:23)
[2017-10-27] MEDS: DULOXETINE 60 MG CAPSULE PO SCH (09:01)
[2017-10-27] MEDS: ENOXAPARIN 60 MG/0.6 ML INJECTION SQ SCH (09:02)
[2017-10-27] MEDS: GABAPENTIN 600 MG TABLET PO SCH ×3 (09:02→20:14)
[2017-10-27] MEDS: INSULIN ASPART 100unit/ml INJECTION SQ SCH ×3 (10:36→17:49)
--- NOTE | 2017-10-27 10:43 | Progress Note ---
- Date 10/27/17 Subjective: Meryl is seen and examined this morning. She is much more alert tears to be at her baseline mentation encephalopathy has resolved. She complains of generalized pain and feeling uncomfortable. She does continue on 2-3 liters of oxygen by nasal cannula to maintain saturations. Denies feeling short of breath or having chest pain. No abdominal pain. Did examine her abdomen and groin folds No evidence of acute infection. She does have some irritation in skin folds. BLE continue to have edema with mild erythema Right >left. Objective Vital signs: Temperature 97.9 F 10/27/17 08:23 Pulse Rate 89 10/27/17 08:23 Respiratory Rate 18 10/27/17 10:23 Blood Pressure 160/85 H 10/27/17 08:23 Pulse Oximetry 96 10/27/17 10:23 Height/Weight/BMI: Height 1.68 m Weight 158.5 kg Body Mass Index 54.6 - Constitutional Present: no acute distress, well nourished, well developed - Routine HEENT Exam Eye: Present: EOMI ENT: Present: mucous membranes moist, dentition normal - Routine Respiratory Exam Present: diminished air movement. Absent: wheezes - Routine Cardiovascular Exam Present: RRR, S1, S2. Absent: murmur - Routine Abdominal Exam Present: soft, normoactive bowel sounds, non distended. Absent: tenderness - Routine Extremities Exam Present: edema (BLE), pulses intact - Routine Skin Exam Present: intact, dry, warm - Routine Neurological Exam Present: alert, oriented X3, CN II-XII intact, moving all extremities - Routine Lymphatic Exam Lymphatic: Absent: adenopathy - Routine Psychiatric Exam Present: normal affect, cooperative Results - Labs CBC & Chem 7: 10/27/17 04:15 10/27/17 04:15 Assessment and Plan (1) Sepsis Current visit: Yes Status: Acute (2) Acute respiratory failure with hypoxemia Current visit: Yes Status: Acute (3) Elevated lactic acid level Current visit: Yes Status: Acute Assessment and Plan: Impression Sepsis with encephalopathy- Manifestations of sepsis include, leukocytosis, tachycardia, fever Respiratory failure with hypoxia Elevated venous lactate Questionable [id number]- Urine culture pending Diabetes Coronary artery disease Hypertension Dyslipidemia. Sleep apnea. GERD Chronic back pain. Morbid obesity- BMI 54% Plan Encephalopathy appears to be resolved. Patient verbalizes frustration with being hospitalized and requests to be discharged home. We discussed in detail. Concern for self-care as patient is unable to sit at the side of the bed due to her fatigue and weakness. Did encourage her to work with therapies. Did ask nursing staff to get patient up to the chair for lunch. Continue to work on weaning down oxygen. Remains on Rocephin and Azithromycin. Strep B positive blood culture. Will recheck Chest Xray today given ongoing hypoxia. Continue to monitor Accu-Cheks, patient is currently on home regimen of insulin Case discussed with attending, Dr Fernandes. - Physician Narrative Physician: Jostin Fernandes MD Narrative: Date: 10/27/17 Time: 1455 I have independently interviewed and examined pt. Chart reviewed. Case discussed with SKIFF OPERATOR. Care plan developed with my supervision; agree with above. Patient more alert today. Denies nausea or abdominal pain. Says she is tired. Says they could not get her out of bed. Lungs: diminished breath sounds, no use of accessory muscles. CV: regular ABD: s/nt/nd EXT: 1+ edema. MSE: somnolent Plan: Continue Rocephin for sepsis with UTI (E. coli). CT abd/pelvis unremarkable. Increase Lantus. Continue Humalog with meals and sliding scale. Na improved off NS. Continue pain meds for her chronic pain. Encourage activity. Hospital Course Summary Disclaimer: The visit summary below is not to be considered part of the above Progress Note. Hospital Course: 10/25/17 Impression Sepsis with encephalopathy- Manifestations of sepsis include, leukocytosis, tachycardia, fever Respiratory failure with hypoxia Elevated venous lactate Questionable [id number]- Urine culture pending Diabetes Coronary artery disease Hypertension Dyslipidemia. Sleep apnea. GERD Chronic back pain. Morbid obesity- BMI 54% Plan Admit patient Inpatient status under the care of Dr Fernandes for sepsis, suspect pulmonary source with acute respiratory failure with hypoxia. Substance vertigo was initiated in the emergency room. Patient was given IV cefepime 1. We will continue with community-acquired pneumonia protocol, Rocephin and azithromycin. We will recheck serial lactate. Urine and blood cultures are pending. Patient does have a significant amount of encephalopathy at time of admission and she is unable to answer questions appropriately. It is unclear who her primary care provider is, Dr. Etta Heredia -vs- Dr. Rodriguez. At this point, patient is not safe to swallow given her encephalopathy. According to home med rec patient is on multiple chronic pain medications including extended release morphine twice a day, [place] for breakthrough pain as well as gabapentin and baclofen. Will monitor for evidence of withdrawal. It appears that patient is on chronic diuretics including Lasix 40mg daily , Bumex 1mg daily, and Aldactone 50mg NS at 100ml/hr. Ca cath placed to monitor urine output. Suspect she is intravascularly dry, however, will have to be careful to not fluid overload. Continue with oxygen therapy to maintain adequate saturations. Will add DuoNeb breathing treatments 4 times a day. Obtain viral respiratory panel. Monitor Accu-Cheks. It appears that patient is chronically on Lantus 17 units with at bedtime, and Humalog 20 units with meals. Monitor on cardiac telemetry Lovenox 60 mg daily for DVT prophylaxis At this point will keep patient a full code as her wishes are unclear given her encephalopathy. Further orders and plan of care discussed with attending, Dr Fernandes. Abdomen does appear firm and distended. May need to consider CT of Abdomen. It is unclear who is her PCP- Dr Heredia or Dr Rodriguez. 10/25/17 qSOFA score- 2/3 indicating high risk for poor outcome and increased mortality- on admission 10/26/17 - leukocytosis improving, 1 blood culture positive for Group B strep- sensitivity pending. Urine culture pending. Encephalopathy, improving. Consult speech, PT, OT. Continue Rocephin for sepsis with UTI (E. coli). CT abd/pelvis ordered and still pending. With Na up, DC NS. DM is uncontrolled. Will add sliding scale insulin.Plan 10/27/16- Encephalopathy appears to be resolved. Patient verbalizes frustration with being hospitalized and requests to be discharged home. We discussed in detail. Concern for self-care as patient is unable to sit at the side of the bed due to her fatigue and weakness. Did encourage her to work with therapies. Did ask nursing staff to get patient up to the chair for lunch. Continue to work on weaning down oxygen. Remains on Rocephin and Azithromycin. Strep B positive blood culture. Will recheck Chest Xray today given ongoing hypoxia. Continue to monitor Accu-Cheks, patient is currently on home regimen of insulin Case discussed with attending, Dr Fernandes.
[2017-10-27] MEDS: CEFTRIAXONE 1 G in NS 100 ML IV SCH (16:22)
[2017-10-27] MEDS: SALINE FLUSH 10ml SYRINGE IVF PRN (16:25)
[2017-10-27] MEDS: NS FLUSH BAG 500ml IV PRN (16:25)
[2017-10-27] MEDS: LISINOPRIL 5 MG TABLET PO SCH (17:49)
[2017-10-27] MEDS: BACLOFEN 10 MG TABLET PO PRN (17:50)
[2017-10-27] MEDS: SENNA + DOCUSATE TABLET PO SCH (20:12)
[2017-10-27] MEDS: INSULIN GLARGINE 100unit/ml INJECTION SQ SCH (21:17)
[2017-10-28] MEDS: BACLOFEN 10 MG TABLET PO PRN (02:48)
[2017-10-28] MEDS: ACETAMINOPHEN 500 MG TABLET PO SCH ×5 (03:36→20:39)
[2017-10-28] MEDS: MORPHINE SULFATE 2mg INJECTION IVP PRN (03:37)
[2017-10-28] MEDS: SALINE FLUSH 10ml SYRINGE IVF PRN (04:38)
[2017-10-28] MEDS: HYDROCODONE/APAP 7.5 MG/325 MG TABLET PO PRN (06:35)
[2017-10-28] MEDS: ALBUTEROL/IPRATROPIUM 2.5mg-0.5mg/3ml NEB AEROSOL SCH ×4 (08:15→19:24)
[2017-10-28] MEDS: LISINOPRIL 5 MG TABLET PO SCH (08:35)
[2017-10-28] MEDS: INSULIN ASPART 100unit/ml INJECTION SQ SCH ×3 (08:35→19:23)
[2017-10-28] MEDS: ENOXAPARIN 60 MG/0.6 ML INJECTION SQ SCH (08:35)
[2017-10-28] MEDS: GABAPENTIN 600 MG TABLET PO SCH ×3 (08:36→20:38)
[2017-10-28] MEDS: DULOXETINE 60 MG CAPSULE PO SCH (08:36)
[2017-10-28] MEDS ORDERED: FUROSEMIDE 40 MG TABLET PO SCH (09:00)
--- NOTE | 2017-10-28 09:29 | CT Scan Report ---
Indication: Abdominal distention PROCEDURE: CT abdomen pelvis w con: Encounter: Initial Comparison: None Technique: Axial CT images were performed through the abdomen and pelvis after the administration of intravenous contrast. Coronal and sagittal two-dimensional reformats. Automated Exposure Control and Iterative Reconstruction dose reducing techniques were utilized. Contrast: Omnipaque 300 100 mL Findings: Motion artifact. Exam is limited due to attenuation artifact from patient body habitus. Laparoscopic gastric banding device noted. Liver is grossly normal in appearance. Spleen shows a large 2.5 cm probable cyst. The pancreas is atrophic and fatty replaced. The right adrenal gland and kidneys show no obvious mass. Possible myelolipoma of the left adrenal. No abdominal or pelvic lymphadenopathy. Subcutaneous edema, most concentrated in the right inguinal area. Ca catheter in the bladder. No evidence of a bowel obstruction. Portions of the left anterior abdomen are excluded from the field of view. Impression: Very limited exam without obvious acute disease. Subcutaneous edema, greatest in the right inguinal region. There is a preliminary report by [facility]. .
--- NOTE | 2017-10-28 10:09 | XRay Report ---
Indication: continued hypoxia PROCEDURE: XR chest 1V: Encounter: Initial Comparison: October 25, 2017 Findings: Aeration of the lower lobes has improved. No new infiltrates. No pleural effusion or pneumothorax. Cardiac silhouette remains mildly enlarged. The mediastinal contours and pulmonary vascularity are stable. Impression: Improving aeration of the lungs without focal pneumonia or overt congestive failure. .
[2017-10-28] MEDS: INSULIN ASPART 100unit/ml INJECTION SQ PRN (11:14)
[2017-10-28] MEDS ORDERED: BISACODYL 10 MG SUPPOSITORY RECTALLY PRN (13:25)
--- NOTE | 2017-10-28 13:32 | Progress Note ---
- Date 10/28/17 Subjective: Meryl is seen today in follow up. She reports feeling nauseated. No vomiting. No abdominal pain. No diarrhea- reports no BM since admission. States she normally uses colace at home for laxative. Tolerating full liquid diet. SOA is stable. She denies any c/o pain while I am examining her. Chart is reviewed for collateral information. Objective Vital signs: Temperature 96.8 F 10/28/17 11:32 Pulse Rate 84 10/28/17 11:32 Respiratory Rate 16 10/28/17 12:15 Blood Pressure 141/71 H 10/28/17 11:32 Pulse Oximetry 96 10/28/17 12:15 Rhythm: Normal Sinus Rhythm, Bundle Branch Block Height/Weight/BMI: Height 1.68 m Weight 159.1 kg Body Mass Index 54.6 - Constitutional Present: no acute distress, morbidly obese, cooperative - Routine HEENT Exam Head: Present: normocephalic, atraumatic Eye: Present: EOMI, PERRL, normal accommodation ENT: Present: mucous membranes moist - Routine Respiratory Exam Present: decreased breath sounds, diminished air movement. Absent: rhonchi, wheezes, crackles Comments: Diminished due to body habitus. - Routine Cardiovascular Exam Present: RRR, S1, S2 - Routine Abdominal Exam Present: soft, non distended, non tender. Absent: normoactive bowel sounds ( Quiet bs. Limited by severe obesity.) - Routine Extremities Exam Present: edema (Marked pitting edema. ), non tender - Routine Musculoskeletal Exam Musculoskeletal: Absent: normal strength, moving extremities well - Routine Skin Exam Present: intact, dry, warm - Routine Neurological Exam Present: alert, oriented X3 - Routine Psychiatric Exam Present: normal affect, cooperative Results - Labs CBC & Chem 7: 10/28/17 04:34 10/28/17 04:34 - Imaging and Cardiology Chest x-ray Status: image reviewed by me Additional comments: CXR Impression: Improving aeration of the lungs without focal pneumonia or overt congestive failure. . CT A/P- Exam limited. No severe fecal burden observed. Assessment and Plan (1) Sepsis Current visit: Yes Status: Acute (2) Acute respiratory failure with hypoxemia Current visit: Yes Status: Acute (3) Elevated lactic acid level Current visit: Yes Status: Acute Assessment and Plan: Impression Sepsis with encephalopathy- Manifestations of sepsis include, leukocytosis, tachycardia, fever Respiratory failure with hypoxia Elevated venous lactate E.Coli UTI, complicated GBS bacteremia Diabetes Coronary artery disease Hypertension Dyslipidemia. Sleep apnea. GERD Chronic back pain. Morbid obesity- BMI 54% Suspected diastolic HF. Plan 10/28/17 Continue Ceftriaxone for now as leukocytosis, bandemia are better. C/S reviewed- may need to change Ceftriaxone to Levaquin given sensitivities. Will repeat BC x 2 today to ensure that it has resolved with antibiotic therapy. Some anemia noted- likely dilutional +/- reactive. She is quite edematous- will resume Bumex and Aldactone per home regimen. (Consider echo?) BG is trending down- continue current. Some nausea- add IV pepcid. Add laxatives due to constipation- may be contributing to the nausea. Repeat labs in AM. PT/OT- will need DC planning. May need rehab or SNU on discharge. DVT Prophylaxis: SCD's, Lovenox GI Prophylaxis: Pepcid Resuscitation Status: Full Code - Physician Narrative Physician: Jostin Fernandes MD Narrative: Date: 10/28/17 Time: 1420 I have independently interviewed and examined pt. Chart reviewed. Case discussed with STRUCTURAL IRONWORKER. Care plan developed with my supervision; agree with above. Patient c/o nausea since this AM but has not told nurse. She does not remember her last stool, but 1 was charted on 10/26. No abdominal pain. Lungs: diminished breath sounds, no use of accessory muscles. CV: regular ABD: s/nt/nd EXT: 1+ edema. MSE: somnolent Plan: Continue Rocephin for sepsis with UTI (E. coli). BG still elevated, but patient not eating with nausea. No changes to Lantus, Humalog with meals and sliding scale. Patient up about 6L. Resuming bumex, aldactone per home regimen. Na improved off NS. Continue pain meds for her chronic pain. Encourage activity. PT/OT Hospital Course Summary Disclaimer: The visit summary below is not to be considered part of the above Progress Note. Hospital Course: 10/25/17 Impression Sepsis with encephalopathy- Manifestations of sepsis include, leukocytosis, tachycardia, fever Respiratory failure with hypoxia Elevated venous lactate Questionable [id number]- Urine culture pending Diabetes Coronary artery disease Hypertension Dyslipidemia. Sleep apnea. GERD Chronic back pain. Morbid obesity- BMI 54% Plan Admit patient Inpatient status under the care of Dr Fernandes for sepsis, suspect pulmonary source with acute respiratory failure with hypoxia. Substance vertigo was initiated in the emergency room. Patient was given IV cefepime 1. We will continue with community-acquired pneumonia protocol, Rocephin and azithromycin. We will recheck serial lactate. Urine and blood cultures are pending. Patient does have a significant amount of encephalopathy at time of admission and she is unable to answer questions appropriately. It is unclear who her primary care provider is, Dr. Etta Heredia -vs- Dr. Rodriguez. At this point, patient is not safe to swallow given her encephalopathy. According to home med rec patient is on multiple chronic pain medications including extended release morphine twice a day, [place] for breakthrough pain as well as gabapentin and baclofen. Will monitor for evidence of withdrawal. It appears that patient is on chronic diuretics including Lasix 40mg daily , Bumex 1mg daily, and Aldactone 50mg NS at 100ml/hr. Ca cath placed to monitor urine output. Suspect she is intravascularly dry, however, will have to be careful to not fluid overload. Continue with oxygen therapy to maintain adequate saturations. Will add DuoNeb breathing treatments 4 times a day. Obtain viral respiratory panel. Monitor Accu-Cheks. It appears that patient is chronically on Lantus 17 units with at bedtime, and Humalog 20 units with meals. Monitor on cardiac telemetry Lovenox 60 mg daily for DVT prophylaxis At this point will keep patient a full code as her wishes are unclear given her encephalopathy. Further orders and plan of care discussed with attending, Dr Fernandes. Abdomen does appear firm and distended. May need to consider CT of Abdomen. It is unclear who is her PCP- Dr Heredia or Dr Rodriguez. 10/25/17 qSOFA score- 2/3 indicating high risk for poor outcome and increased mortality- on admission 10/26/17 - leukocytosis improving, 1 blood culture positive for Group B strep- sensitivity pending. Urine culture pending. Encephalopathy, improving. Consult speech, PT, OT. Continue Rocephin for sepsis with UTI (E. coli). CT abd/pelvis ordered and still pending. With Na up, DC NS. DM is uncontrolled. Will add sliding scale insulin.Plan 10/27/16- Encephalopathy appears to be resolved. Patient verbalizes frustration with being hospitalized and requests to be discharged home. We discussed in detail. Concern for self-care as patient is unable to sit at the side of the bed due to her fatigue and weakness. Did encourage her to work with therapies. Did ask nursing staff to get patient up to the chair for lunch. Continue to work on weaning down oxygen. Remains on Rocephin and Azithromycin. Strep B positive blood culture. Will recheck Chest Xray today given ongoing hypoxia. Continue to monitor Accu-Cheks, patient is currently on home regimen of insulin Case discussed with attending, Dr Fernandes. 10/28/17 Continue Ceftriaxone for now as leukocytosis, bandemia are better. (Azithro completed) C/S reviewed- may need to change Ceftriaxone to Levaquin given sensitivities. Will repeat BC x 2 today to ensure that it has resolved with antibiotic therapy. Some anemia noted- likely dilutional +/- reactive. She is quite edematous- will resume Bumex and Aldactone per home regimen. (Consider echo?) BG is trending down- continue current. Some nausea- add IV pepcid. Add laxatives due to constipation- may be contributing to the nausea. Repeat labs in AM. PT/OT- will need DC planning. May need rehab or SNU on discharge.
[2017-10-28] MEDS: FAMOTIDINE PB 20 MG/50 ML BAG IV SCH (14:20)
[2017-10-28] MEDS: BUMETANIDE 1 MG TABLET PO SCH (14:25)
[2017-10-28] MEDS: SPIRONOLACTONE 50 MG TABLET PO SCH (14:26)
[2017-10-28] MEDS: CEFTRIAXONE 1 G in NS 100 ML IV SCH (15:25)
[2017-10-28] MEDS: ONDANSETRON 4 MG/2 ML INJECTION IVP PRN (15:30)
[2017-10-28] MEDS: DOCUSATE SODIUM 100 MG CAPSULE PO PRN ×2 (18:27→20:38)
[2017-10-28] MEDS: INSULIN GLARGINE 100unit/ml INJECTION SQ SCH (20:41)
[2017-10-28] MEDS: SENNA + DOCUSATE TABLET PO SCH (20:42)
[2017-10-29] MEDS: HYDROCODONE/APAP 7.5 MG/325 MG TABLET PO PRN ×3 (00:49→17:36)
[2017-10-29] MEDS: FAMOTIDINE PB 20 MG/50 ML BAG IV SCH ×2 (00:49→13:34)
[2017-10-29] MEDS: ACETAMINOPHEN 500 MG TABLET PO SCH ×7 (00:49→20:55)
[2017-10-29] MEDS: NS FLUSH BAG 500ml IV PRN ×2 (01:00→17:26)
[2017-10-29] MEDS: INSULIN ASPART 100unit/ml INJECTION SQ PRN (07:36)
[2017-10-29] MEDS: ALBUTEROL/IPRATROPIUM 2.5mg-0.5mg/3ml NEB AEROSOL SCH ×4 (07:41→19:25)
[2017-10-29] MEDS: INSULIN ASPART 100unit/ml INJECTION SQ SCH ×3 (09:28→18:26)
[2017-10-29] MEDS: GABAPENTIN 600 MG TABLET PO SCH ×3 (09:30→20:56)
[2017-10-29] MEDS: ENOXAPARIN 60 MG/0.6 ML INJECTION SQ SCH (09:31)
[2017-10-29] MEDS: LISINOPRIL 5 MG TABLET PO SCH (09:31)
[2017-10-29] MEDS: SPIRONOLACTONE 50 MG TABLET PO SCH (09:32)
[2017-10-29] MEDS: DULOXETINE 60 MG CAPSULE PO SCH (09:32)
[2017-10-29] MEDS: BUMETANIDE 1 MG TABLET PO SCH (09:32)
[2017-10-29] MEDS: SENNA + DOCUSATE TABLET PO SCH (09:37)
[2017-10-29 11:29] VITALS: BMI 56.6
--- NOTE | 2017-10-29 13:52 | Progress Note ---
- Date 10/29/17 Subjective: Meryl is seen today in follow up. She is feeling much better today and states she wants to go home. She does have areas or excoriation in the inner groin folds. Denies pain or shortness of breath. Appetite is good. Was able get up in the chair earlier with PT. Objective Vital signs: Temperature 98.2 F 10/29/17 11:39 Pulse Rate 84 10/29/17 11:34 Respiratory Rate 18 10/29/17 11:58 Blood Pressure 137/70 10/29/17 11:34 Pulse Oximetry 91 10/29/17 12:02 Rhythm: Normal Sinus Rhythm Height/Weight/BMI: Height 1.68 m Weight 159.1 kg Body Mass Index 56.6 - Constitutional Present: no acute distress, well nourished, well developed - Routine HEENT Exam Eye: Present: EOMI ENT: Present: mucous membranes moist, dentition normal - Routine Respiratory Exam Present: CTA bilaterally. Absent: wheezes - Routine Cardiovascular Exam Present: RRR, S1, S2. Absent: murmur - Routine Abdominal Exam Present: soft, normoactive bowel sounds, non distended. Absent: tenderness - Routine Extremities Exam Present: edema (bilateral lower ext- trace), normal capillary refill - Routine Skin Exam Present: intact, dry, warm - Routine Neurological Exam Present: alert, oriented X3, CN II-XII intact, moving all extremities - Routine Lymphatic Exam Lymphatic: Absent: adenopathy - Routine Psychiatric Exam Present: normal affect Results - Labs CBC & Chem 7: 10/29/17 04:21 10/29/17 04:21 Microbiology Results: Microbiology 10/28/17 13:59 Peripheral/Iv Start Blood Culture - Preliminary Culture Initiated - Results Pending 10/28/17 14:07 Peripheral/Iv Start Blood Culture - Preliminary Culture Initiated - Results Pending Assessment and Plan (1) Sepsis Current visit: Yes Status: Acute (2) Acute respiratory failure with hypoxemia Current visit: Yes Status: Acute (3) Elevated lactic acid level Current visit: Yes Status: Acute Assessment and Plan: Impression Sepsis with encephalopathy- Manifestations of sepsis include, leukocytosis, tachycardia, fever Respiratory failure with hypoxia Elevated venous lactate E.Coli UTI, complicated GBS bacteremia Diabetes Coronary artery disease Hypertension Dyslipidemia. Sleep apnea. GERD Chronic back pain. Morbid obesity- BMI 54% Suspected diastolic HF. Plan- 10/29/17 Blood cultures re-draw yesterday. Continue on Rocephin. May consider Levaquin at time of discharge Continue for wound to evaluation and make recommendations regarding excoriations to inner thigh folder Leukocytosis resolved, renal function stable. Patient declined discharge plan to detention unit. Prefers to be discharged home. DVT Prophylaxis: SCD's Resuscitation Status: Full Code - Time spent with patient Time with patient PN: 25 minutes - Physician Narrative Physician: Jass Sy MD Narrative: Date: 10/29/17 Time: 1550 Have independently interviewed and examined pt. Chart reviewed. Case discussed with CM and my [employer]. Care plan developed with my supervision; agree with above. Feeling better today-more alert and conversive. Feels better. Eating okay-no nausea or ab pain. Breathing well-not congested or SOA, no cough. Lungs: decreased bilaterally, no distress CV: regular AB: soft obese nt MSE: awake alert appropriate Plan: Continue with antibiotic therapy for urinary tract infection. Encourage deep breathing activities to help respiratory status. WBC normalizing and encephalopathy clearing. Possible discharge to home in near future. Hospital Course Summary Disclaimer: The visit summary below is not to be considered part of the above Progress Note. Hospital Course: 10/25/17 Impression Sepsis with encephalopathy- Manifestations of sepsis include, leukocytosis, tachycardia, fever Respiratory failure with hypoxia Elevated venous lactate Questionable [id number]- Urine culture pending Diabetes Coronary artery disease Hypertension Dyslipidemia. Sleep apnea. GERD Chronic back pain. Morbid obesity- BMI 54% Plan Admit patient Inpatient status under the care of Dr Fernandes for sepsis, suspect pulmonary source with acute respiratory failure with hypoxia. Substance vertigo was initiated in the emergency room. Patient was given IV cefepime 1. We will continue with community-acquired pneumonia protocol, Rocephin and azithromycin. We will recheck serial lactate. Urine and blood cultures are pending. Patient does have a significant amount of encephalopathy at time of admission and she is unable to answer questions appropriately. It is unclear who her primary care provider is, Dr. Etta Heredia -vs- Dr. Rodriguez. At this point, patient is not safe to swallow given her encephalopathy. According to home med rec patient is on multiple chronic pain medications including extended release morphine twice a day, [place] for breakthrough pain as well as gabapentin and baclofen. Will monitor for evidence of withdrawal. It appears that patient is on chronic diuretics including Lasix 40mg daily , Bumex 1mg daily, and Aldactone 50mg NS at 100ml/hr. Ca cath placed to monitor urine output. Suspect she is intravascularly dry, however, will have to be careful to not fluid overload. Continue with oxygen therapy to maintain adequate saturations. Will add DuoNeb breathing treatments 4 times a day. Obtain viral respiratory panel. Monitor Accu-Cheks. It appears that patient is chronically on Lantus 17 units with at bedtime, and Humalog 20 units with meals. Monitor on cardiac telemetry Lovenox 60 mg daily for DVT prophylaxis At this point will keep patient a full code as her wishes are unclear given her encephalopathy. Further orders and plan of care discussed with attending, Dr Fernandes. Abdomen does appear firm and distended. May need to consider CT of Abdomen. It is unclear who is her PCP- Dr Heredia or Dr Rodriguez. 10/25/17 qSOFA score- 2/3 indicating high risk for poor outcome and increased mortality- on admission 10/26/17 - leukocytosis improving, 1 blood culture positive for Group B strep- sensitivity pending. Urine culture pending. Encephalopathy, improving. Consult speech, PT, OT. Continue Rocephin for sepsis with UTI (E. coli). CT abd/pelvis ordered and still pending. With Na up, DC NS. DM is uncontrolled. Will add sliding scale insulin.Plan 10/27/16- Encephalopathy appears to be resolved. Patient verbalizes frustration with being hospitalized and requests to be discharged home. We discussed in detail. Concern for self-care as patient is unable to sit at the side of the bed due to her fatigue and weakness. Did encourage her to work with therapies. Did ask nursing staff to get patient up to the chair for lunch. Continue to work on weaning down oxygen. Remains on Rocephin and Azithromycin. Strep B positive blood culture. Will recheck Chest Xray today given ongoing hypoxia. Continue to monitor Accu-Cheks, patient is currently on home regimen of insulin Case discussed with attending, Dr Fernandes. 10/28/17 Continue Ceftriaxone for now as leukocytosis, bandemia are better. (Azithro completed) C/S reviewed- may need to change Ceftriaxone to Levaquin given sensitivities. Will repeat BC x 2 today to ensure that it has resolved with antibiotic therapy. Some anemia noted- likely dilutional +/- reactive. She is quite edematous- will resume Bumex and Aldactone per home regimen. (Consider echo?) BG is trending down- continue current. Some nausea- add IV pepcid. Add laxatives due to constipation- may be contributing to the nausea. Repeat labs in AM. PT/OT- will need DC planning. May need rehab or SNU on discharge. Plan- 10/29/17 Blood cultures re-draw yesterday. Continue on Rocephin. May consider Levaquin at time of discharge Continue for wound to evaluation and make recommendations regarding excoriations to inner thigh folder Leukocytosis resolved, renal function stable. Patient declined discharge plan to detention unit. Prefers to be discharged home.
[2017-10-29] MEDS: CEFTRIAXONE 1 G in NS 100 ML IV SCH (17:25)
--- NOTE | 2017-10-29 17:57 | Wound Care Progress Note ---
Wound Management - Patient Status Premedicated Prior to Dressing Change: No - Wound Right Upper Thigh Wound Type: red, warm, hard Wound Present on Admission?: Yes Length: 5 Width: 5 Talya Wound Appearance: Bright Red (Hard, bright red, warm to the touch area of the upper thigh. No open areas) Tunneling: No Undermining: No Drainage Amount: None Drainage Odor: No Odor Dressing Status: Dry & Intact Secondary Dressing: Medicated Gauze Pad (Recommendations for A&D to prevent chaffing) Dressing Change Date: 10/29/17 Dressing Change Time: 17:56 Dressing Change Patient Tolerance: Tolerated Well Microbiology: Microbiology 10/28/17 13:59 Peripheral/Iv Start Blood Culture - Preliminary No Growth After 1 Day 10/28/17 14:07 Peripheral/Iv Start Blood Culture - Preliminary No Growth After 1 Day
[2017-10-29] MEDS: INSULIN GLARGINE 100unit/ml INJECTION SQ SCH (20:54)
[2017-10-29] MEDS: DOCUSATE SODIUM 100 MG CAPSULE PO SCH (20:55)
[2017-10-29] MEDS: SALINE FLUSH 10ml SYRINGE IVF PRN (20:55)
[2017-10-30] MEDS: HYDROCODONE/APAP 7.5 MG/325 MG TABLET PO PRN ×2 (00:41→09:02)
[2017-10-30] MEDS: ACETAMINOPHEN 500 MG TABLET PO SCH ×4 (01:40→12:40)
[2017-10-30] MEDS: FAMOTIDINE PB 20 MG/50 ML BAG IV SCH ×2 (01:41→13:18)
[2017-10-30] MEDS: ALBUTEROL/IPRATROPIUM 2.5mg-0.5mg/3ml NEB AEROSOL SCH ×2 (07:28→11:46)
[2017-10-30 07:36] VITALS: RESP 16
[2017-10-30] MEDS: SPIRONOLACTONE 50 MG TABLET PO SCH (08:57)
[2017-10-30] MEDS: DOCUSATE SODIUM 100 MG CAPSULE PO SCH (08:58)
[2017-10-30] MEDS: DULOXETINE 60 MG CAPSULE PO SCH (08:58)
[2017-10-30] MEDS ORDERED: POLYETHYL GLYCOL 3350 17gm PACKET PO SCH ×2 (09:00)
[2017-10-30] MEDS: LISINOPRIL 5 MG TABLET PO SCH (09:02)
[2017-10-30] MEDS: BUMETANIDE 1 MG TABLET PO SCH (09:02)
[2017-10-30] MEDS: ENOXAPARIN 60 MG/0.6 ML INJECTION SQ SCH (09:03)
[2017-10-30] MEDS: INSULIN ASPART 100unit/ml INJECTION SQ SCH ×2 (09:03→12:40)
[2017-10-30] MEDS: GABAPENTIN 600 MG TABLET PO SCH (09:03)
[2017-10-30 12:38] VITALS: BP 150/69; PULSE 86; TEMP 96.8; O2SAT 92
--- NOTE | 2017-10-30 13:10 | Progress Note ---
- Date 10/30/17 Subjective: F/U: Sepsis with encephalopathy, E.Coli UTI, complicated, Respiratory failure with hypoxia Doing well this afternoon. Awake and alert, communicating well. No f/c. Breathing well-not SOA or congested. No pain with breathing. Eating well. No ab pain. Feels ready for discharge to home. Objective Vital signs: Temperature 96.8 F 10/30/17 12:00 Pulse Rate 86 10/30/17 12:00 Respiratory Rate 16 10/30/17 12:00 Blood Pressure 150/69 H 10/30/17 12:00 Pulse Oximetry 92 10/30/17 12:00 Rhythm: Normal Sinus Rhythm Height/Weight/BMI: Height 1.68 m Weight 159.2 kg Body Mass Index 56.6 - Constitutional Present: well nourished, well developed, morbidly obese, cooperative - Routine HEENT Exam Head: Present: normocephalic, atraumatic Eye: Present: EOMI, PERRL ENT: Present: mucous membranes moist - Routine Respiratory Exam Present: decreased breath sounds. Absent: rales, respiratory distress, rhonchi , wheezes, crackles - Routine Cardiovascular Exam Present: RRR, no murmur - Routine Abdominal Exam Present: soft, normoactive bowel sounds, non distended, non tender. Absent: guarding - Routine Extremities Exam Present: edema (+2 BLE ), pulses intact. Absent: cyanosis, clubbing - Routine Musculoskeletal Exam Musculoskeletal: Present: no clubbing or cyanosis, normal strength - Routine Neurological Exam Present: alert, oriented X3, CN II-XII intact, vision grossly intact, hearing grossly intact, normal speech. Absent: altered mental status - Routine Psychiatric Exam Present: normal affect, normal thought process, cooperative Results - Labs CBC & Chem 7: 10/30/17 04:12 10/30/17 04:11 Microbiology Results: Microbiology 10/28/17 13:59 Peripheral/Iv Start Blood Culture - Preliminary No Growth After 1 Day 10/28/17 14:07 Peripheral/Iv Start Blood Culture - Preliminary No Growth After 1 Day Assessment and Plan (1) Sepsis Current visit: Yes Status: Acute (2) Acute respiratory failure with hypoxemia Current visit: Yes Status: Acute (3) Elevated lactic acid level Current visit: Yes Status: Acute Assessment and Plan: Impression Sepsis with encephalopathy- Manifestations of sepsis include, leukocytosis, tachycardia, fever Respiratory failure with hypoxia E.Coli UTI, complicated Elevated venous lactate GBS bacteremia Diabetes Coronary artery disease Hypertension Dyslipidemia. Stage III CKD Sleep apnea. GERD Chronic back pain. Morbid obesity- BMI 54% Suspected diastolic HF. Plan Medically much improved. Encephalopathy completely resolved. White count normal. No temp elevation. Breathing well. Will discharge to home. Cephalexin 500mg po TID for 5 days (may start tomorrow). Wound team recommends A&D ointment to area of redness on right upper thigh to minimize chaffing. Continue with home support. Patient declining skilled care. F/U with Dr Heredia in 1 week for medical evaluation. Recheck right upper thigh wound. See orders for details. Time spent with patient care and discharge greater than 30 minutes. DVT Prophylaxis: Lovenox Resuscitation Status: Full Code - Physician Narrative Narrative: Date: 10/30/17 Time: 1306 Hospital Course Summary Disclaimer: The visit summary below is not to be considered part of the above Progress Note. Hospital Course: 10/25/17 Impression Sepsis with encephalopathy- Manifestations of sepsis include, leukocytosis, tachycardia, fever Respiratory failure with hypoxia Elevated venous lactate Questionable [id number]- Urine culture pending Diabetes Coronary artery disease Hypertension Dyslipidemia. Sleep apnea. GERD Chronic back pain. Morbid obesity- BMI 54% Plan Admit patient Inpatient status under the care of Dr Fernandes for sepsis, suspect pulmonary source with acute respiratory failure with hypoxia. Substance vertigo was initiated in the emergency room. Patient was given IV cefepime 1. We will continue with community-acquired pneumonia protocol, Rocephin and azithromycin. We will recheck serial lactate. Urine and blood cultures are pending. Patient does have a significant amount of encephalopathy at time of admission and she is unable to answer questions appropriately. It is unclear who her primary care provider is, Dr. Etta Heredia -vs- Dr. Rodriguez. At this point, patient is not safe to swallow given her encephalopathy. According to home med rec patient is on multiple chronic pain medications including extended release morphine twice a day, [place] for breakthrough pain as well as gabapentin and baclofen. Will monitor for evidence of withdrawal. It appears that patient is on chronic diuretics including Lasix 40mg daily , Bumex 1mg daily, and Aldactone 50mg NS at 100ml/hr. Ca cath placed to monitor urine output. Suspect she is intravascularly dry, however, will have to be careful to not fluid overload. Continue with oxygen therapy to maintain adequate saturations. Will add DuoNeb breathing treatments 4 times a day. Obtain viral respiratory panel. Monitor Accu-Cheks. It appears that patient is chronically on Lantus 17 units with at bedtime, and Humalog 20 units with meals. Monitor on cardiac telemetry Lovenox 60 mg daily for DVT prophylaxis At this point will keep patient a full code as her wishes are unclear given her encephalopathy. Further orders and plan of care discussed with attending, Dr Fernandes. Abdomen does appear firm and distended. May need to consider CT of Abdomen. It is unclear who is her PCP- Dr Heredia or Dr Rodriguez. 10/25/17 qSOFA score- 2/3 indicating high risk for poor outcome and increased mortality- on admission 10/26/17 - leukocytosis improving, 1 blood culture positive for Group B strep- sensitivity pending. Urine culture pending. Encephalopathy, improving. Consult speech, PT, OT. Continue Rocephin for sepsis with UTI (E. coli). CT abd/pelvis ordered and still pending. With Na up, DC NS. DM is uncontrolled. Will add sliding scale insulin. 10/27/16- Encephalopathy appears to be resolved. Patient verbalizes frustration with being hospitalized and requests to be discharged home. We discussed in detail. Concern for self-care as patient is unable to sit at the side of the bed due to her fatigue and weakness. Did encourage her to work with therapies. Did ask nursing staff to get patient up to the chair for lunch. Continue to work on weaning down oxygen. Remains on Rocephin and Azithromycin. Strep B positive blood culture. Will recheck Chest Xray today given ongoing hypoxia. Continue to monitor Accu-Cheks, patient is currently on home regimen of insulin. 10/28/17 Continue Ceftriaxone for now as leukocytosis, bandemia are better. (Kaylie completed) C/S reviewed- may need to change Ceftriaxone to Levaquin given sensitivities. Will repeat BC x 2 today to ensure that it has resolved with antibiotic therapy. Some anemia noted- likely dilutional +/- reactive. She is quite edematous- will resume Bumex and Aldactone per home regimen. BG is trending down- continue current. Some nausea- add IV pepcid. Add laxatives due to constipation- may be contributing to the nausea. Repeat labs in AM. PT/OT- will need DC planning. May need rehab or SNU on discharge. 10/29/17 Blood cultures re-draw yesterday. Continue on Rocephin for urinary coverage. Consult for wound to evaluation and make recommendations regarding excoriations to inner thigh. Leukocytosis resolved, renal function stable. Patient declined discharge plan to retirement unit. Prefers to be discharged home. 10/30/17 Medically much improved. Encephalopathy completely resolved. White count normal. No temp elevation. Breathing well. Will discharge to home. Medically stable. Cephalexin 500mg po TID for 5 days (may start tomorrow). Wound team recommends A&D ointment to area of redness on right upper thigh to minimize chaffing. Continue with home support. Patient declining skilled care. F/U with Dr Heredia in 1 week for medical evaluation. Recheck right upper thigh wound. See orders for details.
--- NOTE | 2017-10-30 13:32 | Discharge Summary ---
Discharge Information Date of admission: 10/25/17 14:50 Anticipated date of discharge: 10/30/17 Attending Physician: Jass Sy MD Primary care physician: Etta Heredia DO Consults: [facility] Consult [CONS] Routine Reason for consultation: bilateral upper thigh sores PT/OT - Discharge Diagnosis (1) Sepsis Status: Acute (2) Acute respiratory failure with hypoxemia Status: Acute (3) Elevated lactic acid level Status: Acute Discharge diagnosis Sepsis with encephalopathy - Manifestations of sepsis include, leukocytosis, tachycardia, fever; resolved Associated conditions and complications Respiratory failure with hypoxia E.Coli UTI, complicated Elevated venous lactate GBS bacteremia Diabetes Coronary artery disease Hypertension Dyslipidemia. Stage III CKD Sleep apnea. GERD Chronic back pain. Morbid obesity- BMI 54% Suspected diastolic HF. - Laboratory Labs: Admit Lab 10/25/17 12:48 WBC 28.2 H* Hgb 11.2 L Hct 36.0 MCV 96.3 Plt Count 202 Neutrophils % (Manual) 90.0 H Band Neutrophils % 6.0 Lymphocytes % (Manual) 2.0 L Monocytes % (Manual) 2.0 Admit Lab 10/25/17 12:48 Sodium 145 H Potassium 4.3 Chloride 103 Carbon Dioxide 30 Anion Gap 12 BUN 31.0 H Creatinine 1.4 H GFR Calculation 38 BUN/Creatinine Ratio 22 Glucose 336 H Calcium 9.4 Total Bilirubin 0.50 AST 21 ALT 24 Alkaline Phosphatase 110 Troponin I 0.118 Total Protein 7.6 Albumin 4.3 Globulin 3.3 Albumin/Globulin Ratio 1.3 Lipase 31 Plasma Lactate 3.0 H 10/30/17 04:12 10/30/17 04:11 - Microbiology Microbiology 10/28/17 13:59 Peripheral/Iv Start Blood Culture - Preliminary No Growth After 1 Day 10/28/17 14:07 Peripheral/Iv Start Blood Culture - Preliminary No Growth After 1 Day 10/25/17: Urine culture with Ecoli - Radiology Radiology: Date of Exam: 10/25/17 PROCEDURE: XR chest 1V Findings: Lungs are hypoinflated. There is hazy airspace opacity in both lung bases. No obvious pleural effusion. No pneumothorax. Heart size and mediastinal contours are stable. Mild bronchovascular crowding due to the hypoinflation. Impression: Hypoinflation with basilar airspace opacities could be due to atelectasis or pneumonia. Date of Exam: 10/26/17 PROCEDURE: CT abdomen pelvis w con Findings: Motion artifact. Exam is limited due to attenuation artifact from patient body habitus. Laparoscopic gastric banding device noted. Liver is grossly normal in appearance. Spleen shows a large 2.5 cm probable cyst. The pancreas is atrophic and fatty replaced. The right adrenal gland and kidneys show no obvious mass. Possible myelolipoma of the left adrenal. No abdominal or pelvic lymphadenopathy. Subcutaneous edema, most concentrated in the right inguinal area. Ca catheter in the bladder. No evidence of a bowel obstruction. Portions of the left anterior abdomen are excluded from the field of view. Impression: Very limited exam without obvious acute disease. Subcutaneous edema , greatest in the right inguinal region. Date of Exam: 10/27/17 PROCEDURE: XR chest 1V Findings: Aeration of the lower lobes has improved. No new infiltrates. No pleural effusion or pneumothorax. Cardiac silhouette remains mildly enlarged. The mediastinal contours and pulmonary vascularity are stable. Impression: Improving aeration of the lungs without focal pneumonia or overt congestive failure. History of Present Illness HPI: Meryl is a 67 yr old female who is known to the hospitalist services from previous admissions. Today she was brought to the emergency room by EMS for acute evaluation. It was reported. Patient has had nausea and vomiting since 2 a.m. EMS reported to ER staff that patient initially reported back pain with chest pain. On arrival, she was found to have a temperature of 100.2, tachycardic at 118, room air saturation 77%, and to 25 breaths per minute. Blood pressure was 150/93. Patient was placed on oxygen and has required 6 liters of oxygen by nasal cannula. Further workup was performed. Significant elevated white blood cell count at 28.2, 90% neutrophils, 6% bands. Sodium is slightly elevated at 145, creatinine 1.4, BUN 31. Glucose is elevated at 336. Troponin was 0.018. Twelve-lead EKG reveals sinus tachycardia with a rate of 112 and presence of right bundle branch block. Plasma lactate 3.0. Patient was given IV fluids, blood cultures were obtained, and she was started on IV Rocephin for antimicrobial coverage. A urinalysis does report revealed 2+ protein, 2+ glucose, 2+ blood, positive nitrates, trace leukocytes with 50-200 WBCs and 4+ bacteria. Chest x-ray reveals hypoinflation with basilar airspace opacities unclear atelectases versus pneumonia. Given these above findings, patient does meet criteria for sepsis. Hospital services were contacted and accepted patient for inpatient admission. She is seen on initial examination, while still in the emergency room. She does open her eyes briefly and mumbles however is unable to give specific answers to questions. ER physician does report she seems to have encephalopathy as she is unable to tell location or information regarding present illness. For complete details of the H&P refer to that document. Objective Vital signs: Temperature 96.8 F 10/30/17 12:00 Pulse Rate 86 10/30/17 12:00 Respiratory Rate 16 10/30/17 12:00 Blood Pressure 150/69 H 10/30/17 12:00 Pulse Oximetry 92 10/30/17 12:00 Rhythm: Normal Sinus Rhythm Height/Weight/BMI: Height 1.68 m Weight 159.2 kg Body Mass Index 56.6 Hospital Course This is a general summary of the patient's hospital course. For more details refer to the complete medical record. Hospital course: 10/25/17 Impression Sepsis with encephalopathy- Manifestations of sepsis include, leukocytosis, tachycardia, fever Respiratory failure with hypoxia Elevated venous lactate Questionable [id number]- Urine culture pending Diabetes Coronary artery disease Hypertension Dyslipidemia. Sleep apnea. GERD Chronic back pain. Morbid obesity- BMI 54% Plan Admit patient Inpatient status under the care of Dr Fernandes for sepsis, suspect pulmonary source with acute respiratory failure with hypoxia. Substance vertigo was initiated in the emergency room. Patient was given IV cefepime 1. We will continue with community-acquired pneumonia protocol, Rocephin and azithromycin. We will recheck serial lactate. Urine and blood cultures are pending. Patient does have a significant amount of encephalopathy at time of admission and she is unable to answer questions appropriately. It is unclear who her primary care provider is, Dr. Etta Heredia -vs- Dr. Rodriguez. At this point, patient is not safe to swallow given her encephalopathy. According to home med rec patient is on multiple chronic pain medications including extended release morphine twice a day, [place] for breakthrough pain as well as gabapentin and baclofen. Will monitor for evidence of withdrawal. It appears that patient is on chronic diuretics including Lasix 40mg daily , Bumex 1mg daily, and Aldactone 50mg NS at 100ml/hr. Ca cath placed to monitor urine output. Suspect she is intravascularly dry, however, will have to be careful to not fluid overload. Continue with oxygen therapy to maintain adequate saturations. Will add DuoNeb breathing treatments 4 times a day. Obtain viral respiratory panel. Monitor Accu-Cheks. It appears that patient is chronically on Lantus 17 units with at bedtime, and Humalog 20 units with meals. Monitor on cardiac telemetry Lovenox 60 mg daily for DVT prophylaxis At this point will keep patient a full code as her wishes are unclear given her encephalopathy. Further orders and plan of care discussed with attending, Dr Fernandes. Abdomen does appear firm and distended. May need to consider CT of Abdomen. It is unclear who is her PCP- Dr Heredia or Dr Rodriguez. 10/25/17 qSOFA score- 2/3 indicating high risk for poor outcome and increased mortality- on admission 10/26/17 - leukocytosis improving, 1 blood culture positive for Group B strep- sensitivity pending. Urine culture pending. Encephalopathy, improving. Consult speech, PT, OT. Continue Rocephin for sepsis with UTI (E. coli). CT abd/pelvis ordered and still pending. With Na up, DC NS. DM is uncontrolled. Will add sliding scale insulin. 10/27/16- Encephalopathy appears to be resolved. Patient verbalizes frustration with being hospitalized and requests to be discharged home. We discussed in detail. Concern for self-care as patient is unable to sit at the side of the bed due to her fatigue and weakness. Did encourage her to work with therapies. Did ask nursing staff to get patient up to the chair for lunch. Continue to work on weaning down oxygen. Remains on Rocephin and Azithromycin. Strep B positive blood culture. Will recheck Chest Xray today given ongoing hypoxia. Continue to monitor Accu-Cheks, patient is currently on home regimen of insulin. 10/28/17 Continue Ceftriaxone for now as leukocytosis, bandemia are better. (Zeenatro completed) C/S reviewed- may need to change Ceftriaxone to Levaquin given sensitivities. Will repeat BC x 2 today to ensure that it has resolved with antibiotic therapy. Some anemia noted- likely dilutional +/- reactive. She is quite edematous- will resume Bumex and Aldactone per home regimen. BG is trending down- continue current. Some nausea- add IV pepcid. Add laxatives due to constipation- may be contributing to the nausea. Repeat labs in AM. PT/OT- will need DC planning. May need rehab or SNU on discharge. 10/29/17 Blood cultures re-draw yesterday. Continue on Rocephin for urinary coverage. Consult for wound to evaluation and make recommendations regarding excoriations to inner thigh. Leukocytosis resolved, renal function stable. Patient declined discharge plan to snf unit. Prefers to be discharged home. 10/30/17 Medically much improved. Encephalopathy completely resolved. White count normal. No temp elevation. Breathing well. Will discharge to home. Medically stable. Cephalexin 500mg po TID for 5 days (may start tomorrow). Wound team recommends A&D ointment to area of redness on right upper thigh to minimize chaffing. Continue with home support. Patient declining skilled care. F/U with Dr Heredia in 1 week for medical evaluation. Recheck right upper thigh wound. See orders for details. Time spent with patient: discharge greater than 30 minutes DVT Prophylaxis: Lovenox Discharge Plan - Discharge Disposition Discharge Date: 10/30/17 Disposition: [facility] Service *Condition: Stable Reason For Visit (Visit label in EMR): sepsis - Discharge Medications *Discharge Medications: New cephALEXin [Cephalexin] 500 mg PO TID #15 tab Lisinopril [Prinivil] 5 mg PO DAILY #30 tab Continue Ferrous Sulfate 325 mg PO TID Gabapentin [Neurontin] 600 mg PO TID Hydrocodone/APAP 7.5/325 [[place] 7.5/325] 1 tab PO Q6H PRN PRN Reason: Pain Bumetanide Tab [Bumex Tab] 1 mg PO DAILY Cyanocobalamin (Vitamin B-12) [Vitamin B-12] 2,500 mcg SL DAILY Ascorbic Acid [Vitamin C] 1,000 mg PO DAILY Baclofen [Lioresal] 10 mg PO TID PRN PRN Reason: Muscle Pain Calcium Carb/Mag Ox/Zinc Gluc [Ojkoeyu-Mqywtawyw-Ulnu Tablet] 1 each PO BID Spironolactone [Aldactone] 50 mg PO DAILY Nystatin Cream [Mycostatin] 1 applicatio TOP PRN Senna + Docusate [Senna Plus Tablet] 1 tab PO HS Docusate Sodium [Colace] 100 mg PO BID Duloxetine HCl [Cymbalta] 120 mg PO DAILY #0 Morphine Sulfate [Morphabond ER] 15 mg PO BID PRN PRN Reason: Pain Nystatin [Nystop] 1 applicatio TOP BID PRN PRN Reason: Prn Orders Insulin Lispro [HumaLOG] 20 unit SQ TIDWM Insulin Glargine [Lantus] 17 unit SQ HS Discontinued Trazodone [Desyrel] 50 mg PO HS Carisoprodol [Carisoprodol] 250 mg PO QID Duloxetine [Cymbalta] 120 mg PO DAILY Potassium Chloride 40 meq PO DAILY Furosemide [Lasix] 40 mg PO DAILY - Discharge Packet/Instructions *Diet: 2000 KCAL ADA low sodium *Activity: As tolerated *Pain Management/Treatment: Continue prior pain medications *Wound Care: A&D ointment to area of redness on right upper thigh to minimize chaffing. *Expected Signs/Symptoms: Improvement of strenght and functional status. *Notify Physician if: Temp >100.4. Increase difficulty breathing. *During Business Hours Contact: Dr Heredia *After Business Hours Contact: Call [facility] and have Dr Heredia or her covering provider contacted. *Pending Lab/Results: No Pending Lab - Referrals/Follow Up *Referrals/Follow Up: Etta Heredia DO [Family Provider] - 11/06/17 1:10 pm (Hospital follow up for Sepsis seconary to Ecoli UTI. Check BMP at visit as lisinopril started. Check right upper thigh. APPOINTMENT ON 11/06 AT 1:10 CHECK IN FOR 1:20. ) - Patient Handouts Patient Handouts: Sepsis (GEN) - Dismissal Complete Discharge Instructions are:: Complete Physician Narrative - Narrative Physician: Jass Sy MD Attestation Narrative: Date: 10/30/17 Time: 1329 I have independently interviewed and examined patient prior to discharge. See my progress note from today for details. Medically stable for discharge to home.
[2017-10-30] MEDS ORDERED: CEFTRIAXONE 1 G in NS 100 ML IV SCH (13:45)
== END 2017-10-30 15:10 | disposition home health service (06) | DRG 871 ==
LOC: ED 11:49 → SUATTDRO 14:50 → CCU 14:50 → MED 15:21
PROVIDERS: ADMIT Hospitalist; ATTEND Hospitalist